=== PATIENT | male | born 1985 | race Caucasian/White ===

== ENCOUNTER 2022-05-05 00:40 | Emergency (ER) | payer MEDICAID ==
[~2022-05-05] VITALS: Ht 170.2 cm; Wt 93.9 kg
--- NOTE | 2022-05-05 00:40 | NUR ---
PT MANJEET ALS. TAKEN TO BED 12
[2022-05-05 00:43] VITALS: BP 113/78
--- NOTE | 2022-05-05 00:45 | NUR ---
Dr. Young examining patient.
[2022-05-05 01:29] LABS: BASOPHILS % (AUTO) 0.5 % (0.0-2.0); EOSINOPHILS % (AUTO) 0.4 % (0.0-4.0); HEMOGLOBIN 12.9 g/dL (12.0-18.0); LYMPHOCYTES # (AUTO) 1.1 K/uL (2.0-11.5); LYMPHOCYTES % (AUTO) 11.9 % (20.5-51.1); MEAN CORPUSCULAR HEMOGLOBIN 29 pg (27-31); MEAN CORPUSCULAR HGB CONC 33 g/dL (33-37); MEAN CORPUSCULAR VOLUME 87.8 fL (80-94); MONOCYTES # (AUTO) 1.2 K/uL (0.8-1.0); MONOCYTES % (AUTO) 13.7 % (1.7-9.3); NEUTROPHILS # (AUTO) 6.7 K/uL (1.8-7.7); NEUTROPHILS % (AUTO) 73.5 % (42.2-75.2); PLATELET COUNT (AUTO) 230 K/uL (140-450); RED BLOOD CELL COUNT(AUTO) 4.44 MIL/uL (4.20-6.10); RED CELL DISTRIBUTION WIDTH 14.4 % (11.6-13.7); WHITE BLOOD COUNT (AUTO) 9.1 K/uL (4.8-10.8)
--- NOTE | 2022-05-05 01:30 | NUR ---
ASSUME CARE OF PT AT THIS TIME, REPORT GIVEN BY GISELE RN, PT CAME FROM SNF FOR SEIZURE LIKE ACTIVTY, WHEN EMS ARRIVED NO SEIZURE OBSERVED, PTPLACED ON CARDIAC MOINTOR AND SEIZURE PADS PLACED.
--- NOTE | 2022-05-05 01:35 | NUR ---
PT HAS HX- CEREBRAL PALSY, HYDROCEPHALUS, PT HAS G-TUBE AND CONTRACTURES OF LEFT ARM AND BILATERAL LEGS.
[2022-05-05 02:01] LABS: ANION GAP 11.1 (8-16); CREATININE 0.9 mg/dL (0.6-1.3); POTASSIUM 4.1 mmol/L (3.5-5.1)
[2022-05-05] MEDS: NACL 0.9% 1,000 ML IV ONE (03:34)
--- NOTE | 2022-05-05 03:35 | NUR ---
NO SEIZURE ACTIVITY NOTED, WILL CONITNUE TO MONITOR, SEIZURE PADS IN PLACE.
--- NOTE | 2022-05-05 04:30 | NUR ---
PT REFUSED STRAIGHT CATH FOR U/A. DR MILIAN NOTIFIED AND AT BEDSIDE, OKAY NOT TO COLLECT UA, PT DIAPER SOILED AND LINEN CHANGED, APPLIED NEW DIAPER AND WIPED DRY. PT WAS ATTEMPTING TO GRABTECH AND RN WHEN BEING CHANGED. PT STATED HE WAS NOT WET AND DID NOT WANT TO BE CHANGED.
--- NOTE | 2022-05-05 05:00 | NUR ---
SPOKE TO MATTI CALDERON FROM [facility] REGARDING PT BEING DISCHARGED, MATTI ADVISED TRANSPORT IS NOT AVAILABLE UNTIL AFTER 6AM. [phone]
--- NOTE | 2022-05-05 06:30 | NUR ---
COVERED PT WITH WARM BLANKET, PT RESTING AND WAITING FOR TRANSPORT.
--- NOTE | 2022-05-05 07:45 | NUR ---
CAREGIVER AT BEDSIDE FOR DC HOME. PT ASSISTED INTO WC SAFELY. DC INSTRUCTIONS GIVEN TO CAREGIVER AT BEDSIDE VERBALIZES DC INSTRUCTIONS. NAD. STABLE ON DC
[2022-05-05 08:11] VITALS: BP 111/67
== END 2022-05-05 07:45 | disposition home or self-care (01) ==
LOC: MED 00:40
DX: G40.509 Epileptic seizures related to external causes, not intractable, without status epilepticus (principal); K21.9 Gastro-esophageal reflux disease without esophagitis; Z98.2 Presence of cerebrospinal fluid drainage device
CPT/HCPCS: 36415; 80048; 85025; 96360; 99285; J7030

== ENCOUNTER 2022-05-09 21:21 | Emergency (ER) | payer MEDICAID ==
[~2022-05-09] VITALS: Ht 172.7 cm; Wt 72.6 kg
[2022-05-09 21:22] VITALS: BP 120/77
--- NOTE | 2022-05-09 21:24 | NUR ---
PT MANJEET BLS. TAKEN TO BED 8
--- NOTE | 2022-05-09 22:00 | NUR ---
MATTI STERN DEICER FINISHER CONTACT [phone]
--- NOTE | 2022-05-09 22:30 | NUR ---
37 Y/O MALE BIBA FROM [facility] C/O CLOGGED G TUBE XTODAY. PT A/O X2- PERSON AND PLACE. BASELINE FOR PT. PATIENT PLACED ON MONITOR. BED LOW AND LOCKED. ALL NEEDS MET. PATIENT ON 2L/MIN NC- BASELINE SAT 97%. PMH:EPILEPSY, CP, OBSTRUCTIVE HYDROCEPHALUS, SPASTICITY, HEMIPLEGIA, INTRAVENTRICULAR HEMORRHAGE OF , GLAUCOMA, ENLARGED PROSTATE, OSTEOPOROSIS, GERD, G TUBE NKDA
--- NOTE | 2022-05-09 22:50 | NUR ---
RAD AT BEDSIDE
--- NOTE | 2022-05-10 00:05 | NUR ---
PT TAKEN TO CT
--- NOTE | 2022-05-10 00:15 | NUR ---
PT RETURN FROM CT
--- NOTE | 2022-05-10 01:25 | NUR ---
CHANGED AND REPOSITIONED PATIENT. TOLERATED WELL. GT PATENT AND INTACT. SIDE RAILS UP NEENA FOR SAFETY WITH SEIZURE PRECAUTIONS. ALL NEEDS MET.
[2022-05-10 01:29] LABS: BASOPHILS % (AUTO) 0.5 % (0.0-2.0); EOSINOPHILS % (AUTO) 0.8 % (0.0-4.0); HEMATOCRIT 38.6 % (36-52); HEMOGLOBIN 12.9 g/dL (12.0-18.0); LYMPHOCYTES % (AUTO) 32.5 % (20.5-51.1); MEAN CORPUSCULAR HEMOGLOBIN 29 pg (27-31); MEAN CORPUSCULAR HGB CONC 33 g/dL (33-37); MEAN CORPUSCULAR VOLUME 88.3 fL (80-94); MONOCYTES # (AUTO) 0.8 K/uL (0.8-1.0); MONOCYTES % (AUTO) 13.1 % (1.7-9.3); NEUTROPHILS # (AUTO) 3.3 K/uL (1.8-7.7); NEUTROPHILS % (AUTO) 53.1 % (42.2-75.2); PLATELET COUNT (AUTO) 202 K/uL (140-450); RED BLOOD CELL COUNT(AUTO) 4.37 MIL/uL (4.20-6.10); RED CELL DISTRIBUTION WIDTH 14.4 % (11.6-13.7); WHITE BLOOD COUNT (AUTO) 6.3 K/uL (4.8-10.8)
[2022-05-10 01:56] LABS: PROTHROMBIN TIME 9.9 secs (10.8-13.4)
[2022-05-10 02:02] LABS: ALBUMIN 2.6 g/dL (3.4-5.0); ANION GAP 10.1 (8-16); POTASSIUM 4.1 mmol/L (3.5-5.1); TOTAL BILIRUBIN 0.2 mg/dL (0.0-1.0)
--- NOTE | 2022-05-10 04:05 | NUR ---
Dr. Young examining patient.
--- NOTE | 2022-05-10 04:30 | NUR ---
ATTEMPTED TO CONTACT MATTI Belcher TO ARRANGE TRANSPORTATION WITH NO SUCCESS.
--- NOTE | 2022-05-10 06:00 | NUR ---
CHANGED AND REPOSITIONED PATIENT. TOLERATED WELL. GT PATENT AND INTACT. SIDE RAILS UP NEENA FOR SAFETY WITH SEIZURE PRECAUTIONS. ALL NEEDS MET.
--- NOTE | 2022-05-10 06:18 | NUR ---
SPOKE TO MATTI HERNANDEZ, TO UPDATE ON PATIENT STATUS AND THEY STATED THAT THEIR DRIVERS START AT 7A AND TRANSPORTATION WILL BE ARRANGED BY HER AT THAT TIME.
--- NOTE | 2022-05-10 07:15 | NUR ---
REPORT GIVEN TO KERRY FIGUEROA. TRANSFER OF CARE.
--- NOTE | 2022-05-10 07:17 | NUR ---
Report recieved from KERRY Roberto for transfer of care.
--- NOTE | 2022-05-10 07:49 | NUR ---
Spoke to Alessia Lyles atlassian administrator, she states drivers clocked in at 0730 and will be there shortly. Patient is the first to be picked up today.
[2022-05-10 07:51] VITALS: BP 95/54
--- NOTE | 2022-05-10 08:27 | NUR ---
Caregiver at bedside
--- NOTE | 2022-05-10 08:29 | NUR ---
Patient assisted from gurney onto patient wheelchair by 2-person lift assisted by caregiver. Caregiver secured pt onto wheelchair via seatbelts/straps.
--- NOTE | 2022-05-10 08:30 | NUR ---
Patient discharged with v/s stable. Written and verbal after care instructions given and explained. Patient verbalized understanding. Wheel Chair Assisted with by caregiver. All questions addressed prior to discharge. Advised to follow up with PMD.
== END 2022-05-10 08:30 | disposition home or self-care (01) ==
LOC: MED 21:21
DX: K94.23 Gastrostomy malfunction (principal)
CPT/HCPCS: 36415; 80053; 85025; 85610; 85730; 86886; 86900; 86901; 99285

== ENCOUNTER 2022-05-23 11:14 | Emergency (ER) | payer MEDICAID ==
[~2022-05-23] VITALS: Ht 170.2 cm; Wt 93.9 kg
[2022-05-23 11:24] VITALS: BP 120/70
--- NOTE | 2022-05-23 11:43 | NUR ---
Dr. Ortiz evaluating patient at bedside.
[2022-05-23] MEDS ORDERED: IBUPROFEN 600 MG TAB PO ONE (11:50)
--- NOTE | 2022-05-23 12:40 | NUR ---
[facility]
--- NOTE | 2022-05-23 12:52 | NUR ---
PATIENT RETURNED FROM CT
--- NOTE | 2022-05-23 13:20 | NUR ---
LAB AT BEDSIDE.
[2022-05-23 13:46] LABS: BASOPHILS # (AUTO) 0.2 K/uL (0.00-0.22); BASOPHILS % (AUTO) 1.2 % (0.0-2.0); EOSINOPHILS # (AUTO) 0.2 K/uL (0-0.4); EOSINOPHILS % (AUTO) 1.2 % (0.0-4.0); HEMATOCRIT 37.4 % (36-52); HEMOGLOBIN 12.2 g/dL (12.0-18.0); LYMPHOCYTES # (AUTO) 2.9 K/uL (2.0-11.5); LYMPHOCYTES % (AUTO) 22.2 % (20.5-51.1); MEAN CORPUSCULAR HEMOGLOBIN 29 pg (27-31); MEAN CORPUSCULAR HGB CONC 33 g/dL (33-37); MEAN CORPUSCULAR VOLUME 88.3 fL (80-94); MONOCYTES # (AUTO) 2.2 K/uL (0.8-1.0); MONOCYTES % (AUTO) 16.9 % (1.7-9.3); NEUTROPHILS # (AUTO) 7.7 K/uL (1.8-7.7); NEUTROPHILS % (AUTO) 58.5 % (42.2-75.2); PLATELET COUNT (AUTO) 135 K/uL (140-450); RED BLOOD CELL COUNT(AUTO) 4.24 MIL/uL (4.20-6.10); RED CELL DISTRIBUTION WIDTH 14.9 % (11.6-13.7); WHITE BLOOD COUNT (AUTO) 13.2 K/uL (4.8-10.8)
[2022-05-23] MEDS ORDERED: ACET-10509 PO (14:02)
[2022-05-23] MEDS ORDERED: ONDA-188 PO (14:02)
[2022-05-23 14:03] LABS: ALBUMIN 2.5 g/dL (3.4-5.0); ANION GAP 11.1 (8-16); CARBON DIOXIDE 30.7 mmol/L (21-32); CREATININE 0.7 mg/dL (0.6-1.3); POTASSIUM 3.8 mmol/L (3.5-5.1); TOTAL BILIRUBIN 0.4 mg/dL (0.0-1.0)
--- NOTE | 2022-05-23 14:42 | NUR ---
Patient is sitting up on bed, respirations even and unlabored. No signs of distress noted.
--- NOTE | 2022-05-23 16:56 | NUR ---
DRAGLINE OILER IS FROM 7:30PM -8:30 PM.
--- NOTE | 2022-05-23 19:18 | NUR ---
Report given to KERRY Roberto for transfer of care.
--- NOTE | 2022-05-23 19:24 | NUR ---
[facility] AT [facility]
[2022-05-23 19:31] VITALS: BP 103/61
--- NOTE | 2022-05-23 19:31 | NUR ---
Patient discharged with v/s stable. Written and verbal after care instructions given ABD PAIN and explained. Patient alert, oriented and verbalized understanding of instructions. Ambulance Transport with to half-way. All questions addressed prior to discharge. ID band removed. Patient advised to follow up with PMD. Rx of TYLENOL AND ZOFRAN given.
== END 2022-05-23 19:31 | disposition home or self-care (01) ==
LOC: MED 11:14
DX: R10.9 Unspecified abdominal pain (principal); G40.909 Epilepsy, unspecified, not intractable, without status epilepticus; H54.7 Unspecified visual loss; Z98.890 Other specified postprocedural states
CPT/HCPCS: 36415; 80053; 85025; 99284

== ENCOUNTER 2022-05-28 00:31 | Inpatient (IN) | payer MEDICAID ==
[~2022-05-28] VITALS: Ht 160 cm; Wt 65.4 kg
[~2022-05-28 00:31] MED LIST: ACET-10509 PO; ONDA-188 PO
--- NOTE | 2022-05-28 00:31 | NUR ---
PT BIBA ALS ER BED 9
[2022-05-28] MEDS ORDERED: LORazepam 2 MG/ML VIAL IVP ONE ×2 (00:35→01:00)
[2022-05-28] MEDS ORDERED: levETIRAcetam 1,000 MG in NACL 0.9% 100 ML IV ONE (00:35)
[2022-05-28] MEDS ORDERED: PHENYTOIN 1,000 MG in NACL 0.9% 100 ML IV ONE (00:35)
--- NOTE | 2022-05-28 00:35 | NUR ---
PT BIBA FOR WITNESSED SEIZURE AT [facility], STAFF STATED PT HAVING 7 SEIZURES THAT LASTED A TOTAL OF 20 MINS, EMS STATED PT WAS POSITICAL WHEN THEY ARRIVED AND GAVE 10 MG VERSED IM. PT PLACED ON 15L NON REBREATHER BY EMS FOR LOW O2 SAT. PT PLACED ON FAMILY LAW LEGAL ASSISTANT AND SEIZURE PADS PLACED. PT HX- SZ, CEREBRAL PALSY.
--- NOTE | 2022-05-28 00:40 | NUR ---
RT AT BEDSIDE EVALUATING PT.
[2022-05-28] MEDS ORDERED: PHENYTOIN 250 MG/5 ML VIAL IV ONE (00:48)
[2022-05-28] MEDS ORDERED: levETIRAcetam 100 MG/ML VIAL IV ONE (00:51)
[2022-05-28 00:59] LABS: BASOPHILS % (AUTO) 0.4 % (0.0-2.0); EOSINOPHILS # (AUTO) 0.1 K/uL (0-0.4); HEMOGLOBIN 12.3 g/dL (12.0-18.0); LYMPHOCYTES # (AUTO) 1.4 K/uL (2.0-11.5)
[2022-05-28 01:20] VITALS: BP 95/53
[2022-05-28 01:34] LABS: EOSINOPHILS % (AUTO) 0.5 % (0.0-4.0); HEMATOCRIT 38.2 % (36-52); LYMPHOCYTES % (AUTO) 12.3 % (20.5-51.1); MEAN CORPUSCULAR HEMOGLOBIN 29 pg (27-31); MEAN CORPUSCULAR HGB CONC 32 g/dL (33-37); MEAN CORPUSCULAR VOLUME 88.7 fL (80-94); MONOCYTES # (AUTO) 1.2 K/uL (0.8-1.0); MONOCYTES % (AUTO) 10.7 % (1.7-9.3); NEUTROPHILS # (AUTO) 8.6 K/uL (1.8-7.7); NEUTROPHILS % (AUTO) 76.1 % (42.2-75.2); PLATELET COUNT (AUTO) 201 K/uL (140-450); RED CELL DISTRIBUTION WIDTH 14.7 % (11.6-13.7); WHITE BLOOD COUNT (AUTO) 11.3 K/uL (4.8-10.8)
[2022-05-28 01:49] LABS: ALBUMIN 2.6 g/dL (3.4-5.0); ANION GAP 16.8 (8-16); ASPARTATE AMINOTRANSFERASE 17 U/L (15-37); CARBON DIOXIDE 25.1 mmol/L (21-32); CHLORIDE 104 mmol/L (98-107); GFR ARICAN-AMERICAN 107 mL/min (>90); GLUCOSE 123 mg/dL (74-106); POTASSIUM 3.9 mmol/L (3.5-5.1); SODIUM SERUM 142 mmol/L (136-145); TOTAL BILIRUBIN 0.2 mg/dL (0.0-1.0); UREA NITROGEN, BLOOD 24 mg/dL (7-18); VALPROIC ACID 95 ug/ml (50-100)
--- NOTE | 2022-05-28 01:59 | NUR ---
Dr. Harding examining patient.
[2022-05-28] MEDS ORDERED: cefTRIAXone 2,000 MG in DEXTROSE 5% 100 ML IV ONE (02:15)
[2022-05-28] MEDS ORDERED: AZITHROMYCIN 500 MG in DEXTROSE 5% 250 ML IV ONE (02:15)
--- NOTE | 2022-05-28 02:30 | NUR ---
PT DIAPER CHANGED, SLIGHT BM, CLEANED PT WITH WIPES AND APPLIED NEW DIAPER. LINEN CHANGED, SKIN INTACT.
[2022-05-28] MEDS ORDERED: TRAZ-343 PO (02:31)
[2022-05-28] MEDS ORDERED: BISA-218 RC (02:31)
[2022-05-28] MEDS ORDERED: OSC500 GT (02:31)
[2022-05-28] MEDS ORDERED: VALP-22 GT (02:31)
[2022-05-28] MEDS ORDERED: BACL10TA4 GT (02:31)
[2022-05-28] MEDS ORDERED: OMEG10005 GT (02:31)
[2022-05-28] MEDS ORDERED: LACO200T GT (02:45)
[2022-05-28] MEDS ORDERED: KEP500L PO (02:45)
[2022-05-28] MEDS ORDERED: FLEMIN RC (02:45)
[2022-05-28] MEDS ORDERED: ONDA-188 PO (02:45)
[2022-05-28] MEDS ORDERED: MENT1LOZ43 TP (02:45)
[2022-05-28] MEDS ORDERED: ROB GT (02:45)
[2022-05-28] MEDS ORDERED: [UNRECOGNIZED DRUG - CODE] GT (02:45)
[2022-05-28] MEDS ORDERED: Albuterol HFA IH (02:45)
[2022-05-28] MEDS ORDERED: cefTRIAXone 2,000 MG VIAL ONE (03:41)
[2022-05-28] MEDS ORDERED: AZITHROMYCIN 500 MG INJ VIAL IV ONE (03:52)
--- NOTE | 2022-05-28 04:00 | NUR ---
PLACED CONDOM CATH FOR URINE
--- NOTE | 2022-05-28 04:39 | NUR ---
NO SEIZURE ACTIVITY OBSERVED SINCE PT HAS BEEN HERE. PT CONTINUE ON CARDAIC MONITOR, PT WAITNG FOR ADMIT ORDERS.
--- NOTE | 2022-05-28 05:00 | NUR ---
NOTIFIED REGARDING LOW BP.
[2022-05-28] MEDS ORDERED: NACL 0.9% 1,000 ML IV ONE ×3 (05:20→06:35)
[2022-05-28] MEDS ORDERED: NACL 0.9% 500 ML IV ONE (06:45)
--- NOTE | 2022-05-28 07:11 | NUR ---
SPOKE TO MATTI JURADO FROM [facility], PT DOES NOT HAVE POA, SHE HAS BEEN TRYING TO REACH SISTER SINCE PT WAS ADMITTED TO HER FACILITY. DR ESPARZA AWARE.
--- NOTE | 2022-05-28 07:12 | NUR ---
REPORT GIVEN TO MIKE PAYNE.
--- NOTE | 2022-05-28 07:13 | NUR ---
REPORT RECEIVED FROM JAIRO ROSAS. ASSUMED CARE AT THIS TIME
[2022-05-28] MEDS ORDERED: NOREPINEPHRINE 4 MG in DEXTROSE 5% 250 ML IV ONE (07:20)
--- NOTE | 2022-05-28 07:39 | NUR ---
AT BEDSIDE FOR CENTRAL LINE PLACEMENT
--- NOTE | 2022-05-28 08:38 | NUR ---
CALL RECEIVED FROM DELIVERY TRUCK DRIVER AT [facility] - PATRICIA OLIVARES . PATRICIA UPDATED ON PT STATUS AND ICU ADMISSION
[2022-05-28] MEDS ORDERED: ONDANSETRON 4 MG/2 ML VIAL IM/IVP PRN (09:20)
[2022-05-28] MEDS ORDERED: ALBUTEROL SULFATE/IPRATROPIU 3 ML SOL IH PRN (09:20)
[2022-05-28] MEDS ORDERED: KETOROLAC 15 MG/ML VIAL IVP SCH (09:20)
[2022-05-28] MEDS ORDERED: ACETAMINOPHEN 325 MG TAB PO PRN (09:20)
[2022-05-28] MEDS ORDERED: DOCUSATE SODIUM 100 MG GELCAP PO PRN (09:20)
[2022-05-28] MEDS ORDERED: POTASSIUM CHLORIDE 10 MEQ TABER PO PRN (09:20)
[2022-05-28] MEDS ORDERED: ZOLPIDEM 5 MG TAB PO PRN (09:20)
[2022-05-28] MEDS ORDERED: guaiFENesin DM 200/20 MG-10 ML 10 ML UDC PO PRN (09:20)
[2022-05-28] MEDS ORDERED: HYDROcodone/APAP 7.5/325 MG 1 TAB PO PRN (09:20)
--- NOTE | 2022-05-28 09:48 | NUR ---
RT AT BEDSIDE
[2022-05-28] MEDS: DEXT 5% /NACL 0.9% 1,000 ML IV SCH ×2 (09:58→20:40)
--- NOTE | 2022-05-28 10:05 | NUR ---
LAB AT BEDSIDE
[2022-05-28 10:42] LABS: APPEARANCE,URINE CLEAR (CLEAR); BILIRUBIN,URINE NEGATIVE (NEGATIVE); BLOOD, URINE 3+ (NEGATIVE); COLOR,URINE YELLOW (YELLOW); LEUKOCYTE ESTERASE ,URINE 1+ (NEGATIVE); NITRITE, URINE NEGATIVE (NEGATIVE); UGLUCOSE NEGATIVE (NEGATIVE)
[2022-05-28 10:45] LABS: PROTHROMBIN TIME 10.4 secs (10.8-13.4)
[2022-05-28 10:59] LABS: OTHER CASTS, URINE None Seen /LPF (None Seen); RBC,URINE 11-20 (MOD) /HPF (0-5); WBC,URINE 0-5 /HPF (0-5)
[2022-05-28 11:02] LABS: AMYLASE 72 U/L (25-115); CHOL/HDL RATIO 3.8 (1-4.5); FREE T4 (FREE THYROXINE) 0.98 ng/dL (0.76-1.46); HDL CHOLESTEROL 33 mg/dL (40-60); LDL (CALC) 70 mg/dL (60-100); LIPASE 79 U/L (73-393); MAGNESIUM 1.9 mg/dL (1.8-2.4); THYROID STIMULATING HORMONE 1.45 uIU/mL (0.34-3.74); TRIGLYCERIDES 115 mg/dL (30-150)
[2022-05-28 11:07] LABS: BARBITURATE, URINE NEGATIVE ng/ml (NEG <=200); BENZODIAZEPINE, URINE NEGATIVE ng/mL (NEG <=200); CANNABINOID, URINE NEGATIVE ng/mL (NEG <=50); COCAINE, URINE NEGATIVE ng/mL (NEG <=300); OPIATE, URINE NEGATIVE ng/mL (NEG <=2000); PHENCYCLIDINE SCREEN,URINE NEGATIVE ng/mL (NEG <=25)
--- NOTE | 2022-05-28 11:38 | NUR ---
Julissa kumar in ED - 05/28/22 at 1440 by MEDPMR per md morley, discontinue levophed order and downgrade to levophed
--- NOTE | 2022-05-28 11:38 | NUR ---
per md morley, discontinue levophed order and downgrade to telemetry
[2022-05-28] MEDS: ALBUTEROL SULFATE/IPRATROPIU 3 ML SOL IH SCH ×2 (13:00→19:00)
[2022-05-28] MEDS ORDERED: VALPROATE SODIUM 500 MG/5 ML VIAL IV ONE (13:10)
[2022-05-28] MEDS ORDERED: DOCUSATE 100 MG/10 ML UDC GT PRN (13:20)
--- NOTE | 2022-05-28 13:25 | NUR ---
pharmacy called for pt med
[2022-05-28] MEDS: levETIRAcetam 100 MG/ML ORASYR GT SCH ×2 (13:46→23:45)
[2022-05-28] MEDS: VALPROIC ACID 250 MG/5 ML UDC GT SCH ×2 (13:47→17:49)
--- NOTE | 2022-05-28 14:41 | NUR ---
PATRICIA OLIVARES CALLED AND UPDATED ON PT STATUS/ DOWNGRADE
--- NOTE | 2022-05-28 17:20 | NUR ---
pt changed into clean gown and linens. repositioned and provided w/ warm blanket.
[2022-05-28] MEDS ORDERED: ACETAMINOPHEN 650 MG/20.3 ML UDC GT PRN (17:40)
[2022-05-28] MEDS ORDERED: ACETAMINOPHEN 650 MG/20.3 ML UDC ONE (17:43)
--- NOTE | 2022-05-28 18:20 | NUR ---
gtube placement confirmed and feeding started.
--- NOTE | 2022-05-28 19:12 | NUR ---
REPORT GIVEN TO JAIRO ROSAS. ALL QUESTIONS ANSWERED. TRANSFER OF CARE AT THIS TIME
--- NOTE | 2022-05-28 19:59 | NUR ---
Patient will be admitted to care of MARLEY YEBOAH. Admited to TELE. Will go to room 107A. Belongings list completed. Report to ROSALINDA ROSAS.
--- NOTE | 2022-05-28 20:40 | NUR ---
RECEIVED NEW ADMIT AND REPORT FROM INTELLIGENCE INTERN . PT ARRIVED ON MST UNIT VIA PADDED GURNEY. IV FLUIDS D5NS@100CC/HR. G TUBE FEEDING GLUCERNA1.2 @40CC/HR. VSS: BP-90/59, P-70, RR18, T-97.0, W9VGU=89% ON RM AIR. PT TRANSFERRED FROM [facility] TO BED WITH 4 ASSIST. PT A&OX1 TO NAME. PT HAS HX OF CEREBRAL PALSY. HE IS BED BOUND AND INCONTINENT OF BOWEL AND BLADDER. ALL SAFETY MEASURES IN PLACE. SIGNS POSTED. SIDE RAILS PADDED. BED IN LOW AND LOCKED POSITION CALL LIGHT WITHIN REACH. WILL CONTINUE WITH FREQ VISUAL CHECKS.
--- NOTE | 2022-05-28 22:00 | NUR ---
INCONTINENT OF URINE SOAKED DIAPER AND 2 CHUCKS. SKIN CARE PROVIDED. CONDOM CATHETER APPLIED FOR URINE SPECIMEN COLLECTION. R HAND IV 20 G GOT PULLED OUT WITH PT'S MOVEMENT. IVF D5NS@100CC/HR INFUSING INTO BLUE PORT OF R FEMORAL CENTRAL LINE TRIPLE LUMEN CATHETER. REPOSITIONED PT. ALL SAFETY MEASURES IN PLACE. CALL LIGHT WITHIN REACH. WILL CONTINUE WITH FREQ VISUAL CHECKS.
--- NOTE | 2022-05-28 23:30 | NUR ---
CONDOM CATHETER EFFECTIVE DRAINING 750CC CLEAR YELLOW URINE. URINE SPECIMEN OBTAINED CLEAN CATCH FROM CONDOM CATHETER. UNABLE TO COLLECT SPUTUM SPECIMEN. PT IS NOT COUGHING. WILL CONTINUE WITH FREQ ROUNDS DUE TO PT'S HISTORY OF SEIZURES. ALL PRECAUTIONS IN PLACE.
--- NOTE | 2022-05-28 23:30 | NUR ---
GI RESIDUAL ONLY 10CC. MEDS: TRAZADONE AND KEPPRA GIVEN THROUGH G-TUBE. ROCEPHIN IVPB INFUSED VIA BLUE PORT OF CENTRAL LINE. ;
[2022-05-28] MEDS ORDERED: cefTRIAXone 1,000 MG VIAL ONE (23:39)
[2022-05-28] MEDS: traZODone 50 MG TAB PO SCH (23:45)
[2022-05-29] MEDS: LORazepam 2 MG/ML VIAL IVP PRN ×2 (01:35→18:44)
--- NOTE | 2022-05-29 01:35 | NUR ---
PT HAD A SEIZURE LASTING 30 SECONDS EYES ROLLED BACK IN HEAD AND PT WAS SHAKING. ATIVAN 2MG IVP GIVEN. PT QUIETED DOWN RR EVEN AND UNLABORED WITH EQUAL CHEST RISE. SLEEPING AFTER 10 MINUTES. NAD. CONTINUE WITH FREQ VISUAL CHECKS.
[2022-05-29 02:44] LABS: APPEARANCE,URINE CLEAR (CLEAR); BILIRUBIN,URINE NEGATIVE (NEGATIVE); BLOOD, URINE NEGATIVE (NEGATIVE); COLOR,URINE YELLOW (YELLOW); LEUKOCYTE ESTERASE ,URINE NEGATIVE (NEGATIVE); NITRITE, URINE NEGATIVE (NEGATIVE); PH,URINE 7.5 (5.0-9.0); UGLUCOSE NEGATIVE (NEGATIVE)
--- NOTE | 2022-05-29 04:00 | NUR ---
BP LOW R ARM 86/54, L ARM 87/51., P-50, RR-16, T-97.5, E1XAM=31% ON 3L O2/NC. SENT DR. ROACH A TEXT EXPLAINING THE SITUATION. WHILE AWAITING HIS RESPONSE RETOOK VITAL SIGNS@ 0415: BP- 116/71, T-96.7, P-79,, RR-16,H5KNQ=03% ON O2 3L/NC. STILL NO RESPONSE AT 0500. RETOOK VITAL SIGNS AGAIN. BP-112/72,P-62, RR-18, T-96.7, W8HFR=00% ON O2 3L/NC..
[2022-05-29 04:15] VITALS: BP 116/71
[2022-05-29] MEDS: DEXT 5% /NACL 0.9% 1,000 ML IV SCH ×3 (05:20→19:34)
--- NOTE | 2022-05-29 05:55 | NUR ---
CHARGE NURSE DARWIN GUILLEN RN SENT DR. ROACH AN UPDATE. DR. ROACH RESPONDED BACK WITH ADDITIONAL ORDERS IF BP IS LOW AGAIN. SEE ADDITIONAL ORDERS.
[2022-05-29 06:54] LABS: ANION GAP 7.1 (8-16); CARBON DIOXIDE 30.7 mmol/L (21-32); CREATININE 0.7 mg/dL (0.6-1.3); POTASSIUM 3.8 mmol/L (3.5-5.1)
[2022-05-29 07:02] LABS: BASOPHILS % (AUTO) 0.3 % (0.0-2.0); EOSINOPHILS # (AUTO) 0.1 K/uL (0-0.4); EOSINOPHILS % (AUTO) 1.6 % (0.0-4.0); HEMATOCRIT 37.3 % (36-52); HEMOGLOBIN 12.2 g/dL (12.0-18.0); LYMPHOCYTES # (AUTO) 1.8 K/uL (2.0-11.5); LYMPHOCYTES % (AUTO) 36.7 % (20.5-51.1); MEAN CORPUSCULAR HEMOGLOBIN 29 pg (27-31); MEAN CORPUSCULAR HGB CONC 33 g/dL (33-37); MEAN CORPUSCULAR VOLUME 88.3 fL (80-94); MONOCYTES # (AUTO) 0.6 K/uL (0.8-1.0); NEUTROPHILS # (AUTO) 2.5 K/uL (1.8-7.7); NEUTROPHILS % (AUTO) 49.4 % (42.2-75.2); PLATELET COUNT (AUTO) 266 K/uL (140-450); RED BLOOD CELL COUNT(AUTO) 4.22 MIL/uL (4.20-6.10); RED CELL DISTRIBUTION WIDTH 15.1 % (11.6-13.7)
[2022-05-29] MEDS: ALBUTEROL SULFATE/IPRATROPIU 3 ML SOL IH SCH ×3 (07:36→19:00)
--- NOTE | 2022-05-29 07:50 | NUR ---
ENDORSED REPORT TO MYRIAM DELARSOA RN FOR CONTINUITY OF CARE. PT IS STABLE. ALL NEEDS MET THROUGHOUT THE SHIFT.
[2022-05-29 08:07] LABS: T4 (THYROXINE) 7.5 ug/dL (4.5-12.0)
[2022-05-29 08:58] VITALS: BP 107/74
--- NOTE | 2022-05-29 09:30 | NUR ---
PATIENT HAS BEEN SCREENED AND CATEGORIZED HIGH NUTRITION RISK. PATIENT WILL BE SEEN WITHIN 1-2 DAYS OF ADMISSION. 05/28/22-05/30/[address]
[2022-05-29] MEDS: VALPROIC ACID 250 MG/5 ML UDC GT SCH ×3 (10:00→17:16)
[2022-05-29] MEDS: PANTOPRAZOLE 40 MG TABEC PO SCH (10:00)
[2022-05-29] MEDS: levETIRAcetam 100 MG/ML ORASYR GT SCH ×2 (10:00→21:35)
[2022-05-29 12:00] VITALS: BP 109/70
--- NOTE | 2022-05-29 15:40 | NUR ---
05/29/2022 RD INITIAL ASSESSMENT COMPLETED. PLEASE REFER TO NUTRITION ASSESSMENT UNDER CARE ACTIVITY FOR ESTIMATED NUTRITIONAL NEEDS. 1.CONTINUE WITH REGULAR DIET AND GLUCERNA 1.2 @ 40ML/HR; FWF 40ML Q12H PT TOLERATES 2.MONITOR PO INTAKE AND FOR GASTRIC RESIDUAL 3.RD TO FOLLOW-UP IN 3-5 DAYS PATIENT IS MODERATE RISK. JOSH MARQUES RD
[2022-05-29 16:00] VITALS: BP 111/64
--- NOTE | 2022-05-29 18:49 | NUR ---
Patient had a 5 min seizure and witnessed bu this Nurse. Administered Ativan and patient's seizure started slowing down. Called and notified Dr Rivera who asked for Dr Hughes to be called. Patient currently resting and no more seizure activity. Dr Hughes notified and awaiting call back.
--- NOTE | 2022-05-29 19:30 | NUR ---
RECEIVED REPORT FROM AM NURSE MYRIAM RN FOR CONTINUITY OF CARE. REPORTED PT HAD A SEIZURE LASTING [address] ROACH INFORMED AND DR BIANCHI NEUROLOGY TEXTED FOR FURTHER ORDERS. SO FAR DR. BIANCHI HAS NOT RESPONDED. PT IS STABLE IN BED SLEEPING. RR EVEN AND UNLABORED WITH SYMMETRICAL CHEST RISE. ON O2 3L/NC WITH NO ACUTE DISTRESS. GI INTACT RECEIVING GLUCERNA 1.2@40CC/HR NO RESIDUAL. PT'S SKIN IS INTACT. R FEMORAL TRIPLE LUMEN CENTRAL LINE WITH BLUE PORT INFUSING D5NS@100CC/HR. PT IS BED BOUND AND INCONTINENT OF BOWEL AND BLADDER. ALL SAFETY MEASURES IN PLACE. BED IN LOW AND LOCKED POSITION. CALL LIGHT WITHIN REACH. WILL CONTINUE WITH FREQ VISUAL CHECKS.
[2022-05-29 20:00] VITALS: BP 91/52
--- NOTE | 2022-05-29 21:00 | NUR ---
DR. BIANCHI HAS NOT RESPONDED. PT IS STABLE NO SEIZURES. RESTING COMFORTABLY. HS MEDS GIVEN VIA IV AND G-TUBE. TURNED AND REPOSITIONED. VSS AFEBRILE. RR EVEN AND UNLABORED O2 ON @3L/NC. NAD. CONTINUE FREQ VISUAL CHECKS.
[2022-05-29] MEDS: traZODone 50 MG TAB PO SCH (21:36)
[2022-05-30] VITALS: BP 91/52
--- NOTE | 2022-05-30 01:00 | NUR ---
PT AWAKE C/O INSOMNIA. RECEIVED AMBIEN 5MG VIA GT. REPOSITIONED NO G-TUBE RESIDUAL.
[2022-05-30 04:00] VITALS: BP 113/64
[2022-05-30] MEDS: DEXT 5% /NACL 0.9% 1,000 ML IV SCH ×2 (06:17→20:39)
--- NOTE | 2022-05-30 07:30 | NUR ---
ENDORSED REPORT TO AM NURSE MYRIAM ROSAS FOR CONTINUITY OF CARE. PT IS STABLE. ALL NEEDS MET THROUGHOUT THE SHIFT.
[2022-05-30 08:00] VITALS: BP 119/62
[2022-05-30] MEDS: PANTOPRAZOLE 40 MG TABEC PO SCH (08:15)
[2022-05-30 08:16] LABS: ANION GAP 12.3 (8-16); CARBON DIOXIDE 28.7 mmol/L (21-32); CREATININE 0.8 mg/dL (0.6-1.3)
[2022-05-30] MEDS: levETIRAcetam 100 MG/ML ORASYR GT SCH ×2 (08:16→20:35)
[2022-05-30] MEDS: VALPROIC ACID 250 MG/5 ML UDC GT SCH ×3 (08:16→18:14)
[2022-05-30] MEDS: ALBUTEROL SULFATE/IPRATROPIU 3 ML SOL IH SCH ×3 (08:20→19:00)
[2022-05-30 08:28] LABS: BASOPHILS % (AUTO) 0.3 % (0.0-2.0); EOSINOPHILS # (AUTO) 0.1 K/uL (0-0.4); EOSINOPHILS % (AUTO) 1.1 % (0.0-4.0); HEMATOCRIT 37.7 % (36-52); HEMOGLOBIN 12.5 g/dL (12.0-18.0); LYMPHOCYTES # (AUTO) 1.6 K/uL (2.0-11.5); LYMPHOCYTES % (AUTO) 23.3 % (20.5-51.1); MEAN CORPUSCULAR HEMOGLOBIN 29 pg (27-31); MEAN CORPUSCULAR HGB CONC 33 g/dL (33-37); MEAN CORPUSCULAR VOLUME 87.4 fL (80-94); MONOCYTES # (AUTO) 0.7 K/uL (0.8-1.0); MONOCYTES % (AUTO) 10.4 % (1.7-9.3); NEUTROPHILS # (AUTO) 4.5 K/uL (1.8-7.7); NEUTROPHILS % (AUTO) 64.9 % (42.2-75.2); PLATELET COUNT (AUTO) 306 K/uL (140-450); RED BLOOD CELL COUNT(AUTO) 4.32 MIL/uL (4.20-6.10); WHITE BLOOD COUNT (AUTO) 6.9 K/uL (4.8-10.8)
[2022-05-30 12:00] VITALS: BP 111/73
--- NOTE | 2022-05-30 14:11 | NUR ---
LATE ENTRY- IV LEVETIRACETAM AND ROCEPHIN DISCONTINUED AT 1958.
[2022-05-30 16:00] VITALS: BP 121/67
--- NOTE | 2022-05-30 18:14 | NUR ---
Notified Dr Hughes on patient's seizure from previous day and verbalized to see patient on 05/31/22. No seizure activity noted during shift.
--- NOTE | 2022-05-30 19:25 | NUR ---
RECEIVED PT FROM AM NURSE FOR CONTINUITY OF CARE.PT IS STABLE
[2022-05-30 20:00] VITALS: BP 104/64
[2022-05-30] MEDS: traZODone 50 MG TAB PO SCH (20:37)
[2022-05-31] VITALS: BP 101/66
--- NOTE | 2022-05-31 | NUR ---
CLEANED AND REPOSITIONED THE PT,TOLERATED WELL ,NO SOB NOTED
[2022-05-31 04:00] VITALS: BP 105/62
[2022-05-31 06:41] LABS: ANION GAP 12.7 (8-16); CREATININE 0.7 mg/dL (0.6-1.3); POTASSIUM 3.7 mmol/L (3.5-5.1)
[2022-05-31 06:48] LABS: BASOPHILS % (AUTO) 0.2 % (0.0-2.0); EOSINOPHILS # (AUTO) 0.1 K/uL (0-0.4); EOSINOPHILS % (AUTO) 1.5 % (0.0-4.0); HEMOGLOBIN 12.4 g/dL (12.0-18.0); LYMPHOCYTES % (AUTO) 29.4 % (20.5-51.1); MEAN CORPUSCULAR HEMOGLOBIN 29 pg (27-31); MEAN CORPUSCULAR HGB CONC 34 g/dL (33-37); MEAN CORPUSCULAR VOLUME 87.1 fL (80-94); MONOCYTES # (AUTO) 0.8 K/uL (0.8-1.0); NEUTROPHILS % (AUTO) 56.9 % (42.2-75.2); PLATELET COUNT (AUTO) 278 K/uL (140-450); RED BLOOD CELL COUNT(AUTO) 4.24 MIL/uL (4.20-6.10); RED CELL DISTRIBUTION WIDTH 15.2 % (11.6-13.7); WHITE BLOOD COUNT (AUTO) 6.9 K/uL (4.8-10.8)
[2022-05-31] MEDS: ALBUTEROL SULFATE/IPRATROPIU 3 ML SOL IH SCH ×3 (07:00→20:53)
[2022-05-31] MEDS: DEXT 5% /NACL 0.9% 1,000 ML IV SCH ×2 (07:20→14:31)
--- NOTE | 2022-05-31 07:20 | NUR ---
ENDORSED PT TO AM NURSE FOR CONTINUITY OF CARE.PT IS STABLE
[2022-05-31 08:00] VITALS: BP 99/74
[2022-05-31] MEDS: VALPROIC ACID 250 MG/5 ML UDC GT SCH ×3 (08:21→17:17)
[2022-05-31] MEDS: levETIRAcetam 100 MG/ML ORASYR GT SCH ×2 (08:22→20:50)
[2022-05-31] MEDS: PANTOPRAZOLE 40 MG TABEC PO SCH (08:22)
[2022-05-31 12:00] VITALS: BP 94/57
--- NOTE | 2022-05-31 13:56 | NUR ---
PT. WITH LOW ROSEANNE SCALE AT MODERATE TO HIGH RISK, CONTINUE TO FOLLOW PRESSURE INJURY PREVENTION INTERVENTIONS. -POSITIONING: TURN AND REPOSITION PATIENT Q 2H OR SOONER USE PILLOWS TO KEEP BONY PROMINENCES FROM DIRECT CONTACT WITH SURFACES USE REPOSITIONING WEDGES TO PROVIDE 30-DEGREE ANGLE FOR SIDE LYING POSITIONS OFFLOADING OR FOAM DRESSING TO ALL TUBING TO PREVENT MEDICAL DEVICES RELATED PRESSURE INJURY -RE-EVALUATING AND MANAGING INCONTINENCE MONITOR SKIN CONDITION DURING POSITION CHANGE DO NOT MASSAGE REDNESS, BONY PROMINENCES FREQUENT ROSANNA-CARE AND PROVIDE BARRIER CREAMS PRN IF SOILING MOISTURE CONTROL BY OFFER BED DELCID/URINAL /ABSORBENT PAD TO WICK AND HOLD MOISTURE KEEP SKIN DRY AND PROTECT FROM FRICTION -MANAGE FRICTION/SHEAR/MOBILITY KEEP HOB AT THE LOWEST LEVEL OF ELEVATION NO MORE THAN 30 DEGREE UNLESS OTHERWISE CONTRAINDICATED USE LIFT SHEET OR TRANSFER DEVICE TO MOVE PATIENT AND PREVENT LATERAL SHEER. PROTECT HEELS, ELBOWS BONY PROMINENCES WITH SKIN BERRIES OR FOAM DRESSING IF EXPOSED TO FRICTION OFFLOAD BILATERAL HEELS BY PLACING PILLOWS UNDER CALVES AT ALL TIMES, UNLESS OTHERWISE CONTRAINDICATED -PRESSURE REDISTRIBUTION SURFACE THERAPY JASPER ISOFLEX MATTRESS -NUTRITION: PLEASE FOLLOW RD RECOMMENDATIONS AND OFFER NUTRITION SUPPLEMENTS IF ORDERED. PLEASE CONTACT WOUND CARE NURSE FOR ANY QUESTION AND CHANGE OF WOUND CONDITION.
--- NOTE | 2022-05-31 14:29 | NUR ---
DC PLANNING SW OUTREACHED TO FACILITY TO GATHER COLLATERAL INFORMATION. SPOKE WITH FRED,MOTOR AND CHASSIS INSPECTOR, WHO REPORTS PATIENT IS RECENT ADMISSION TO FACILITY OF 04/27/22. FRED REPORTS NO KNOWN FAMILY INVOLVEMENT HOWEVER, REPORTS PATIENT IS [facility] CONNECTED, [facility] ASHLY ROSALINDA RADHA [phone].FRED REPORTS THAT PATIENT IS TOTAL CARE/FULL ASSIST AND REQUIRES ASSISTANCE WITH ALL ADL'S. PATIENT UTILIZES WC AT FACILITY. PATIENT IS REPORTED TO BE MINIMALLY VERBAL AND HAS ABILITY TO MAKE NEEDS KNOWN. FRED REPORTS THAT PATIENT FREQUENTLY WILL ASK FOR FOOD HOWEVER, RECENTLY HAD A SWALLOW EVAL. THAT HE FAILED. FRED, REPORTS DC PLAN IS FOR PATIENT TO RETURN TO [facility], ONCE MEDICALLY STABLE.
[2022-05-31 16:00] VITALS: BP 107/60
--- NOTE | 2022-05-31 17:39 | NUR ---
PT NOTED TO HAVE SEIZURE AT 1718 THAT LASTED APPROXIMATELY 90 SECONDS. PT BREATHING INTACT POST SIEZURE, NO INJURY NOTED VITAL SIGNS 117/75 HR 91 O2 SAT 95% ON 3L NC TEMP 97.7, MD DAVID MADE AWARE AND NO NEW ORDERS AT THIS TIME PT RESTING WILL CONTINUE TO MONITOR AND ASSESS
--- NOTE | 2022-05-31 19:25 | NUR ---
RECEIVED PT FROM AM NURSE FOR CONTINUITY OF CARE.PT IS STABLE
[2022-05-31 20:00] VITALS: BP 107/60
[2022-05-31] MEDS: traZODone 50 MG TAB PO SCH (20:52)
[2022-06-01] VITALS: BP 101/62
--- NOTE | 2022-06-01 01:40 | NUR ---
PATIENT ASLEEP, NO DISTRESS NOTED
[2022-06-01] MEDS: DEXT 5% /NACL 0.9% 1,000 ML IV SCH ×3 (03:50→23:30)
[2022-06-01 04:00] VITALS: BP 115/71
--- NOTE | 2022-06-01 05:00 | NUR ---
REPLACED PICC LINE DRESSING, TOLERATED WELL.
[2022-06-01 06:43] LABS: ANION GAP 16.7 (8-16); CARBON DIOXIDE 25.9 mmol/L (21-32); CREATININE 0.8 mg/dL (0.6-1.3); POTASSIUM 3.6 mmol/L (3.5-5.1)
[2022-06-01 06:44] LABS: BASOPHILS % (AUTO) 0.3 % (0.0-2.0); EOSINOPHILS # (AUTO) 0.1 K/uL (0-0.4); EOSINOPHILS % (AUTO) 0.6 % (0.0-4.0); HEMATOCRIT 39.3 % (36-52); HEMOGLOBIN 13.1 g/dL (12.0-18.0); LYMPHOCYTES # (AUTO) 2.9 K/uL (2.0-11.5); LYMPHOCYTES % (AUTO) 31.9 % (20.5-51.1); MEAN CORPUSCULAR HEMOGLOBIN 29 pg (27-31); MEAN CORPUSCULAR HGB CONC 33 g/dL (33-37); MEAN CORPUSCULAR VOLUME 87.8 fL (80-94); MONOCYTES # (AUTO) 0.9 K/uL (0.8-1.0); MONOCYTES % (AUTO) 9.8 % (1.7-9.3); NEUTROPHILS # (AUTO) 5.3 K/uL (1.8-7.7); NEUTROPHILS % (AUTO) 57.4 % (42.2-75.2); PLATELET COUNT (AUTO) 304 K/uL (140-450); RED BLOOD CELL COUNT(AUTO) 4.48 MIL/uL (4.20-6.10); RED CELL DISTRIBUTION WIDTH 14.8 % (11.6-13.7); WHITE BLOOD COUNT (AUTO) 9.2 K/uL (4.8-10.8)
[2022-06-01] MEDS: ALBUTEROL SULFATE/IPRATROPIU 3 ML SOL IH SCH ×2 (07:00→19:43)
--- NOTE | 2022-06-01 07:15 | NUR ---
RECEIVED PT FROM NIGHT RN, PT IS ON O2 3L NC, ON SEIZURE PRECAUTION, BED ALARM ACTIVATED, PT HAS A RIGHT FEMORAL PICC LINE TRIPLE LUMEN, PT CAN RESPOND WHEN ASKED, , NO SIGN OF DISTRESS NOTED. WILL CONTINUE TO MONITOR PT.
--- NOTE | 2022-06-01 08:21 | NUR ---
DR. DAVID AND THE MEDICAL STUDENTS CAME TO THE PT'S ROOM M AND SPOKE TO PT AND PT REPLIED, TOLD PT THAT SHE PLANS OF SENDING THE PT BACK TO [facility].
[2022-06-01] MEDS: PANTOPRAZOLE 40 MG TABEC PO SCH (08:23)
[2022-06-01] MEDS: VALPROIC ACID 250 MG/5 ML UDC GT SCH ×3 (08:23→17:18)
[2022-06-01] MEDS: levETIRAcetam 100 MG/ML ORASYR GT SCH ×2 (08:23→21:40)
--- NOTE | 2022-06-01 08:23 | NUR ---
PT WAS GIVEN THE SCHEDULED AM MEDICATIONS VIA G-TUBE, G-TUBE WAS FLUSHED PRIOR AND IS PATENT,
--- NOTE | 2022-06-01 08:45 | NUR ---
PT HAD A TWO SECONDS SEIZURE OCCURRENCE NOW.
--- NOTE | 2022-06-01 10:06 | NUR ---
PT HAS ANOTHER 6 SECONDS SEIZURE EPISODE NOW.
[2022-06-01 10:07] VITALS: BP 120/69
[2022-06-01] MEDS: LORazepam 2 MG/ML VIAL IVP PRN ×2 (10:08→17:54)
--- NOTE | 2022-06-01 11:20 | NUR ---
DR. VILLEAD WAS INFORMED THAT PT'S BP IS 82/43 AND MADE A TELEPHONE ORDER TO GIVE PT A BOLUS OF 1000ML NS.
[2022-06-01] MEDS ORDERED: NACL 0.9% 1,000 ML IV SCH (11:30)
--- NOTE | 2022-06-01 11:30 | NUR ---
PT WAS GIVEN 1L NS BOLUS NOW, FOR BP OF 82/41.
[2022-06-01 12:00] VITALS: BP 109/55
--- NOTE | 2022-06-01 17:18 | NUR ---
PT WAS GIVEN THE SCHEDULED MEDCIATION VIA PEG TUBE, NO RESIDUAL NOTED, NO SEIZURE EPISODE AT THIS TIME, PT IS RESTING.
--- NOTE | 2022-06-01 17:52 | NUR ---
P;T HAD A 2 SECONDS EPISODE OF SEIZURE NOW.
[2022-06-01 17:54] VITALS: BP 125/73
--- NOTE | 2022-06-01 17:54 | NUR ---
PT WAS GIVEWN ATIVAN IVP FOR THE EPISODE OF SEIZURE.
--- NOTE | 2022-06-01 19:26 | NUR ---
ENDORSED PT TO NIGHT RN FOR CONTINUITY OF CARE, PT IS STABLE AT THIS TIME.
[2022-06-01] MEDS: diazePAM 5 MG TAB PO SCH (21:41)
[2022-06-01] MEDS: traZODone 50 MG TAB PO SCH (21:42)
[2022-06-01 23:23] VITALS: BP 129/79
[2022-06-02] MEDS: ALBUTEROL SULFATE/IPRATROPIU 3 ML SOL IH SCH ×3 (06:50→20:16)
[2022-06-02 07:04] VITALS: BP 129/78
[2022-06-02 07:08] LABS: BASOPHILS % (AUTO) 0.1 % (0.0-2.0); EOSINOPHILS % (AUTO) 0.5 % (0.0-4.0); HEMATOCRIT 36.9 % (36-52); HEMOGLOBIN 12.3 g/dL (12.0-18.0); LYMPHOCYTES # (AUTO) 1.9 K/uL (2.0-11.5); LYMPHOCYTES % (AUTO) 28.8 % (20.5-51.1); MEAN CORPUSCULAR HEMOGLOBIN 29 pg (27-31); MEAN CORPUSCULAR HGB CONC 33 g/dL (33-37); MEAN CORPUSCULAR VOLUME 86.8 fL (80-94); MONOCYTES # (AUTO) 0.7 K/uL (0.8-1.0); MONOCYTES % (AUTO) 10.1 % (1.7-9.3); NEUTROPHILS % (AUTO) 60.5 % (42.2-75.2); PLATELET COUNT (AUTO) 241 K/uL (140-450); RED BLOOD CELL COUNT(AUTO) 4.25 MIL/uL (4.20-6.10); RED CELL DISTRIBUTION WIDTH 14.7 % (11.6-13.7); WHITE BLOOD COUNT (AUTO) 6.5 K/uL (4.8-10.8)
[2022-06-02 07:41] LABS: ANION GAP 10.9 (8-16); CARBON DIOXIDE 29.4 mmol/L (21-32); CREATININE 0.6 mg/dL (0.6-1.3); POTASSIUM 3.3 mmol/L (3.5-5.1)
[2022-06-02] MEDS: diazePAM 5 MG TAB PO SCH ×2 (08:24→21:38)
[2022-06-02] MEDS: PANTOPRAZOLE 40 MG TABEC PO SCH (08:24)
[2022-06-02] MEDS: levETIRAcetam 100 MG/ML ORASYR GT SCH ×2 (08:25→21:37)
[2022-06-02] MEDS: VALPROIC ACID 250 MG/5 ML UDC GT SCH ×3 (08:25→18:25)
[2022-06-02] MEDS: DEXT 5% /NACL 0.9% 1,000 ML IV SCH ×2 (08:37→21:37)
[2022-06-02 12:00] VITALS: BP 105/63
[2022-06-02] MEDS ORDERED: POTASSIUM CHLORIDE 20% 40 MEQ/15 ML UDC GT PRN (12:05)
--- NOTE | 2022-06-02 15:08 | NUR ---
06/02/22 RD FOLLOW UP COMPLETED PLEASE REFER TO NUTRITION ASSESSMENT UNDER CARE ACTIVITY FOR ESTIMATED NUTRITIONAL NEEDS. 1. CONTINUE WITH PUREE DIET WITH HEALTHSHAKES TID TOLERATED -RECOMMEND SWALLOW EVAL BEFORE ADVANCING DIET 2. MONITOR PO INTAKE AND NUTRITION-RELATED LABS 3. RD TO FOLLOW-UP IN 3-5 DAYS PATIENT IS MODERATE RISK. RAULITO MARROQUIN RD
[2022-06-02 16:00] VITALS: BP 100/66
--- NOTE | 2022-06-02 19:51 | NUR ---
GET THE REPORT FROM MORNING NURSE, PATIENT IS LYING ON BED, PATIENT IS APHASIC, PATIENT IS RECEIVING OXYGEN 2 LITER VIA NASAL CANNULA, ALL FALL AND SEIZURE PRECAUTION ARE IN PLACE, CALL LIGHT IS WITHIN THE REACH, WILL CONTINUE TO MONITOR PATIENT.
[2022-06-02 20:00] VITALS: BP 123/72
[2022-06-02] MEDS: traZODone 50 MG TAB PO SCH (21:38)
--- NOTE | 2022-06-02 23:30 | NUR ---
FEMORAL CENTRAL CATHETER DRESSING ATTACHED IMPROPERLY WITH BIOPATCH UPSIDE DOWN. DRESSING CHANGED WITH PT NURSE, USING STERILE PROCEDURE. PT TOLERATED WELL. NO S/S OF DISTRESS.
[2022-06-03] VITALS: BP 105/66
--- NOTE | 2022-06-03 00:14 | NUR ---
PATIENT IS LYING ON BED, NO ANY COMPLAIN OF PAIN OR SHORTNESS OF BREATH AT THIS TIME, VITAL SIGN IS WITHIN THE NORMAL RANGE, CALL LIGHT IS WITHIN THE REACH, WILL CONTINUE TO MONITOR PATIENT.
--- NOTE | 2022-06-03 00:31 | NUR ---
CHANGED PATIENT OLD SOAKED FEMORAL PICC LINE DRESSING AND PUT NEW ONE, WILL CONTINUE TO MONITOR PATIENT.
[2022-06-03 04:00] VITALS: BP 120/74
[2022-06-03] MEDS: DEXT 5% /NACL 0.9% 1,000 ML IV SCH ×2 (04:54→15:48)
--- NOTE | 2022-06-03 06:17 | NUR ---
CHANGED AND REPOSITION PATIENT, WILL CONTINUE TO MONITOR PATIENT.
--- NOTE | 2022-06-03 07:12 | NUR ---
GAVE THE REPORT TO MORNING NURSE SHY FOR CONTINUOS OF CARE, PATIENT IS STABLE.
--- NOTE | 2022-06-03 07:13 | NUR ---
STABLE FOLLOWS COMMANDS GOOD CHEST RISE NO DISTRESS NOTED RECEIVED ON ROOM AIR SATURATION 97% SADIA/RN NOTIFIED
[2022-06-03 07:17] LABS: BASOPHILS % (AUTO) 0.4 % (0.0-2.0); EOSINOPHILS % (AUTO) 0.7 % (0.0-4.0); HEMATOCRIT 37.3 % (36-52); HEMOGLOBIN 12.5 g/dL (12.0-18.0); LYMPHOCYTES # (AUTO) 1.9 K/uL (2.0-11.5); LYMPHOCYTES % (AUTO) 31.6 % (20.5-51.1); MEAN CORPUSCULAR HEMOGLOBIN 29 pg (27-31); MEAN CORPUSCULAR HGB CONC 34 g/dL (33-37); MEAN CORPUSCULAR VOLUME 87.1 fL (80-94); MONOCYTES # (AUTO) 0.6 K/uL (0.8-1.0); MONOCYTES % (AUTO) 9.7 % (1.7-9.3); NEUTROPHILS # (AUTO) 3.5 K/uL (1.8-7.7); NEUTROPHILS % (AUTO) 57.6 % (42.2-75.2); PLATELET COUNT (AUTO) 248 K/uL (140-450); RED BLOOD CELL COUNT(AUTO) 4.28 MIL/uL (4.20-6.10); RED CELL DISTRIBUTION WIDTH 14.7 % (11.6-13.7)
[2022-06-03] MEDS: ALBUTEROL SULFATE/IPRATROPIU 3 ML SOL IH SCH ×3 (07:20→19:15)
[2022-06-03 08:00] VITALS: BP 137/90
[2022-06-03 08:05] LABS: ANION GAP 11.6 (8-16); CREATININE 0.7 mg/dL (0.6-1.3); POTASSIUM 3.6 mmol/L (3.5-5.1)
[2022-06-03] MEDS ORDERED: LORazepam 2 MG/ML VIAL IVP PRN (08:05)
[2022-06-03] MEDS: LORazepam 2 MG/ML VIAL IVP PRN (08:10)
[2022-06-03] MEDS: VALPROIC ACID 250 MG/5 ML UDC GT SCH ×3 (08:21→17:52)
[2022-06-03] MEDS: levETIRAcetam 100 MG/ML ORASYR GT SCH (08:21)
[2022-06-03] MEDS: PANTOPRAZOLE 40 MG TABEC PO SCH (08:22)
[2022-06-03] MEDS: diazePAM 5 MG TAB PO SCH (08:22)
--- NOTE | 2022-06-03 09:00 | NUR ---
Dr Arana informed this nurse that pt started having a seizure during morning rounds, this nurse did not observe, Dr oliver ordered 2mg Ativan IV. 2mg Ativan was administered at 0810. Pt scheduled medications, including Keppra, Valproic Acid, and Valium were given at 0821. This nurse witnessed pt having another seizure at 0842, informed Dr Arana who ordered another 1mg Ativan IV which was given at 0854. Pt postictal, lethargic and aphasic. Will continue to monitor for seizure activity.
--- NOTE | 2022-06-03 11:35 | NUR ---
Tele informed this nurse pt HR of 48, Dr Arana informed, no new orders at this time. Will continue to monitor
[2022-06-03 12:00] VITALS: BP 72/42
[2022-06-03] MEDS ORDERED: NACL 0.9% 1,000 ML IV SCH (12:35)
--- NOTE | 2022-06-03 12:40 | NUR ---
SERVER PROGRAMMER informed this nurse that 1200 VS, pt BP of 72/42 and HR 52. Informed Dr Arana. New order for 1L NS Bolus, wide open ordered. Will continue to monitor.
[2022-06-03 16:00] VITALS: BP 118/61
[2022-06-03 20:00] VITALS: BP 121/69
[2022-06-04] VITALS: BP 114/62
[2022-06-04] MEDS: ALBUTEROL SULFATE/IPRATROPIU 3 ML SOL IH SCH ×3 (07:00→20:40)
[2022-06-04 08:00] VITALS: BP 80/49
[2022-06-04 08:13] LABS: BASOPHILS % (AUTO) 0.4 % (0.0-2.0); EOSINOPHILS # (AUTO) 0.1 K/uL (0-0.4); EOSINOPHILS % (AUTO) 0.7 % (0.0-4.0); HEMATOCRIT 44.2 % (36-52); HEMOGLOBIN 14.6 g/dL (12.0-18.0); LYMPHOCYTES # (AUTO) 1.8 K/uL (2.0-11.5); LYMPHOCYTES % (AUTO) 24.2 % (20.5-51.1); MEAN CORPUSCULAR HEMOGLOBIN 29 pg (27-31); MEAN CORPUSCULAR HGB CONC 33 g/dL (33-37); MEAN CORPUSCULAR VOLUME 88.1 fL (80-94); MONOCYTES # (AUTO) 0.8 K/uL (0.8-1.0); MONOCYTES % (AUTO) 11.1 % (1.7-9.3); NEUTROPHILS # (AUTO) 4.6 K/uL (1.8-7.7); NEUTROPHILS % (AUTO) 63.6 % (42.2-75.2); PLATELET COUNT (AUTO) 258 K/uL (140-450); RED BLOOD CELL COUNT(AUTO) 5.01 MIL/uL (4.20-6.10); RED CELL DISTRIBUTION WIDTH 15.2 % (11.6-13.7); WHITE BLOOD COUNT (AUTO) 7.3 K/uL (4.8-10.8)
--- NOTE | 2022-06-04 08:35 | NUR ---
Patient awake, alert and has no seizure activity. Vital signs stable with exception of blood pressure. Notified Dr Arana and no new orders given.
[2022-06-04 09:09] LABS: ANION GAP 13.1 (8-16); CARBON DIOXIDE 24.8 mmol/L (21-32); CREATININE 0.6 mg/dL (0.6-1.3)
[2022-06-04] MEDS: VALPROIC ACID 250 MG/5 ML UDC GT SCH ×3 (09:14→17:19)
[2022-06-04] MEDS: levETIRAcetam 100 MG/ML ORASYR GT SCH ×2 (09:14→21:00)
[2022-06-04] MEDS: PANTOPRAZOLE 40 MG TABEC PO SCH (09:16)
[2022-06-04] MEDS: diazePAM 5 MG TAB PO SCH ×2 (09:16→21:00)
[2022-06-04 09:17] LABS: POTASSIUM 4.9 mmol/L (3.5-5.1)
[2022-06-04] MEDS: DEXT 5% /NACL 0.9% 1,000 ML IV SCH ×3 (09:17→13:05)
[2022-06-04 12:00] VITALS: BP 103/70
[2022-06-04 16:00] VITALS: BP 93/58
[2022-06-04 20:00] VITALS: BP_SYST 110; BP_SYST 80; BP_DIAS 49; BP_DIAS 51
[2022-06-04] MEDS: traZODone 50 MG TAB PO SCH (21:00)
[2022-06-05] VITALS: BP 102/68
[2022-06-05 04:00] VITALS: BP 110/65
[2022-06-05] MEDS: ALBUTEROL SULFATE/IPRATROPIU 3 ML SOL IH SCH (07:00)
--- NOTE | 2022-06-05 07:20 | NUR ---
PT IS ASLEEP NO TX GIVEN. NO DISTRESS NOTED.
[2022-06-05] MEDS ORDERED: DIAZ5TAB13 PO (07:44)
[2022-06-05] MEDS ORDERED: KEP500L GT (07:44)
[2022-06-05 08:00] VITALS: BP 98/61
[2022-06-05] MEDS: DEXT 5% /NACL 0.9% 1,000 ML IV SCH (08:57)
[2022-06-05] MEDS: diazePAM 5 MG TAB PO SCH (08:58)
[2022-06-05] MEDS: PANTOPRAZOLE 40 MG TABEC PO SCH (08:58)
[2022-06-05] MEDS: VALPROIC ACID 250 MG/5 ML UDC GT SCH ×2 (08:58→12:39)
[2022-06-05] MEDS: levETIRAcetam 100 MG/ML ORASYR GT SCH (08:58)
[2022-06-05 12:00] VITALS: BP 105/69
--- NOTE | 2022-06-05 13:26 | NUR ---
Patient discharged. Report given to Shubham Pozo and all questions regarding discharge answered. Taken off into private vehicle and had no further needs.
== END 2022-06-05 13:20 | DRG 53 ==
LOC: MED 00:31 → MMU 07:22 → MTU 20:08
PROVIDERS: ADMIT Family Medicine; ATTEND Family Medicine
PROC: 06HY33Z Insertion of Infusion Device into Lower Vein, Percutaneous Approach (ICD-10-PCS; principal; 2022-05-28)
PROC: B54BZZA Ultrasonography of Right Lower Extremity Veins, Guidance (ICD-10-PCS; 2022-05-28)
PROC: 4A00X4Z Measurement of Central Nervous Electrical Activity, External Approach (ICD-10-PCS; 2022-05-30)
PROC: 5A0935A Assistance with Respiratory Ventilation, Less than 24 Consecutive Hours, High Flow/Velocity Cannula (ICD-10-PCS; 2022-05-30)
DX: G40.909 Epilepsy, unspecified, not intractable, without status epilepticus (principal); J96.21 Acute and chronic respiratory failure with hypoxia; R57.9 Shock, unspecified; E43 Unspecified severe protein-calorie malnutrition; G80.9 Cerebral palsy, unspecified; J81.1 Chronic pulmonary edema; N39.0 Urinary tract infection, site not specified; Z20.822 Contact with and (suspected) exposure to COVID-19; R13.10 Dysphagia, unspecified; Z93.1 Gastrostomy status; Z79.899 Other long term (current) drug therapy; Z68.25 Body mass index [BMI] 25.0-25.9, adult
CPT/HCPCS: 36415; 36600; 71045; 80048; 80053; 80305; 81001; 81003; 82150; 82803; 83036; 83605; 83690; 83735; 83880; 84100; 84436; 84439; 84443; 84479; 84484; 85025; 85610; 85730; 87040; 87081; 87086; 93005; 94640; 95816; 96365; 96367; 96368; 99285; G0482; J0456; J0696; J1165; J1953; J2060; J3490; J7060; Q0092

== ENCOUNTER 2022-07-04 15:51 | Inpatient (IN) | payer MEDICAID ==
[~2022-07-04] VITALS: Ht 165.1 cm; Wt 67.6 kg
[~2022-07-04 15:51] MED LIST changes: -ACET-10509 PO; +Albuterol HFA IH; +BACL10TA4 GT; +BISA-218 RC; +CALC-1214 PO; +CARB15DR30 OT; +DIAZ10TA7 GT; +DORZ10SO11 RIGHT EYE; +FLEMIN RC; +KEP500L GT; +LACO200T GT; +LACT-103 GT; +MENT1LOZ43 TP; +MENT1OIN22 TP; +MULT-464 GT; +OMEG10005 GT; +ONDA-188 GT; -ONDA-188 PO; +ROB GT; +SENN-73 GT; +TAMS0.4C96 GT; +TRAV2.5D2 RIGHT EYE; +TRAZ-343 PO; +VALP-22 GT
--- NOTE | 2022-07-04 15:53 | NUR ---
[facility]JE[facility] TO ER BED 9
[2022-07-04 16:00] VITALS: BP 119/63
[2022-07-04] MEDS ORDERED: cefTRIAXone 1,000 MG in DEXT 5% MINI-BAG PLUS 50 ML IV ONE (16:05)
[2022-07-04] MEDS ORDERED: NACL 0.9% 1,000 ML IV SCH (16:05)
[2022-07-04] MEDS ORDERED: NACL 0.9% 1,000 ML IV ONE (16:10)
--- NOTE | 2022-07-04 16:12 | NUR ---
DR ALCANTARA AT BEDSIDE FOR EVAL
[2022-07-04] MEDS ORDERED: cefTRIAXone 1,000 MG VIAL ONE (16:34)
[2022-07-04 16:42] LABS: BASOPHILS % (AUTO) 0.2 % (0.0-2.0); EOSINOPHILS % (AUTO) 0.2 % (0.0-4.0); HEMOGLOBIN 12.9 g/dL (12.0-18.0); LYMPHOCYTES # (AUTO) 1.9 K/uL (2.0-11.5); LYMPHOCYTES % (AUTO) 22.7 % (20.5-51.1); MEAN CORPUSCULAR HEMOGLOBIN 29 pg (27-31); MEAN CORPUSCULAR HGB CONC 33 g/dL (33-37); MEAN CORPUSCULAR VOLUME 87.4 fL (80-94); MONOCYTES % (AUTO) 11.8 % (1.7-9.3); NEUTROPHILS # (AUTO) 5.5 K/uL (1.8-7.7); NEUTROPHILS % (AUTO) 65.1 % (42.2-75.2); PLATELET COUNT (AUTO) 177 K/uL (140-450); RED BLOOD CELL COUNT(AUTO) 4.46 MIL/uL (4.20-6.10); RED CELL DISTRIBUTION WIDTH 16.2 % (11.6-13.7); WHITE BLOOD COUNT (AUTO) 8.4 K/uL (4.8-10.8)
[2022-07-04 17:01] LABS: ALBUMIN 2.4 g/dL (3.4-5.0); ANION GAP 10.9 (8-16); CARBON DIOXIDE 31.9 mmol/L (21-32); CREATININE 0.6 mg/dL (0.6-1.3); POTASSIUM 3.8 mmol/L (3.5-5.1); TOTAL BILIRUBIN 0.5 mg/dL (0.0-1.0)
--- NOTE | 2022-07-04 17:37 | NUR ---
37M BIBA from [facility] with c/o ALOC x2days. Per EMS, boarding care staff reported he is normally more verbal, fevers, low blood pressure. BP on scene was 105/74. Upon arrival, pt's BP was 119/63, and afebrile with rectal temp of 98.3. Pt placed in gown, on bedside monitor worker, sz precautions in place, side rails x2.
[2022-07-04] MEDS ORDERED: ACET-2619 PO (17:58)
[2022-07-04] MEDS ORDERED: MULT-2416 PO (17:58)
--- NOTE | 2022-07-04 17:59 | NUR ---
PT TAKEN TO CT VIA ROLANDO
--- NOTE | 2022-07-04 19:00 | NUR ---
Pt report given to Naa Sweet RN. Transfer of care at this time.
--- NOTE | 2022-07-04 19:00 | NUR ---
REPORT RECEIVED FROM YANNI ROSAS
--- NOTE | 2022-07-04 20:09 | NUR ---
PER [facility] WE DO NOT HAVE [facility]OSOURCE [facility]. CAREY STATED TO USE WHAT WE HAVE.
--- NOTE | 2022-07-04 21:05 | NUR ---
RALPH GAY STATED SHE WILL BACK FOR REPORT.
[2022-07-04 21:41] LABS: APPEARANCE,URINE CLOUDY (CLEAR); BILIRUBIN,URINE NEGATIVE (NEGATIVE); BLOOD, URINE NEGATIVE (NEGATIVE); COLOR,URINE YELLOW (YELLOW); LEUKOCYTE ESTERASE ,URINE NEGATIVE (NEGATIVE); NITRITE, URINE NEGATIVE (NEGATIVE); UGLUCOSE NEGATIVE (NEGATIVE)
--- NOTE | 2022-07-04 22:05 | NUR ---
Patient will be admitted to care of DR PATINO. Admited to MED SURG. Will go to room 120B. Belongings list completed. Report to VICTOR HUGO ROSAS.
[2022-07-04 22:10] VITALS: BP 118/58
--- NOTE | 2022-07-04 22:30 | NUR ---
Received report from ER, PT BROUGHT IN WITH Leslie MARSHALLg IV access on L Thumb SL. Vitals wnl, pt changed, made comfortable. Glucerna 1.2cal G-tube connected. Pt stable and sleeping.
[2022-07-04] MEDS ORDERED: HYDROcodone/APAP 5/325 MG 1 TAB TAB PO PRN (22:55)
[2022-07-04] MEDS ORDERED: guaiFENesin 20 MG/ML UDC GT PRN (22:55)
[2022-07-04] MEDS ORDERED: ACETAMINOPHEN 325 MG TAB PO PRN ×2 (22:55)
[2022-07-04] MEDS ORDERED: LORazepam 2 MG/ML VIAL IVP PRN (22:55)
[2022-07-04] MEDS ORDERED: MENTHOL/ZINC OXIDE 113 GM TUBE TP PRN (22:55)
[2022-07-04] MEDS ORDERED: ONDANSETRON 4 MG/2 ML VIAL IVP PRN (22:55)
[2022-07-04] MEDS ORDERED: MINERAL OIL 135 ML ENEM RC PRN (22:55)
[2022-07-04] MEDS ORDERED: bisacodyL 10 MG SUPP RC PRN (22:55)
[2022-07-04] MEDS ORDERED: AZITHROMYCIN 500 MG INJ VIAL IV ONE (23:26)
[2022-07-05] MEDS: AZITHROMYCIN 500 MG in DEXTROSE 5% 250 ML IV SCH ×2 (00:01→23:31)
[2022-07-05 05:39] VITALS: BP 117/87
--- NOTE | 2022-07-05 07:30 | NUR ---
RECEIVED REPORT FROM NIGHTSHIFT NURSE AND STATES PT PULLED OUT IV LAST NIGHT AND STATES WILL INSERT IV. PT RESTING WITH EYES CLOSED. NO SOB NOTED. ON 4L NC. GTUBE FEEDING ONGOING. NEEDS ALL MET AT THIS TIME. ALL SAFETY MEASURES IN PLACE.
[2022-07-05 08:00] VITALS: BP 146/71
--- NOTE | 2022-07-05 08:45 | NUR ---
PT HAVING SEIZURE FOR 20 SECONDS. PT TURNED TO L SIDE. PT ON 4L NC. O2 SATURATION @ 95%. PT NOTED WITH NO IV SITE. CONTACTED CHARGE NURSE FOR IV INSERTION. L FA @22 IV INSERTED. PRN ATIVAN GIVEN. PT WITH NO MORE SEIZURE. INSERTING IV ON RAC #22 X1 ATTEMPT WITH POSITIVE BLOOD RETURN, FLUSH WITH NS, TEGADERM APPLIED.
--- NOTE | 2022-07-05 08:57 | NUR ---
PT WITH ANOTHER SEIZURE LASTING 15 SECONDS. NURSE JANNA AT BEDSIDE ASSISTING. PT'S O2 SATURATION @ 98%. CALLED DR. PATINO AND ORDERED KEPPRA IVPB 500 MG LOADING DOSE. ALSO ORDER FOR MIDLINE PLACEMENT. HOB ELEVATED. VSS. PT RESTING IN NO DISTRESS. NEEDS ALL MET. ALL SAFETY MEASURES IN PLACE.
[2022-07-05] MEDS ORDERED: CARBAMIDE PEROXIDE 6.5% OT 15 ML BTL OT SCH (09:00)
[2022-07-05] MEDS ORDERED: diazePAM 5 MG TAB GT SCH (09:00)
[2022-07-05] MEDS: BACLOFEN 10 MG TAB GT SCH ×3 (09:15→16:43)
[2022-07-05] MEDS: VALPROIC ACID 250 MG/5 ML UDC GT SCH ×4 (09:15→21:50)
[2022-07-05] MEDS: levETIRAcetam 100 MG/ML ORASYR GT SCH ×2 (09:15→21:50)
[2022-07-05] MEDS: CALCIUM CARB/VIT-D 500 MG/200 IU 1 TAB PO SCH ×3 (09:16→16:43)
[2022-07-05] MEDS ORDERED: levETIRAcetam 500 MG in NACL 0.9% 100 ML IV SCH (10:00)
--- NOTE | 2022-07-05 10:16 | NUR ---
PATIENT HAS BEEN SCREENED AND CATEGORIZED HIGH NUTRITION RISK. PATIENT WILL BE SEEN WITHIN 1-2 DAYS OF ADMISSION. 07/04/22-07/06/22 REVIEWED BY RAULITO MARROQUIN RD
--- NOTE | 2022-07-05 12:00 | NUR ---
PT WITH HOB ELEVATED. NO SEIZURE ACTIVITY SINCE AM. O2 SATURATION @ 98%. PT RESTING WITH EYES CLOSED. IN NO ACUTE DISTRESS. NO SOB NOTED. GT FEEDING INFUSING. O ML RESIDUAL. GT DRESSING C/D/I. NEEDS ALL MET AT THIS TIME. ALL SAFETY MEASURES IN PLACE.
--- NOTE | 2022-07-05 14:23 | NUR ---
DC PLANNIN YRS OLD MALE PATIENT WAS ADMITTED FROM [facility] ([facility]) WITH A DX OF ALOC AND PNEUMONIA. PATIENT HAS A HX OF SEIZURE DISORDER, MENTAL RETARDATION DYSPHAGIA BPH GLAUCOMA AND INSOMNIA. CXR SHOWED ATELECTASIS. 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 RAPID COVID TEST NEGATIVE. ADMINISTERED IVF, IV ABX ROCEPHIN AND AZITHROMYCIN AND CONTINUED HOME MEDS. CONSULTED WITH NEUROLOGIST, ID AND PULMO. DC PLAN TO RETURN TO [facility] WHEN STABLE. CM TO FOLLOW Addendum: 07/07/22 at 1445 by Radha Ceballos RN DC PLANNING: SEEN BY NEUROLOGIST ORDERED ONCE SZ FREE FOR 24 HRS OK TO DC PATIENT HAS APPOINTMENT ON 07/18 WITH [facility]. DC PLAN TO GO HOME. CM TO FOLLOW Addendum: 07/07/22 at 1653 by Radha Ceballos RN DC PLANNING: [facility] ARRANGED TRANSPORT WITH [facility] UPTIME BETWEEN 5-6PM NOTIFIED MARINA CHARGE NURSE.
[2022-07-05 16:00] VITALS: BP 91/47
[2022-07-05] MEDS ORDERED: ALBUTEROL 90 MCG IH SCH (18:10)
[2022-07-05] MEDS ORDERED: CAMPHOR TP SCH (18:10)
[2022-07-05] MEDS ORDERED: EUCALYPTUS OIL TP SCH (18:10)
[2022-07-05] MEDS ORDERED: MENTHOL TP SCH (18:10)
[2022-07-05] MEDS ORDERED: ALBUTEROL 0.083% 2.5 MG/3 ML NEBU INH PRN (18:25)
--- NOTE | 2022-07-05 19:29 | NUR ---
REPORT GIVEN TO NIGHTSMNFT NURSE LESLIE FOR CONTINUITY OF CARE.
--- NOTE | 2022-07-05 19:30 | NUR ---
RECEIVED REPORT FROM DAY SHIFT NURSE KISHA FOR CONTINUITY OF CARE. PATIENT IS A&O X0, ALOC. PATIENT IS ON ROOM AIR, BREATHING IS NORMAL WITH SYMMETRICAL RISE AND FALL OF CHEST. IV IS A 22G RAC, RUNNING NS 5ML TKO. PATIENT IS SLEEPING, LYING IN SEMI-FOWLERS POSITION. FEEDING TUBE IS RUNNING GLUCERNA 1.2 AT 70ML WITH WATER FLUSH SET TO 250ML Q6HR. BED IS IN LOWEST POSITION, WHEELS LOCKED, CALL LIGHT IN PLACE. WILL CONTINUE TO OBSERVE PATIENT. Addendum: 07/06/22 at 0322 by Nicolás Merida RN PATIENT IS ON NC 4L, WITH SYMMETRICAL RISE AND FALL OF CHEST.
[2022-07-05 20:00] VITALS: BP 114/70
[2022-07-05] MEDS ORDERED: NON-FORMULARY ITEM (Lacosamide (Vimpat) 200 MG) GT SCH (21:00)
[2022-07-05] MEDS ORDERED: NON-FORMULARY ITEM (Dorzolamide HCl/Timolol Maleat (Dorzolamide-Timolol Eye Drops) 1 DROP) RIGHT EYE SCH (21:00)
[2022-07-05] MEDS ORDERED: TRAVOPROST RIGHT EYE SCH (21:00)
[2022-07-05] MEDS: TAMSULOSIN 0.4 MG CAP GT SCH (21:50)
[2022-07-05] MEDS: LATANOPROST 0.005% OP 2.5 ML BTL OP SCH (21:50)
[2022-07-05] MEDS: LACTULOSE 20 GM/30 ML UDC GT SCH (21:50)
[2022-07-05] MEDS: SENNA 8.6 MG TAB GT SCH (21:50)
[2022-07-05] MEDS: diazePAM 5 MG TAB GT SCH (21:50)
[2022-07-05] MEDS: traZODone 50 MG TAB PO SCH (21:50)
[2022-07-05] MEDS: LACOSAMIDE 200 MG/20 ML GT SCH (21:50)
--- NOTE | 2022-07-05 22:03 | NUR ---
ADMINISTERED 2100 MEDICATIONS VIA G-TUBE AT 2150. PATIENT TOLERATED MEDICATION ADMINISTRATION WELL. ALSO ADMINISTERED XALATAN EYE DROPS, ONE DROP INTO RIGHT EYE. PATIENT TOLERATED WELL. PATIENT IS SLEEPING, LYING IN SEMI FOWLERS POSITION. BREATHING IS NORMAL WITH SYMMETRICAL RISE AND FALL OF CHEST. WILL CONTINUE TO OBSERVE PATIENT.
--- NOTE | 2022-07-05 23:40 | NUR ---
ENTERED ROOM TO ADMINISTER IVPB ZITHROMAX. PATIENT WAS SLEEPING, LYING SUPINE ON SIDE. IVPB WAS STARTED WITHOUT ANY ISSUES. PATIENT WAS CHECKED AND FOUND TO HAVE VOIDED. PATIENT WAS CLEANED AND CHANGED BY KERRY NICHOLE AND MYSELF. NEW LINENS WERE ALSO PLACED ON BED. PATIENT TOLERATED CHANGE WELL. PATIENT WAS REPOSITIONED. BREATHING WAS NORMAL WITH SYMMETRICAL RISE AND FALL OF CHEST. BED WAS RETURNED TO LOWEST POSITION AFTER CLEANING, WITH WHEELS LOCKED AND CALL LIGHT IN PLACE. WILL CONTINUE TO OBSERVE PATIENT.
--- NOTE | 2022-07-06 02:00 | NUR ---
LOOKED IN ON PATIENT. PATIENT WAS SLEEPING WITH SYMMETRICAL RISE AND FALL OF CHEST. PATIENT ON NC 4L. WILL CONTINUE TO OBSERVE PATIENT.
--- NOTE | 2022-07-06 03:20 | NUR ---
LOOKED IN ON PATIENT. PATIENT WAS SLEEPING, LYING SUPINE WITH COVERS PULLED UP TO SHOULDERS. ENTERAL FEEDING WAS RUNNING AT 70. BREATHING WAS NORMAL WITH SYMMETRICAL RISE AND FALL OF CHEST. WILL CONTINUE TO OBSERVE PATIENT.
[2022-07-06 04:00] VITALS: BP 140/87
[2022-07-06] MEDS: LACTULOSE 20 GM/30 ML UDC GT SCH ×3 (05:11→21:39)
[2022-07-06] MEDS: diazePAM 5 MG TAB GT SCH ×3 (05:11→21:07)
--- NOTE | 2022-07-06 05:20 | NUR ---
ENTERED ROOM TO ADMINISTER 0500 MEDICATIONS TO PATIENT. MEDICATIONS WERE ADMINISTERED SUCCESSFULLY WITHOUT DIFFICULTY VIA G-TUBE. PATIENT WAS SLEEPING, LYING SUPINE AND COVERS PULLED UP TO SHOULDERS. BREATHING WAS NORMAL WITH SYMMETRICAL RISE AND FALL OF CHEST. BED WAS IN LOWEST POSITION, WHEELS LOCKED, CALL LIGHT IN PLACE. WILL CONTINUE TO OBSERVE PATIENT.
[2022-07-06 06:53] LABS: BASOPHILS % (AUTO) 0.2 % (0.0-2.0); EOSINOPHILS # (AUTO) 0.1 K/uL (0-0.4); EOSINOPHILS % (AUTO) 1.4 % (0.0-4.0); HEMATOCRIT 35.3 % (36-52); HEMOGLOBIN 11.7 g/dL (12.0-18.0); LYMPHOCYTES # (AUTO) 1.7 K/uL (2.0-11.5); LYMPHOCYTES % (AUTO) 32.7 % (20.5-51.1); MEAN CORPUSCULAR HEMOGLOBIN 29 pg (27-31); MEAN CORPUSCULAR HGB CONC 33 g/dL (33-37); MEAN CORPUSCULAR VOLUME 87.4 fL (80-94); MONOCYTES # (AUTO) 0.7 K/uL (0.8-1.0); NEUTROPHILS # (AUTO) 2.8 K/uL (1.8-7.7); NEUTROPHILS % (AUTO) 52.7 % (42.2-75.2); PLATELET COUNT (AUTO) 147 K/uL (140-450); RED BLOOD CELL COUNT(AUTO) 4.05 MIL/uL (4.20-6.10); RED CELL DISTRIBUTION WIDTH 16.3 % (11.6-13.7); WHITE BLOOD COUNT (AUTO) 5.3 K/uL (4.8-10.8)
[2022-07-06 07:29] LABS: ANION GAP 6.4 (8-16); CARBON DIOXIDE 36.2 mmol/L (21-32); CREATININE 0.6 mg/dL (0.6-1.3); POTASSIUM 3.6 mmol/L (3.5-5.1)
--- NOTE | 2022-07-06 07:30 | NUR ---
ENDORSED TO DAY SHIFT NURSE KISHA FOR CONTINUITY OF CARE. PATIENT IS STABLE.
--- NOTE | 2022-07-06 07:30 | NUR ---
RECEIVED REPORT FROM NIGHTSHIFT NURSE LESLIE. PT ASLEEP. RR EVEN & UNLABORED. HOB ELEVATED. ON 4L NC. CONTINUOUS PULSE OX WITH O2 @ 96%. IN NO ACUTE DISTRESS. GTUBE FEEDING ONGOING. IV TO SL. NEEDS ALL MET AT THIS TIME. ALL SAFETY MEASURES IN PLACE.
[2022-07-06 08:00] VITALS: BP 116/79
[2022-07-06] MEDS ORDERED: NON-FORMULARY ITEM (Lactulose 30 ML) GT SCH (09:00)
[2022-07-06] MEDS ORDERED: IRON PO SCH (09:00)
[2022-07-06] MEDS ORDERED: OMEGA GT SCH (09:00)
[2022-07-06] MEDS ORDERED: MULTIVITS CA MINERALS PO SCH (09:00)
[2022-07-06] MEDS ORDERED: [UNRECOGNIZED DRUG - OTHER] GT SCH (09:00)
[2022-07-06] MEDS ORDERED: MULTIVITS CA MINERALS GT SCH (09:00)
[2022-07-06] MEDS ORDERED: [UNRECOGNIZED DRUG - OTHER] PO SCH (09:00)
[2022-07-06] MEDS ORDERED: FATTY ACIDS GT SCH (09:00)
[2022-07-06] MEDS ORDERED: IRON GT SCH (09:00)
[2022-07-06] MEDS: VALPROIC ACID 250 MG/5 ML UDC GT SCH ×4 (09:04→21:06)
[2022-07-06] MEDS: BACLOFEN 10 MG TAB GT SCH ×3 (09:04→16:55)
[2022-07-06] MEDS: MULTIVITAMIN/MINERALS 1 TAB GT SCH (09:04)
[2022-07-06] MEDS: levETIRAcetam 100 MG/ML ORASYR GT SCH ×2 (09:04→21:07)
[2022-07-06] MEDS: LACOSAMIDE 200 MG/20 ML GT SCH ×2 (09:05→21:05)
[2022-07-06] MEDS: TIMOLOL OP 0.5% 5 ML BTL RIGHT EYE SCH ×2 (09:06→21:10)
[2022-07-06] MEDS: CALCIUM CARB/VIT-D 500 MG/200 IU 1 TAB PO SCH ×3 (09:06→16:55)
[2022-07-06] MEDS: DORZOLAMIDE 2% OP 10 ML BTL RIGHT EYE SCH ×2 (09:07→21:12)
--- NOTE | 2022-07-06 09:10 | NUR ---
PT AWAKE, AND ALERT TO NAME. ALL DUE MEDS GIVEN, PT TOLERATED WELL. HOB ELEVATED. 4L NC WITH 02 SATURATION @ 98%. GT FEEDING RESTARTED. O ML RESIDUAL. ASKED PT IF HE WANTS TO WATCH TV AND PT STATES, "YEAH". PT DENIES PAIN WHEN ASKED. ALL NEEDS MET AT THIS TIME. ALL SAFETY MEASURES IN PLACE. SEIZURE PRECAUTION IN PLACE.
--- NOTE | 2022-07-06 13:59 | NUR ---
DC PLANNING ASHLY OUTREACHED TO FACILITY TO GATHER COLLATERAL INFORMATION. SPOKE WITH PATRICIA BOTTOM FINISHER, WHO REPORTS PATIENT IS RESIDENT OF [facility], ADMISSION DATE 04/27. PATRICIA REPORTS NO FAMILY INVOLVEMENT HOWEVER, REPORTS PATIENT IS REGIONAL CENTER CONNECTED, [facility] ASHLY HARDENROSALINDA RADHA [phone] .PATRICIA REPORTS THAT PATIENT IS TOTAL CARE/FULL ASSIST AND REQUIRES ASSISTANCE WITH ALL ADL'S. PATIENT UTILIZES WC AT FACILITY. PATIENT IS REPORTED TO BE MINIMALLY VERBAL AND HAS ABILITY TO MAKE NEEDS KNOWN. PATRICIA, REPORTS DC PLAN IS FOR PATIENT TO RETURN TO [facility], ONCE MEDICALLY STABLE. PATRICIA REPORTS A PHONE CALL TO [facility] WAS MADE REQUESTING CONSENT FOR PLACEMENT OF MIDLINE HOWEVER, [facility] ASHLY PROVIDES MEDICAL CONSENT. PATRICIA REPORTS ROSALINDA GARCIA CALLED AND LEFT MESSAGE, HOWEVER, PATRICIA UNAWARE WHO MESSAGE WAS LEFT WITH. ASHLY OUTREACHED TO ROSALINDA, HOWEVER, NO ANSWER. ASHLY ENDORSED TO BETY WALKER. BETY WALKER REPORTS THAT SHE SPOKE WITH PT NURSEKISHA WHO IS AWARE. Addendum: 07/06/22 at 1403 by Stephenie TORRES Amended: Links added. Addendum: 07/06/22 at 1542 by Stephenie TORRES FIELDED CALL FROM [facility] WORKER ROSALINDA GARCIA, . ROSALINDA REPORTS SHE IS AWARE THAT HOSPITAL IS ATTEMPTING TO GET MEDICAL CONSENT. SW FORWARDED CALL TO PT NURSE TO COMPLETE MEDICAL CONSENT QUESTIONNAIRE. ROSALINDA REPORTS SHE WILL FORWARD COMPLETED QUESTIONNAIRE TO [facility] NURSE WHO WILL REVIEW. NURSE TO FORWARD CONSENT ONCE REVIEWED AND COMPLETED.
--- NOTE | 2022-07-06 15:27 | NUR ---
07/06/22 RD INITIAL ASSESSMENT COMPLETED PLEASE REFER TO NUTRITION ASSESSMENT UNDER CARE ACTIVITY FOR ESTIMATED NUTRITIONAL NEEDS. 1. RECOMMEND VITAL AF 1.2 @ 65 ML/HR - FWF: 150 Q6H - START AT 20 ML/HR AND INCREASE BY 20 ML Q4H TOLERATED. - THIS PROVIDES 1872 KCAL, 117 GRAMS PROTEIN, AND 1560 ML VOLUME. THIS MEETS 100% OF ESTIMATED KCAL NEEDS AND 100% OF PROTEIN NEEDS. 2. MONITOR GI SYMPTOMS AND GASTRIC RESIDUALS. 3. RD TO FOLLOW-UP 3-5 DAYS, MODERATE RISK REVIEWED BY JOSH MARQUES RD
[2022-07-06 16:00] VITALS: BP 97/52
--- NOTE | 2022-07-06 18:41 | NUR ---
NO SEIZURE ACTIVITY THROUGHOUT THE DAY. HOURLY ROUNDS CONDUCTED. HOB ELEVATED. O2 SATURATION @ 98% ON 4L NC. IN NO ACUTE DISTRESS. SEIZURE PRECAUTION IN PLACE. ALL SAFETY MEASURES IN PLACE.
--- NOTE | 2022-07-06 19:17 | NUR ---
REPORT GIVEN TO NIGHTSNDFT NURSE GRISELDA FOR CONTINUITY OF CARE.
--- NOTE | 2022-07-06 19:18 | NUR ---
RECD. RESTING IN BED, AWAKE, SLEEPING BUT EASILY AROUSABLE WHEN TOUCHED. RESPIRATION EVEN AND UNLABORED. ON 02 AT 4 LITERS VIA N/C. IV OF NS AT TKO INFUSING AT 5 ML/HOUR, RIGHT AC G22. ON GT FEEDING OF GLUCERNA 1.2 AT 70 ML/HR, WAS JUST RESTARTED DUE TO HIGH RESIDUAL PER AM NURSE. SAFETY MEASURES ENFORCED. BED IN THE LOWEST POSITION, SIDE RAILS WITH PADS FOR SEIZURE PRECAUTION. NO APPEARANCE OF PAIN OR DISCOMFORT NOTED, FLACC - 0.
[2022-07-06 20:00] VITALS: BP 142/75
[2022-07-06] MEDS: traZODone 50 MG TAB PO SCH (21:08)
[2022-07-06] MEDS: SENNA 8.6 MG TAB GT SCH (21:08)
[2022-07-06] MEDS: TAMSULOSIN 0.4 MG CAP GT SCH (21:09)
[2022-07-06] MEDS: LATANOPROST 0.005% OP 2.5 ML BTL OP SCH (21:11)
--- NOTE | 2022-07-06 21:15 | NUR ---
RESIDUAL CHECKED 90 ML. HOLD FEEDING. SCHEDULED MEDICATIONS FOR THE NIGHT ADMINISTERED VIA G TUBE TOLERATED WELL.
--- NOTE | 2022-07-06 23:00 | NUR ---
RESIDUAL 60 ML. RESUMED GT FEEDING. PATIENT SLEEPING COMFORTABLY IN BED. RESPIRATION EVEN AND UNLABORED.
[2022-07-07] VITALS: BP 119/63
--- NOTE | 2022-07-07 01:00 | NUR ---
STILL SLEEPING IN BED, NO DISTRESS NOTED.
--- NOTE | 2022-07-07 03:00 | NUR ---
CLEANSED AND REPOSITIONED IN BED WITH PILLOWS.
[2022-07-07] MEDS: diazePAM 5 MG TAB GT SCH ×3 (05:51→14:55)
[2022-07-07] MEDS: LACTULOSE 20 GM/30 ML UDC GT SCH ×2 (05:51→14:55)
--- NOTE | 2022-07-07 05:51 | NUR ---
RESIDUAL CHECKED - 120 ML. DUE MEDICATIONS FOR THE MORNING ADMINISTERED. GT FEEDING STOPPED DUE TO HIGH RESIDUAL.
--- NOTE | 2022-07-07 06:30 | NUR ---
STILL SLEEPING COMFORTABLY IN BED, NO SEIZURES NOTED.
[2022-07-07 07:01] LABS: BASOPHILS % (AUTO) 0.4 % (0.0-2.0); EOSINOPHILS # (AUTO) 0.1 K/uL (0-0.4); EOSINOPHILS % (AUTO) 1.9 % (0.0-4.0); HEMATOCRIT 37.7 % (36-52); HEMOGLOBIN 12.3 g/dL (12.0-18.0); LYMPHOCYTES # (AUTO) 1.3 K/uL (2.0-11.5); LYMPHOCYTES % (AUTO) 29.5 % (20.5-51.1); MEAN CORPUSCULAR HEMOGLOBIN 29 pg (27-31); MEAN CORPUSCULAR HGB CONC 33 g/dL (33-37); MEAN CORPUSCULAR VOLUME 87.5 fL (80-94); MONOCYTES # (AUTO) 0.6 K/uL (0.8-1.0); MONOCYTES % (AUTO) 13.9 % (1.7-9.3); NEUTROPHILS # (AUTO) 2.4 K/uL (1.8-7.7); NEUTROPHILS % (AUTO) 54.3 % (42.2-75.2); PLATELET COUNT (AUTO) 144 K/uL (140-450); RED CELL DISTRIBUTION WIDTH 15.9 % (11.6-13.7); WHITE BLOOD COUNT (AUTO) 4.5 K/uL (4.8-10.8)
[2022-07-07 07:13] LABS: ANION GAP 6.1 (8-16); CARBON DIOXIDE 38.9 mmol/L (21-32); CREATININE 0.7 mg/dL (0.6-1.3)
[2022-07-07 08:00] VITALS: BP 123/69
[2022-07-07] MEDS: DORZOLAMIDE 2% OP 10 ML BTL RIGHT EYE SCH (09:00)
[2022-07-07] MEDS: TIMOLOL OP 0.5% 5 ML BTL RIGHT EYE SCH (09:00)
[2022-07-07] MEDS: LACOSAMIDE 200 MG/20 ML GT SCH (09:00)
[2022-07-07] MEDS: VALPROIC ACID 250 MG/5 ML UDC GT SCH ×3 (10:14→14:55)
[2022-07-07] MEDS: levETIRAcetam 100 MG/ML ORASYR GT SCH (10:15)
[2022-07-07] MEDS: MULTIVITAMIN/MINERALS 1 TAB GT SCH (10:15)
[2022-07-07] MEDS: CALCIUM CARB/VIT-D 500 MG/200 IU 1 TAB PO SCH ×2 (10:15→14:56)
[2022-07-07] MEDS: BACLOFEN 10 MG TAB GT SCH ×2 (10:16→14:55)
--- NOTE | 2022-07-07 15:27 | NUR ---
PT BP 87/54 VALIUM NOT GIVEN
== END 2022-07-07 17:45 | DRG 139 ==
LOC: MED 15:51 → MMU 20:04 → MTU 21:11
PROVIDERS: ADMIT Preventive Medicine Preventive Medicine/Occupational Environmental Medicine; ATTEND Preventive Medicine Preventive Medicine/Occupational Environmental Medicine
DX: J18.9 Pneumonia, unspecified organism (principal); J96.01 Acute respiratory failure with hypoxia; E43 Unspecified severe protein-calorie malnutrition; G91.9 Hydrocephalus, unspecified; E87.3 Alkalosis; G80.9 Cerebral palsy, unspecified; E88.09 Other disorders of plasma-protein metabolism, not elsewhere classified; G40.909 Epilepsy, unspecified, not intractable, without status epilepticus; F79 Unspecified intellectual disabilities; R13.10 Dysphagia, unspecified; N40.0 Benign prostatic hyperplasia without lower urinary tract symptoms; R73.9 Hyperglycemia, unspecified; K59.00 Constipation, unspecified; Z20.822 Contact with and (suspected) exposure to COVID-19; G47.00 Insomnia, unspecified; E78.5 Hyperlipidemia, unspecified; Z98.2 Presence of cerebrospinal fluid drainage device; Z93.1 Gastrostomy status
CPT/HCPCS: 36415; 36600; 70450; 71045; 80048; 80053; 81003; 83605; 83880; 84484; 85025; 85651; 86140; 87040; 87081; 87086; 93005; 96365; 99285; J0456; J0696; J1953; J2060; J7060

== ENCOUNTER 2022-07-11 23:46 | Emergency (ER) | payer MEDICAID ==
[~2022-07-11] VITALS: Ht 177.8 cm; Wt 81.6 kg
[~2022-07-11 23:46] MED LIST changes: +ACET-2619 PO; +MULT-2416 PO
[2022-07-11 23:52] VITALS: BP 138/92
--- NOTE | 2022-07-11 23:52 | NUR ---
PT OFFLOADED TO BED1
[2022-07-12 00:52] LABS: APPEARANCE,URINE SL CLOUDY (CLEAR); BILIRUBIN,URINE NEGATIVE (NEGATIVE); BLOOD, URINE NEGATIVE (NEGATIVE); COLOR,URINE YELLOW (YELLOW); LEUKOCYTE ESTERASE ,URINE NEGATIVE (NEGATIVE); NITRITE, URINE NEGATIVE (NEGATIVE); PH,URINE 8.5 (5.0-9.0); UGLUCOSE NEGATIVE (NEGATIVE)
--- NOTE | 2022-07-12 01:49 | NUR ---
CALLED NUMBER FOR FACILITY NO ANSWER. CALLED [facility] [phone], NO ANSWER. LEFT A PAGE TO [employer] ARTISAN PATRICIA [phone]. NO ANSWER
--- NOTE | 2022-07-12 07:32 | NUR ---
SPOKE TO PATRICIA FROM [facility] WHO STATES WILL CONTACT TRANSPORT AT 0800 WHEN THE COMPANY OPENS FOR DC
--- NOTE | 2022-07-12 07:40 | NUR ---
Pt report given to RALPH KOWALSKI. BY SIDE HEMMERRALPH MARTINEZ Transfer of care at this time.
--- NOTE | 2022-07-12 08:00 | NUR ---
Patient appears to be resting comfortably in bed. Vital Signs within normal limits. Respirations even and unlabored.
--- NOTE | 2022-07-12 10:00 | NUR ---
Patient appears to be resting comfortably in bed. Vital Signs within normal limits. Respirations even and unlabored. TURNED AND REPOSITIONED, ROSANNA CARE DONE
--- NOTE | 2022-07-12 12:00 | NUR ---
Patient appears to be resting comfortably in bed. Vital Signs within normal limits. Respirations even and unlabored. TURNE AND REPOSITIONED
[2022-07-12 13:00] VITALS: BP 112/60
--- NOTE | 2022-07-12 13:00 | NUR ---
Patient discharged with v/s stable. Written and verbal after care instructions given and explained. Patient alert, oriented and verbalized understanding of instructions. Ambulatory with to senior care. All questions addressed prior to discharge. ID band removed. Patient advised to follow up with PMD.NO Rx given. Patient educated on indication of medication including possible reaction and side effects. Opportunity to ask questions provided and answered.
== END 2022-07-12 13:00 ==
LOC: MED 23:46
DX: N39.0 Urinary tract infection, site not specified (principal); K21.9 Gastro-esophageal reflux disease without esophagitis
CPT/HCPCS: 81003; 99285

== ENCOUNTER 2022-10-04 16:54 | Emergency (ER) | payer MEDICAID ==
[~2022-10-04] VITALS: Ht 152.4 cm; Wt 68.0 kg
--- NOTE | 2022-10-04 16:57 | NUR ---
DR. ANTONIO EVALUATING PATIENT.
[2022-10-04 17:08] VITALS: BP 116/72
--- NOTE | 2022-10-04 17:30 | NUR ---
Lab at bedside to draw blood
[2022-10-04 17:34] LABS: APPEARANCE,URINE CLEAR (CLEAR); BILIRUBIN,URINE NEGATIVE (NEGATIVE); BLOOD, URINE NEGATIVE (NEGATIVE); COLOR,URINE YELLOW (YELLOW); LEUKOCYTE ESTERASE ,URINE NEGATIVE (NEGATIVE); NITRITE, URINE NEGATIVE (NEGATIVE); UGLUCOSE NEGATIVE (NEGATIVE)
--- NOTE | 2022-10-04 17:58 | NUR ---
Radiology at bedside to take XRAY
[2022-10-04 18:03] LABS: BASOPHILS # (AUTO) 0.1 K/uL (0.00-0.22); BASOPHILS % (AUTO) 1.1 % (0.0-2.0); EOSINOPHILS % (AUTO) 0.2 % (0.0-4.0); HEMATOCRIT 38.7 % (36-52); HEMOGLOBIN 12.8 g/dL (12.0-18.0); LYMPHOCYTES # (AUTO) 2.4 K/uL (2.0-11.5); MEAN CORPUSCULAR HEMOGLOBIN 29 pg (27-31); MEAN CORPUSCULAR HGB CONC 33 g/dL (33-37); MEAN CORPUSCULAR VOLUME 88.4 fL (80-94); MONOCYTES # (AUTO) 1.2 K/uL (0.8-1.0); MONOCYTES % (AUTO) 14.9 % (1.7-9.3); NEUTROPHILS # (AUTO) 4.6 K/uL (1.8-7.7); NEUTROPHILS % (AUTO) 54.8 % (42.2-75.2); PLATELET COUNT (AUTO) 74 K/uL (140-450); RED BLOOD CELL COUNT(AUTO) 4.38 MIL/uL (4.20-6.10); WHITE BLOOD COUNT (AUTO) 8.3 K/uL (4.8-10.8)
[2022-10-04 18:41] LABS: ALBUMIN 2.8 g/dL (3.4-5.0); ANION GAP 8.5 (8-16); ASPARTATE AMINOTRANSFERASE 29 U/L (15-37); CARBON DIOXIDE 35.3 mmol/L (21-32); CHLORIDE 100 mmol/L (98-107); CREATININE 0.7 mg/dL (0.6-1.3); GFR ARICAN-AMERICAN 161 mL/min (>90); GLUCOSE 97 mg/dL (74-106); POTASSIUM 3.8 mmol/L (3.5-5.1); SODIUM SERUM 140 mmol/L (136-145); TOTAL BILIRUBIN 0.4 mg/dL (0.0-1.0); UREA NITROGEN, BLOOD 11 mg/dL (7-18)
--- NOTE | 2022-10-04 19:14 | NUR ---
Pt report given to RALPH Ferrari. Transfer of care at this time.
--- NOTE | 2022-10-04 19:45 | NUR ---
UPDATING WITH THE FACILITY BOARD AND CARE, EVERYHTING IS NORMAL. I SPOKE TO ENDY PAYNE.
--- NOTE | 2022-10-04 20:36 | NUR ---
[facility] at bedside for transportation back to facility.
[2022-10-04 20:40] VITALS: BP 102/65
--- NOTE | 2022-10-04 20:40 | NUR ---
Patient D/C to facility ([facility]) via gurney ([facility]). Patient discharged with v/s stable. Written and verbal after care instructions given and explained. Ambulance ([facility]) Transport with to [facility]. Called facility and advised to follow up with PMD.
== END 2022-10-04 20:41 | disposition home or self-care (01) ==
LOC: MED 16:54
DX: R00.0 Tachycardia, unspecified (principal); Z20.822 Contact with and (suspected) exposure to COVID-19; K21.9 Gastro-esophageal reflux disease without esophagitis; Z98.890 Other specified postprocedural states
CPT/HCPCS: 36415; 71045; 80053; 81003; 83605; 84484; 85025; 87040; 87086; 87426; 93005; 99285; Q0092

== ENCOUNTER 2022-10-08 19:25 | Emergency (ER) | payer MEDICAID ==
[~2022-10-08] VITALS: Ht 175.3 cm; Wt 81.6 kg
[2022-10-08 19:25] VITALS: BP 126/82
--- NOTE | 2022-10-08 19:30 | NUR ---
BIBA TO BED #8
--- NOTE | 2022-10-08 20:15 | NUR ---
I called the facility to give the report and update the status of patient, spoke to Nohelia RN [phone]. Transportation is pending.
[2022-10-08 20:42] LABS: CARBON DIOXIDE 34.9 mmol/L (21-32); CREATININE 0.6 mg/dL (0.6-1.3); POTASSIUM 3.9 mmol/L (3.5-5.1)
[2022-10-08 21:02] LABS: BASOPHILS % (AUTO) 0.4 % (0.0-2.0); EOSINOPHILS % (AUTO) 0.2 % (0.0-4.0); HEMATOCRIT 37.3 % (36-52); HEMOGLOBIN 12.1 g/dL (12.0-18.0); LYMPHOCYTES # (AUTO) 1.7 K/uL (2.0-11.5); LYMPHOCYTES % (AUTO) 25.4 % (20.5-51.1); MEAN CORPUSCULAR HEMOGLOBIN 29 pg (27-31); MEAN CORPUSCULAR HGB CONC 33 g/dL (33-37); MEAN CORPUSCULAR VOLUME 89.4 fL (80-94); MONOCYTES # (AUTO) 1.2 K/uL (0.8-1.0); MONOCYTES % (AUTO) 18.6 % (1.7-9.3); NEUTROPHILS # (AUTO) 3.6 K/uL (1.8-7.7); NEUTROPHILS % (AUTO) 55.4 % (42.2-75.2); PLATELET COUNT (AUTO) 182 K/uL (140-450); RED BLOOD CELL COUNT(AUTO) 4.17 MIL/uL (4.20-6.10); RED CELL DISTRIBUTION WIDTH 18.2 % (11.6-13.7); WHITE BLOOD COUNT (AUTO) 6.6 K/uL (4.8-10.8)
--- NOTE | 2022-10-08 21:09 | NUR ---
pt is here to be evaluvated for positive blood culture. He is from [facility]. he look lethargic, alert time 1, using nasal canula 3 L .
--- NOTE | 2022-10-08 23:20 | NUR ---
[facility] AT BEDSIDE FOR TRANSPORT
[2022-10-08 23:28] VITALS: BP 126/82
--- NOTE | 2022-10-08 23:33 | NUR ---
Patient discharged with v/s stable. Written and verbal after care instructions given and explained. Patient verbalized understanding. Ambulance Transport with to shelter. All questions addressed prior to discharge. Advised to follow up with PMD. Pt left to [facility]-way [facility] with paramedics.
== END 2022-10-08 23:28 | disposition home or self-care (01) ==
LOC: MED 19:25
DX: R79.9 Abnormal finding of blood chemistry, unspecified (principal); K21.9 Gastro-esophageal reflux disease without esophagitis
CPT/HCPCS: 36415; 80048; 85025; 87040; 99283

== ENCOUNTER 2022-11-21 22:39 | Inpatient (IN) | payer MEDICAID ==
[~2022-11-21] VITALS: Ht 170.2 cm; Wt 85.7 kg
[2022-11-21 22:39] VITALS: BP 96/48
--- NOTE | 2022-11-21 22:58 | NUR ---
PT MANJEET ALS. TAKEN TO BED 8
[2022-11-21] MEDS ORDERED: NACL 0.9% 2,000 ML IV ONE (23:30)
[2022-11-21] MEDS ORDERED: VANCOMYCIN 1,000 MG in DEXTROSE 5% 250 ML IV ONE (23:30)
[2022-11-21] MEDS ORDERED: MEROPENEM 1,000 MG in NACL 0.9% 50 ML IV ONE (23:30)
[2022-11-22] VITALS: BP 121/82
--- NOTE | 2022-11-22 00:04 | NUR ---
X-Ray at bedside.
[2022-11-22 00:23] LABS: BASOPHILS % (AUTO) 0.4 % (0.0-2.0); EOSINOPHILS % (AUTO) 0.5 % (0.0-4.0); HEMOGLOBIN 11.5 g/dL (12.0-18.0); LYMPHOCYTES # (AUTO) 1.2 K/uL (2.0-11.5); LYMPHOCYTES % (AUTO) 18.5 % (20.5-51.1); MEAN CORPUSCULAR HEMOGLOBIN 30 pg (27-31); MEAN CORPUSCULAR HGB CONC 33 g/dL (33-37); MONOCYTES # (AUTO) 0.7 K/uL (0.8-1.0); MONOCYTES % (AUTO) 10.5 % (1.7-9.3); NEUTROPHILS # (AUTO) 4.4 K/uL (1.8-7.7); NEUTROPHILS % (AUTO) 70.1 % (42.2-75.2); PLATELET COUNT (AUTO) 194 K/uL (140-450); RED BLOOD CELL COUNT(AUTO) 3.84 MIL/uL (4.20-6.10); RED CELL DISTRIBUTION WIDTH 16.7 % (11.6-13.7); WHITE BLOOD COUNT (AUTO) 6.3 K/uL (4.8-10.8)
--- NOTE | 2022-11-22 00:27 | NUR ---
COVID SWAB SENT TO LAB
[2022-11-22] MEDS ORDERED: MEROPENEM 1,000 MG VIAL IV ONE (00:31)
[2022-11-22] MEDS ORDERED: VANCOMYCIN 1,000 MG VIAL ONE (00:44)
[2022-11-22 00:49] LABS: ALBUMIN 2.2 g/dL (3.4-5.0); ANION GAP 4.7 (8-16); CREATININE 0.7 mg/dL (0.6-1.3); POTASSIUM 4.2 mmol/L (3.5-5.1); TOTAL BILIRUBIN 0.4 mg/dL (0.0-1.0)
[2022-11-22 00:57] LABS: CARBON DIOXIDE 40.5 mmol/L (21-32)
--- NOTE | 2022-11-22 01:13 | NUR ---
0000 PLACED PT ON BIPAP IPAP 16 EPAP 6 RATE 14 FIO2 100%. PT HAD SHORTNESS OF BREATH
[2022-11-22 01:30] VITALS: BP 127/78
--- NOTE | 2022-11-22 01:37 | NUR ---
0130 PATIENT DISCONNECTED HIMSELF FROM BIPAP. PLACED PT ON WRIST RESTRAINTS
--- NOTE | 2022-11-22 02:49 | NUR ---
37YR OLD MALE BIB EMS C/O SOB/COUGH. PT IS FROM SNF [facility]. PT IS NON VERBAL HX OF CP. SP02 100% ON BI-PAP. HOB ELEVATED. SKIN FLUSED DRY. STAFF STATED PT WAS SOB WITH COUGH. PT TO PAINFUL STIMULTI ONLY. ON BEDSIDE CARIDAC MONITOR. BED AT LOWEST POSITION SIDE RAILS UP X2. NKDA CERERBAL PALSY
[2022-11-22 03:31] LABS: APPEARANCE,URINE CLEAR (CLEAR); BILIRUBIN,URINE NEGATIVE (NEGATIVE); BLOOD, URINE NEGATIVE (NEGATIVE); COLOR,URINE YELLOW (YELLOW); LEUKOCYTE ESTERASE ,URINE NEGATIVE (NEGATIVE); NITRITE, URINE NEGATIVE (NEGATIVE); UGLUCOSE 3+ (NEGATIVE)
--- NOTE | 2022-11-22 03:46 | NUR ---
STRAIGHT CATH OBTAINED URINE AND SENT TO LAB
[2022-11-22 04:35] VITALS: BP 117/70
[2022-11-22] MEDS ORDERED: PIPERACILLIN/TAZOBACTAM 3.375 GM VIAL IV ONE (05:05)
[2022-11-22] MEDS: PIPERACILLIN/TAZOBACTAM 3.375 GM in DEXTROSE 5% 50 ML IV SCH ×3 (05:14→22:40)
--- NOTE | 2022-11-22 06:35 | NUR ---
PT RESTING IN BED. IS ON BI-PAP SAT 100%. RESP EVEN AND UNLABORED. PT HOB ELEVATED. PT IS INCONT AND HAS BEEN CHANGED . INCONT OF URINE ONLY. RESPONDS TO VERBAL AND PAINFUL STIMULTI.
--- NOTE | 2022-11-22 06:48 | NUR ---
PERSONAL BELONGINGS AND MED RECONCILE COMPLETED
--- NOTE | 2022-11-22 07:25 | NUR ---
REPORT RECEIVED FROM LISA PAYNE. ASSUMED CARE AT THIS TIME.
--- NOTE | 2022-11-22 07:30 | NUR ---
pt at rest w/ eyes closed. received on bipap and soft restraints. restraints removed. seizure pads in place. on library monitor. bed at lowest position.
--- NOTE | 2022-11-22 07:49 | NUR ---
Patient will be admitted to care of MD VELASCO. Admited to TELE. Will go to room 108B. Belongings list completed. Report to JAMEEL ROSAS .
[2022-11-22] MEDS ORDERED: ALBUTEROL 90 MCG IH SCH (10:50)
[2022-11-22] MEDS ORDERED: MENTHOL/ZINC OXIDE 113 GM TUBE TP SCH (10:50)
[2022-11-22] MEDS ORDERED: NACL 0.9% 1,000 ML IV SCH (10:50)
[2022-11-22] MEDS ORDERED: ACETAMINOPHEN 325 MG TAB PO PRN ×2 (10:50)
[2022-11-22] MEDS ORDERED: MAG SULF 2000 MG/WATER PREMIX 50 ML IV PRN (10:50)
[2022-11-22] MEDS ORDERED: CAMPHOR TP SCH (10:50)
[2022-11-22] MEDS ORDERED: ONDANSETRON 4 MG/2 ML VIAL IVP PRN (10:50)
[2022-11-22] MEDS ORDERED: guaiFENesin 20 MG/ML UDC GT SCH (10:50)
[2022-11-22] MEDS ORDERED: HYDROcodone/APAP 7.5/325 MG 1 TAB PO PRN (10:50)
[2022-11-22] MEDS ORDERED: MINERAL OIL 135 ML ENEM RC PRN (10:50)
[2022-11-22] MEDS ORDERED: EUCALYPTUS OIL TP SCH (10:50)
[2022-11-22] MEDS ORDERED: MENTHOL TP SCH (10:50)
[2022-11-22] MEDS ORDERED: bisacodyL 10 MG SUPP RC SCH (10:50)
[2022-11-22] MEDS ORDERED: ONDANSETRON 4 MG ODT PO PRN (10:50)
[2022-11-22] MEDS ORDERED: FUROSEMIDE 20 MG/2 ML VIAL IVP SCH (11:30)
[2022-11-22] MEDS ORDERED: ALBUTEROL 0.083% 2.5 MG/3 ML NEBU INH PRN (11:30)
[2022-11-22 12:00] VITALS: BP 120/67
[2022-11-22] MEDS ORDERED: bisacodyL 10 MG SUPP RC PRN (12:03)
[2022-11-22] MEDS ORDERED: guaiFENesin 20 MG/ML UDC GT PRN (12:04)
[2022-11-22] MEDS ORDERED: NON-FORMULARY ITEM (Lactulose 30 ML) GT SCH (13:00)
[2022-11-22] MEDS: LACTULOSE 20 GM/30 ML UDC GT SCH ×2 (13:12→17:18)
[2022-11-22] MEDS: BACLOFEN 10 MG TAB GT SCH ×2 (13:14→17:18)
[2022-11-22] MEDS: VALPROIC ACID 250 MG/5 ML UDC GT SCH ×3 (13:14→22:37)
[2022-11-22] MEDS: CALCIUM CARB/VIT-D 500 MG/200 IU 1 TAB PO SCH ×2 (13:14→17:19)
[2022-11-22] MEDS ORDERED: CRUSHER, PILL MC ONE (13:16)
[2022-11-22 14:16] LABS: BASOPHILS % (AUTO) 0.3 % (0.0-2.0); HEMATOCRIT 35.4 % (36-52); HEMOGLOBIN 11.6 g/dL (12.0-18.0); LYMPHOCYTES # (AUTO) 0.7 K/uL (2.0-11.5); LYMPHOCYTES % (AUTO) 13.5 % (20.5-51.1); MEAN CORPUSCULAR HEMOGLOBIN 30 pg (27-31); MEAN CORPUSCULAR HGB CONC 33 g/dL (33-37); MONOCYTES # (AUTO) 0.6 K/uL (0.8-1.0); MONOCYTES % (AUTO) 12.5 % (1.7-9.3); NEUTROPHILS # (AUTO) 3.5 K/uL (1.8-7.7); NEUTROPHILS % (AUTO) 72.7 % (42.2-75.2); PLATELET COUNT (AUTO) 176 K/uL (140-450); RED BLOOD CELL COUNT(AUTO) 3.93 MIL/uL (4.20-6.10); RED CELL DISTRIBUTION WIDTH 16.3 % (11.6-13.7); WHITE BLOOD COUNT (AUTO) 4.8 K/uL (4.8-10.8)
--- NOTE | 2022-11-22 14:43 | NUR ---
PATIENT HAS BEEN SCREENED AND CATEGORIZED HIGH NUTRITION RISK. PATIENT WILL BE SEEN WITHIN 1-2 DAYS OF ADMISSION. REVIEWED BY RAULITO MARROQUIN RD
[2022-11-22 14:49] LABS: PROTHROMBIN TIME 10.1 secs (10.8-13.4)
[2022-11-22 14:56] LABS: ANION GAP 6.7 (8-16); CARBON DIOXIDE 40.7 mmol/L (21-32); CREATININE 0.6 mg/dL (0.6-1.3); POTASSIUM 3.4 mmol/L (3.5-5.1)
[2022-11-22 15:16] LABS: AMYLASE 67 U/L (25-115); CHOL/HDL RATIO 2.9 (1-4.5); FREE T4 (FREE THYROXINE) 1.31 ng/dL (0.76-1.46); HDL CHOLESTEROL 41 mg/dL (40-60); LDL (CALC) 57 mg/dL (60-100); LIPASE 179 U/L (73-393); MAGNESIUM 1.9 mg/dL (1.8-2.4); PHOSPHORUS 5.2 mg/dL (2.5-4.9); TRIGLYCERIDES 102 mg/dL (30-150)
--- NOTE | 2022-11-22 15:21 | NUR ---
0800: RECEIVED PT FROM MIKE ROSAS IN ED. PT ON BI-PAP. A&O X 2-3. MONITOR PLACED SR NOTED. RHONCHI NOTED. NO ACUTE DISTRESS AT THIS TIME. [id number].
--- NOTE | 2022-11-22 15:37 | NUR ---
11/22/22 RD INITIAL ASSESSMENT COMPLETED PLEASE REFER TO NUTRITION ASSESSMENT UNDER CARE ACTIVITY FOR ESTIMATED NUTRITIONAL NEEDS. 1. WHEN/IF MEDICALLY APPROPRIATE TO START TF, RECOMMEND JEVITY 1.2 AT GOAL RATE 65 ML/HR, FWF 150 ML Q4H TOLERATED - PROVIDES 1560 ML TOTAL VOLUME, 1872 KCAL, 85 GM PROTEIN AND 2158 ML FREE WATER DAILY MEETING 90% ESTIMATED KCAL NEEDS AND 100% ESTIMATED PROTEIN NEEDS; ADEQUATE - START TF AT 2O ML/HR INCREASE BY 2O ML Q4H UNTIL GOAL IS REACHED TOLERATED 2. MONITOR GI SYMPTOMS, GASTRIC RESIDUALS AND NUTRITION RELATED LAB VALUES 3. CONSULT RD PRN 4. RD TO FOLLOW-UP 2-3 DAYS, HIGH RISK REVIEWED BY RAULITO MARROQUIN RD
[2022-11-22 16:00] VITALS: BP 114/59
[2022-11-22] MEDS ORDERED: BACLOFEN 10 MG TAB ONE (17:08)
--- NOTE | 2022-11-22 19:40 | NUR ---
RECEIVED PT W/ ON GOING JEVITY FEEDING - TOLERATING W/ 20 CC RESIDUAL - WILL INFORM CHARGE CHARGE ABOUT THE FEEDING .
[2022-11-22 20:00] VITALS: BP 112/60
--- NOTE | 2022-11-22 20:30 | NUR ---
rt at bedside
--- NOTE | 2022-11-22 20:37 | NUR ---
lab staff said blood culture is done yesterday
[2022-11-22] MEDS ORDERED: NON-FORMULARY ITEM (Lacosamide (Vimpat) 200 MG) GT SCH (21:00)
[2022-11-22] MEDS ORDERED: TRAVOPROST RIGHT EYE SCH (21:00)
[2022-11-22] MEDS ORDERED: LACOSAMIDE 10 MG/ML GT/PO SCH (21:00)
[2022-11-22] MEDS ORDERED: NON-FORMULARY ITEM (Dorzolamide HCl/Timolol Maleat (Dorzolamide-Timolol Eye Drops) 1 DROP) RIGHT EYE SCH (21:00)
[2022-11-22] MEDS: DORZOLAMIDE 2% OP 10 ML BTL OP SCH (22:30)
[2022-11-22] MEDS: TIMOLOL OP 0.25% 5 ML BTL OP SCH (22:30)
[2022-11-22] MEDS: traZODone 50 MG TAB PO SCH (22:40)
[2022-11-22] MEDS: SENNA 8.6 MG TAB GT SCH (22:40)
[2022-11-22] MEDS: TAMSULOSIN 0.4 MG CAP GT SCH (22:40)
[2022-11-22] MEDS: levETIRAcetam 100 MG/ML ORASYR GT SCH (22:40)
[2022-11-22] MEDS: diazePAM 5 MG TAB GT SCH (22:40)
[2022-11-22] MEDS: LACOSAMIDE 10 MG/ML PO SCH (22:40)
[2022-11-22] MEDS: DOCUSATE 100 MG/10 ML UDC PO SCH (22:40)
[2022-11-23] VITALS: BP 100/58
--- NOTE | 2022-11-23 | NUR ---
ROUNDS , NO S/SX OF ACUTE DISTRESS NOTED . ,
[2022-11-23 04:00] VITALS: BP 102/61
--- NOTE | 2022-11-23 04:00 | NUR ---
ROUNDS , NO S/SX OF ACUTE DISTRESS NOTED , RT AT BEDSIDE .
--- NOTE | 2022-11-23 06:00 | NUR ---
O2 SAT WNL , NO S/SX OF ACUTE DISTRESS NOTED
[2022-11-23] MEDS: PIPERACILLIN/TAZOBACTAM 3.375 GM in DEXTROSE 5% 50 ML IV SCH ×3 (06:13→20:45)
--- NOTE | 2022-11-23 07:08 | NUR ---
receive the patient from the shift superintendent caustic cresylate rn in rm 108B aox0 admitting diagnosis of pneumonia . will continue to monitor
[2022-11-23 07:28] LABS: BASOPHILS % (AUTO) 0.3 % (0.0-2.0); EOSINOPHILS # (AUTO) 0.1 K/uL (0-0.4); EOSINOPHILS % (AUTO) 1.2 % (0.0-4.0); HEMATOCRIT 32.8 % (36-52); HEMOGLOBIN 10.8 g/dL (12.0-18.0); LYMPHOCYTES # (AUTO) 1.2 K/uL (2.0-11.5); LYMPHOCYTES % (AUTO) 24.7 % (20.5-51.1); MEAN CORPUSCULAR HEMOGLOBIN 30 pg (27-31); MEAN CORPUSCULAR HGB CONC 33 g/dL (33-37); MEAN CORPUSCULAR VOLUME 91.2 fL (80-94); MONOCYTES # (AUTO) 0.8 K/uL (0.8-1.0); MONOCYTES % (AUTO) 15.7 % (1.7-9.3); NEUTROPHILS # (AUTO) 2.9 K/uL (1.8-7.7); NEUTROPHILS % (AUTO) 58.1 % (42.2-75.2); PLATELET COUNT (AUTO) 176 K/uL (140-450); RED CELL DISTRIBUTION WIDTH 16.9 % (11.6-13.7); WHITE BLOOD COUNT (AUTO) 4.9 K/uL (4.8-10.8)
[2022-11-23 07:33] LABS: ANION GAP 5.5 (8-16); CARBON DIOXIDE 40.2 mmol/L (21-32); CREATININE 0.8 mg/dL (0.6-1.3); POTASSIUM 3.7 mmol/L (3.5-5.1)
--- NOTE | 2022-11-23 07:50 | NUR ---
ENDORSED PT FOR CONT. OF CARE , FEEDING TOLERATING .
[2022-11-23 07:56] LABS: MAGNESIUM 2.1 mg/dL (1.8-2.4); PHOSPHORUS 4.9 mg/dL (2.5-4.9)
[2022-11-23 08:00] VITALS: BP 96/63
[2022-11-23] MEDS ORDERED: [UNRECOGNIZED DRUG - OTHER] PO SCH (09:00)
[2022-11-23] MEDS ORDERED: [UNRECOGNIZED DRUG - OTHER] GT SCH (09:00)
[2022-11-23] MEDS ORDERED: MULTIVITS CA MINERALS GT SCH (09:00)
[2022-11-23] MEDS ORDERED: IRON GT SCH (09:00)
[2022-11-23] MEDS ORDERED: FATTY ACIDS GT SCH (09:00)
[2022-11-23] MEDS ORDERED: OMEGA GT SCH (09:00)
[2022-11-23] MEDS ORDERED: MULTIVITS CA MINERALS PO SCH (09:00)
[2022-11-23] MEDS ORDERED: IRON PO SCH (09:00)
[2022-11-23 09:22] LABS: BARBITURATE, URINE NEGATIVE ng/ml (NEG <=200); BENZODIAZEPINE, URINE POSITIVE ng/mL (NEG <=200); CANNABINOID, URINE NEGATIVE ng/mL (NEG <=50); COCAINE, URINE NEGATIVE ng/mL (NEG <=300); OPIATE, URINE NEGATIVE ng/mL (NEG <=2000); PHENCYCLIDINE SCREEN,URINE NEGATIVE ng/mL (NEG <=25)
[2022-11-23] MEDS: LACTULOSE 20 GM/30 ML UDC GT SCH ×3 (09:54→17:16)
[2022-11-23] MEDS: VALPROIC ACID 250 MG/5 ML UDC GT SCH ×4 (09:54→20:44)
[2022-11-23] MEDS: levETIRAcetam 100 MG/ML ORASYR GT SCH ×2 (09:55→20:13)
[2022-11-23] MEDS: MULTIVITAMIN/MINERALS 15 ML UDBTL GT SCH (09:56)
[2022-11-23] MEDS: BACLOFEN 10 MG TAB GT SCH ×3 (09:56→17:16)
[2022-11-23] MEDS: diazePAM 5 MG TAB GT SCH ×2 (09:57→20:15)
[2022-11-23] MEDS: FUROSEMIDE 40 MG/4 ML VIAL IVP SCH (10:01)
[2022-11-23] MEDS: DOCUSATE 100 MG/10 ML UDC PO SCH ×2 (10:02→20:15)
[2022-11-23] MEDS: PANTOPRAZOLE 40 MG INJ VIAL IVP SCH (10:02)
[2022-11-23] MEDS: CALCIUM CARB/VIT-D 500 MG/200 IU 1 TAB PO SCH ×3 (10:06→17:17)
[2022-11-23] MEDS: TIMOLOL OP 0.25% 5 ML BTL OP SCH ×2 (10:07→21:37)
[2022-11-23] MEDS: DORZOLAMIDE 2% OP 10 ML BTL OP SCH ×2 (10:08→21:38)
--- NOTE | 2022-11-23 11:14 | NUR ---
WOUND CARE EVALUATION NOTE: SKIN ASSESSMENT DONE WITH THIS 37 Y/O PT ADMITTED WITH INITIAL DX SHORTNESS OF BREATH, FEVER. PAST MEDICAL HX INCLUDES CEREBRAL PALSY. PT ADMITTED FROM SNF WITH PRESSURE INJURIES. ALL ABOVE INFORMATION OBTAINED FROM ADMISSION H&P AND CHART REVIEW. PT IS WITH BI-PAP, TF, SKIN IS WARM AND MOIST, BILATERAL LOWER EXTREMITY HAIRY, +1EDEMA. DORSAL PEDAL PULSES PRESENT AND NORMAL. LEONARDO CATH DISLODGED UPON ARRIVAL, LOW ROSEANNE SCALE AT RISK. PLAN OF CARE DISCUSSED WITH PRIMARY RN ANGUS AND INFORM HIM OF LEONARDO CATH DISLODGED. INTEGUMENTARY: -MASD TO SACRALCOCCYX, SKIN MOIST. OLD HEALED SCAR TISSUE OBSERVED -LEFT HEEL PRESSURE INJURY UN-STAGEABLE 1X2CM WITH SURROUNDING SKIN DTI, ENTIRE AREA 2.5X3.5CM MUSHY WITH FURTHER DAMAGE INDICATED -RIGHT LATERAL MALLEOLUS PRESSURE INJURY UN-STAGEABLE 1.5X0.8CM WITH 75% BLACK THIN ESCHAR TISSUE AND 25% SOFT YELLOW SLOUGH TISSUE, MOIST, NO ODOR, ROSANNA-WOUND SKIN INTACT. RECOMMENDATIONS: -FREQUENT ORAL CARE AND ROSANNA-CARE Q SHIFT -SACRALCOCCYX MOISTURE ASSOCIATED DERMATITIS: CLEANSE WITH NS, PAT DRY, APPLY Z GUARD BID AND PRN IF SOILED. -LEFT HEEL AND RIGHT LATERAL ANKLE CLEANSE WITH NS, PAT DRY, APPLY HYDROCOLLOID DRESSING CHANGE Q3 DAYS AND PRN IF SOILED. -PRESSURE REDISTRIBUTION SURFACE THERAPY JASPER ISOFLEX DANIEL MATTRESS -POSITIONING: TURN AND REPOSITION PATIENT Q 2H OR SOONER USE PILLOWS TO KEEP BONY PROMINENCES FROM DIRECT CONTACT WITH SURFACES USE REPOSITIONING WEDGES TO PROVIDE 30-DEGREE ANGLE FOR SIDE LYING POSITIONS OFFLOADING OR FOAM DRESSING TO ALL TUBING TO PREVENT MEDICAL DEVICES RELATED PRESSURE INJURY -RE-EVALUATING AND MANAGING INCONTINENCE MONITOR SKIN CONDITION DURING POSITION CHANGE DO NOT MASSAGE REDNESS, BONY PROMINENCES FREQUENT ROSANNA-CARE AND PROVIDE BARRIER CREAMS PRN IF SOILING MOISTURE CONTROL BY OFFER BED DELCID/URINAL /ABSORBENT PAD TO WICK AND HOLD MOISTURE KEEP SKIN DRY AND PROTECT FROM FRICTION -MANAGE FRICTION/SHEAR/MOBILITY KEEP HOB AT THE LOWEST LEVEL OF ELEVATION NO MORE THAN 30 DEGREE UNLESS OTHERWISE CONTRAINDICATED PROTECT HEELS, ELBOWS BONY PROMINENCES WITH SKIN BERRIES OR FOAM DRESSING IF EXPOSED TO FRICTION OFFLOAD BILATERAL HEELS BY PLACING PILLOWS UNDER CALVES AT ALL TIMES, UNLESS OTHERWISE CONTRAINDICATED -NUTRITION: PLEASE FOLLOW RD RECOMMENDATIONS AND OFFER NUTRITION SUPPLEMENTS IF ORDERED.
--- NOTE | 2022-11-23 11:17 | NUR ---
TOLERATING BIPAP TO MASK WELL WITHOUT ADVERSE REACTIONS NOTED SATURATION 97% ON FIO2 OF 50% POST HHN THERAPY TITRATED FIO2 TO 45% FRAMING MACHINE TENDER TO NOTIFY DAY/RN
--- NOTE | 2022-11-23 11:30 | NUR ---
patient was clean for patient care and comfort with the certified nurse education assistant .
--- NOTE | 2022-11-23 11:30 | NUR ---
order tomlinson catheter for the patient . noted and carried out
[2022-11-23 12:00] VITALS: BP 113/69
[2022-11-23] MEDS ORDERED: HYDROCOLLOID DRESSING TP PRN (13:25)
[2022-11-23] MEDS ORDERED: Z-GUARD PASTE TP PRN (13:25)
[2022-11-23 16:00] VITALS: BP 110/57
--- NOTE | 2022-11-23 16:05 | NUR ---
the respiratory therapist change the bipap settings on 50% . o2 saturating at 99% . will continue to monitor
[2022-11-23] MEDS: LACOSAMIDE 10 MG/ML PO SCH ×2 (16:17→21:00)
[2022-11-23] MEDS: HYDROCOLLOID DRESSING TP SCH (16:33)
[2022-11-23] MEDS: Z-GUARD PASTE TP SCH (16:34)
[2022-11-23] MEDS: ALBUTEROL SULFATE/IPRATROPIU 3 ML SOL IH SCH (19:11)
--- NOTE | 2022-11-23 19:25 | NUR ---
will endorse to [facility] attendant rn Sarah Beth for continuity of care
--- NOTE | 2022-11-23 19:28 | NUR ---
RECEIVED PATIENT FROM AM NURSE FOR CONTINUITY OF CARE. PT IS STABLE
[2022-11-23 20:00] VITALS: BP 104/57
[2022-11-23] MEDS: TAMSULOSIN 0.4 MG CAP GT SCH (20:13)
[2022-11-23] MEDS: SENNA 8.6 MG TAB GT SCH (20:14)
[2022-11-23] MEDS: traZODone 50 MG TAB PO SCH (20:46)
[2022-11-23] MEDS: ACETAZOLAMIDE SOD 250 MG TAB PO SCH (21:00)
[2022-11-24] VITALS: BP 108/55
[2022-11-24] MEDS: ALBUTEROL SULFATE/IPRATROPIU 3 ML SOL IH SCH ×4 (00:01→19:30)
[2022-11-24] MEDS: Z-GUARD PASTE TP SCH ×2 (01:34→13:13)
[2022-11-24 04:00] VITALS: BP 110/64
[2022-11-24] MEDS: PIPERACILLIN/TAZOBACTAM 3.375 GM in DEXTROSE 5% 50 ML IV SCH ×3 (04:44→20:20)
--- NOTE | 2022-11-24 07:24 | NUR ---
ENDORSED PATIENT TO AM NURSE FOR CONTINUITY OF CARE. PATIENT IS STABLE
--- NOTE | 2022-11-24 07:25 | NUR ---
RECEIVED REPORT FROM NIGHTSHIFT NURSE. PT IS ASLEEP IN BED, WOKE TO NAME AND TOUCH. NO SIGNS OF DISTRESS. PT ON BIPAP, O2 SAT AT 100%. PT ON TUBE FEED, 50CC/HR. IV TO LEFT HAND, 22G, CLEAN AND INTACT. BED IN LOWEST POSITION, SIDE RAILS UP, CALL LIGHT WITHIN REACH. NO FURTHER NEEDS ARE TO BE MET AT THIS TIME, WILL CONTINUE WITH PT CARE.
[2022-11-24 07:59] LABS: BASOPHILS % (AUTO) 0.5 % (0.0-2.0); EOSINOPHILS # (AUTO) 0.1 K/uL (0-0.4); EOSINOPHILS % (AUTO) 1.4 % (0.0-4.0); HEMATOCRIT 33.8 % (36-52); LYMPHOCYTES # (AUTO) 1.4 K/uL (2.0-11.5); MEAN CORPUSCULAR HEMOGLOBIN 30 pg (27-31); MEAN CORPUSCULAR HGB CONC 33 g/dL (33-37); MEAN CORPUSCULAR VOLUME 91.2 fL (80-94); MONOCYTES # (AUTO) 0.9 K/uL (0.8-1.0); MONOCYTES % (AUTO) 16.6 % (1.7-9.3); NEUTROPHILS # (AUTO) 3.1 K/uL (1.8-7.7); NEUTROPHILS % (AUTO) 56.5 % (42.2-75.2); PLATELET COUNT (AUTO) 208 K/uL (140-450); WHITE BLOOD COUNT (AUTO) 5.4 K/uL (4.8-10.8)
[2022-11-24 08:00] VITALS: BP 109/60
[2022-11-24 08:06] LABS: ANION GAP 6.1 (8-16); CARBON DIOXIDE 39.9 mmol/L (21-32); CREATININE 0.8 mg/dL (0.6-1.3)
[2022-11-24 08:08] LABS: MAGNESIUM 2.4 mg/dL (1.8-2.4); PHOSPHORUS 4.7 mg/dL (2.5-4.9)
[2022-11-24] MEDS: LACOSAMIDE 10 MG/ML PO SCH ×2 (09:00→21:55)
[2022-11-24] MEDS: DORZOLAMIDE 2% OP 10 ML BTL OP SCH ×2 (09:00→20:52)
[2022-11-24] MEDS: ACETAZOLAMIDE SOD 250 MG TAB PO SCH ×2 (09:00→20:53)
[2022-11-24] MEDS: TIMOLOL OP 0.25% 5 ML BTL OP SCH ×2 (09:00→20:51)
[2022-11-24] MEDS: LACTULOSE 20 GM/30 ML UDC GT SCH ×3 (09:35→17:59)
[2022-11-24] MEDS: levETIRAcetam 100 MG/ML ORASYR GT SCH ×2 (09:35→20:33)
[2022-11-24] MEDS: DOCUSATE 100 MG/10 ML UDC PO SCH ×2 (09:36→20:36)
[2022-11-24] MEDS: diazePAM 5 MG TAB GT SCH ×2 (09:36→20:35)
[2022-11-24] MEDS: BACLOFEN 10 MG TAB GT SCH ×3 (09:37→17:59)
[2022-11-24] MEDS: CALCIUM CARB/VIT-D 500 MG/200 IU 1 TAB PO SCH ×3 (09:37→17:59)
[2022-11-24] MEDS: FUROSEMIDE 40 MG/4 ML VIAL IVP SCH (09:38)
[2022-11-24] MEDS: PANTOPRAZOLE 40 MG INJ VIAL IVP SCH (09:38)
[2022-11-24] MEDS: VALPROIC ACID 250 MG/5 ML UDC GT SCH ×4 (09:45→20:32)
[2022-11-24] MEDS: MULTIVITAMIN/MINERALS 15 ML UDBTL GT SCH (10:30)
--- NOTE | 2022-11-24 11:08 | NUR ---
DC PLANNIN YRS OLD MALE PATIENT WAS ADMITTED FROM [facility] ([facility]) WITH A DX OF BILATERAL PNEUMONIA, HYPERCAPNIC RESP FAILURE,SEPSIS. PATIENT HAS A HX OF SEIZURE DISORDER, MENTAL RETARDATION DYSPHAGIA, BPH GLAUCOMA AND INSOMNIA. CXR SHOWED MULTIFOCAL PNEUMONIA /PULMONARY EDEMA. RAPID COVID TEST NEGATIVE. ON BIPAP FIO2 30% ADMINISTERED IVF, IV ABX ZOSYN AND CONTINUED HOME MEDS. CONSULTED WITH CARDIO, ID AND PULMO. DC PLAN TO RETURN TO [facility] WHEN STABLE. CM TO FOLLOW
[2022-11-24 12:00] VITALS: BP 109/60
--- NOTE | 2022-11-24 12:00 | NUR ---
RT WITH PT, SWITCHED PT FROM BI-PAP TO HIGH FLOW 40L AT 40%.
--- NOTE | 2022-11-24 14:56 | NUR ---
PT RESTING IN BED. PT AOX2. WAS ABLE TO RECALL NAME, BIRTHDAY AND LOCATION. PT STATES HAVING PAIN IN RIGHT ANKLE. ASSESSED ANKLE, PROVIDED NONPHARM INTERVENTIONS AND COMFORT MEASURES, PROPPED WITH PILLOW. BED IN LOWEST POSITION, LOWERED HEAD OF BED FOR COMFORT, SIDE RAILS UP, CALL LIGHT PLACED WITHIN REACH. NO OTHER NEEDS ARE TO BE MET AT THIS TIME, WILL CONTINUE WITH CARE.
--- NOTE | 2022-11-24 15:08 | NUR ---
11/24/22 RD FOLLOW UP COMPLETED PLEASE REFER TO NUTRITION ASSESSMENT UNDER CARE ACTIVITY FOR ESTIMATED NUTRITIONAL NEEDS. 1. RECOMMEND FERNANDA BID FOR WOUND SUPPORT - PROVIDES 160 KCAL AND 5 GM PROTEIN DAILY 2. CONTINUE JEVITY 1.2 AT GOAL RATE 65 ML/HR, FWF 150 ML Q4H TOLERATED - WITH FERNANDA BID, PROVIDES 1560 ML TOTAL VOLUME, 2032 KCAL, 90 GM PROTEIN AND 2158 ML FREE WATER DAILY MEETING 100% ESTIMATED KCAL AND PROTEIN NEEDS; ADEQUATE 3. MONITOR GI SYMPTOMS, GASTRIC RESIDUALS AND NUTRITION RELATED LAB VALUES 4. CONSULT RD PRN 5. RD TO FOLLOW-UP 3-5 DAYS, MODERATE RISK REVIEWED BY RAULITO MARROQUIN RD
[2022-11-24 16:00] VITALS: BP 113/60
--- NOTE | 2022-11-24 17:15 | NUR ---
PT SWITCHED BACK TO BiPAP BECAUSE SATURATION DECREASED TO 84%. ALSO BASED ON HIS LATEST X-RAY HE NEEDS THE THE ADDITIONAL SUPPORT . SETTINGS ARE 16/6, RATE 14, 30%. PATIENT SATURATION IS 95%, RESTING COMFORTABLY. PT IS USING TOTAL FACE MASK DUE SKIN BREAKDOWN ON NOSE. WILL CONTINUE TO MONITOR PT.
--- NOTE | 2022-11-24 19:15 | NUR ---
PT IS RESTING IN BED, NO SIGNS OF DISTRESS. NO FURTHER NEEDS ARE TO BE MET AT THIS TIME. BED IN LOWEST POSITION, SIDE RAILS UP, CALL LIGHT PLACED WITHIN REACH. ENDORSED PT TO NIGHTSHIFT NURSE FOR CONTINUITY OF CARE.
--- NOTE | 2022-11-24 19:30 | NUR ---
RECEIVED PATIENT FROM AM NURSE FOR CONTINUITY OF CARE. PT IS STABLE
[2022-11-24 20:00] VITALS: BP 120/70
[2022-11-24] MEDS: TAMSULOSIN 0.4 MG CAP GT SCH (20:33)
[2022-11-24] MEDS: SENNA 8.6 MG TAB GT SCH (20:34)
[2022-11-24] MEDS: traZODone 50 MG TAB PO SCH (20:40)
[2022-11-25] VITALS: BP 109/60
[2022-11-25] MEDS: ALBUTEROL SULFATE/IPRATROPIU 3 ML SOL IH SCH ×4 (00:19→19:12)
[2022-11-25] MEDS: Z-GUARD PASTE TP SCH ×2 (01:28→13:12)
[2022-11-25 04:00] VITALS: BP 115/68
[2022-11-25] MEDS: PIPERACILLIN/TAZOBACTAM 3.375 GM in DEXTROSE 5% 50 ML IV SCH ×3 (04:43→21:04)
[2022-11-25 06:59] LABS: BASOPHILS % (AUTO) 0.3 % (0.0-2.0); EOSINOPHILS # (AUTO) 0.1 K/uL (0-0.4); EOSINOPHILS % (AUTO) 1.6 % (0.0-4.0); HEMATOCRIT 38.1 % (36-52); HEMOGLOBIN 12.2 g/dL (12.0-18.0); LYMPHOCYTES # (AUTO) 1.3 K/uL (2.0-11.5); LYMPHOCYTES % (AUTO) 23.2 % (20.5-51.1); MEAN CORPUSCULAR HEMOGLOBIN 30 pg (27-31); MEAN CORPUSCULAR HGB CONC 32 g/dL (33-37); MEAN CORPUSCULAR VOLUME 92.2 fL (80-94); MONOCYTES # (AUTO) 0.9 K/uL (0.8-1.0); MONOCYTES % (AUTO) 16.1 % (1.7-9.3); NEUTROPHILS # (AUTO) 3.4 K/uL (1.8-7.7); NEUTROPHILS % (AUTO) 58.8 % (42.2-75.2); PLATELET COUNT (AUTO) 265 K/uL (140-450); RED BLOOD CELL COUNT(AUTO) 4.13 MIL/uL (4.20-6.10); WHITE BLOOD COUNT (AUTO) 5.7 K/uL (4.8-10.8)
--- NOTE | 2022-11-25 07:02 | NUR ---
receive the patinety from the shift supervisor rn rn in rm 108B . [id number] with admitting diagnosis of pneumonia . will continue to monitor
[2022-11-25 07:04] LABS: CARBON DIOXIDE 34.6 mmol/L (21-32); CREATININE 0.8 mg/dL (0.6-1.3); POTASSIUM 3.6 mmol/L (3.5-5.1)
[2022-11-25 07:13] LABS: MAGNESIUM 2.4 mg/dL (1.8-2.4); PHOSPHORUS 5.7 mg/dL (2.5-4.9)
[2022-11-25 08:00] VITALS: BP 112/62
[2022-11-25] MEDS: DOCUSATE 100 MG/10 ML UDC PO SCH ×2 (08:46→20:53)
[2022-11-25] MEDS: LACTULOSE 20 GM/30 ML UDC GT SCH ×3 (08:46→17:53)
[2022-11-25] MEDS: levETIRAcetam 100 MG/ML ORASYR GT SCH ×2 (08:46→20:51)
[2022-11-25] MEDS: VALPROIC ACID 250 MG/5 ML UDC GT SCH ×4 (08:47→20:54)
[2022-11-25] MEDS: BACLOFEN 10 MG TAB GT SCH ×3 (08:47→17:53)
[2022-11-25] MEDS: diazePAM 5 MG TAB GT SCH ×2 (08:48→20:53)
[2022-11-25] MEDS: FUROSEMIDE 40 MG/4 ML VIAL IVP SCH (08:48)
[2022-11-25] MEDS: MULTIVITAMIN/MINERALS 15 ML UDBTL GT SCH (08:50)
[2022-11-25] MEDS: ACETAZOLAMIDE SOD 250 MG TAB PO SCH ×2 (08:51→21:08)
[2022-11-25] MEDS: LACOSAMIDE 10 MG/ML PO SCH ×2 (08:51→21:03)
[2022-11-25] MEDS: CALCIUM CARB/VIT-D 500 MG/200 IU 1 TAB PO SCH ×3 (08:56→17:53)
[2022-11-25] MEDS: TIMOLOL OP 0.25% 5 ML BTL OP SCH ×2 (08:57→21:29)
[2022-11-25] MEDS: PANTOPRAZOLE 40 MG INJ VIAL IVP SCH (08:58)
[2022-11-25] MEDS: DORZOLAMIDE 2% OP 10 ML BTL OP SCH ×2 (08:58→21:28)
--- NOTE | 2022-11-25 11:20 | NUR ---
patient was transfer to wound care bed . will continue to monitor
[2022-11-25 12:00] VITALS: BP 99/60
[2022-11-25 16:00] VITALS: BP 115/69
--- NOTE | 2022-11-25 19:15 | NUR ---
will endorse to night cleaner rn for continuity of care . will discharge [facility] . still continue gastric tube feeding . the sean to wean the patient off the bibap
--- NOTE | 2022-11-25 19:20 | NUR ---
RECEIVED PATIENT ON THE BED, NO SIGNS OF DISTRESS NOTED, NO SIGNS OF PAIN NOTED, WITH BIPAP ON, SETTING RATE 14 AND O2 SAT 30%. PATIENT HAS GTUBE FEEDING OF JEVITY 1.2 VARUN RUNNING @65ML/HR WITH H2O FLUSHES ORDER OF 150ML EVERY 4HRA. IV SITE ON LEFT HAND G22, INTACT AND PATENT. PATIENT WITH HEEL PROTECTOR IN PLACE. ALL SAFETY MEASURES IN PLACE.
[2022-11-25 20:00] VITALS: BP 119/69
[2022-11-25] MEDS: TAMSULOSIN 0.4 MG CAP GT SCH (20:50)
[2022-11-25] MEDS: SENNA 8.6 MG TAB GT SCH (20:52)
[2022-11-25] MEDS: traZODone 50 MG TAB PO SCH (20:55)
--- NOTE | 2022-11-25 21:30 | NUR ---
ALL SCHEDULED MEDICATIONS GIVEN ORDERED. RESIDUAL CHECKED PRIOR TO MEDICATION ADMINISTRATION, 10ML RESIDUAL NOTED. EYES DROPS INSTILLED. WILL CONTINUE TO MONITOR THE PATIENT.
[2022-11-26] VITALS: BP 97/54
--- NOTE | 2022-11-26 00:15 | NUR ---
VITALS TAKEN T 97.0, P 69, BP 97/54, RESP 21 AND O2 SATS 97%. PATIENT'S HOB ELEVATED FOR ASPIRATION PRECAUTIONS, PATIENT ON BIPAP. NO SIGNS OF DISTRESS NOTED, NO SIGNS OF PAIN NOTED. WILL CONTINUE TO MONITOR THE PATIENT.
[2022-11-26] MEDS: ALBUTEROL SULFATE/IPRATROPIU 3 ML SOL IH SCH ×2 (01:00→08:03)
[2022-11-26] MEDS: Z-GUARD PASTE TP SCH ×2 (01:56→13:04)
--- NOTE | 2022-11-26 02:00 | NUR ---
BEDSIDE CARE DONE, PATIENT HAD LARGE BM, SOFT. PATIENT REPOSITIONED, ALL SAFETY MEASURES MAINTAINED.
[2022-11-26 04:00] VITALS: BP 101/62
[2022-11-26] MEDS: PIPERACILLIN/TAZOBACTAM 3.375 GM in DEXTROSE 5% 50 ML IV SCH ×3 (04:13→21:11)
--- NOTE | 2022-11-26 04:13 | NUR ---
SCHEDULED IV ANTIBIOTIC GIVEN ORDERED. NO SIGNS OF DISTRESS NOTED, NO SIGNS OF PAIN NOTED. HOB ELEVATED FOR ASPIRATION PRECAUTIONS. ALL SAFETY MEASURES MAINTAINED.
--- NOTE | 2022-11-26 04:40 | NUR ---
BEDSIDE CARE DONE. NO SIGNS OF ACUTE DISTRESS NOTED. HOB ELEVATED, ALL SAFETY MEASURES MAINTAINED.
[2022-11-26 06:24] LABS: BASOPHILS % (AUTO) 0.5 % (0.0-2.0); EOSINOPHILS # (AUTO) 0.2 K/uL (0-0.4); EOSINOPHILS % (AUTO) 2.4 % (0.0-4.0); HEMATOCRIT 39.6 % (36-52); HEMOGLOBIN 12.6 g/dL (12.0-18.0); LYMPHOCYTES # (AUTO) 2.1 K/uL (2.0-11.5); MEAN CORPUSCULAR HEMOGLOBIN 30 pg (27-31); MEAN CORPUSCULAR HGB CONC 32 g/dL (33-37); MEAN CORPUSCULAR VOLUME 92.6 fL (80-94); MONOCYTES # (AUTO) 0.8 K/uL (0.8-1.0); MONOCYTES % (AUTO) 11.8 % (1.7-9.3); NEUTROPHILS # (AUTO) 3.8 K/uL (1.8-7.7); NEUTROPHILS % (AUTO) 55.3 % (42.2-75.2); PLATELET COUNT (AUTO) 297 K/uL (140-450); RED BLOOD CELL COUNT(AUTO) 4.27 MIL/uL (4.20-6.10); RED CELL DISTRIBUTION WIDTH 16.5 % (11.6-13.7); WHITE BLOOD COUNT (AUTO) 6.9 K/uL (4.8-10.8)
[2022-11-26 06:32] LABS: ANION GAP 10.8 (8-16); CARBON DIOXIDE 31.6 mmol/L (21-32); CREATININE 0.8 mg/dL (0.6-1.3); POTASSIUM 3.4 mmol/L (3.5-5.1)
[2022-11-26 06:40] LABS: MAGNESIUM 2.2 mg/dL (1.8-2.4); PHOSPHORUS 4.9 mg/dL (2.5-4.9)
--- NOTE | 2022-11-26 07:19 | NUR ---
PATIENT IN STABLE CONDITION. ENDORSED TO DAY NURSE FOR CONTINUITY OF CARE.
--- NOTE | 2022-11-26 07:20 | NUR ---
RECEIVED REPORT FROM NIGHTSHIFT NURSE. PT ASLEEP IN BED, WOKE TO NAME AND TOUCH. NO SIGNS OF DISTRESS. NO FURTHER NEEDS ARE TO BE MET AT THIS TIME. BED IN LOWEST POSITION, SIDE RAILS UP, CALL LIGHT WITHIN REACH.
[2022-11-26 08:00] VITALS: BP 116/69
[2022-11-26] MEDS: VALPROIC ACID 250 MG/5 ML UDC GT SCH ×4 (08:35→21:16)
[2022-11-26] MEDS: DOCUSATE 100 MG/10 ML UDC PO SCH ×2 (08:35→21:16)
[2022-11-26] MEDS: levETIRAcetam 100 MG/ML ORASYR GT SCH ×2 (08:35→21:16)
[2022-11-26] MEDS: LACTULOSE 20 GM/30 ML UDC GT SCH ×3 (08:35→18:40)
[2022-11-26] MEDS: BACLOFEN 10 MG TAB GT SCH ×3 (08:36→18:40)
[2022-11-26] MEDS: POTASSIUM CHLORIDE 10 MEQ TABER PO PRN (08:36)
[2022-11-26] MEDS: diazePAM 5 MG TAB GT SCH ×2 (08:36→21:18)
[2022-11-26] MEDS: CALCIUM CARB/VIT-D 500 MG/200 IU 1 TAB PO SCH ×3 (08:36→18:39)
[2022-11-26] MEDS: FUROSEMIDE 40 MG/4 ML VIAL IVP SCH (08:37)
[2022-11-26] MEDS: PANTOPRAZOLE 40 MG INJ VIAL IVP SCH (08:37)
[2022-11-26] MEDS: ACETAZOLAMIDE SOD 250 MG TAB PO SCH ×2 (08:49→21:17)
[2022-11-26] MEDS: MULTIVITAMIN/MINERALS 15 ML UDBTL GT SCH (08:49)
[2022-11-26] MEDS: LACOSAMIDE 10 MG/ML PO SCH ×2 (08:50→21:32)
[2022-11-26] MEDS: DORZOLAMIDE 2% OP 10 ML BTL OP SCH ×2 (09:04→21:33)
[2022-11-26] MEDS: HYDROCOLLOID DRESSING TP SCH (09:04)
[2022-11-26] MEDS: TIMOLOL OP 0.25% 5 ML BTL OP SCH ×2 (09:04→21:33)
[2022-11-26 12:00] VITALS: BP 111/63
[2022-11-26 16:00] VITALS: BP 109/66
--- NOTE | 2022-11-26 19:30 | NUR ---
ENDORSED PT TO NIGHTSHIFT NURSE FOR CONTINUITY OF CARE. PT STABLE AND ASLEEP IN BED, WOKE TO NAME AND TOUCH. PROVIDED NEW FEEDING, JEVITY 1.2 RUNNING AT 65CC/HR, WATER FLUSH 150 Q4HRS. IV TO LEFT HAND, CLEAN AND INTACT. HIGH FLOW O2. BED IN LOWEST POSITION, SIDE RAILS UP, CALL LIGHT WITHIN REACH. NO FURTHER NEEDS ARE TO BE MET AT THIS TIME.
--- NOTE | 2022-11-26 19:31 | NUR ---
RECEIVED PT FROM MORNING SHIFT NURSE. PT IS AOX1 AND BEDBOUND. PT IS ON HI-FLOW 35L/MIN WITH 25% O2. PT IS ON G-TUBE RUNNING WITH JEVITY 1.2 AT 65ML/HR WITH WATER FLUSH OF 150 EVERY 4HRS. PT HAS TAVARES CATHETER AND HAS IV ON LEFT HAND GAUGE 22, SALINE LOCK. PT HAS SCAB ON LEFT HEEL AND RIGHT ANKLE, PRESSURE ULCER STAGE 1 ON COCCYX AND HAS ON WOUND ON THE NOSE DUE TO BIPAP. ALL SAFETY MEASURES IMPLEMENTED. BED IN LOW POSITION, BED WHEELS ON LOCK AND CALL LIGHT WITHIN REACH.
[2022-11-26 20:00] VITALS: BP 116/71
[2022-11-26] MEDS: traZODone 50 MG TAB PO SCH (21:17)
[2022-11-26] MEDS: SENNA 8.6 MG TAB GT SCH (21:17)
[2022-11-26] MEDS: TAMSULOSIN 0.4 MG CAP GT SCH (21:35)
--- NOTE | 2022-11-26 21:35 | NUR ---
ALL SCHEDULED AND PRESCRIBED MEDICATION WAS GIVEN TO PT PER MD ORDER. ALL SAFETY MEASURES IMPLEMENTED. BED IN LOW POSITION, BED WHEELS ON LOCK AND CALL LIGHT WITHIN REACH.
--- NOTE | 2022-11-26 22:00 | NUR ---
RT CHANGED THE HI-FLOW O2 LEVEL INTO 28% FROM 25%
[2022-11-27] VITALS: BP 103/69
--- NOTE | 2022-11-27 | NUR ---
PT IS ON SLEEP. CHEST RISE AND FALL SYMMETRICALLY NOTED. RESPIRATION IS EVEN AND UNLABORED. NO S/S OF RESPIRATORY DISTRESS NOTED. ALL SAFETY MEASURES IMPLEMENTED. BED IN LOW POSITION, BED WHEELS ON LOCK AND CALL LIGHT WITHIN REACH.
[2022-11-27] MEDS: Z-GUARD PASTE TP SCH ×2 (01:17→12:02)
--- NOTE | 2022-11-27 02:00 | NUR ---
CHECKED THE PT STILL ON SLEEP. CHEST RISE AND FALL SYMMETRICALLY NOTED. RESPIRATION IS EVEN AND UNLABORED. NO S/S OF RESPIRATORY DISTRESS NOTED. ALL SAFETY MEASURES IMPLEMENTED. BED IN LOW POSITION, BED WHEELS ON LOCK AND CALL LIGHT WITHIN REACH.
[2022-11-27 04:00] VITALS: BP 108/78
--- NOTE | 2022-11-27 04:00 | NUR ---
MORNING CARE WAS DONE TO PT. CHANGED CHUCKS, LINENS AND GOWN. PT DENIES PAIN. NO S/S OF RESPIRATORY DISTRESS NOTED. ALL SAFETY MEASURES IMPLEMENTED. BED IN LOW POSITION, BED WHEELS ON LOCK AND CALL LIGHT WITHIN REACH.
--- NOTE | 2022-11-27 04:30 | NUR ---
BRIDGE INSPECTOR TOLD ME THAT PT REFUSED. EDUCATED THE PT BUT PT STILL REFUSED.
[2022-11-27] MEDS: PIPERACILLIN/TAZOBACTAM 3.375 GM in DEXTROSE 5% 50 ML IV SCH ×3 (05:05→22:28)
--- NOTE | 2022-11-27 07:20 | NUR ---
PT IS STABLE. ENDORSED PT TO MORNING SHIFT NURSE FOR CONTINUITY OF CARE.
[2022-11-27 08:00] VITALS: BP 113/74
[2022-11-27] MEDS: VALPROIC ACID 250 MG/5 ML UDC GT SCH ×4 (08:12→21:00)
[2022-11-27] MEDS: levETIRAcetam 100 MG/ML ORASYR GT SCH ×2 (08:12→21:00)
[2022-11-27] MEDS: BACLOFEN 10 MG TAB GT SCH ×3 (08:12→16:09)
[2022-11-27] MEDS: LACTULOSE 20 GM/30 ML UDC GT SCH ×3 (08:12→16:09)
[2022-11-27] MEDS: PANTOPRAZOLE 40 MG INJ VIAL IVP SCH (08:13)
[2022-11-27] MEDS: FUROSEMIDE 40 MG/4 ML VIAL IVP SCH (08:13)
[2022-11-27] MEDS: diazePAM 5 MG TAB GT SCH ×2 (08:13→21:00)
[2022-11-27] MEDS: MULTIVITAMIN/MINERALS 15 ML UDBTL GT SCH (08:13)
[2022-11-27] MEDS: DORZOLAMIDE 2% OP 10 ML BTL OP SCH ×2 (08:14→21:00)
[2022-11-27] MEDS: TIMOLOL OP 0.25% 5 ML BTL OP SCH ×2 (08:14→21:00)
[2022-11-27] MEDS: CALCIUM CARB/VIT-D 500 MG/200 IU 1 TAB PO SCH ×3 (08:15→16:09)
[2022-11-27] MEDS: LACOSAMIDE 10 MG/ML PO SCH ×2 (08:15→21:00)
[2022-11-27] MEDS: DOCUSATE 100 MG/10 ML UDC PO SCH ×2 (08:15→21:00)
[2022-11-27] MEDS: ACETAZOLAMIDE SOD 250 MG TAB PO SCH ×2 (08:39→21:00)
--- NOTE | 2022-11-27 09:24 | NUR ---
NURSES NOTE PATIENT RECEIVED AT BED SIDE A/OX1 , VSS , SINUS RHYTHM ON MONITOR , ON FEEDING TUBE JEVITY 1.2 105ML/H SKIN NOT INTACT , HAS EDEMA , BED REST , ON HIGH FLOW O2 NASAL CANNULA 35LITER , SALINE LOCKED , SAFETY PROACTION IN PLACE , SIDE RAILS UP X3 , BED IN LOWER POSITION , CALL LIGHT WITHIN REACH , BED ALARM ON . EDUCATION ABOUT MEDS , SAFETY , CARE PLAN , PT STILL UNDER OBSERVE
[2022-11-27 10:06] LABS: BASOPHILS # (AUTO) 0.1 K/uL (0.00-0.22); BASOPHILS % (AUTO) 0.9 % (0.0-2.0); EOSINOPHILS # (AUTO) 0.3 K/uL (0-0.4); EOSINOPHILS % (AUTO) 2.7 % (0.0-4.0); HEMATOCRIT 44.4 % (36-52); HEMOGLOBIN 14.6 g/dL (12.0-18.0); LYMPHOCYTES # (AUTO) 2.2 K/uL (2.0-11.5); LYMPHOCYTES % (AUTO) 22.8 % (20.5-51.1); MEAN CORPUSCULAR HEMOGLOBIN 30 pg (27-31); MEAN CORPUSCULAR HGB CONC 33 g/dL (33-37); MEAN CORPUSCULAR VOLUME 91.8 fL (80-94); MONOCYTES # (AUTO) 1.4 K/uL (0.8-1.0); MONOCYTES % (AUTO) 13.8 % (1.7-9.3); NEUTROPHILS # (AUTO) 5.9 K/uL (1.8-7.7); NEUTROPHILS % (AUTO) 59.8 % (42.2-75.2); PLATELET COUNT (AUTO) 352 K/uL (140-450); RED BLOOD CELL COUNT(AUTO) 4.83 MIL/uL (4.20-6.10); RED CELL DISTRIBUTION WIDTH 16.8 % (11.6-13.7); WHITE BLOOD COUNT (AUTO) 9.8 K/uL (4.8-10.8)
[2022-11-27 10:14] LABS: ANION GAP 12.5 (8-16); CARBON DIOXIDE 31.8 mmol/L (21-32); CREATININE 0.9 mg/dL (0.6-1.3); MAGNESIUM 2.4 mg/dL (1.8-2.4); POTASSIUM 3.3 mmol/L (3.5-5.1)
[2022-11-27] MEDS: POTASSIUM CHLORIDE 10 MEQ TABER PO PRN (10:57)
[2022-11-27 12:10] VITALS: BP 118/76
--- NOTE | 2022-11-27 12:52 | NUR ---
NURSES NOTE PATIENT A/OX1 , VSS , SINUS RHYTHM ON MONITOR , BED BOUND , EDEMA +2 ON HIS EXTREMITY , ON FEEDING TUBE 65CC/H NO COMPLAIN , INCONTINENT BOTH GI AND WITH TAVARES CATHETER , DRESSING ON JIS WOUND DONE , PATIENT STILL ON HIGH FLOW O2 , STILL UNDER OBSERVE .
--- NOTE | 2022-11-27 15:39 | NUR ---
update on patient his potassium low replace it 40meg NURSES NOTE PATIENT RECEIVED AT BED SIDE A/OX1 , VSS , SINUS RHYTHM ON MONITOR , ON FEEDING TUBE JEVITY 1.2 65CCML/H , WITH WATER FLUSH 150 CC Q4 HOURS SKIN NOT INTACT , HAS EDEMA , BED REST , ON HIGH FLOW O2 NASAL CANNULA 35LITER , SALINE LOCKED , SAFETY PROACTION IN PLACE , SIDE RAILS UP X3 , BED IN LOWER POSITION , CALL LIGHT WITHIN REACH , BED ALARM ON .IN CONTINENT BOTH GI AND WITH TAVARES CATHETER EDUCATION ABOUT MEDS , SAFETY , CARE PLAN , PT STILL UNDER OBSERVE
[2022-11-27 16:23] VITALS: BP 106/66
--- NOTE | 2022-11-27 19:06 | NUR ---
REPORT GIVEN TO IAIN ROSAS ALL HER QUESTION ANSWER
--- NOTE | 2022-11-27 19:09 | NUR ---
PT IS WITH HIGH FLOW, 35L/MIN, 28% O2. PT IS USING GTUBE OF JEVITY 1.2 TUBE FEEDING, TOLERATES WELL.
--- NOTE | 2022-11-27 19:09 | NUR ---
RECEIVED ENDORSEMENT FROM DAY SHIFT NURSE FOR CONTINUITY OF CARE. PT IS ON BED, ABLE TO RESPONSE VERBALLY WITH SIMPLE AND LIMITED WORDS. IV SITE IS ON RIGHT FOREARM, INTACT AND PATENT.
[2022-11-27 20:00] VITALS: BP 114/66
[2022-11-27] MEDS: TAMSULOSIN 0.4 MG CAP GT SCH (21:00)
[2022-11-27] MEDS: traZODone 50 MG TAB PO SCH (21:00)
[2022-11-27] MEDS: SENNA 8.6 MG TAB GT SCH (21:00)
--- NOTE | 2022-11-27 22:30 | NUR ---
PT IS SLEEPING WELL, NO FACIAL GRIMACING.
[2022-11-28] VITALS: BP 110/70
--- NOTE | 2022-11-28 00:20 | NUR ---
PT IS ASLEEP, NO SOB OR DISTRESS.
[2022-11-28] MEDS: Z-GUARD PASTE TP SCH ×2 (01:00→13:38)
[2022-11-28 04:00] VITALS: BP 106/61
--- NOTE | 2022-11-28 04:30 | NUR ---
PERSONAL HYGIENE GIVEN, PT HAS EXTRA LARGE SOFT BM.
[2022-11-28] MEDS: PIPERACILLIN/TAZOBACTAM 3.375 GM in DEXTROSE 5% 50 ML IV SCH ×3 (05:33→21:00)
--- NOTE | 2022-11-28 07:10 | NUR ---
0 Addendum: 11/28/22 at 1937 by Harmony Tomlinson RN RECEIVED REPORT FROM SINK CUTTER NURSE FOR CONTINUITY OF CARE. PT STABLE AT THIS TIME.
[2022-11-28 07:49] LABS: BASOPHILS % (AUTO) 0.5 % (0.0-2.0); EOSINOPHILS # (AUTO) 0.3 K/uL (0-0.4); EOSINOPHILS % (AUTO) 2.9 % (0.0-4.0); HEMATOCRIT 42.1 % (36-52); HEMOGLOBIN 13.8 g/dL (12.0-18.0); LYMPHOCYTES # (AUTO) 2.4 K/uL (2.0-11.5); LYMPHOCYTES % (AUTO) 26.2 % (20.5-51.1); MEAN CORPUSCULAR HEMOGLOBIN 30 pg (27-31); MEAN CORPUSCULAR HGB CONC 33 g/dL (33-37); MEAN CORPUSCULAR VOLUME 91.2 fL (80-94); MONOCYTES # (AUTO) 1.4 K/uL (0.8-1.0); MONOCYTES % (AUTO) 14.7 % (1.7-9.3); NEUTROPHILS # (AUTO) 5.1 K/uL (1.8-7.7); NEUTROPHILS % (AUTO) 55.7 % (42.2-75.2); PLATELET COUNT (AUTO) 329 K/uL (140-450); RED BLOOD CELL COUNT(AUTO) 4.62 MIL/uL (4.20-6.10); RED CELL DISTRIBUTION WIDTH 16.9 % (11.6-13.7); WHITE BLOOD COUNT (AUTO) 9.2 K/uL (4.8-10.8)
[2022-11-28 08:00] VITALS: BP 109/67
[2022-11-28 08:12] LABS: ANION GAP 13.2 (8-16); CARBON DIOXIDE 30.1 mmol/L (21-32); CREATININE 0.8 mg/dL (0.6-1.3); POTASSIUM 3.3 mmol/L (3.5-5.1)
[2022-11-28 08:21] LABS: MAGNESIUM 2.4 mg/dL (1.8-2.4); PHOSPHORUS 5.2 mg/dL (2.5-4.9)
[2022-11-28] MEDS: TIMOLOL OP 0.25% 5 ML BTL OP SCH ×2 (09:00→21:00)
[2022-11-28] MEDS: LACOSAMIDE 10 MG/ML PO SCH ×2 (09:00→21:00)
[2022-11-28] MEDS: CALCIUM CARB/VIT-D 500 MG/200 IU 1 TAB PO SCH ×3 (09:00→17:18)
[2022-11-28] MEDS: DORZOLAMIDE 2% OP 10 ML BTL OP SCH ×2 (09:00→21:00)
[2022-11-28] MEDS: PANTOPRAZOLE 40 MG INJ VIAL IVP SCH (10:00)
[2022-11-28] MEDS: FUROSEMIDE 40 MG/4 ML VIAL IVP SCH (10:01)
[2022-11-28] MEDS: ACETAZOLAMIDE SOD 250 MG TAB PO SCH ×2 (10:01→21:00)
[2022-11-28] MEDS: diazePAM 5 MG TAB GT SCH ×2 (10:02→21:00)
[2022-11-28] MEDS: BACLOFEN 10 MG TAB GT SCH ×3 (10:03→17:17)
[2022-11-28] MEDS: LACTULOSE 20 GM/30 ML UDC GT SCH ×3 (10:05→17:00)
[2022-11-28] MEDS: levETIRAcetam 100 MG/ML ORASYR GT SCH ×2 (10:05→21:00)
[2022-11-28] MEDS: VALPROIC ACID 250 MG/5 ML UDC GT SCH ×4 (10:05→21:00)
[2022-11-28] MEDS: DOCUSATE 100 MG/10 ML UDC PO SCH ×2 (10:05→21:00)
[2022-11-28] MEDS: MULTIVITAMIN/MINERALS 15 ML UDBTL GT SCH (10:06)
[2022-11-28 12:00] VITALS: BP 120/77
--- NOTE | 2022-11-28 13:00 | NUR ---
DC PLANNING ASSESSMENT COMPLETE PLEASE REFER TO ASSESSMENT FOR ADDITIONAL DETAILS PT IS MINIMALLY VERBAL THEREFORE COLLAT INFO GATHERED FROM PTS [facility] ASHLY TELLEZ PT IS A 37 YR OLD MALE ADMITTED TO [facility] FROM HOME WITH DX OF BILATERAL PNA AND HYPER. PT HAS PAST MEDICAL HX OF CEREBRAL PALSY AN DEVELOPMENTALLY DELAYED. PT IS [facility] CONNECTED, ALL MEDICAL CONSENTS ARE PROVIDED BY [facility], ROSALINDA GARCIA [phone]. PT IS REPORTED TO HAVE LIMITED FAMILY INVOLVEMENT. PT HAS A SISTER THAT IS PROVIDED WITH UPDATES HOWEVER, DOES NOT HOLD [facility] FOR PT. SISTER IS REPORTED TO RESIDE IN [place]. PT IS REPORTED TO UTILIZE WC WHEN AT FACILITY AND IS TOTAL CARE AT FACILITY. PT IS RESIDENT OF [facility], ADMISSION DATE 04/27/22. PT IS [facility], [facility] ASHLY GARCIA [phone] ROSALINDA REPORTS TENTATIVE DC PLAN IS FOR PT TO RETURN TO [facility], ONCE MEDICALLY STABLE. ROSALINDA REQUESTING CLINICAL UPDATE AND WAS TRANSFERRED TO . Addendum: 11/29/22 at 1516 by Stephenie TORRES Amended: Links added.
--- NOTE | 2022-11-28 13:30 | NUR ---
PT WAS REPOSITIONED. NO SIGNS OF DISTRESS.
--- NOTE | 2022-11-28 15:41 | NUR ---
11/28/22 RD FOLLOW UP COMPLETED PLEASE REFER TO NUTRITION ASSESSMENT UNDER CARE ACTIVITY FOR ESTIMATED NUTRITIONAL NEEDS. 1. CONTINUE JEVITY 1.2 AT GOAL RATE 65 ML/HR, FWF 150 ML Q4H TOLERATED, WITH FERNANDA BID FOR WOUND SUPPORT (PROVIDES 160 KCAL AND 5 GM PROTEIN DAILY) - WITH FERNANDA BID, PROVIDES 1560 ML TOTAL VOLUME, 2032 KCAL, 90 GM PROTEIN AND 2158 ML FREE WATER DAILY MEETING 100% ESTIMATED KCAL AND PROTEIN NEEDS; ADEQUATE 2. MONITOR GI SYMPTOMS, GASTRIC RESIDUALS AND NUTRITION RELATED LAB VALUES 3. CONSULT RD PRN 4. RD TO FOLLOW-UP 3-5 DAYS, MODERATE RISK REVIEWED BY RAULITO MARROQUIN RD
[2022-11-28] MEDS: POTASSIUM CHLORIDE 10 MEQ TABER PO PRN (15:51)
[2022-11-28 16:00] VITALS: BP 112/67
--- NOTE | 2022-11-28 19:35 | NUR ---
ENDORSED PT TO CARPENTER ASSISTANT NURSE IAIN FOR CONTINUITY OF CARE. PT STABLE AT THIS TIME.
--- NOTE | 2022-11-28 19:36 | NUR ---
PT IS ON BED CLOSING HIS EYES BUT RESPONSIVE TO STIMULI.
[2022-11-28 20:00] VITALS: BP 122/72
--- NOTE | 2022-11-28 20:30 | NUR ---
PT IS ON STABLE CONDITION. NO RESIDUAL WHEN CHECK. GTUBE INTACT AND PATENT. IV SITE INTACT AND PATENT.
[2022-11-28] MEDS: traZODone 50 MG TAB PO SCH (21:00)
[2022-11-28] MEDS: TAMSULOSIN 0.4 MG CAP GT SCH (21:00)
[2022-11-28] MEDS: SENNA 8.6 MG TAB GT SCH (21:00)
--- NOTE | 2022-11-28 23:00 | NUR ---
PT IS STABLE. NO FACIAL GRIMACING.
[2022-11-29] VITALS: BP 112/69
[2022-11-29] MEDS: Z-GUARD PASTE TP SCH ×2 (01:00→13:06)
[2022-11-29 04:00] VITALS: BP 106/64
[2022-11-29] MEDS: PIPERACILLIN/TAZOBACTAM 3.375 GM in DEXTROSE 5% 50 ML IV SCH ×3 (04:26→20:18)
--- NOTE | 2022-11-29 04:30 | NUR ---
PERSONAL HYGIENE RENDERED, PT HAS EXTRA LARGE BM, SOFT.
--- NOTE | 2022-11-29 07:10 | NUR ---
RECEIVED REPORT FROM RIBBON TIER NURSE FOR CONTINUITY OF CARE. PT STABLE AT THIS TIME.
--- NOTE | 2022-11-29 07:12 | NUR ---
PT IS ON STABLE CONDITION, ENDORSE TO DAY SHIT NURSE. ALL SAFETY MEASURES ARE IN PLACE. NO SOB OR DISTRESS
[2022-11-29 08:00] VITALS: BP 98/59
[2022-11-29 08:44] LABS: ANION GAP 10.9 (8-16); CARBON DIOXIDE 32.7 mmol/L (21-32); CREATININE 0.8 mg/dL (0.6-1.3); POTASSIUM 3.6 mmol/L (3.5-5.1)
[2022-11-29 08:57] LABS: BASOPHILS % (AUTO) 0.2 % (0.0-2.0); EOSINOPHILS # (AUTO) 0.3 K/uL (0-0.4); HEMATOCRIT 41.8 % (36-52); HEMOGLOBIN 13.5 g/dL (12.0-18.0); LYMPHOCYTES # (AUTO) 2.4 K/uL (2.0-11.5); MEAN CORPUSCULAR HEMOGLOBIN 30 pg (27-31); MEAN CORPUSCULAR HGB CONC 32 g/dL (33-37); MONOCYTES # (AUTO) 1.3 K/uL (0.8-1.0); MONOCYTES % (AUTO) 15.8 % (1.7-9.3); NEUTROPHILS # (AUTO) 4.5 K/uL (1.8-7.7); PLATELET COUNT (AUTO) 329 K/uL (140-450); RED BLOOD CELL COUNT(AUTO) 4.59 MIL/uL (4.20-6.10); RED CELL DISTRIBUTION WIDTH 16.9 % (11.6-13.7); WHITE BLOOD COUNT (AUTO) 8.5 K/uL (4.8-10.8)
[2022-11-29] MEDS: DORZOLAMIDE 2% OP 10 ML BTL OP SCH ×2 (09:00→20:16)
[2022-11-29] MEDS: LACOSAMIDE 10 MG/ML PO SCH ×2 (09:00→20:22)
[2022-11-29] MEDS: TIMOLOL OP 0.25% 5 ML BTL OP SCH ×2 (09:00→20:16)
[2022-11-29] MEDS: HYDROCOLLOID DRESSING TP SCH (09:00)
[2022-11-29] MEDS: diazePAM 5 MG TAB GT SCH ×2 (10:48→20:15)
[2022-11-29] MEDS: CALCIUM CARB/VIT-D 500 MG/200 IU 1 TAB PO SCH ×3 (10:48→17:41)
[2022-11-29] MEDS: BACLOFEN 10 MG TAB GT SCH ×3 (10:48→17:41)
[2022-11-29] MEDS: ACETAZOLAMIDE SOD 250 MG TAB PO SCH ×2 (10:48→20:14)
[2022-11-29] MEDS: PANTOPRAZOLE 40 MG INJ VIAL IVP SCH (10:51)
[2022-11-29] MEDS: FUROSEMIDE 40 MG/4 ML VIAL IVP SCH (10:53)
[2022-11-29] MEDS: DOCUSATE 100 MG/10 ML UDC PO SCH ×2 (10:55→20:14)
[2022-11-29] MEDS: levETIRAcetam 100 MG/ML ORASYR GT SCH ×2 (10:55→20:14)
[2022-11-29] MEDS: VALPROIC ACID 250 MG/5 ML UDC GT SCH ×4 (10:56→20:14)
[2022-11-29] MEDS: LACTULOSE 20 GM/30 ML UDC GT SCH ×3 (10:56→17:41)
[2022-11-29] MEDS: MULTIVITAMIN/MINERALS 15 ML UDBTL GT SCH (10:56)
[2022-11-29 12:00] VITALS: BP 120/78
[2022-11-29 16:00] VITALS: BP 112/73
--- NOTE | 2022-11-29 19:44 | NUR ---
ENDORSED PT TO BRIQUETTE OPERATOR NURSE FOR CONTINUITY OF CARE. PT STABLE AT THIS TIME.
--- NOTE | 2022-11-29 19:45 | NUR ---
RECEIVED PT IN BED ASLEEP, NO S/SX OF PAIN NOR DISCOMFORT. ON HI FLOW WITH SETTING ORDERED, NO S/SX OF ACUTE RESPIRATORY DISTRESS NOTED. G-TUBE FEEDING TOLERATED WELL, NO RESIDUAL NOTED AT THIS TIME, PLACEMENT VERIFIED VIA AUSCULTATION, HEAD OF THE BED ELEVATED FOR ASPIRATION PRECAUTION. SAFETY PRECAUTION IN PLACE, CALL LIGHT IN REACH.
[2022-11-29 20:00] VITALS: BP 110/68
[2022-11-29] MEDS: SENNA 8.6 MG TAB GT SCH (20:15)
[2022-11-29] MEDS: traZODone 50 MG TAB PO SCH (20:15)
[2022-11-29] MEDS: TAMSULOSIN 0.4 MG CAP GT SCH (20:15)
--- NOTE | 2022-11-29 22:30 | NUR ---
INCONTINENT OF STOOL, CLEANED AND REPOSITIONED PT. G-TUBE SITE CLEANED AND CHANGED DRESSING. HEAD OF THE BED ELEVATED. CALL LIGHT PLACED WITHIN REACH.
[2022-11-30] VITALS: BP 124/74
--- NOTE | 2022-11-30 00:25 | NUR ---
PATIENT IS ASLEEP. NO S/SX OF PAIN NOR DISCOMFORT.NO RESIDUAL FROM G-TUBE, HEAD OF THE BED ELEVATED. CALL LIGHT IN REACH.
[2022-11-30] MEDS: Z-GUARD PASTE TP SCH ×2 (01:20→13:20)
[2022-11-30 04:00] VITALS: BP 109/74
[2022-11-30] MEDS: PIPERACILLIN/TAZOBACTAM 3.375 GM in DEXTROSE 5% 50 ML IV SCH ×2 (04:27→13:20)
--- NOTE | 2022-11-30 06:20 | NUR ---
PATIENT IS ASLEEP. NO DISTRESS NOTED. ALL NEEDS ATTENDED TO. SAFETY PRECAUTIONS MAINTAINED DURING THE SHIFT, CALL LIGHT REMAINS WITHIN REACH.
[2022-11-30 08:00] VITALS: BP 124/96
[2022-11-30] MEDS: LACOSAMIDE 10 MG/ML PO SCH (09:00)
[2022-11-30] MEDS: ACETAZOLAMIDE SOD 250 MG TAB PO SCH (09:00)
[2022-11-30] MEDS: DORZOLAMIDE 2% OP 10 ML BTL OP SCH (09:00)
[2022-11-30] MEDS: TIMOLOL OP 0.25% 5 ML BTL OP SCH (09:00)
--- NOTE | 2022-11-30 09:46 | NUR ---
WOUND CARE NOTE: SKIN ASSESSMENT DONE WITH A SITTER AT BEDSIDE. PT. FOLLOW DIRECTIONS AND COORPERATE WITH WOUND CARE NURSE. LLQ ABD COLOSTOMY ROSANNA-STOMA SKIN INTACT. PT. ADMITTED WITH SACRALCOCCYX PRESSURE INJURIY STAGE 3 WITH 5X6X0.3CM. 100%PINK TISSUE, MOIST NO ODOR, ROSANNA WOUND SKIN PALE IN COLOR, DRY AND INTACT. RLE MULTIPLE SKIN TEAR, LATERAL 4X3X0.2CM WOUND BED PINK, MOIST, NO ODOR, ROSANNA-WOUND SKIN SCAR TISSUE, INTACT. MEDIAL ASPECT 1X4CM 100% BROWN ESCHAR TISSUE NO ODOR, ROSANNA WOUND SKIN DRY AND CLEAN. LEFT FOOT BLACK ESCHAR TO LEFT HALLUX, 2ND, 3RD, AND 4TH DIGIT TOES WITH LARGEST TO 2ND DIGIT TOE 4X1CM STABLE BLACK ESCHAR TISSUE, ROSANNA-WOUNDS SKIN INTACT, INTERSPACES SKIN INTACT, PAIN 0/10. POC DISCUSSED WITH PRIMARY RN ROBSON. JASPER DANIEL MATTRESS IN PLACE, POSITION PT. TO LEFT SIDE LYING, SACRALCOCCYX AND HEELS OFFLOADING. RECOMMENDATIONS: -APPLY HYGRAGUARD TO TRUNK OF BODY,UPPER AND LOWER EXTREMITIES, BUTTOCKS AND SCROTUM BID AND COMMUNITY FACILITATOR -CLEANSE RIGHT LE WOUNDS AND SACRAL COCCYX WITH NS, PAT DRY, APPLY THERAHONEY GEL AND COVER WITH DRY DRESSING QD AND PRN IF SOILING -PAINT LEFT HALLUX, 2ND, 3RD, AND 4TH DIGIT TOES WITH BETADINE SWAP STICKS BID AND COMMUNITY FACILITATOR -POSITIONING: TURN AND REPOSITION PATIENT Q 2H OR SOONER USE PILLOWS TO KEEP BONY PROMINENCES FROM DIRECT CONTACT WITH SURFACES USE REPOSITIONING WEDGES TO PROVIDE 30-DEGREE ANGLE FOR SIDE LYING POSITIONS OFFLOADING OR FOAM DRESSING TO ALL TUBING TO PREVENT MEDICAL DEVICES RELATED PRESSURE INJURY MONITOR SKIN CONDITION DURING POSITION CHANGE DO NOT MASSAGE REDNESS, BONY PROMINENCES, DO NOT USE DONUT-TYPE DEVICES FREQUENT ROSANNA-CARE AND PROVIDE BARRIER CREAMS PRN IF SOILING KEEP SKIN DRY AND PROTECT FROM FRICTION -MANAGE FRICTION/SHEAR/MOBILITY KEEP HOB AT THE LOWEST LEVEL OF ELEVATION NO MORE THAN 30 DEGREE UNLESS OTHERWISE CONTRAINDICATED USE LIFT SHEET OR TRANSFER DEVICE TO MOVE PATIENT AND PREVENT LATERAL SHEER. PROTECT HEELS, ELBOWS BONY PROMINENCES WITH SKIN BERRIES OR FOAM DRESSING IF EXPOSED TO FRICTION OFFLOAD BILATERAL HEELS BY PLACING PILLOWS UNDER CALVES AT ALL TIMES, UNLESS OTHERWISE CONTRAINDICATED -PRESSURE REDISTRIBUTION SURFACE THERAPY JASPER ISOFLEX DANIEL MATTRESS -NUTRITION: PLEASE FOLLOW RD RECOMMENDATIONS AND OFFER NUTRITION SUPPLEMENTS IF ORDERED. PLEASE CONTACT WOUND CARE NURSE FOR ANY QUESTION AND CHANGE OF WOUND CONDITION
[2022-11-30] MEDS ORDERED: FURO-570 PO (10:45)
[2022-11-30] MEDS ORDERED: PIPE1SOL IV (10:45)
[2022-11-30] MEDS: LACTULOSE 20 GM/30 ML UDC GT SCH ×3 (11:13→17:15)
[2022-11-30] MEDS: levETIRAcetam 100 MG/ML ORASYR GT SCH (11:13)
[2022-11-30] MEDS: DOCUSATE 100 MG/10 ML UDC PO SCH (11:14)
[2022-11-30] MEDS: CALCIUM CARB/VIT-D 500 MG/200 IU 1 TAB PO SCH ×3 (11:14→17:15)
[2022-11-30] MEDS: BACLOFEN 10 MG TAB GT SCH ×3 (11:15→17:15)
[2022-11-30] MEDS: PANTOPRAZOLE 40 MG INJ VIAL IVP SCH (11:17)
[2022-11-30] MEDS: FUROSEMIDE 40 MG/4 ML VIAL IVP SCH (11:17)
[2022-11-30] MEDS: MULTIVITAMIN/MINERALS 15 ML UDBTL GT SCH (11:18)
--- NOTE | 2022-11-30 11:33 | NUR ---
DC PLANNING: A 37 YEAR OLD PATIENT [facility] ([facility]ADMITTED 11/22/22 FOR COMPLAINT OF SOB AND FEVER WITH COUGH AND CONGESTION.HX OF CEREBRAL PALSY,VERY DEVELOPMENTALLY DELAYED,SEIZURE DISORDER.PULMO,CARDIO AND I&D FOLLOWING.PATIENT HAS ABDOMINAL COLOSTOMY AND STAGE 3 SACRAL COCCYX PRESSURE.ON BIPAP FOR SEVERAL DAYS . PNEUMONIA IMPROVING.DC PLAN TO GO BACK TO [facility] WITH NC 2L. Addendum: 11/30/22 at 1548 by HANH SHEA CM DC PLANNING PATIENT WILL BE ON PO AUGMENTIN X5 DAYS.REPORT GIVEN TO MATTI BY ANGELINA BUSTAMANTE. NURSE GUERLINE AND CHARGE NURSE ELMO FAULKNER INFORMED OF PATIENT'S TRANSFER BACK TO [facility].TRANSPORTATION ARRANGEMENT DONE BY ANGELINA BUSTAMANTE. Addendum: 11/30/22 at 1639 by Radha Ceballos RN DC PLANING: PATRICIA FROM [facility] ARRANGED TRANSPORT WITH [facility] DEVELOP[facility] SPECIALIST TIME BETWEEN 5-6PM. NOTIFIED LINDSAY CURRY CM TO FOLLOW
[2022-11-30 12:00] VITALS: BP 117/53
[2022-11-30] MEDS: VALPROIC ACID 250 MG/5 ML UDC GT SCH ×3 (12:00→17:15)
--- NOTE | 2022-11-30 15:07 | NUR ---
RECEIVE DISCHARGE ORDER AND NURSE CALLED [facility] ([phone]) FOR TRANSPORTATION ARRANGEMENT. LEGAL ARCHIVIST/GROCERY MANAGER GIVE NURSE REECE ([phone])''S PHONE NUMBER BUT UNABLE TO GET HOLD OF NURSE. THEN NURSE CALL [facility] AGAIN AND RECEIVE NURSE ENDER ([phone]). AFTER COUPLE CALL, NURSE IS ABLE TO GET HOLD NURSE ENDER. DURING PROCESS OF REPORT ENDER STATE THAT [facility] UNABLE TO PROVIDE SERVICE FOR PATIENT ON IV AND REQUEST DISCHARGE DOCTOR CHANGE IV TO PO OR IM ANTIBIOTIC. DR. DAVID INFORMED REGARDING TO IV MED AND NEED ORDER FOR OXYGEN ORDER ISSUE. AT THIS TIME IV ANTIBIOTIC WILL CHANGE TO PO, AND OXYGEN ORDER REQUEST ADDRESS. QUINN WILL PICK PATIENT LATER TODAY. WILL CONTINUE TO MONITOR
[2022-11-30] MEDS ORDERED: AMOX-999 PO (15:53)
[2022-11-30 16:00] VITALS: BP 116/77
[2022-11-30 16:14] VITALS: BP 116/77
--- NOTE | 2022-11-30 17:38 | NUR ---
[facility] IS HERE AND TOE FORMER PATIENT IN STABLE CONDITION. TAVARES STILL IN PLACE, IV, TEL. MONITOR, & WRIST BAND REMOVED, PATIENT'S NEXT KIN CALLED PRIOR PATIENT BE TOE FORMER; REPORT/DISCHARGE INSTRUCTION GIVE TO NURSE HANDLEY.
== END 2022-11-30 18:20 | disposition home or self-care (01) | DRG 720 ==
LOC: MED 22:39 → MTU 11-22 01:49
PROC: 5A09457 Assistance with Respiratory Ventilation, 24-96 Consecutive Hours, Continuous Positive Airway Pressure (ICD-10-PCS; principal; 2022-11-22)
PROC: 5A09457 Assistance with Respiratory Ventilation, 24-96 Consecutive Hours, Continuous Positive Airway Pressure (ICD-10-PCS; 2022-11-24)
PROC: 5A0935A Assistance with Respiratory Ventilation, Less than 24 Consecutive Hours, High Flow/Velocity Cannula (ICD-10-PCS; 2022-11-28)
DX: A41.9 Sepsis, unspecified organism (principal); J69.0 Pneumonitis due to inhalation of food and vomit; I50.43 Acute on chronic combined systolic (congestive) and diastolic (congestive) heart failure; E43 Unspecified severe protein-calorie malnutrition; J96.01 Acute respiratory failure with hypoxia; J96.02 Acute respiratory failure with hypercapnia; G91.9 Hydrocephalus, unspecified; D63.8 Anemia in other chronic diseases classified elsewhere; E86.0 Dehydration; J44.0 Chronic obstructive pulmonary disease with (acute) lower respiratory infection; G80.9 Cerebral palsy, unspecified; G40.909 Epilepsy, unspecified, not intractable, without status epilepticus; K21.9 Gastro-esophageal reflux disease without esophagitis; I34.0 Nonrheumatic mitral (valve) insufficiency; G47.00 Insomnia, unspecified; N40.0 Benign prostatic hyperplasia without lower urinary tract symptoms; F79 Unspecified intellectual disabilities; K59.00 Constipation, unspecified; I11.0 Hypertensive heart disease with heart failure; Z98.2 Presence of cerebrospinal fluid drainage device; Z93.1 Gastrostomy status; Z68.29 Body mass index [BMI] 29.0-29.9, adult
CPT/HCPCS: 36415; 36600; 71045; 80048; 80053; 80305; 81003; 82140; 82150; 82803; 83036; 83605; 83690; 83735; 83880; 84100; 84439; 84443; 84484; 85025; 85610; 85730; 87040; 87081; 87086; 93005; 94640; 94660; 96365; 96367; 99291; C9113; J1644; J1940; J2185; J2543; J3370; J7060; J7613; Q0092

== ENCOUNTER 2023-01-22 17:24 | Inpatient (IN) | payer MEDICAID ==
[~2023-01-22] VITALS: Ht 152.4 cm; Wt 81.6 kg
[~2023-01-22 17:24] MED LIST changes: +AMOX-999 PO; +DORZ10DR11 RIGHT EYE; -DORZ10SO11 RIGHT EYE; +FURO-570 PO; -MULT-464 GT
[2023-01-22 17:27] VITALS: BP 125/75
--- NOTE | 2023-01-22 17:31 | NUR ---
PATIENT BIBA TO BED 5.
[2023-01-22] MEDS ORDERED: ALBUTEROL SULFATE/IPRATROPIU 3 ML SOL IH ONE (17:45)
--- NOTE | 2023-01-22 18:01 | NUR ---
SPOKE TO ZANE AT [facility] TO REQUEST POLST, GAVE ER FAX NUMBER. AWAITING POLST.
--- NOTE | 2023-01-22 18:10 | NUR ---
SPOKE TO RALPH NEWELL OF FACILITY, STATES THEY DON'T HAVE POLST IN FACILITY BUT PATIENT IS A FULL CODE.
[2023-01-22 18:34] LABS: BASOPHILS % (AUTO) 0.2 % (0.0-2.0); EOSINOPHILS % (AUTO) 0.2 % (0.0-4.0); HEMATOCRIT 41.7 % (36-52); HEMOGLOBIN 13.2 g/dL (12.0-18.0); LYMPHOCYTES % (AUTO) 24.7 % (20.5-51.1); MEAN CORPUSCULAR HEMOGLOBIN 29 pg (27-31); MEAN CORPUSCULAR HGB CONC 32 g/dL (33-37); MEAN CORPUSCULAR VOLUME 91.7 fL (80-94); MONOCYTES # (AUTO) 1.4 K/uL (0.8-1.0); MONOCYTES % (AUTO) 17.7 % (1.7-9.3); NEUTROPHILS # (AUTO) 4.7 K/uL (1.8-7.7); NEUTROPHILS % (AUTO) 57.2 % (42.2-75.2); PLATELET COUNT (AUTO) 214 K/uL (140-450); RED BLOOD CELL COUNT(AUTO) 4.55 MIL/uL (4.20-6.10); RED CELL DISTRIBUTION WIDTH 17.2 % (11.6-13.7); WHITE BLOOD COUNT (AUTO) 8.2 K/uL (4.8-10.8)
[2023-01-22] MEDS ORDERED: INTUBATION KIT MC ONE (18:40)
--- NOTE | 2023-01-22 18:43 | NUR ---
PT MOVED TO BED 10
[2023-01-22 18:50] LABS: ALBUMIN 2.6 g/dL (3.4-5.0); ANION GAP 11.4 (8-16); CARBON DIOXIDE 33.1 mmol/L (21-32); CREATININE 0.7 mg/dL (0.6-1.3); POTASSIUM 3.5 mmol/L (3.5-5.1); TOTAL BILIRUBIN 0.3 mg/dL (0.0-1.0)
[2023-01-22] MEDS ORDERED: VANCOMYCIN 1,000 MG in DEXTROSE 5% 250 ML IV ONE (18:55)
[2023-01-22] MEDS ORDERED: PIPERACILLIN/TAZOBACTAM 3.375 GM in DEXTROSE 5% 50 ML IV ONE (18:55)
[2023-01-22 19:00] VITALS: BP 125/85
[2023-01-22] MEDS ORDERED: PROPOFOL 1000 MG/100 ML PREMIX 100 ML IV ONE ×2 (19:00→19:05)
[2023-01-22] MEDS ORDERED: SUCCINYLCHOLINE CHLORIDE 200 MG/10 ML VIAL IVP ONE (19:00)
[2023-01-22] MEDS ORDERED: ETOMIDATE 20 MG/10 ML VIAL IVP ONE (19:00)
--- NOTE | 2023-01-22 19:12 | NUR ---
PT INTUBATED W/ 8 ETT SECURED @ 24CM CONDESATION, COLOR CHANGE (EZ CAP), AND Cx RISE WAS PRESENT PT PLACED ON AC/VC 500 +5 f20 100% W/ ALARMS ON AND AUDIBLE VENT PLUGGED INTO RED OUTLET TUBE PLACEMENT CXR TAKEN PENDING RESULTS WILL OBTAIN POST INTUBATION ABG IN APPROX 1H
[2023-01-22] MEDS ORDERED: DEXT 5% / NACL 0.9% 500 ML IV ONE (19:15)
--- NOTE | 2023-01-22 20:57 | NUR ---
Patient will be admitted to care of DR PATINO . Admited to ICU. Will go to room ICU 2. Belongings list completed. Report to NANCY ROSAS.
[2023-01-23] VITALS (21 sets, daily range): BP systolic 94–139; BP diastolic 57–90
[2023-01-23] MEDS ORDERED: PIPERACILLIN/TAZOBACTAM 3.375 GM VIAL IV ONE (00:53)
[2023-01-23] MEDS ORDERED: VANCOMYCIN 1,000 MG VIAL ONE ×2 (00:56→20:21)
--- NOTE | 2023-01-23 07:20 | NUR ---
RECEIVED REPORT FROM SCHOOL BUS OPERATOR BOAT ASSEMBLERNANCY, FOR CONTINUITY OF CARE. LEFT EYE CATARACT, RIGHT EYE PUPIL ROUND REACTIVE TO LIGHT. ETT TO VENT, ACVC FIO2 45%, VT 500, RR 20, PEEP 5. SINUS RHYTHM ON MONITOR. KRISHNA PICC LINE INFUSING D5NS AT 100 ML/HR AND NS TKO. 20G IV TO L FA INFUSING PROPOFOL AT 30 MCG/KG/MIN. 20G IV TO L HAND SALINE LOCK. G-TUBE IN PLACE CLAMPED. CONDOM CATHETER IN PLACE. HOB 30 DEGREES FOR ASPIRATION PRECAUTION, BED WHEELS LOCKED AND IN LOWEST POSITION.
--- NOTE | 2023-01-23 07:30 | NUR ---
DC D5NS IVF, NO ACTIVE ORDER.
[2023-01-23] MEDS ORDERED: ONDANSETRON 4 MG/2 ML VIAL IVP PRN (07:55)
[2023-01-23] MEDS ORDERED: MINERAL OIL 135 ML ENEM RC PRN (07:55)
[2023-01-23] MEDS ORDERED: bisacodyL 10 MG SUPP RC PRN (07:55)
[2023-01-23] MEDS ORDERED: EUCALYPTUS OIL TP SCH (07:55)
[2023-01-23] MEDS ORDERED: HYDROcodone/APAP 5/325 MG 1 TAB TAB GT PRN (07:55)
[2023-01-23] MEDS ORDERED: CAMPHOR TP SCH (07:55)
[2023-01-23] MEDS ORDERED: ALBUTEROL 0.083% 2.5 MG/3 ML NEBU INH PRN (07:55)
[2023-01-23] MEDS ORDERED: MENTHOL/ZINC OXIDE 113 GM TUBE TP SCH (07:55)
[2023-01-23] MEDS ORDERED: MENTHOL TP SCH (07:55)
--- NOTE | 2023-01-23 08:10 | NUR ---
SEEN AND EXAMINED BY LUZ JAIN. ORDERS RECEIVED.
--- NOTE | 2023-01-23 08:30 | NUR ---
PLACED BILATERAL SCD'S PER MD ORDER.
[2023-01-23 08:43] LABS: BASOPHILS # (AUTO) 0.1 K/uL (0.00-0.22); BASOPHILS % (AUTO) 0.5 % (0.0-2.0); EOSINOPHILS # (AUTO) 0.1 K/uL (0-0.4); EOSINOPHILS % (AUTO) 0.5 % (0.0-4.0); HEMATOCRIT 37.3 % (36-52); HEMOGLOBIN 12.2 g/dL (12.0-18.0); LYMPHOCYTES # (AUTO) 1.7 K/uL (2.0-11.5); LYMPHOCYTES % (AUTO) 15.4 % (20.5-51.1); MEAN CORPUSCULAR HEMOGLOBIN 29 pg (27-31); MEAN CORPUSCULAR HGB CONC 33 g/dL (33-37); MONOCYTES % (AUTO) 18.6 % (1.7-9.3); PLATELET COUNT (AUTO) 183 K/uL (140-450); RED BLOOD CELL COUNT(AUTO) 4.19 MIL/uL (4.20-6.10); RED CELL DISTRIBUTION WIDTH 16.6 % (11.6-13.7); WHITE BLOOD COUNT (AUTO) 10.8 K/uL (4.8-10.8)
[2023-01-23] MEDS ORDERED: MULTIVITS CA MINERALS PO SCH (09:00)
[2023-01-23] MEDS ORDERED: NON-FORMULARY ITEM (Dorzolamide HCl/Timolol Maleat (Dorzolamide-Timolol Eye Drops) 1 DROP) RIGHT EYE SCH (09:00)
[2023-01-23] MEDS ORDERED: OMEGA GT SCH (09:00)
[2023-01-23] MEDS ORDERED: NON-FORMULARY ITEM (Lacosamide (Vimpat) 200 MG) GT SCH (09:00)
[2023-01-23] MEDS ORDERED: CARBAMIDE PEROXIDE 6.5% OT 15 ML BTL OT SCH (09:00)
[2023-01-23] MEDS ORDERED: NON-FORMULARY ITEM (Lactulose 30 ML) GT SCH (09:00)
[2023-01-23] MEDS ORDERED: FATTY ACIDS GT SCH (09:00)
[2023-01-23] MEDS ORDERED: [UNRECOGNIZED DRUG - OTHER] PO SCH (09:00)
[2023-01-23] MEDS ORDERED: IRON PO SCH (09:00)
[2023-01-23 09:01] LABS: ALBUMIN 2.3 g/dL (3.4-5.0); ANION GAP 10.5 (8-16); CARBON DIOXIDE 27.8 mmol/L (21-32); CREATININE 0.5 mg/dL (0.6-1.3); TOTAL BILIRUBIN 0.5 mg/dL (0.0-1.0)
[2023-01-23] MEDS: FUROSEMIDE 40 MG/5 ML ORAL SOL UDC GT SCH (09:01)
[2023-01-23] MEDS: LACTULOSE 20 GM/30 ML UDC GT SCH ×3 (09:01→17:11)
[2023-01-23] MEDS: diazePAM 5 MG TAB GT SCH ×2 (09:01→20:37)
[2023-01-23] MEDS: levETIRAcetam 100 MG/ML ORASYR GT SCH ×2 (09:01→20:35)
[2023-01-23] MEDS: MULTIVITAMIN/MINERALS 1 TAB GT SCH (09:01)
[2023-01-23] MEDS: BACLOFEN 10 MG TAB GT SCH ×3 (09:02→17:11)
[2023-01-23] MEDS: CALCIUM CARB/VIT-D 500 MG/200 IU 1 TAB PO SCH ×3 (09:02→17:11)
[2023-01-23 09:04] LABS: POTASSIUM 2.3 mmol/L (3.5-5.1)
[2023-01-23] MEDS ORDERED: KCL 20 MEQ IN 100 mL PREMIX 200 ML IV SCH (10:00)
--- NOTE | 2023-01-23 12:30 | NUR ---
SPOKE WITH ABOUT PTS ABG STATED TO CHANGE PTS VENT SETTINGS TO VT400,RR16,FIO2 35% ALSO ORDERED TO START CPAP ON PATIENT TOMORROW 01/24. NO ABG WAS ORDERED @ THIS TIME. NO RESP DISTRESS NOTED, WILL CONT TO MONITOR.
[2023-01-23] MEDS: PANTOPRAZOLE 40 MG INJ VIAL IVP SCH (12:58)
[2023-01-23] MEDS: VALPROIC ACID 250 MG/5 ML UDC GT SCH ×3 (12:59→20:31)
[2023-01-23 13:00] LABS: APPEARANCE,URINE CLEAR (CLEAR); BILIRUBIN,URINE NEGATIVE (NEGATIVE); BLOOD, URINE NEGATIVE (NEGATIVE); COLOR,URINE YELLOW (YELLOW); LEUKOCYTE ESTERASE ,URINE NEGATIVE (NEGATIVE); NITRITE, URINE NEGATIVE (NEGATIVE); PH,URINE 7.5 (5.0-9.0); UGLUCOSE NEGATIVE (NEGATIVE)
[2023-01-23] MEDS: PIPERACILLIN/TAZOBACTAM 3.375 GM in DEXTROSE 5% 50 ML IV SCH ×2 (13:56→20:31)
[2023-01-23] MEDS: DEXMEDETOMIDINE HCL 400 MCG in NACL 0.9% 96 ML IV PRN ×2 (13:57→22:30)
[2023-01-23] MEDS: LORazepam 2 MG/ML VIAL IVP PRN (17:14)
[2023-01-23] MEDS ORDERED: VANCOMYCIN PER PHARMACY MC PRN (17:45)
--- NOTE | 2023-01-23 18:40 | NUR ---
PAGED DR. CUNNINGHAM OFFICE TO NOTIFY OF BLOOD CULTURE RESULT, GRAM POSITIVE COCCI IN BLOOD. NO NEW ORDERS.
--- NOTE | 2023-01-23 19:22 | NUR ---
RECEIVED FROM DAYSIAFT NURSETHIAGO RN. ALL CARES ASSUMED. RECEIVED PT ON BED, ON SEMI-GORDON'S POSITION, SEDATED, NO SPONTANEOUS EYE OPENING OBSERVED. WITH ETT TO VENT AT ACVC SETTING, SPO2 AT 94%, NOT IN DISTRESS. RIGHT UPPER ARM PICC LINE WITH RUNNING PRECEDEX AT 0.6 MCG/KG/HR AND NS AT TKO - FLOWING WELL WITH INTACT DRESSING. WITH PERIPHERAL IV ACCESS OVER LEFT ARM G20 TO SALINE LOCK. WITH G-TUBE WITH JEVITA FEEDING AT 10 ML/HR RATE WITH 100 ML FWF Q8H- TOLERATED. WITH RIGHT UPPER ARM PICC LINE WITH CONDOM CATHETER DRAINING BY GRAVITY. SAFETY PRECAUTIONS OBSERVED.
--- NOTE | 2023-01-23 19:22 | NUR ---
ENDORSED BEDSIDE REPORT TO SALVADOR, CONTACT CENTER AGENT BEADING SAWYER, FOR CONTINUITY OF CARE.
[2023-01-23] MEDS ORDERED: VANCOMYCIN 1GM/DEXT 5% PREMIX 200 ML IV SCH (20:00)
--- NOTE | 2023-01-23 20:00 | NUR ---
G-TUBE RESIDUAL CHECKED- <30 ML OBTAINED. FEEDING INCREASED TO 20 ML/HR. MONITORED CLOSELY.
[2023-01-23] MEDS: TIMOLOL OP 0.25% 5 ML BTL OP SCH (20:33)
[2023-01-23] MEDS: DORZOLAMIDE 2% OP 10 ML BTL OP SCH (20:33)
[2023-01-23] MEDS: LATANOPROST 0.005% OP 2.5 ML BTL OP SCH (20:35)
[2023-01-23] MEDS: TAMSULOSIN 0.4 MG CAP GT SCH (20:36)
[2023-01-23] MEDS: traZODone 50 MG TAB PO SCH (20:37)
[2023-01-23] MEDS: SENNA 8.6 MG TAB GT SCH (20:38)
[2023-01-23] MEDS: VIMPAT 10MG/ML ORAL SOLUTION GT SCH (20:50)
[2023-01-23] MEDS ORDERED: TRAVOPROST RIGHT EYE SCH (21:00)
[2023-01-24] VITALS (26 sets, daily range): BP systolic 75–108; BP diastolic 48–66
[2023-01-24] MEDS ORDERED: Z-GUARD PASTE TP PRN (02:35)
[2023-01-24 05:13] LABS: HEMATOCRIT 36.1 % (36-52); HEMOGLOBIN 11.9 g/dL (12.0-18.0); MEAN CORPUSCULAR HEMOGLOBIN 30 pg (27-31); MEAN CORPUSCULAR HGB CONC 33 g/dL (33-37); MEAN CORPUSCULAR VOLUME 89.5 fL (80-94); PLATELET COUNT (AUTO) 207 K/uL (140-450); RED BLOOD CELL COUNT(AUTO) 4.04 MIL/uL (4.20-6.10); RED CELL DISTRIBUTION WIDTH 16.8 % (11.6-13.7); WHITE BLOOD COUNT (AUTO) 10.4 K/uL (4.8-10.8)
[2023-01-24] MEDS: PIPERACILLIN/TAZOBACTAM 3.375 GM in DEXTROSE 5% 50 ML IV SCH ×3 (05:19→21:14)
--- NOTE | 2023-01-24 05:25 | NUR ---
NO URINE OUTPUT. BLADDER DISTENDED. INFORMED WITH ORDER TO INSERT TAVARES CATHETER.
--- NOTE | 2023-01-24 05:30 | NUR ---
TAVARES CATHETER FR 16 INSERTED. URINE OUTFLOW NOTED ON BAG. RECORDED.KEPT INTACT.
[2023-01-24 05:37] LABS: ANION GAP 9.4 (8-16); CREATININE 0.6 mg/dL (0.6-1.3); POTASSIUM 3.4 mmol/L (3.5-5.1)
[2023-01-24 06:08] LABS: EOSINOPHILS % (MANUAL) 3 % (0-4); LYMPHOCYTES % (MANUAL) 18 % (20-46); MONOCYTES % (MANUAL) 20 % (5-12)
[2023-01-24 06:09] LABS: BASOPHILS % (MANUAL) 1 % (0-2)
[2023-01-24] MEDS ORDERED: DEXMEDETOMIDINE HCL 100 MCG/ML 2 ML VIAL IV ONE (07:06)
[2023-01-24] MEDS: NACL 0.9% 1,000 ML IV SCH ×2 (07:20→21:00)
[2023-01-24] MEDS ORDERED: NACL 0.9% 1,000 ML IV ONE (07:20)
--- NOTE | 2023-01-24 07:30 | NUR ---
REPORT GIVEN TO [facility] NURSE, RALPH ARTEAGA. ALL QUESTIONS ANSWERED.
[2023-01-24] MEDS: PANTOPRAZOLE 40 MG INJ VIAL IVP SCH (08:25)
[2023-01-24] MEDS: VALPROIC ACID 250 MG/5 ML UDC GT SCH ×4 (08:27→21:17)
[2023-01-24] MEDS: BACLOFEN 10 MG TAB GT SCH ×3 (08:27→18:39)
[2023-01-24] MEDS: LACTULOSE 20 GM/30 ML UDC GT SCH ×3 (08:27→18:38)
[2023-01-24] MEDS: MULTIVITAMIN/MINERALS 1 TAB GT SCH (08:27)
[2023-01-24] MEDS: levETIRAcetam 100 MG/ML ORASYR GT SCH ×2 (08:27→21:18)
[2023-01-24] MEDS: VIMPAT 10MG/ML ORAL SOLUTION GT SCH ×2 (08:27→21:18)
[2023-01-24] MEDS: FUROSEMIDE 40 MG/5 ML ORAL SOL UDC GT SCH (08:27)
[2023-01-24] MEDS: DORZOLAMIDE 2% OP 10 ML BTL OP SCH ×2 (08:28→21:20)
[2023-01-24] MEDS: CALCIUM CARB/VIT-D 500 MG/200 IU 1 TAB PO SCH ×3 (08:28→18:40)
[2023-01-24] MEDS: TIMOLOL OP 0.25% 5 ML BTL OP SCH ×2 (08:28→21:20)
[2023-01-24] MEDS: diazePAM 5 MG TAB GT SCH (08:29)
--- NOTE | 2023-01-24 08:47 | NUR ---
PATIENT HAS BEEN SCREENED AND CATEGORIZED HIGH NUTRITION RISK. PATIENT WILL BE SEEN WITHIN 1-2 DAYS OF ADMISSION. FNS CONSULT/REFERRAL FOR TUBE FEEDING RECOMMENDATION/WEIGHT LOSS RECEIVED ON 01/24/23. 01/23/23-01/24/[address]
[2023-01-24] MEDS: VANCOMYCIN 1.25GM PREMIX 250 ML IV SCH ×2 (09:00→21:17)
--- NOTE | 2023-01-24 09:12 | NUR ---
DR GOMEZ STATED TO TURN OFF PRECEDEX SO THE PT CAN START CPAP TRIALS
--- NOTE | 2023-01-24 09:15 | NUR ---
DR GOMEZ STATES TO PLACE PT ON SEDATION VACATION FOR 24HR SO WE CAN START CPAP TRIALS ON 01/25. PT TOO SEDATED THIS MORNING TO START CPAP TRIAL. RN AWARE OF PLAN WILL CONTINUE TO MONITOR.
[2023-01-24] MEDS ORDERED: POTASSIUM CHLORIDE 20% 40 MEQ/15 ML UDC GT SCH ×2 (09:30→14:30)
--- NOTE | 2023-01-24 10:10 | NUR ---
NOTIFIED DR GOMEZ OF LOW B/P 75/48 STARTED BLOUS NS
--- NOTE | 2023-01-24 13:48 | NUR ---
DC PLANNING A 38 Y.O. MALE ADMITTED TO ICU 01/22 FOR HYPOXIA WITH COMPLAINTS OF COUGH,SOB AND DESATURATION .PATIENT HAS SEVERE INTELLECTUAL DISABILITY WITH MULTIPLE MEDICAL PROBLEMS INCLUDING CEREBRAL PALSY,SEIZURE DISORDER,HYDROCEPHALUS,GERD ,GLAUCOMA ,CHOLECYSTECTOMY, GASTROSTOMY TUBE PLACEMENT.PATIENT IS A RESIDENT OF [facility]. INTUBATED AND ON PRECEDEX DRIP.01/23 CXR -PULMONARY VASCULAR CONGESTION.ON ZOSYN.ID,CARDIO,PULMO ON BOARD.DC PLAN- BACK TO [facility] WHEN PATIENT CONDITION IMPROVES AND WHEN PATIENT RESPONDS TO TX.CM TO FOLLOW. Addendum: 01/26/23 at 0907 by HANH SHEA CM DC PLANNING PATIENT REMAINS INTUBATED.ON LEVO DRIP .ON ZOSYN.ID,CARDIO AND PULMO FOLLOWING.CM TO FOLLOW. Addendum: 01/30/23 at 1301 by HANH SHEA CM DC PLANNING PATIENT IS STILL INTUBATED BUT TOLERATING CPAP TRIALS SO FAR.BLOOD CULTURE (+)STAPH H.ON ZOSYN.BAYLEE MOYA ON BOARD.CM TO FOLLOW. Addendum: 01/31/23 at 1609 by HANH SHEA CM DC PLANNING PATIENT IS STILL VENTED, ON LEVOPHED AND PRECEDEX DRIPS.GM STAIN SPUTUM AND URINE CULTURE (-). 01/22 BLOOD CULTURE (+)FOR STAPH AUREUS.ON ZOSYN.TUBE FEEDS WITH JEVITY ON GOING. LEFT A MESSAGE TO [facility] [employer] FLAKE MILLER,ROSALINDA NUNO AT AND UPDATED OF PATIENT'S ADMISSION AND STATUS HERE AT [facility]. Addendum: 02/01/23 at 1239 by Radha Ceballos RN DC PLANNING: ANGELINA SPOKE WITH BAYLEE MARROQUIN DISCUSSED THE PLAN, PER DR MARROQUIN PATIENT IS STILL ON LEVOPHED DRIP AND UNABLE TO TRACH HIM, HOWEVER WILL CONSULT THE SURGEON FOR POSSIBLE TRACH. CM CALLED ROSALINDA [facility] [employer] M[employer]ER LEFT A MESSAGE. CM TO FOLLOW Addendum: 02/02/23 at 1424 by HANH SHEA CM DC PLANNING PATIENT WAS OFF LEVOPHED AND PRECEDEX DRIPS SINCE LAST NIGHT AND PATIENT TOLERATED CPAP TRIALS FOR 6 HOURS YESTERDAY PER RT.EXTUBATION PER PULMO OR TRACH PER SURGERY.CM TO FOLLOW. Addendum: 02/02/23 at 1644 by HANH SHEA CM DC PLANNING-LATE ENTRY INSPECTOR QUALITY ASSURANCE FOR TRACH CONSENT 1.KARLEY UMANA)- 2.OLIVA- ABOVE INFO FROM ROSALINDA NUNO -[facility] [employer] Addendum: 02/02/23 at 1647 by HANH SHEA CM DC PLANNING-ADDENDUM PATIENT GOT EXTUBATED AND ON BIPAP 28%.NO NEED FOR TRACH FOR NOW.CM TO FOLLOW. Addendum: 02/03/23 at 0908 by Radha Ceballos RN DC PLANNING: ON BIPAP FIO2 40%, TOLERATED WELL, OFF DRIPS,VITALS STABLE ID AND PULMO FOLLOWING, MODERATE MDRO OF SPUTUM CONTINUE IV ABX MEROPENEM. PULMO AND ID FOLLOWING. PER DR GOETZ REPEAT URINE CULTURE. DC PLAN DOWN GRADE TO TELE AND AWAITING FOR UC . CM TO FOLLOW Addendum: 02/06/23 at 1123 by HANH SHEA CM DC PLANNING PATIENT IS IS IN TELEMETRY NOW SINE 02/02 FROM ICU.S/P TX OF PNEUMONIA AND SEPSIS.OFF IV ABX.ON 2 LITERS NC.VITAL SIGNS STABLE.URINE NO GROWTH.MOTHER CALLED AND REFUSED THE PATIENT TO BE TRANSFERRED BACK TO [facility].LEFT A MESSAGE TO JAZMINE PALMER OF [facility] TO TALK TO MOTHER ,VIPIN ALONSO AND IRON OUT ISSUES REGARDING CARE OF THE PATIENT.CM TO FOLLOW. Addendum: 02/06/23 at 1230 by HANH SHEA CM DC PLANNING PATIENT WILL GO BACK TO [facility].JAZMINE PALMER TO ARRANGE FOR TRANSPORT.PLEASE IGNORE THE CONVERSATION WITH VIPIN ALONSO.SHE IS NOT THE MOTHER. Addendum: 02/06/23 at 1248 by HANH SHEA CM LATE ENTRY ACCESS REPRESENTATIVE BY [employer] BETWEEN 1-1:30 PM.REPORT TO BE GIVEN TO REECE .[facility] [employer] M[employer]ER TO BE NOTIFIED OF PATIENT'S TRANSFER BACK TO [facility].
[2023-01-24] MEDS: ENOXAPARIN 40 MG/0.4 ML SYR SUBQ SCH (14:05)
--- NOTE | 2023-01-24 14:27 | NUR ---
01/24/23 RD INITIAL ASSESSMENT COMPLETED PLEASE REFER TO NUTRITION ASSESSMENT UNDER CARE ACTIVITY FOR ESTIMATED NUTRITIONAL NEEDS. 1. RD RECOMMENDS TO CONTINUE ON JEVITY 1.2 @50ML/HR WITH FWF OF 100 Q8H TOLERATED. THIS WILL PROVIDE 1440KCALS AND 67 GRAMS OF PROTEIN MEETING AT LEAST 75% OF ESTIMATED NUTRITIONAL NEEDS. 2. RD RECOMMENDS FERNANDA BID FOR WOUNDS WHICH WILL PROVIDE 160 KCALS AND 5 GRAMS OF PROTEIN. 3. RD TO FOLLOW-UP 2-3 DAYS, HIGH RISK AVELINO DOSS RD
--- NOTE | 2023-01-24 15:02 | NUR ---
PATRICIA OLIVARES POWDER WORKER FROM [facility] CALLED FOR AN UPDATE
--- NOTE | 2023-01-24 19:30 | NUR ---
RECEIVED REPORT FROM DAY SHIFT NURSEJENNI RN. ALL CARES ASSUMED. RECEIVED PT ON BED ON LOW SEMI-GORDON'S POSITION WITH SIDE RAILS RAISED. PT IS SEDATED AND RESPONSIVE TO EXTERNAL DEEP STIMULI. ETT TO VENT SPO2 AT 95%, NOT IN DISTRESS. WITH HYDROCEPHALUS AND RIGHT EYE CATARACT AND CONTRACTED LEFT ARM. WITH RIGHT UPPER PICC LINE - DRESSING INTACT- WITH NS AT 125 ML/HR AND PRECEDEX AT 0.6 MCG/KG/HR. WITH LEFT PERIPHERAL IV ACCESS G20 TO SALINE LOCK - PATENT AND INTACT. SINUS BRADYCARDIA ON BEDSIDE MONITOR. WITH G-TUBE ATTACHED TO JEVITY FEEDING AT 20 ML/HR RATE - TOLERATED. WITH TAVARES CATHETER DRAINING TO GRAVITY. SAFETY AND SEIZURE PRECAUTIONS OBSERVED AND MAINTAINED. WITH RIGHT LATERAL MALLEOLUS WOUND - EQUIPMENT MAINT TECH.
--- NOTE | 2023-01-24 20:00 | NUR ---
HYPOTHERMIA NOTED. SOCKS AND LAYERED BLANKETS APPLIED. KEPT WARM AND MONITORED.
[2023-01-24] MEDS: SENNA 8.6 MG TAB GT SCH (21:19)
[2023-01-24] MEDS: traZODone 50 MG TAB PO SCH (21:19)
[2023-01-24] MEDS: TAMSULOSIN 0.4 MG CAP GT SCH (21:19)
[2023-01-24] MEDS: LATANOPROST 0.005% OP 2.5 ML BTL OP SCH (21:20)
--- NOTE | 2023-01-24 21:45 | NUR ---
150 REDISUAL OBTAINED FROM G-TUBE. FEEDING STOPPED TEMPORARILY.
--- NOTE | 2023-01-24 23:00 | NUR ---
G-TUBE RESIDUAL RECHECKED. 40 ML OBTAINED. FEEDING RESUMED.
[2023-01-25] VITALS (32 sets, daily range): BP systolic 81–134; BP diastolic 47–107
[2023-01-25] MEDS: DEXMEDETOMIDINE HCL 400 MCG in NACL 0.9% 96 ML IV PRN ×2 (00:56→17:51)
[2023-01-25] MEDS ORDERED: DEXMEDETOMIDINE HCL 100 MCG/ML 2 ML VIAL IV ONE (00:56)
[2023-01-25] MEDS: NOREPINEPHRINE 4 MG in DEXTROSE 5% 250 ML IV PRN (03:10)
--- NOTE | 2023-01-25 03:10 | NUR ---
PERSISTENT SBP OF BELOW 90s OBSERVED. LEVOPHED DRIP 4MG IN 250ML STARTED STANDING ORDER. STRATED AT 5 MCG/MIN. KEPT MONITORED AND TITRATED ACCORDINGLY.
[2023-01-25] MEDS: PIPERACILLIN/TAZOBACTAM 3.375 GM in DEXTROSE 5% 50 ML IV SCH ×3 (05:20→20:33)
[2023-01-25 05:26] LABS: BASOPHILS % (AUTO) 0.3 % (0.0-2.0); EOSINOPHILS # (AUTO) 0.3 K/uL (0-0.4); EOSINOPHILS % (AUTO) 3.5 % (0.0-4.0); HEMATOCRIT 36.5 % (36-52); HEMOGLOBIN 11.8 g/dL (12.0-18.0); LYMPHOCYTES # (AUTO) 2.1 K/uL (2.0-11.5); LYMPHOCYTES % (AUTO) 22.8 % (20.5-51.1); MEAN CORPUSCULAR HEMOGLOBIN 29 pg (27-31); MEAN CORPUSCULAR HGB CONC 32 g/dL (33-37); MEAN CORPUSCULAR VOLUME 89.5 fL (80-94); MONOCYTES # (AUTO) 1.1 K/uL (0.8-1.0); MONOCYTES % (AUTO) 11.9 % (1.7-9.3); NEUTROPHILS # (AUTO) 5.7 K/uL (1.8-7.7); NEUTROPHILS % (AUTO) 61.5 % (42.2-75.2); PLATELET COUNT (AUTO) 175 K/uL (140-450); RED BLOOD CELL COUNT(AUTO) 4.08 MIL/uL (4.20-6.10); RED CELL DISTRIBUTION WIDTH 16.9 % (11.6-13.7); WHITE BLOOD COUNT (AUTO) 9.2 K/uL (4.8-10.8)
[2023-01-25 05:51] LABS: ALBUMIN 1.9 g/dL (3.4-5.0); ANION GAP 11.5 (8-16); CARBON DIOXIDE 28.5 mmol/L (21-32); CREATININE 0.6 mg/dL (0.6-1.3); PHOSPHORUS 4.5 mg/dL (2.5-4.9); TOTAL BILIRUBIN 0.4 mg/dL (0.0-1.0)
--- NOTE | 2023-01-25 07:05 | NUR ---
RECEIVED ON A [employer] R860 VENTILATOR PLUGGED INTO RED OUTLET TOLERATING WELL WITHOUT ADVERSE REACTIONS NOTED TO AN ENDOTRACHEAL TUBE #8.0 SECURED AT 24cm TEETH/GUM LINE WITH AN ANCHOR FAST CUFF PRESSURE CHECKED NOTED AMBU BAG AT BEDSIDE LOC AWAKE SEDATED PRECEDEX 100 AT 0.2mcg RESTING COMFORTABLY GOOD CHEST RISE ENDOTRACHEAL SUCTION FORLARGE SEMI THICK YELLOW SECRETIONS OROPHARYNGEAL SUCTION FOR COPIOUS THICK YELLOW SECRETIONS AIRWAY PATENT
--- NOTE | 2023-01-25 07:20 | NUR ---
Opening Received report on pt. Pt intubated and sedated with precedex drip, no signs of pain or distress noted. On levophed drip and IVF. Soft wrist restraint in place for safety. Hernández in place draining urine to gravity.
--- NOTE | 2023-01-25 07:20 | NUR ---
REPORT GIVEN TO DAY SHIFT NURSEPRTETY RN FOR CONTINUITY OF CARE.. ALL QUESTIONS ANSWERED.
[2023-01-25] MEDS: CALCIUM CARB/VIT-D 500 MG/200 IU 1 TAB PO SCH ×3 (09:09→16:17)
[2023-01-25] MEDS: VALPROIC ACID 250 MG/5 ML UDC GT SCH ×4 (09:09→20:32)
[2023-01-25] MEDS: levETIRAcetam 100 MG/ML ORASYR GT SCH ×2 (09:09→20:33)
[2023-01-25] MEDS: LACTULOSE 20 GM/30 ML UDC GT SCH ×3 (09:10→16:16)
[2023-01-25] MEDS: FUROSEMIDE 40 MG/5 ML ORAL SOL UDC GT SCH (09:10)
[2023-01-25] MEDS: PANTOPRAZOLE 40 MG INJ VIAL IVP SCH (09:10)
[2023-01-25] MEDS: MULTIVITAMIN/MINERALS 1 TAB GT SCH (09:11)
[2023-01-25] MEDS: ENOXAPARIN 40 MG/0.4 ML SYR SUBQ SCH (09:12)
[2023-01-25] MEDS: BACLOFEN 10 MG TAB GT SCH ×3 (09:13→16:17)
[2023-01-25] MEDS: DORZOLAMIDE 2% OP 10 ML BTL OP SCH ×2 (09:15→20:34)
[2023-01-25] MEDS: TIMOLOL OP 0.25% 5 ML BTL OP SCH ×2 (09:16→20:33)
[2023-01-25] MEDS: VIMPAT 10MG/ML ORAL SOLUTION GT SCH ×2 (09:17→20:33)
[2023-01-25] MEDS: VANCOMYCIN 1.25GM PREMIX 250 ML IV SCH ×2 (09:19→20:33)
[2023-01-25] MEDS: NACL 0.9% 1,000 ML IV SCH ×2 (09:23→21:18)
--- NOTE | 2023-01-25 10:02 | NUR ---
DR. MAE GOMEZ AT BEDSIDE; PLACED ON CPAP BY FOREMENTIONED MD; NOW ON SIMV RATE 10 VT 400 PEEP 5 PS 10 30%GOOD CHEST RISE; PRETTY/CHEESE WRAPPER FOR ORAL CARE HANDLING TECH TO ATTEMPT VENTILATOR ASSESSMENT AT A LATER TIME
--- NOTE | 2023-01-25 10:05 | NUR ---
Dr. Romero rounding on pt and attempted CPAP trial for a few minutes, pt unable to tolerate. Dr. Romero placed pt on SIMV mode. RT aware and present at bedside.
--- NOTE | 2023-01-25 10:15 | NUR ---
STABLE TOLERATING VENTILATOR SUPPORT NOTED EQUAL CHEST RISE ENDOTRACHEAL SUCTION FOR SMALL THIN YELLOW SECRETIONS AIRWAY PATENT
--- NOTE | 2023-01-25 13:52 | NUR ---
STABLE TOLERATING WEANING NOTED GOOD CHEST RISE AND AERATION THROUGHOUT BILATERAL LUNG [place] AIRWAY PATENT
--- NOTE | 2023-01-25 14:00 | NUR ---
WOUND CARE EVALUATION NOTE: SKIN ASSESSMENT DONE WITH CHARGE NURSE DEX ON THIS 38 Y/O PT.PT IS INTUBATED, TF, SKIN IS WARM AND MOIST, BILATERAL LOWER EXTREMITY HAIRY, NO 1EDEMA. DORSAL PEDAL PULSES PRESENT AND NORMAL. PT. ADMITTED WITH RIGHT LATERAL MALLEOLUS HX OF PRESSURE INJURY. SACRALCOCCYX DRY CLEAN WITH FOAM DRESSING IN PLACE. PT. WITH LOW ROSEANNE SCALE AT RISK. PLAN OF CARE DISCUSSED WITH DEX. POSITION PT. TO SIDE LYING WITH OFFLOADING. INTEGUMENTARY: -RIGHT LATERAL MALLEOLUS PREVIOUSLY PRESSURE INJURY UN-STAGEABLE TODAY'S ASSESSMENT FULL THICKNESS SKIN LOSS 1X1X0.3CM WOUND BED 100% MOIST RED GRANULATION TISSUE, NO ODOR, WOUND EDGE ATTACHED, ROSANNA-WOUND SKIN HEALED SCAR TISSUE. RECOMMENDATIONS: -FREQUENT ORAL CARE AND ROSANNA-CARE Q SHIFT -SACRALCOCCYX CLEANSE WITH NS, PAT DRY, APPLY Z GUARD BID AND PRN IF SOILED. -RIGHT LATERAL ANKLE CLEANSE WITH NS, PAT DRY, APPLY HYDROCOLLOID DRESSING CHANGE TODAY AND Q3 DAYS AND PRN IF SOILED. -PRESSURE REDISTRIBUTION SURFACE THERAPY JASPER ISOFLEX DANIEL MATTRESS -POSITIONING: TURN AND REPOSITION PATIENT Q 2H OR SOONER USE PILLOWS TO KEEP BONY PROMINENCES FROM DIRECT CONTACT WITH SURFACES USE REPOSITIONING WEDGES TO PROVIDE 30-DEGREE ANGLE FOR SIDE LYING POSITIONS OFFLOADING OR FOAM DRESSING TO ALL TUBING TO PREVENT MEDICAL DEVICES RELATED PRESSURE INJURY -RE-EVALUATING AND MANAGING INCONTINENCE MONITOR SKIN CONDITION DURING POSITION CHANGE DO NOT MASSAGE REDNESS, BONY PROMINENCES FREQUENT ROSANNA-CARE AND PROVIDE BARRIER CREAMS PRN IF SOILING MOISTURE CONTROL BY OFFER BED DELCID/URINAL /ABSORBENT PAD TO WICK AND HOLD MOISTURE KEEP SKIN DRY AND PROTECT FROM FRICTION -MANAGE FRICTION/SHEAR/MOBILITY KEEP HOB AT THE LOWEST LEVEL OF ELEVATION NO MORE THAN 30 DEGREE UNLESS OTHERWISE CONTRAINDICATED PROTECT HEELS, ELBOWS BONY PROMINENCES WITH SKIN BERRIES OR FOAM DRESSING IF EXPOSED TO FRICTION OFFLOAD BILATERAL HEELS BY PLACING PILLOWS UNDER CALVES AT ALL TIMES, UNLESS OTHERWISE CONTRAINDICATED -NUTRITION: PLEASE FOLLOW RD RECOMMENDATIONS AND OFFER NUTRITION SUPPLEMENTS IF ORDERED.
--- NOTE | 2023-01-25 14:01 | NUR ---
EDIT: RIGHT LATERAL PRESSURE INJURY STAGE 3 FULL THICKNESS SKIN LOSS 1X1X0.3CM WOUND BED 100% MOIST RED GRANULATION TISSUE, NO ODOR, WOUND EDGE ATTACHED, ROSANNA-WOUND SKIN HEALED SCAR TISSUE.
[2023-01-25] MEDS ORDERED: HYDROCOLLOID DRESSING TP PRN (15:10)
[2023-01-25] MEDS: HYDROCOLLOID DRESSING TP SCH (16:06)
--- NOTE | 2023-01-25 16:32 | NUR ---
RN'S AT BEDSIDE FOR PATIENT PHYSICAL HYGIENE AND REPOSITION NO DISTRESS NOTED RESEARCH WORKER KITCHEN TO ATTEMPT PATIENT AND VENTILATOR ASSESSMENT AT A LATER TIME
[2023-01-25] MEDS ORDERED: POTASSIUM CHLORIDE 20% 40 MEQ/15 ML UDC GT SCH (17:00)
--- NOTE | 2023-01-25 17:32 | NUR ---
PATIENT WITH INCREASED RESPIRATORY RATE DUE TO COUGHING; ENDOTRACHEAL SUCTION FOR LARGE THIN YELLOW SECRETIONS AIRWAY PATENT
[2023-01-25] MEDS ORDERED: CALCIUM GLUC 1 GM/50 mL NS BAG 50 ML IV SCH (18:15)
--- NOTE | 2023-01-25 18:41 | NUR ---
Closing Pt in no signs of acute distress, remains intubated, on precedex drip. On levophed drip and IVF. Massive BM noted earlier, tommie care and linen change done, inserted flexiseal per MD order. Will endorse plan of care to RN.
[2023-01-25] MEDS: TAMSULOSIN 0.4 MG CAP GT SCH (20:33)
[2023-01-25] MEDS: SENNA 8.6 MG TAB GT SCH (20:33)
[2023-01-25] MEDS: LATANOPROST 0.005% OP 2.5 ML BTL OP SCH (20:34)
[2023-01-25] MEDS: traZODone 50 MG TAB PO SCH (20:34)
--- NOTE | 2023-01-25 22:43 | NUR ---
PT WAS NO LONGER TOLERATING SIMV MODE. PT RR INCREASED INTO THE 30'S, PEAK PRESSURES WERE ELEVATED AND PT BEGAN TO DESATURATE. RT PLACED PT ON PRVC F14 VT 400 PEEP 5 FIO2 35%. PT RR, PEAK PRESSURES AND SPO2 IMPROVED IMMEDIATELY. RN MADE AWARE, WILL CONT TO MONITOR.
[2023-01-26] VITALS (30 sets, daily range): BP systolic 85–140; BP diastolic 31–85
[2023-01-26] MEDS ORDERED: DEXMEDETOMIDINE HCL 100 MCG/ML 2 ML VIAL IV ONE (00:29)
[2023-01-26] MEDS: DEXMEDETOMIDINE HCL 400 MCG in NACL 0.9% 96 ML IV PRN ×3 (00:38→15:15)
[2023-01-26] MEDS: NOREPINEPHRINE 4 MG in DEXTROSE 5% 250 ML IV PRN (00:40)
[2023-01-26] MEDS: Z-GUARD PASTE TP SCH ×3 (00:40→23:49)
[2023-01-26] MEDS: PIPERACILLIN/TAZOBACTAM 3.375 GM in DEXTROSE 5% 50 ML IV SCH ×3 (04:15→21:59)
[2023-01-26 05:16] LABS: BASOPHILS % (AUTO) 0.4 % (0.0-2.0); EOSINOPHILS # (AUTO) 0.2 K/uL (0-0.4); EOSINOPHILS % (AUTO) 2.7 % (0.0-4.0); HEMOGLOBIN 11.5 g/dL (12.0-18.0); LYMPHOCYTES # (AUTO) 1.8 K/uL (2.0-11.5); LYMPHOCYTES % (AUTO) 21.7 % (20.5-51.1); MEAN CORPUSCULAR HEMOGLOBIN 29 pg (27-31); MEAN CORPUSCULAR HGB CONC 33 g/dL (33-37); MEAN CORPUSCULAR VOLUME 89.5 fL (80-94); MONOCYTES # (AUTO) 0.9 K/uL (0.8-1.0); MONOCYTES % (AUTO) 11.4 % (1.7-9.3); NEUTROPHILS # (AUTO) 5.3 K/uL (1.8-7.7); NEUTROPHILS % (AUTO) 63.8 % (42.2-75.2); PLATELET COUNT (AUTO) 210 K/uL (140-450); RED BLOOD CELL COUNT(AUTO) 3.91 MIL/uL (4.20-6.10); RED CELL DISTRIBUTION WIDTH 16.8 % (11.6-13.7); WHITE BLOOD COUNT (AUTO) 8.3 K/uL (4.8-10.8)
[2023-01-26 05:27] LABS: ANION GAP 9.8 (8-16); CREATININE 0.5 mg/dL (0.6-1.3)
[2023-01-26 06:02] LABS: POTASSIUM 2.8 mmol/L (3.5-5.1)
--- NOTE | 2023-01-26 07:30 | NUR ---
Received report from shift nurse manager RN. Pt orally intubated PRVC, FI 35 %, tolerating with no dif. Pt is sedated on Precedex drip, no signs of pain or distress. Levophed drip and IVF. Soft wrist restraint in place for safety. Hernández in place draining urine to gravity. G-tube in place with Jevety infusing at 30 ml/hr with no diff. Rectal tube in place with +stool in collection bag. PICC line to right upper arm intact with dressing in place. Will cont. to monitor.
[2023-01-26] MEDS: KCL 20 MEQ IN 100 mL PREMIX 200 ML IV SCH ×2 (08:14→09:25)
[2023-01-26] MEDS ORDERED: POTASSIUM CHLORIDE 20% 40 MEQ/15 ML UDC GT SCH (08:25)
[2023-01-26] MEDS: levETIRAcetam 100 MG/ML ORASYR GT SCH ×2 (09:00→21:54)
[2023-01-26] MEDS: MULTIVITAMIN/MINERALS 1 TAB GT SCH (09:00)
[2023-01-26] MEDS: PANTOPRAZOLE 40 MG INJ VIAL IVP SCH (09:00)
[2023-01-26] MEDS: VIMPAT 10MG/ML ORAL SOLUTION GT SCH ×2 (09:00→22:02)
[2023-01-26] MEDS: LACTULOSE 20 GM/30 ML UDC GT SCH ×2 (09:00→17:12)
[2023-01-26] MEDS: BACLOFEN 10 MG TAB GT SCH ×2 (09:00→17:11)
[2023-01-26] MEDS: FUROSEMIDE 40 MG/5 ML ORAL SOL UDC GT SCH (09:00)
[2023-01-26] MEDS: VALPROIC ACID 250 MG/5 ML UDC GT SCH ×3 (09:00→21:54)
[2023-01-26] MEDS: ENOXAPARIN 40 MG/0.4 ML SYR SUBQ SCH (09:00)
[2023-01-26] MEDS: CALCIUM CARB/VIT-D 500 MG/200 IU 1 TAB PO SCH ×3 (09:00→17:12)
[2023-01-26] MEDS: DORZOLAMIDE 2% OP 10 ML BTL OP SCH ×2 (09:00→21:59)
[2023-01-26] MEDS: TIMOLOL OP 0.25% 5 ML BTL OP SCH ×2 (09:00→21:59)
[2023-01-26] MEDS: VANCOMYCIN 1.25GM PREMIX 250 ML IV SCH ×2 (09:45→21:58)
--- NOTE | 2023-01-26 10:31 | NUR ---
PT WAS PLACED ON CPAP. PATIENT IMMEDIATELY WENT TACHYPNEIC BREATHING 24-28 BPM, AND VOLUMES OF LESS THAN 250. PATIENT WAS NOT ABLE TO TOLERATE THE CPAP TRIAL AND WAS PLACED BACK ON ORIGINAL SETTINGS OF PRVC, F14, VT 400, 5+, FIO2 35%. WILL CONTINUE TO MONITOR PATIENT AND IF PATIENT IS MORE AWAKE WILL CONSIDER TRIALING THEM AGAIN LATER TODAY.
--- NOTE | 2023-01-26 13:30 | NUR ---
RN'S PROVIDED 100% PHYSICAL HYGIENE, ALL LINEN CHANGED, TOTAL BODY BED BATH PROVIDED AND WHOLE BODY ASSESSMENT PROVIDED. PT. REPOSITION, NO DISTRESS. PT. TOLERATED WITH NO DIFF. WILL CONT TO MONITOR
--- NOTE | 2023-01-26 13:30 | NUR ---
WOUND CARE: SKIN IS WARM AND MOIST, NO EDEMA. RIGHT LATERAL MALLEOLUS HX OF PRESSURE INJURY. SACRALCOCCYX DRY CLEAN WITH FOAM DRESSING IN PLACE. PT. WITH LOW ROSEANNE SCALE AT RISK. PLAN OF CARE REVIEWED. REPOSITION PT. WITH OFFLOADING OF WOUND WITH PILLOW TO ALLOW FOR PRESSURE RELIEF. Will cont to monitor.
--- NOTE | 2023-01-26 14:31 | NUR ---
01/26/23 RD FOLLOW UP COMPLETED PLEASE REFER TO NUTRITION ASSESSMENT UNDER CARE ACTIVITY FOR ESTIMATED NUTRITIONAL NEEDS. 1. RD RECOMMENDS TO CONTINUE ON JEVITY 1.2 @50ML/HR WITH FWF OF 100 Q8H TOLERATED. THIS WILL PROVIDE 1440KCALS AND 67 GRAMS OF PROTEIN MEETING AT LEAST 75% OF ESTIMATED NUTRITIONAL NEEDS. 2. RD RECOMMENDS TO CONTINUE FERNANDA BID FOR WOUNDS WHICH WILL PROVIDE 160 KCALS AND 5 GRAMS OF PROTEIN. 3. RD TO FOLLOW-UP 2-3 DAYS, HIGH RISK AVELINO DOSS RD
--- NOTE | 2023-01-26 15:41 | NUR ---
Status update, still orally intubated PRVC, FI 35 %, tolerating with no difficulty. Pt is sedated on Precedex drip, no signs of pain or distress. Levophed drip and IVF. Soft wrist restraint in place for safety. Hernández in place draining urine to gravity. G-tube in place with Jevety infusing at 30 ml/hr with no diff. Rectal tube in place with +stool in collection bag. PICC line to right upper arm intact with dressing in place. Will cont. to monitor.
--- NOTE | 2023-01-26 17:35 | NUR ---
Status update, still orally intubated PRVC, FIO2 35 %, tolerating with no difficulty. Pt is sedated on Precedex, no signs of pain or distress. Levophed drip and IVF TKO. Soft wrist restraint in place to right wrist for safety, prevent pt. pulling ET out. Hernández in place draining urine to gravity. G-tube in place with Jevety infusing at 30 ml/hr with no diff. Rectal tube in place with +stool in collection bag. PICC line to right upper arm intact with dressing in place. Will cont. to monitor.
--- NOTE | 2023-01-26 19:07 | NUR ---
Report given to Lelo kendrick RN. still orally intubated PRVC, FIO2 35 %, tolerating with no difficulty. Pt is sedated on Precedex, no signs of pain or distress. Levophed drip and IVF TKO. Soft wrist restraint in place to right wrist for safety, prevent pt. pulling ET out. Hernández in place draining urine to gravity. G-tube in place with Jevety infusing at 30 ml/hr with no diff. Rectal tube in place with +stool in collection bag. PICC line to right upper arm intact with dressing in place. NO acute distress.
--- NOTE | 2023-01-26 20:00 | NUR ---
Pt. is orally intubated PRVC, FIO2 35 %, tolerating with no difficulty. Pt is sedated on Precedex, no signs of pain or distress. Levophed drip and IVF TKO. Soft wrist restraint in place to right wrist for safety, prevent pt. pulling ET out. Hernández in place draining urine to gravity. G-tube in place with Jevety infusing at 30 ml/hr with no diff. Rectal tube in place with +stool in collection bag. PICC line to right upper arm intact with dressing in place. NO acute distress.
[2023-01-26] MEDS: traZODone 50 MG TAB PO SCH (21:55)
[2023-01-26] MEDS: TAMSULOSIN 0.4 MG CAP GT SCH (21:55)
[2023-01-26] MEDS: SENNA 8.6 MG TAB GT SCH (21:58)
[2023-01-26] MEDS: LATANOPROST 0.005% OP 2.5 ML BTL OP SCH (21:59)
[2023-01-26] MEDS: NACL 0.9% 1,000 ML IV SCH (22:21)
[2023-01-27] VITALS (28 sets, daily range): BP systolic 85–114; BP diastolic 62–78
[2023-01-27] MEDS: DEXMEDETOMIDINE HCL 400 MCG in NACL 0.9% 96 ML IV PRN ×2 (00:09→15:49)
[2023-01-27] MEDS: NOREPINEPHRINE 4 MG in DEXTROSE 5% 250 ML IV PRN (00:11)
[2023-01-27] MEDS: PIPERACILLIN/TAZOBACTAM 3.375 GM in DEXTROSE 5% 50 ML IV SCH ×3 (04:42→20:33)
[2023-01-27 05:30] LABS: BASOPHILS % (AUTO) 0.3 % (0.0-2.0); EOSINOPHILS # (AUTO) 0.3 K/uL (0-0.4); EOSINOPHILS % (AUTO) 3.8 % (0.0-4.0); HEMATOCRIT 33.7 % (36-52); HEMOGLOBIN 11.1 g/dL (12.0-18.0); LYMPHOCYTES # (AUTO) 2.1 K/uL (2.0-11.5); LYMPHOCYTES % (AUTO) 29.3 % (20.5-51.1); MEAN CORPUSCULAR HEMOGLOBIN 29 pg (27-31); MEAN CORPUSCULAR HGB CONC 33 g/dL (33-37); MEAN CORPUSCULAR VOLUME 88.6 fL (80-94); MONOCYTES # (AUTO) 0.9 K/uL (0.8-1.0); MONOCYTES % (AUTO) 13.3 % (1.7-9.3); NEUTROPHILS # (AUTO) 3.8 K/uL (1.8-7.7); NEUTROPHILS % (AUTO) 53.3 % (42.2-75.2); PLATELET COUNT (AUTO) 231 K/uL (140-450); RED CELL DISTRIBUTION WIDTH 17.1 % (11.6-13.7); WHITE BLOOD COUNT (AUTO) 7.1 K/uL (4.8-10.8)
[2023-01-27 05:44] LABS: ALBUMIN 1.9 g/dL (3.4-5.0); ANION GAP 8.6 (8-16); CARBON DIOXIDE 33.2 mmol/L (21-32); CREATININE 0.5 mg/dL (0.6-1.3); MAGNESIUM 1.8 mg/dL (1.8-2.4); PHOSPHORUS 3.9 mg/dL (2.5-4.9); TOTAL BILIRUBIN 0.3 mg/dL (0.0-1.0)
[2023-01-27 05:50] LABS: POTASSIUM 2.8 mmol/L (3.5-5.1)
[2023-01-27] MEDS ORDERED: KCL 20 MEQ IN 100 mL PREMIX 200 ML IV ONE (08:50)
[2023-01-27] MEDS ORDERED: POTASSIUM CHLORIDE 20% 40 MEQ/15 ML UDC GT SCH (08:50)
[2023-01-27] MEDS: LACTULOSE 20 GM/30 ML UDC GT SCH ×3 (08:51→17:40)
[2023-01-27] MEDS: levETIRAcetam 100 MG/ML ORASYR GT SCH ×2 (08:59→20:36)
[2023-01-27] MEDS: VIMPAT 10MG/ML ORAL SOLUTION GT SCH ×2 (09:00→20:41)
[2023-01-27] MEDS: BACLOFEN 10 MG TAB GT SCH ×3 (09:04→17:40)
[2023-01-27] MEDS: VALPROIC ACID 250 MG/5 ML UDC GT SCH ×4 (09:05→20:37)
[2023-01-27] MEDS: MULTIVITAMIN/MINERALS 1 TAB GT SCH (09:05)
[2023-01-27] MEDS: PANTOPRAZOLE 40 MG INJ VIAL IVP SCH (09:06)
[2023-01-27] MEDS: TIMOLOL OP 0.25% 5 ML BTL OP SCH ×2 (09:07→20:34)
[2023-01-27] MEDS: VANCOMYCIN 1.25GM PREMIX 250 ML IV SCH (09:07)
[2023-01-27] MEDS: DORZOLAMIDE 2% OP 10 ML BTL OP SCH ×2 (09:08→20:35)
[2023-01-27] MEDS: CALCIUM CARB/VIT-D 500 MG/200 IU 1 TAB PO SCH ×3 (09:10→17:40)
[2023-01-27] MEDS: FUROSEMIDE 40 MG/5 ML ORAL SOL UDC GT SCH (10:18)
[2023-01-27] MEDS: ENOXAPARIN 40 MG/0.4 ML SYR SUBQ SCH (11:23)
[2023-01-27] MEDS: Z-GUARD PASTE TP SCH (13:02)
--- NOTE | 2023-01-27 19:02 | NUR ---
Update on vent FIO2 is 28% on 93-94% O2 sat,
--- NOTE | 2023-01-27 19:25 | NUR ---
Report given to Marion SHERIFF'S SERGEANT.
[2023-01-27] MEDS: SENNA 8.6 MG TAB GT SCH (20:42)
[2023-01-27] MEDS: traZODone 50 MG TAB PO SCH (20:42)
[2023-01-27] MEDS: TAMSULOSIN 0.4 MG CAP GT SCH (20:45)
[2023-01-27] MEDS: NACL 0.9% 1,000 ML IV SCH (20:56)
[2023-01-27] MEDS: LATANOPROST 0.005% OP 2.5 ML BTL OP SCH (20:57)
[2023-01-28] VITALS (28 sets, daily range): BP systolic 82–128; BP diastolic 46–77
--- NOTE | 2023-01-28 | NUR ---
CONT WITH LEVOPHED 2MCG MIN .BP-101/74. PRECEDEX 0.4 CONT. SEDATED BUT AROUSABLE. VENTED WITH SAME SETTING. VIA ORAL ETT.SUCTIONED. REPOSITIONED. PEG FEEDING CONT. JEVITY 20ML/HR.NO DISTRESS NOTED CONT.TO MONITOR PT.
[2023-01-28] MEDS: Z-GUARD PASTE TP SCH ×2 (00:02→13:17)
[2023-01-28] MEDS: DEXMEDETOMIDINE HCL 400 MCG in NACL 0.9% 96 ML IV PRN ×2 (00:07→12:00)
[2023-01-28] MEDS: PIPERACILLIN/TAZOBACTAM 3.375 GM in DEXTROSE 5% 50 ML IV SCH ×3 (04:03→20:17)
[2023-01-28 05:17] LABS: BASOPHILS # (AUTO) 0.1 K/uL (0.00-0.22); BASOPHILS % (AUTO) 0.7 % (0.0-2.0); EOSINOPHILS # (AUTO) 0.2 K/uL (0-0.4); EOSINOPHILS % (AUTO) 2.2 % (0.0-4.0); HEMATOCRIT 35.7 % (36-52); HEMOGLOBIN 11.7 g/dL (12.0-18.0); LYMPHOCYTES # (AUTO) 1.7 K/uL (2.0-11.5); LYMPHOCYTES % (AUTO) 22.6 % (20.5-51.1); MEAN CORPUSCULAR HEMOGLOBIN 29 pg (27-31); MEAN CORPUSCULAR HGB CONC 33 g/dL (33-37); MEAN CORPUSCULAR VOLUME 88.9 fL (80-94); MONOCYTES # (AUTO) 0.8 K/uL (0.8-1.0); MONOCYTES % (AUTO) 10.9 % (1.7-9.3); NEUTROPHILS # (AUTO) 4.7 K/uL (1.8-7.7); NEUTROPHILS % (AUTO) 63.6 % (42.2-75.2); PLATELET COUNT (AUTO) 246 K/uL (140-450); RED BLOOD CELL COUNT(AUTO) 4.02 MIL/uL (4.20-6.10); RED CELL DISTRIBUTION WIDTH 16.7 % (11.6-13.7); WHITE BLOOD COUNT (AUTO) 7.4 K/uL (4.8-10.8)
[2023-01-28 06:02] LABS: ANION GAP 11.6 (8-16); CARBON DIOXIDE 30.6 mmol/L (21-32); CREATININE 0.5 mg/dL (0.6-1.3); POTASSIUM 3.2 mmol/L (3.5-5.1)
--- NOTE | 2023-01-28 07:22 | NUR ---
Received report from fast food shift supervisor RN. Pt orally intubated PRVC, FI 30 % A/C PRVC, RATE 16, PEEP 5, tolerating with no difficulty. Pt is sedated on Precedex drip, no signs of pain or distress. Levophed drip and IVF TKO. Soft wrist restraint in place for safety to R wrist only, left arm contracted. Hernández in place draining urine to gravity. G-tube in place with Jevety infusing at 50 ml/hr with no diff. residual to be checked. Rectal tube in place with +stool in collection bag. PICC line to right upper arm intact with dressing in place. Will cont. to monitor.
[2023-01-28] MEDS: CALCIUM CARB/VIT-D 500 MG/200 IU 1 TAB PO SCH ×3 (08:34→16:31)
[2023-01-28] MEDS: MULTIVITAMIN/MINERALS 1 TAB GT SCH (08:34)
[2023-01-28] MEDS: BACLOFEN 10 MG TAB GT SCH ×3 (08:36→16:31)
[2023-01-28] MEDS: levETIRAcetam 100 MG/ML ORASYR GT SCH ×2 (08:36→20:15)
[2023-01-28] MEDS: FUROSEMIDE 40 MG/5 ML ORAL SOL UDC GT SCH (08:37)
[2023-01-28] MEDS: LACTULOSE 20 GM/30 ML UDC GT SCH ×3 (08:37→16:30)
[2023-01-28] MEDS: PANTOPRAZOLE 40 MG INJ VIAL IVP SCH (08:37)
[2023-01-28] MEDS: VALPROIC ACID 250 MG/5 ML UDC GT SCH ×4 (08:37→20:18)
[2023-01-28] MEDS: TIMOLOL OP 0.25% 5 ML BTL OP SCH ×2 (08:38→20:20)
[2023-01-28] MEDS: DORZOLAMIDE 2% OP 10 ML BTL OP SCH ×2 (08:38→20:20)
[2023-01-28] MEDS: VIMPAT 10MG/ML ORAL SOLUTION GT SCH ×2 (08:40→20:22)
--- NOTE | 2023-01-28 08:45 | NUR ---
BP 112/70, Hr. 50. Levophed drip decreased to 1.5 mcg/min. to possibly wean off drip. Pt. with no change in status, no acute distress. Will cont. to monitor.
[2023-01-28] MEDS: ENOXAPARIN 40 MG/0.4 ML SYR SUBQ SCH (08:47)
[2023-01-28] MEDS: HYDROCOLLOID DRESSING TP SCH (08:48)
[2023-01-28] MEDS: NOREPINEPHRINE 4 MG in DEXTROSE 5% 250 ML IV PRN (10:29)
--- NOTE | 2023-01-28 13:45 | NUR ---
PT WAS PLACED ON CPAP 10/5 30% FIO2. PT IS TOLERATING CPAP WELL NO DISTRESS NOTED. HR 60 SPO2 95%. WILL CONTINUE TO MONITOR. RN AWARE PT IS ON CPAP
--- NOTE | 2023-01-28 13:50 | NUR ---
Pt. placed in C-PAP by RT. Pt. tolerating wit no difficulty. No acute distress. Pt will be left on C-PAP for now and will continue to monitor.
[2023-01-28] MEDS ORDERED: POTASSIUM CHLORIDE 20% 40 MEQ/15 ML UDC GT SCH (14:28)
--- NOTE | 2023-01-28 16:10 | NUR ---
Pt. still on C-PAP by RT. Pt. tolerating wit no difficulty. No acute distress. Pt will be left on C-PAP for now and will continue to monitor.
--- NOTE | 2023-01-28 16:10 | NUR ---
Status update, still orally intubated on C-PAP FI 30 %, tolerating with no difficulty. Pt is sedated on Precedex drip, no signs of pain or distress. Levophed drip and IVF. Soft wrist restraint in place for safety. Hernández in place draining urine to gravity. G-tube in place with Jevety infusing at 50 ml/hr with no diff. Rectal tube in place with +stool in collection bag. PICC line to right upper arm intact with dressing in place. Will cont. to monitor.
[2023-01-28] MEDS ORDERED: CRUSHER, PILL MC ONE (16:34)
--- NOTE | 2023-01-28 17:18 | NUR ---
PT TAKEN OFF CPAP TO REST. TOLERATED CPAP 8/5 FOR TWO HOURS. NO DISTRESS NOTED. WILL CONTINUE TO MONITOR. PT IS BACK ON PREVIOUS SETTINGS TOLERATING WELL.
--- NOTE | 2023-01-28 17:20 | NUR ---
DR HERNANDEZ ROUNDED ON PT WANTS PT TO DO MORNING CPAP 01/29/23 AND GET AN ABG WHILE ON CPAP. CALLED DR HERNANDEZ WITH RESULTS FOR FURTHER ORDERS.
--- NOTE | 2023-01-28 19:30 | NUR ---
RECEIVED REPORT FROM [facility] NURSE, [place]. ALL CARES ASSUMED. PT RECEIVED ON BED ON SEMI-GORDON'S POSITION, A&O X 4. WITH SIDE-RAILS RAISED 2X FOR SAFETY. ON ROOM AIR WITH SPO2 OF 96%. CLEAR LUNG SOUNDS. ON SINUS RHYTHM ON BEDSIDE MONITOR. WITH RIGHT SUBCLAVIAN ALFONSO CATHETER- DRESSING DRY AND INTACT. WITH IV ACCESS OVER RIGHT ANTECUBITAL VEIN G20 KATHIE WITH NS AT 10 ML/HR. WITH ANOTHER RIGHT PERIPHERAL IV ACCESS TO SALINE LOCK - FLUSHED AND KEPT INTACT. ON NPO TEMPORARILY - FOR BEDSIDE SWALLOW EVAL. WITH WITH PATCHES OF SKIN IRRITATIONS ON BOTH LOWER EXTREMITIES. WITH WOUND OVER LEFT FOREARM - CRUSTED WITH MILD SWELLING AND REDNESS. PT NOT IN DISTRESS. WILL MONITOR PT CLOSELY. Addendum: 01/28/23 at 2035 by TIESHA MACK RN WRONG PATIENT
--- NOTE | 2023-01-28 19:32 | NUR ---
Report given to Nelsy kendrick RN. Still orally intubated PRVC, FIO2 30 %, tolerating with no difficulty. Pt is sedated on Precedex, no signs of pain or distress. Levophed drip and IVF TKO. Soft wrist restraint in place to right wrist for safety, prevent pt. pulling ET out. Hernández in place draining urine to gravity. G-tube in place with Jevety infusing at 30 ml/hr with no diff. Rectal tube in place with +stool in collection bag. PICC line to right upper arm intact with dressing in place. NO acute distress. Total pt. care done. All linen changed and pt. left clean.
--- NOTE | 2023-01-28 19:40 | NUR ---
RECEIVED REPORT FROM DAYSHIFT NURSE SHANIQUE RN, PT IS ASLEEP ON BED WITH SIDE-RAILS RAISED 2X AND SOFT WRIST RESTRAINT (RIGHT) IN PLACE FOR SAFETY. ON ETT TO VENT AC/PRVC RATE 16, TV 400, FIO2 30%, PEEP 5 AND O2 SAT OF 96%. ON SINUS RHYTHM ON BEDSIDE MONITOR. G-TUBE IN PLACE WITH JEVETY INFUSING AT 50ML/HR ABDOMINAL SOUND NORMOACTIVE. PT HAS A FLEXISEAL IN PLACE. TAVARES CATHETER IN PLACE DRAINING URINE TO GRAVITY. PICC LINE TO KRISHNA INTACT WITH DRESSING IN PLACE RUNNING THE FOLLOWING MEDICATIONS: PRECEDEX 400MCG (0.3 MCG/KG/HR), LEVOPHED 4MG (2MCG/MIN), NORMAL SALINE 10ML/HR. VITAL SIGNS ARE FOLLOWS T- 96.2, HR 55, BP 117/75, RR 17.
[2023-01-28] MEDS: TAMSULOSIN 0.4 MG CAP GT SCH (20:15)
[2023-01-28] MEDS: SENNA 8.6 MG TAB GT SCH (20:18)
[2023-01-28] MEDS: traZODone 50 MG TAB PO SCH (20:19)
[2023-01-28] MEDS: NACL 0.9% 1,000 ML IV SCH (22:06)
[2023-01-29] VITALS (34 sets, daily range): BP systolic 88–145; BP diastolic 39–106
[2023-01-29] MEDS: DEXMEDETOMIDINE HCL 400 MCG in NACL 0.9% 96 ML IV PRN ×2 (03:34→17:21)
--- NOTE | 2023-01-29 04:30 | NUR ---
FLEXISEAL REMOVED NOT COLLECTING STOOL. PT STOOL IS FORMED.
[2023-01-29] MEDS: PIPERACILLIN/TAZOBACTAM 3.375 GM in DEXTROSE 5% 50 ML IV SCH ×3 (05:34→20:19)
[2023-01-29] MEDS: Z-GUARD PASTE TP SCH ×2 (05:34→12:22)
[2023-01-29] MEDS: LATANOPROST 0.005% OP 2.5 ML BTL OP SCH ×2 (05:35→20:21)
[2023-01-29] MEDS: LORazepam 2 MG/ML VIAL IVP PRN ×2 (07:08→07:23)
--- NOTE | 2023-01-29 07:08 | NUR ---
DURING ENDORSEMENT TO DAYSHIFT NURSE SAMANTHA ROSAS PT HAD 2 EPISODES OF GENERALIZED SEIZURE LASTING AROUND 15 TO 20 SECONDS. ATIVAN 2MG WAS GIVEN.
--- NOTE | 2023-01-29 07:23 | NUR ---
TRANSFER OF CARE FROM [facility], REPORT ENDORSED TO RALPH SINGH
--- NOTE | 2023-01-29 07:25 | NUR ---
Received report from mine shifter RN. Pt orally intubated PRVC, FI 50 % A/C VC, RATE 16, PEEP 6, tolerating with no difficulty. Pt is sedated on Precedex drip, no signs of pain or distress. Levophed drip and IVF TKO. Soft wrist restraint in place for safety to R wrist only, left arm contracted. Hernández in place draining urine to gravity. G-tube in place with Jevety infusing at 50 ml/hr with no diff. residual to be checked. PICC line to right upper arm intact with dressing in place. Will cont. to monitor. No seizure activity noted noted. Pt.'s BP is labile now. Will closely monitor.
[2023-01-29] MEDS: ALBUTEROL SULFATE/IPRATROPIU 3 ML SOL IH PRN ×3 (07:29→16:04)
--- NOTE | 2023-01-29 07:29 | NUR ---
RECEIVED ON A [employer] R860 VENTILATOR PLUGGED INTO RED OUTLET TOLERATING WELL WITHOUT ADVERSE REACTIONS NOTED TO AN ENDOTRACHEAL TUBE #8.0 SECURED AT 25cm TEETH/GUM LINE WITH AN ANCHOR FAST CUFF PRESSURE CHECKED NOTED AMBU BAG AT BEDSIDE DEEP CHEST RISE INCREASED WOB AT 24 BPM ENDOTRACHEAL SUCTION FOR SMALL THIN PALE WHITE SECRETIONS AIRWAY PATENT HHN PRN THERAPY GIVEN REVIEWED CXR 01/27/23 Addendum: 01/29/23 at 1027 by Da Hartmann RT SATURATION 95%-96% ON FIO2 OF 60% PEEP 5 cmH2O POST HHN THERAPY TITRATED FIO2 TO 50% RCIS TO MONITOR YANLI/POLE SANDER OPERATOR NOTIFIED
[2023-01-29] MEDS: NOREPINEPHRINE 4 MG in DEXTROSE 5% 250 ML IV PRN ×2 (08:50→17:42)
[2023-01-29] MEDS: MULTIVITAMIN/MINERALS 1 TAB GT SCH (09:05)
[2023-01-29] MEDS: BACLOFEN 10 MG TAB GT SCH ×3 (09:05→17:14)
[2023-01-29] MEDS: FUROSEMIDE 40 MG/5 ML ORAL SOL UDC GT SCH (09:06)
[2023-01-29] MEDS: VALPROIC ACID 250 MG/5 ML UDC GT SCH ×4 (09:06→20:11)
[2023-01-29] MEDS: levETIRAcetam 100 MG/ML ORASYR GT SCH ×2 (09:07→20:11)
[2023-01-29] MEDS: LACTULOSE 20 GM/30 ML UDC GT SCH ×3 (09:08→17:13)
[2023-01-29] MEDS: PANTOPRAZOLE 40 MG INJ VIAL IVP SCH (09:08)
[2023-01-29] MEDS: DORZOLAMIDE 2% OP 10 ML BTL OP SCH ×2 (09:09→20:14)
[2023-01-29] MEDS: TIMOLOL OP 0.25% 5 ML BTL OP SCH ×2 (09:09→20:14)
[2023-01-29] MEDS: CALCIUM CARB/VIT-D 500 MG/200 IU 1 TAB PO SCH ×3 (09:10→17:13)
[2023-01-29] MEDS: VIMPAT 10MG/ML ORAL SOLUTION GT SCH ×2 (09:11→20:21)
[2023-01-29] MEDS: ENOXAPARIN 40 MG/0.4 ML SYR SUBQ SCH (09:13)
--- NOTE | 2023-01-29 09:32 | NUR ---
STABLE GOOD CHEST RISE ENDOTRACHEAL SUCTION FOR SMALL THIN YELLOW/HAZY SECRETIONS AIRWAY PATENT
--- NOTE | 2023-01-29 09:35 | NUR ---
REVIEWED CXR IMPRESSION 01/29/23 AT 0901; PLACED ON CPAP TRIAL NOTED GOOD CHEST RISE AIRWAY PATENT SAMANTHA AND SHANIQUE/TOY MAKER NOTIFIED
--- NOTE | 2023-01-29 09:45 | NUR ---
RT at bedside. Pt. changed to CPAP now. Pt. will be closely watched. NO acute distress. Tolerating with no diff.
--- NOTE | 2023-01-29 10:52 | NUR ---
STABLE GOOD CHEST RISE NO ENDOTRACHEAL SUCTION AT THIS TIME TOLERATING CPAP TRIAL HOWEVER TOTAL RESPIRATORY RATE AND RSBI ELEVATED NOTED NATIONAL DEDICATED TRUCK DRIVER TO MONITOR FOR CONTINUANCE OF TRIAL
--- NOTE | 2023-01-29 10:57 | NUR ---
OBTAINED ABG TO VALIDATE CPAP TRIAL; NO ADVERSE REACTIONS AT RIGHT RADIAL PUNCTURE SITE
--- NOTE | 2023-01-29 11:11 | NUR ---
Status update, still orally intubated on C-PAP FI 30 %, tolerating with no difficulty. Pt is sedated on Precedex drip, no signs of pain or distress. Levophed drip and IVF. Soft wrist restraint in place for safety. Hernández in place draining urine to gravity. G-tube in place with Jevety infusing at 50 ml/hr with no diff. PICC line to right upper arm intact with dressing in place. Will cont. to monitor. Pt. tolerating CPAP with no difficulty.
--- NOTE | 2023-01-29 11:33 | NUR ---
01/29/23 RD FOLLOW UP COMPLETED. PLEASE REFER TO NUTRITION ASSESSMENT UNDER CARE ACTIVITY FOR ESTIMATED NUTRITIONAL NEEDS. 1. CONTINUE WITH JEVITY 1.2 @50ML/HR WITH FWF OF 100 Q8H TOLERATED. THIS WILL PROVIDE 1440KCALS AND 67 GRAMS OF PROTEIN MEETING ~ 85% OF ESTIMATED KCAL AND 94% OF PROTEIN NEEDS; ADEQUATE. 2. MONITOR WEIGHT,LABS, AND GRV. 3. RD TO FOLLOW-UP 2-3 DAYS, HIGH RISK JOSH MARQUES RD
[2023-01-29 12:00] LABS: BASOPHILS % (AUTO) 0.2 % (0.0-2.0); EOSINOPHILS # (AUTO) 0.1 K/uL (0-0.4); EOSINOPHILS % (AUTO) 1.6 % (0.0-4.0); HEMATOCRIT 37.6 % (36-52); HEMOGLOBIN 12.1 g/dL (12.0-18.0); LYMPHOCYTES # (AUTO) 1.5 K/uL (2.0-11.5); LYMPHOCYTES % (AUTO) 16.6 % (20.5-51.1); MEAN CORPUSCULAR HEMOGLOBIN 29 pg (27-31); MEAN CORPUSCULAR HGB CONC 32 g/dL (33-37); MEAN CORPUSCULAR VOLUME 89.2 fL (80-94); MONOCYTES # (AUTO) 0.8 K/uL (0.8-1.0); MONOCYTES % (AUTO) 8.9 % (1.7-9.3); NEUTROPHILS # (AUTO) 6.5 K/uL (1.8-7.7); NEUTROPHILS % (AUTO) 72.7 % (42.2-75.2); PLATELET COUNT (AUTO) 346 K/uL (140-450); RED BLOOD CELL COUNT(AUTO) 4.22 MIL/uL (4.20-6.10); RED CELL DISTRIBUTION WIDTH 16.8 % (11.6-13.7); WHITE BLOOD COUNT (AUTO) 8.9 K/uL (4.8-10.8)
[2023-01-29 12:14] LABS: ANION GAP 8.1 (8-16); CARBON DIOXIDE 34.5 mmol/L (21-32); CREATININE 0.6 mg/dL (0.6-1.3); POTASSIUM 3.6 mmol/L (3.5-5.1)
--- NOTE | 2023-01-29 12:18 | NUR ---
TOLERATING CPAP TRIAL NOTED GOOD CHEST RISE ENDOTRACHEAL SUCTION WITH NO RETURN AIRWAY PATENT; SATURATION 97% ON FIO2 OF 50% PEEP 5 cmH2O POST HHN PRN THERAPY TITRATED FIO2 TO 40% YANLI/TELEVISION INSTALLER HELPER NOTIFIED
--- NOTE | 2023-01-29 12:32 | NUR ---
CALLED DR. IRINA HERNANDEZ AT [facility] [phone] TO REVIEW CPAP TRIAL; ABG RESULTS 1 HR 20 MINS; CXR 01/29; DARWIN/EXCHANGE TO MICHAEL MENDEZ MD; REQUIRED PATIENT INFORMATION AND CALL BACK NUMBER ([phone]) GIVEN
--- NOTE | 2023-01-29 12:58 | NUR ---
DR PATINO ROUNDING AT BEDSIDE. UPDATED PT INFORMATION.
--- NOTE | 2023-01-29 13:20 | NUR ---
DR CUNNINGHAM ROUNDING AT BEDSIDE. UPDATED PT INFORMATION.
--- NOTE | 2023-01-29 13:37 | NUR ---
CALL BACK FROM DR. IRINA HERNANDEZ; REVIEWED CPAP TRIAL; ABG RESULTS AND CXR FOR AM; HHN THERAPY FREQUENCY; TORBO DR. HERNANDEZ: ADD HHN FREQUENCY TO Q6; CONTINUE WITH CPAP TRIAL; ABG AFTER 1 HOUR
--- NOTE | 2023-01-29 13:40 | NUR ---
Status update, still orally intubated on C-PAP FI 40 %, tolerating with no difficulty. Pt is sedated on Precedex drip, no signs of pain or distress. Levophed drip and IVF. Soft wrist restraint in place for safety. Hernández in place draining urine to gravity. G-tube in place with Jevety infusing at 50 ml/hr with no diff. PICC line to right upper arm intact with dressing in place. Will cont. to monitor. Pt. tolerating CPAP with no difficulty. Pt. cleaned and no BM this day yet. No new skin breakdown noted on assessment. Pt. is tolerating C-PAP trail without diff.
--- NOTE | 2023-01-29 14:59 | NUR ---
CALLED DR. IRINA HERNANDEZ AT [facility] [phone] TO REVIEW CPAP TRIAL AND ABG RESULTS; NOVEMBER/ TO PAGE ANDREA YEBOAH; REQUIRED PATIENT INFORMATION AND CALL BACK NUMBER ([phone]) GIVEN
--- NOTE | 2023-01-29 15:02 | NUR ---
CALL BACK FROM DR. IRINA HERNANDEZ REVIEWED CPAP TRIAL AND ABG RESULTS; PER FOREMENTIONED MD PATIENT CANDIDATE FOR EXTUBATION; MD STATED TO HOLD OFF ON EXTUBATION WILL IN ICU APPROXIMATELY 20 MINS
--- NOTE | 2023-01-29 15:28 | NUR ---
STEPHIE HERNANDEZ: CPAP TRIAL DURING DAY TOLERATED; PLACE BACK ON AC/PRVC NOCS
--- NOTE | 2023-01-29 15:33 | NUR ---
CHANGE ROUNDING AT BEDSIDE. UPDATED PT INFORMATION.
--- NOTE | 2023-01-29 15:55 | NUR ---
REMAINS SEDATED; GOOD CHEST RISE; SPUTUM 01/22 POOR QUALITY - RECOLLECTED FORWARDED TO LAB; ENDOTRACHEAL SUCTION FOR LARGE THIN YELLOW/HAZY SECRETIONS; HHN THERAPY GIVEN TO DECREASE WOB AT 30 BPM
--- NOTE | 2023-01-29 17:45 | NUR ---
SEDATED GOOD CHEST RISE PATIENT PRESENTING WITH INCREASED WOB AT 35 BPM; CHANGED MODE TO AC TO REST PATIENT AT THIS TIME YANLI/INFANT CAREGIVER NOTIFIED
[2023-01-29] MEDS: MIDODRINE 5 MG TAB PO SCH (19:00)
--- NOTE | 2023-01-29 19:29 | NUR ---
ENDORSED TO GRINDER LAP KE ROSAS FOR CONTINUITY OF CARE. ALL QUESTION ANSWERED.
[2023-01-29] MEDS: ALBUTEROL SULFATE/IPRATROPIU 3 ML SOL IH SCH (19:35)
--- NOTE | 2023-01-29 19:40 | NUR ---
RECEIVED REPORT FROM [facility] NURSE. PT IS ON ETT TO VENT AC/PRVC RATE 16, TV 400, FIO2 35%, PEEP 5 AND O2 SAT OF 95%. ON SINUS RHYTHM WITH BEDSIDE MONITOR. G-TUBE IN PLACE WITH JEVETY INFUSING AT 50ML/HR. TAVARES CATHETER IN PLACE DRAINING URINE TO GRAVITY. PICC LINE TO KRISHNA INTACT WITH DRESSING IN PLACE RUNNING AND THE FOLLOWING MEDICATIONS: PRECEDEX 400MCG (0.3 MCG/KG/HR), LEVOPHED 6 MCG (2MCG/MIN), NORMAL SALINE 10ML/HR. VITAL SIGNS ARE FOLLOWS T- 97.6, HR 61, BP 108/64, RR 16.
[2023-01-29] MEDS: SENNA 8.6 MG TAB GT SCH (20:12)
[2023-01-29] MEDS: TAMSULOSIN 0.4 MG CAP GT SCH (20:12)
[2023-01-29] MEDS: traZODone 50 MG TAB PO SCH (20:16)
--- NOTE | 2023-01-29 20:40 | NUR ---
PATIENT WITH 150ML RESIDUAL; WILL HOLD TUBE PER ORDERS. WILL RECHECK IN HOUR.
--- NOTE | 2023-01-29 22:00 | NUR ---
RECHECKED G-TUBE (RESIDUAL = 70 ML). RESUMED G-TUBE FEEDING.
[2023-01-29] MEDS: NACL 0.9% 1,000 ML IV SCH (22:06)
[2023-01-30] VITALS (29 sets, daily range): BP systolic 90–128; BP diastolic 40–93
[2023-01-30] MEDS: Z-GUARD PASTE TP SCH ×2 (01:00→13:54)
[2023-01-30] MEDS: guaiFENesin 20 MG/ML UDC GT PRN (01:03)
--- NOTE | 2023-01-30 01:15 | NUR ---
WITH BOUTS OF NON-PRODUCTIVE COUGH. PRN MEDICATION ROBITUSSIN THRU NGT.
[2023-01-30] MEDS: ALBUTEROL SULFATE/IPRATROPIU 3 ML SOL IH SCH ×4 (01:42→18:52)
[2023-01-30] MEDS: PIPERACILLIN/TAZOBACTAM 3.375 GM in DEXTROSE 5% 50 ML IV SCH ×3 (05:00→20:56)
[2023-01-30 05:38] LABS: ALBUMIN 2.2 g/dL (3.4-5.0); CARBON DIOXIDE 36.2 mmol/L (21-32); CREATININE 0.6 mg/dL (0.6-1.3); POTASSIUM 4.2 mmol/L (3.5-5.1); TOTAL BILIRUBIN 0.3 mg/dL (0.0-1.0)
--- NOTE | 2023-01-30 07:01 | NUR ---
RECEIVED ON A [employer] R860 VENTILATOR PLUGGED INTO RED OUTLET TOLERATING WELL WITHOUT ADVERSE REACTIONS NOTED TO AN ENDOTRACHEAL TUBE #8.0 SECURED AT 25cm TEETH/GUM LINE WITH AN ANCHOR FAST CUFF PRESSURE CHECKED NOTED AMBU BAG AT BEDSIDE SEDATED RESTING COMFORTABLY GOOD CHEST RISE ENDOTRACHEAL SUCTION FOR MODERATE THIN YELLOW/HAZY SECRETIONS AIRWAY PATENT
--- NOTE | 2023-01-30 07:15 | NUR ---
RECEIVED PATIENT FROM [facility] SALESP[facility] NURSES RALPH HAYS AND KE ROSAS. PATIENT IS SEDATED AND UNABLE TO FOLLOW SIMPLE COMMANDS. PERRL NOTED. ETT TO VENT AC/PRVC FIO2 35%, VT 400, RR 16, PEEP 5. SPO2 SATURATION AT 96%. SINUS RHYTHM ON MONITOR. ABDOMEN IS SOFT WITH ALL ABDOMINAL QUADRANTS ACTIVE. PATIENT HAS G-TUBE WITH JEVITY INFUSING AT 50CC FWF 100CC Q8H. PATIENT HAS RIGHT UPPER ARM PICC LINE INFUSING LEVOPHED 6 MCG/MIN, PRECEDEX 0.6 MCG/KG/HR, NORMAL SALINE TKO 5ML SKIN BREAKDOWN NOTED ON RIGHT LATERAL ANKLE. STANDARD PRECAUTION WITH HOB 30 DEGREE FOR ASPIRATION PRECAUTION, BD WHEELS LOCKED AND IN LOWEST POSITION. TAVARES CATHETER TO GRAVITY WITH CLEAR YELLOW URINE. RIGHT SOFT WRIST RESTRAINT IN PLACE FOR SAFETY.
--- NOTE | 2023-01-30 07:21 | NUR ---
TRANSFER OF CARE TO DAY SHIFT, REPORT ENDORSED TO FABIOLA. ROSAS.
[2023-01-30] MEDS: MIDODRINE 5 MG TAB PO SCH ×3 (07:49→18:27)
[2023-01-30 08:48] LABS: HEMATOCRIT 37.1 % (36-52); HEMOGLOBIN 12.1 g/dL (12.0-18.0); MEAN CORPUSCULAR HEMOGLOBIN 29 pg (27-31); MEAN CORPUSCULAR HGB CONC 33 g/dL (33-37); MEAN CORPUSCULAR VOLUME 89.2 fL (80-94); PLATELET COUNT (AUTO) 445 K/uL (140-450); RED BLOOD CELL COUNT(AUTO) 4.16 MIL/uL (4.20-6.10); RED CELL DISTRIBUTION WIDTH 17.6 % (11.6-13.7); WHITE BLOOD COUNT (AUTO) 11.4 K/uL (4.8-10.8)
[2023-01-30] MEDS: VALPROIC ACID 250 MG/5 ML UDC GT SCH ×4 (08:52→20:55)
[2023-01-30] MEDS: LACTULOSE 20 GM/30 ML UDC GT SCH ×3 (08:52→17:35)
[2023-01-30] MEDS: FUROSEMIDE 40 MG/5 ML ORAL SOL UDC GT SCH (08:53)
[2023-01-30] MEDS: levETIRAcetam 100 MG/ML ORASYR GT SCH ×2 (08:53→20:56)
--- NOTE | 2023-01-30 08:53 | NUR ---
REVIEWED PREVIOUS VENTILATOR ASSESSMENTS; MECHANICAL RATE OF 16 EQUATING TO TOTAL RESPIRATORY RATE OF 16; ROUTINE ABG PREFORMED TO VALIDATE MECHANICAL RATE; NO ADVERSE REACTIONS NOTED AT PUNCTURE SITE
[2023-01-30] MEDS: BACLOFEN 10 MG TAB GT SCH ×3 (08:54→17:35)
[2023-01-30] MEDS: PANTOPRAZOLE 40 MG INJ VIAL IVP SCH (08:55)
[2023-01-30] MEDS: MULTIVITAMIN/MINERALS 1 TAB GT SCH (08:55)
[2023-01-30] MEDS: VIMPAT 10MG/ML ORAL SOLUTION GT SCH ×2 (08:57→20:56)
[2023-01-30] MEDS: TIMOLOL OP 0.25% 5 ML BTL OP SCH ×2 (08:58→20:56)
[2023-01-30] MEDS: CALCIUM CARB/VIT-D 500 MG/200 IU 1 TAB PO SCH ×3 (08:59→17:35)
[2023-01-30] MEDS: DORZOLAMIDE 2% OP 10 ML BTL OP SCH ×2 (08:59→20:56)
[2023-01-30] MEDS: ENOXAPARIN 40 MG/0.4 ML SYR SUBQ SCH (09:00)
[2023-01-30 09:11] LABS: LYMPHOCYTES % (MANUAL) 29 % (20-46)
[2023-01-30 09:12] LABS: MONOCYTES % (MANUAL) 12 % (5-12)
--- NOTE | 2023-01-30 09:36 | NUR ---
SEDATED RESTING COMFORTABLY; EQUAL CHEST RISE; REVIEWED ABG RESULTS pO2 69.5 mmHg; INCREASED FIO2 TO 40%; INITIATED CPAP TRIAL NOTED; TOLERATING WELL WITHOUT RESPIRATORY DISTRESS NOTED; JR/CUE WORKER NOTIFIED FOR CPAP TRIAL AND INCREASE IN FIO2
--- NOTE | 2023-01-30 11:00 | NUR ---
SEDATED STABLE TOLERATING CPAP TRIAL WITHOUT INCIDENT GOOD CHEST RISE AIRWAY PATENT
[2023-01-30] MEDS: DEXMEDETOMIDINE HCL 400 MCG in NACL 0.9% 96 ML IV PRN (12:00)
--- NOTE | 2023-01-30 12:07 | NUR ---
DR. VÁSQUEZ ROUNDED AT PATIENT BEDSIDE NO NEW ORDERS GIVEN.
--- NOTE | 2023-01-30 12:45 | NUR ---
DR MARROQUIN ROUNDED AT PATIENT BEDSIDE NO NEW ORDERS GIVEN.
--- NOTE | 2023-01-30 13:40 | NUR ---
STABLE RESTING WELL WITHOUT DISTRESS NOTED GOOD CHEST RISE ENDOTRACHEAL SUCTION FOR MODERATE THI YELLOW SECRETIONS AIRWAY PATENT; MAINTAINING SpVt GREATER THAN 7ml/kg (NIH PBW = 350ml) POST HHN THERAPY DECREASED PRESSURE SUPPORT TO 8 cmH2O; THIAGO/ASSOCIATE DIRECTOR QA NOTIFIED
--- NOTE | 2023-01-30 14:00 | NUR ---
TOLERATING CPAP TRIAL WITH PRESSURE SUPPORT AT 8 cmH2O SpVt GREATER THAN 330 ml
--- NOTE | 2023-01-30 15:25 | NUR ---
SEDATED STABLE NO EVIDENCE OF PULMONARY DISTRESS NOTED GOOD CHEST RISE AIRWAY PATENT
[2023-01-30] MEDS: NOREPINEPHRINE 4 MG in DEXTROSE 5% 250 ML IV PRN (17:42)
--- NOTE | 2023-01-30 17:48 | NUR ---
SEDATED STABLE GOOD CHEST RISE TOLERATING CPAP TRIAL WITHOUT RESPIRATORY DISTRESS NOTED
--- NOTE | 2023-01-30 18:54 | NUR ---
RECEIVED PT ON CPAP. PT SATURATION 98%. SWITCHED PT BACK TO AC/PRVC 400 16 +5 40% . PER DOC ORDER . PT IS INTUBATED WITH A 8.0 25@TEETH. SUCTIONED PT MOD AMOUNT OF THIN WHITE SECRETIONS. BREATH SOUNDS ARE CLEAR AT [employer] WITH RHONCHI @ BASES. VENTILATORS ALARMS ARE ON AND AUDIBLE TO ENVIRONMENT, VENT IS PLUGGED INTO RED OUTLET AND BRAKE IS ON. NO DISTRESS NOTED, WILL CONTINUE TO MONITOR
--- NOTE | 2023-01-30 19:15 | NUR ---
ENDORSED REPORT TO [employer] RALPH ODOM. FOR CONTINUITY OF CARE.
[2023-01-30] MEDS: TAMSULOSIN 0.4 MG CAP GT SCH (20:55)
[2023-01-30] MEDS: SENNA 8.6 MG TAB GT SCH (20:56)
[2023-01-30] MEDS: traZODone 50 MG TAB PO SCH (20:57)
[2023-01-30] MEDS: LATANOPROST 0.005% OP 2.5 ML BTL OP SCH (20:57)
[2023-01-30] MEDS: NACL 0.9% 1,000 ML IV SCH (22:06)
[2023-01-31] VITALS (28 sets, daily range): BP systolic 78–120; BP diastolic 38–86
[2023-01-31] MEDS: Z-GUARD PASTE TP SCH ×2 (01:02→13:36)
[2023-01-31] MEDS: ALBUTEROL SULFATE/IPRATROPIU 3 ML SOL IH SCH ×4 (02:04→19:00)
[2023-01-31] MEDS ORDERED: NOREPINEPHRINE 4 MG/4 ML VIAL IV ONE ×3 (03:46→15:24)
[2023-01-31 05:04] LABS: BASOPHILS % (AUTO) 0.5 % (0.0-2.0); EOSINOPHILS # (AUTO) 0.2 K/uL (0-0.4); EOSINOPHILS % (AUTO) 1.8 % (0.0-4.0); HEMATOCRIT 37.9 % (36-52); HEMOGLOBIN 12.5 g/dL (12.0-18.0); LYMPHOCYTES # (AUTO) 2.3 K/uL (2.0-11.5); LYMPHOCYTES % (AUTO) 25.4 % (20.5-51.1); MEAN CORPUSCULAR HEMOGLOBIN 29 pg (27-31); MEAN CORPUSCULAR HGB CONC 33 g/dL (33-37); MEAN CORPUSCULAR VOLUME 88.3 fL (80-94); MONOCYTES # (AUTO) 1.4 K/uL (0.8-1.0); MONOCYTES % (AUTO) 15.7 % (1.7-9.3); NEUTROPHILS # (AUTO) 5.1 K/uL (1.8-7.7); NEUTROPHILS % (AUTO) 56.6 % (42.2-75.2); PLATELET COUNT (AUTO) 416 K/uL (140-450); RED BLOOD CELL COUNT(AUTO) 4.29 MIL/uL (4.20-6.10); RED CELL DISTRIBUTION WIDTH 16.8 % (11.6-13.7)
[2023-01-31] MEDS: PIPERACILLIN/TAZOBACTAM 3.375 GM in DEXTROSE 5% 50 ML IV SCH ×3 (05:09→20:07)
[2023-01-31 05:21] LABS: ALBUMIN 2.2 g/dL (3.4-5.0); ANION GAP 7.5 (8-16); CARBON DIOXIDE 34.4 mmol/L (21-32); CREATININE 0.6 mg/dL (0.6-1.3); POTASSIUM 3.9 mmol/L (3.5-5.1); TOTAL BILIRUBIN 0.2 mg/dL (0.0-1.0)
[2023-01-31] MEDS: MIDODRINE 5 MG TAB PO SCH ×3 (06:46→18:10)
--- NOTE | 2023-01-31 06:59 | NUR ---
REPORT GIVEN TO HARPER ROSAS. PT IS STILL ON 8MCG OF LEVO. VENT SETTINGS REMAINED THE SAME WITH MODERATE SECRETIONS THROUGHOUT THE NIGHT. HAD 1 LARGE BM. NO SKIN BREAKDOWN NOTED. AFEBRILE
--- NOTE | 2023-01-31 07:15 | NUR ---
RECEIVED PATIENT FROM PREDATOR CONTROL TRAPPER REGISTRY NURSE RALPH ODOM. PATIENT IS SEDATED AND UNABLE TO FOLLOW SIMPLE COMMANDS. PERRL NOTED. ETT TO VENT AC/PRVC FIO2 40%, VT 400, RR 16, PEEP 5. SPO2 SATURATION AT 95%. SINUS RHYTHM ON MONITOR. ABDOMEN IS SOFT WITH ALL ABDOMINAL QUADRANTS ACTIVE. PATIENT HAS G-TUBE WITH JEVITY INFUSING AT 50CC FWF 100CC Q8H. PATIENT HAS RIGHT UPPER ARM PICC LINE INFUSING LEVOPHED 6 MCG/MIN, PRECEDEX 0.1 MCG/KG/HR, NORMAL SALINE TKO 5 ML SKIN BREAKDOWN NOTED ON RIGHT LATERAL ANKLE. STANDARD PRECAUTION WITH HOB 30 DEGREE FOR ASPIRATION PRECAUTION, BD WHEELS LOCKED AND IN LOWEST POSITION. TAVARES CATHETER TO GRAVITY WITH CLEAR YELLOW URINE. RIGHT SOFT WRIST RESTRAINT IN PLACE FOR SAFETY.
[2023-01-31] MEDS: VALPROIC ACID 250 MG/5 ML UDC GT SCH ×4 (08:56→20:12)
[2023-01-31] MEDS: FUROSEMIDE 40 MG/5 ML ORAL SOL UDC GT SCH (08:57)
[2023-01-31] MEDS: BACLOFEN 10 MG TAB GT SCH ×3 (08:57→17:22)
[2023-01-31] MEDS: CALCIUM CARB/VIT-D 500 MG/200 IU 1 TAB PO SCH ×3 (08:57→17:22)
[2023-01-31] MEDS: levETIRAcetam 100 MG/ML ORASYR GT SCH ×2 (08:58→20:12)
[2023-01-31] MEDS: MULTIVITAMIN/MINERALS 1 TAB GT SCH (09:00)
[2023-01-31] MEDS: PANTOPRAZOLE 40 MG INJ VIAL IVP SCH (09:00)
[2023-01-31] MEDS: LACTULOSE 20 GM/30 ML UDC GT SCH (09:00)
[2023-01-31] MEDS: VIMPAT 10MG/ML ORAL SOLUTION GT SCH ×2 (09:01→20:13)
[2023-01-31] MEDS: TIMOLOL OP 0.25% 5 ML BTL OP SCH ×2 (09:02→20:16)
[2023-01-31] MEDS: DORZOLAMIDE 2% OP 10 ML BTL OP SCH ×2 (09:02→20:17)
[2023-01-31] MEDS: ENOXAPARIN 40 MG/0.4 ML SYR SUBQ SCH (09:03)
[2023-01-31] MEDS: HYDROCOLLOID DRESSING TP SCH (09:03)
--- NOTE | 2023-01-31 11:17 | NUR ---
01/31/23 RD FOLLOW UP COMPLETED PLEASE REFER TO NUTRITION ASSESSMENT UNDER CARE ACTIVITY FOR ESTIMATED NUTRITIONAL NEEDS. 1. CONTINUE WITH JEVITY 1.2 @50ML/HR WITH FWF OF 100 Q8H TOLERATED. THIS WILL PROVIDE 1440KCALS AND 67 GRAMS OF PROTEIN MEETING AT LEAST 85% OF ESTIMATED KCAL AND 94% OF PROTEIN NEEDS; ADEQUATE. 2. CONTINUE FERNANDA BID FOR WOUNDS, THIS WILL PROVIDE 160 CALORIES AND 5 GRAMS OF PROTEIN. 3. MONITOR WEIGHT, LABS, AND GRV. 4. RD TO FOLLOW-UP 2-3 DAYS, HIGH RISK AVELINO DOSS RD
[2023-01-31] MEDS: FLUDROCORTISONE 0.1 MG TAB GT SCH (12:53)
[2023-01-31] MEDS: ALBUMIN HUMAN 25% 100 ML IV SCH ×2 (13:36→20:15)
[2023-01-31] MEDS: NOREPINEPHRINE 4 MG in DEXTROSE 5% 250 ML IV PRN (15:38)
--- NOTE | 2023-01-31 17:05 | NUR ---
PT COMPLETED SHORTLY UNDER 4 HOURS OF SBT CPAP 5 PS 10 AND FIO2 30%. NURSE AWARE. RR RANGING FROM 18-27, VT 330-360ml, RSBI IN 50-60 RANGE, UNABLE TO OBTAIN NIF . PT AWAKE UNABLE TO FOLLOW COMMANDS.
--- NOTE | 2023-01-31 19:00 | NUR ---
RECEIVED PT ON AC PRVC 400 R16 +5 35% 25@TEETH. GOOD CHEST RISE NOTED BREATH SOUNDS AT TIME ARE CLEAR. PATIENTS SATURATION IS @ 95%. VENT ALARMS ARE ON AND AUDIBLE TO ENVIRONMENT, BREAK IS ON AND VENTILATOR IS PLUGGED INTO RED OUTLET. AMBU BAG AT PTS BEDSIDE . WILL CONTINUE TO MONITOR
--- NOTE | 2023-01-31 19:09 | NUR ---
ENDORSED REPORT TO MANAGER COMPETITIVE INTELLIGENCE NURSE RALPH SAM. FOR CONTINUITY OF CARE.
--- NOTE | 2023-01-31 19:09 | NUR ---
RECEIVED REPORT FROM [facility] NURSESIDRA. ALL CARES ASSUMED. RECEIVED PT ON SEMI-GORDON'S POSITION WITH SIDE RAILS RAISED UP. PT IS AROUSABLE AND ABLE TO RESPOND. WITH LEFT EYE BLINDNESS. SINUS BRADYCARDIA ON BEDSIDE MONITOR. WITH ETT ATTACHED TO VENT, SPO2 OF 95%, NOT IN DISTRESS. WITH RIGHT UPPER ARM PICC LINE, PATENT AND DRESSING INTACT WITH FLOWING LEVOPHED AT 4 MCG/MIN, PRECEDEX AT 0.1 MCG/KG/HR AND NS AT TKO - FLOWING WELL. ON RIGHT SOFT WRIST RESTRAINTS. WITH GT TUBE ATTACHED TO FEEDING AT 50 ML/HR RATE - TOLERATED. WITH TAVARES CATHETER DRAINING TO BAG BY GRAVITY. WITH WOUND OVER RIGHT LATERAL MALLEOLUS WITH DRESSING INTACT. SAFETY PRECAUTIONS IN PLACE AND MAINTAINED. WILL MONITOR PT CLOSELY.
[2023-01-31] MEDS: SENNA 8.6 MG TAB GT SCH (20:14)
[2023-01-31] MEDS: traZODone 50 MG TAB PO SCH (20:14)
[2023-01-31] MEDS: LATANOPROST 0.005% OP 2.5 ML BTL OP SCH (20:17)
[2023-01-31] MEDS: NACL 0.9% 1,000 ML IV SCH (22:29)
[2023-02-01] VITALS (31 sets, daily range): BP systolic 83–164; BP diastolic 33–82
[2023-02-01] MEDS: ALBUTEROL SULFATE/IPRATROPIU 3 ML SOL IH SCH ×4 (01:17→18:57)
[2023-02-01] MEDS: Z-GUARD PASTE TP SCH ×2 (01:26→13:13)
[2023-02-01] MEDS: DEXMEDETOMIDINE HCL 400 MCG in NACL 0.9% 96 ML IV PRN (02:20)
[2023-02-01] MEDS: NOREPINEPHRINE 4 MG in DEXTROSE 5% 250 ML IV PRN (03:43)
[2023-02-01] MEDS: ALBUMIN HUMAN 25% 100 ML IV SCH (05:00)
[2023-02-01 05:04] LABS: BASOPHILS % (AUTO) 0.4 % (0.0-2.0); EOSINOPHILS # (AUTO) 0.2 K/uL (0-0.4); EOSINOPHILS % (AUTO) 1.8 % (0.0-4.0); HEMATOCRIT 40.5 % (36-52); HEMOGLOBIN 13.3 g/dL (12.0-18.0); LYMPHOCYTES # (AUTO) 2.1 K/uL (2.0-11.5); MEAN CORPUSCULAR HEMOGLOBIN 29 pg (27-31); MEAN CORPUSCULAR HGB CONC 33 g/dL (33-37); MEAN CORPUSCULAR VOLUME 89.3 fL (80-94); MONOCYTES # (AUTO) 1.6 K/uL (0.8-1.0); MONOCYTES % (AUTO) 16.2 % (1.7-9.3); NEUTROPHILS # (AUTO) 5.8 K/uL (1.8-7.7); NEUTROPHILS % (AUTO) 59.6 % (42.2-75.2); PLATELET COUNT (AUTO) 413 K/uL (140-450); RED BLOOD CELL COUNT(AUTO) 4.54 MIL/uL (4.20-6.10); RED CELL DISTRIBUTION WIDTH 17.2 % (11.6-13.7); WHITE BLOOD COUNT (AUTO) 9.8 K/uL (4.8-10.8)
[2023-02-01 05:16] LABS: ANION GAP 9.1 (8-16); CARBON DIOXIDE 36.8 mmol/L (21-32); CREATININE 0.6 mg/dL (0.6-1.3); POTASSIUM 3.9 mmol/L (3.5-5.1); TOTAL BILIRUBIN 0.2 mg/dL (0.0-1.0)
[2023-02-01] MEDS: MIDODRINE 5 MG TAB PO SCH ×3 (06:32→18:24)
--- NOTE | 2023-02-01 07:13 | NUR ---
RECEIVED ON A [employer] R860 VENTILATOR PLUGGED INTO RED OUTLET TOLERATING WELL WITHOUT COMPLICATIONS NOTED TO AN ENDOTRACHEAL TUBE #8.0 SECURED AT 25cm TEETH/GUM LINE WITH AN ANCHOR FAST CUFF PRESSURE CHECKED NOTED AMBU BAG AT BEDSIDE SEDATED PRECEDEX 0.1 mcg EASILY AWAKENS WITH PHYSICAL STIMULATION/MOVEMENT STABLE EQUAL CHEST RISE ENDOTRACHEAL SUCTION FOR MODERATE THIN YELLOW/HAZY SECRETIONS AIRWAY PATENT
--- NOTE | 2023-02-01 07:20 | NUR ---
REPORT GIVEN TO DAY SHIFT NURSE, RALPH CASPER. ALL QUESTIONS ASKED. PT STILL ON PRECEDEX AND LEVOPHED DRIP. NO DISTRESS NOTED THE WHOLE SHIFT.
--- NOTE | 2023-02-01 08:00 | NUR ---
Received report from Girish ROSAS no new change of pt condition.
--- NOTE | 2023-02-01 08:00 | NUR ---
PLACED ON CPAP TRIAL NOTED; STARTED PRESSURE SUPPORT (PS) AT 10 cmH2O TO MAINTAIN SpVt GREATER THAN 6 ml/kg = 300 ml (NIH PBW); EQUIPMENT MANAGER TO TITRATE PS TOLERATED; JR/MALE IMPERSONATOR NOTIFIED OF CPAP TRIAL AND VENTILATOR SETTINGS
[2023-02-01] MEDS: VALPROIC ACID 250 MG/5 ML UDC GT SCH ×4 (08:25→21:05)
[2023-02-01] MEDS: LACTULOSE 20 GM/30 ML UDC GT SCH (08:25)
[2023-02-01] MEDS: MULTIVITAMIN/MINERALS 1 TAB GT SCH (08:26)
[2023-02-01] MEDS: levETIRAcetam 100 MG/ML ORASYR GT SCH ×2 (08:26→21:05)
[2023-02-01] MEDS: DORZOLAMIDE 2% OP 10 ML BTL OP SCH ×2 (09:00→21:06)
[2023-02-01] MEDS: VIMPAT 10MG/ML ORAL SOLUTION GT SCH ×2 (09:00→21:05)
[2023-02-01] MEDS: FLUDROCORTISONE 0.1 MG TAB GT SCH (09:00)
[2023-02-01] MEDS: ENOXAPARIN 40 MG/0.4 ML SYR SUBQ SCH (09:00)
[2023-02-01] MEDS: TIMOLOL OP 0.25% 5 ML BTL OP SCH ×2 (09:00→21:06)
[2023-02-01] MEDS: FUROSEMIDE 40 MG/5 ML ORAL SOL UDC GT SCH (09:00)
[2023-02-01] MEDS: CALCIUM CARB/VIT-D 500 MG/200 IU 1 TAB PO SCH ×3 (09:00→17:02)
[2023-02-01] MEDS: BACLOFEN 10 MG TAB GT SCH ×3 (09:00→17:02)
[2023-02-01] MEDS: PANTOPRAZOLE 40 MG INJ VIAL IVP SCH (09:00)
--- NOTE | 2023-02-01 09:14 | NUR ---
WOUND CARE RE-EVALUATION NOTE: WOUND ASSESSMENT DONE WITH PRIMARY RN ZEYNEP, RIGHT LATERAL PRESSURE INJURY STAGE 3 FULL THICKNESS SKIN LOSS 1X1X0.3CM WOUND BED 100% MOIST RED GRANULATION TISSUE, NO ODOR, WOUND EDGE ATTACHED, ROSANNA-WOUND SKIN HEALED SCAR TISSUE.
--- NOTE | 2023-02-01 10:01 | NUR ---
SEDATED TOLERATING CPAP TRIAL WITHOUT DISTRESS NOTED GOOD CHEST RISE; NO SUCTIONING AT THIS TIME; ORNAMENTAL PLASTER STICKER TO MONITOR
--- NOTE | 2023-02-01 11:46 | NUR ---
STABLE NO DISTRESS NOTED GOOD CHEST RISE ENDOTRACHEAL SUCTION FOR SMALL THIN PALE YELLOW SECRETIONS AIRWAY PATENT
--- NOTE | 2023-02-01 12:19 | NUR ---
RECEIVED PATIENT FROM RALPH Stout. PATIENT IS SEDATED AND UNABLE TO FOLLOW COMMAND OPEN EYES ONLY. PERRL NOTED. ETT TO VENT AC/PRVC FIO2 35%, VT 400, RR 16, PEEP 5. SPO2 SATURATION AT 95%. SINUS RHYTHM ON MONITOR. ABDOMEN IS SOFT WITH ALL ABDOMINAL QUADRANTS ACTIVE. PATIENT HAS G-TUBE WITH JEVITY INFUSING AT 50CC FWF 100CC Q8H. PATIENT HAS RIGHT UPPER ARM PICC LINE INFUSING LEVOPHED 5 MCG/MIN, PRECEDEX 0.1 MCG/KG/HR, NORMAL SALINE TKO 5 ML, aLBUMIN INFUSING @ 50ML/HR SKIN BREAKDOWN NOTED ON RIGHT LATERAL ANKLE. STANDARD PRECAUTION WITH HOB 30 DEGREE FOR ASPIRATION PRECAUTION, BD WHEELS LOCKED AND IN LOWEST POSITION. TAVARES CATHETER TO GRAVITY WITH CLEAR YELLOW URINE. RIGHT SOFT WRIST RESTRAINT IN PLACE FOR SAFETY.
[2023-02-01] MEDS: MEROPENEM 1,000 MG in NACL 0.9% 50 ML IV SCH ×2 (13:39→21:07)
--- NOTE | 2023-02-01 13:48 | NUR ---
SEDATED REMAINS ON CPAP TRIAL SINCE 0800; PATIENT PRESENTING WITH ASCENDING TOTAL RESPIRATORY RATE AT 29 BPM AND ASCENDING RSBI (RAPID SHALLOW BREATHING INDEX) AT 89 l/min; GOOD CHEST RISE ENDOTRACHEAL SUCTION FOR SMALL THIN PALE YELLOW SECRETIONS AIRWAY PATENT; BUTCHERETTE TO INITIATE SIMV MODE (WEANING) FOR INTERMITTENT MECHANICAL RATE SUPPORT WITH PRESSURE SUPPORT ALLOWING FOR SpVt (SPONTANEOUS TIDAL VOLUME) AND SpRR (SPONTANEOUS RESPIRATORY RATE); BUTCHERETTE TO MONITOR; DEX/SEO EXECUTIVE NOTIFIED OF CHANGE IN VENTILATOR SETTINGS
[2023-02-01] MEDS: ACETAMINOPHEN 650 MG/20.3 ML UDC GT PRN (14:21)
--- NOTE | 2023-02-01 16:52 | NUR ---
SEDATED STABLE RESTING COMFORTABLE GOOD CHEST RISE ENDOTRACHEAL SUCTION FOR SMALL THIN PALE YELLOW SECRETIONS AIRWAY PATENT
--- NOTE | 2023-02-01 18:16 | NUR ---
Pt has Hernández catheter output for 12 hrs shift 7a-7p total for 1800 is 1400mL. NO BM noted for today.
--- NOTE | 2023-02-01 18:59 | NUR ---
Dr. Miranda came in and see pt and aware of Mere IV atb.
--- NOTE | 2023-02-01 19:21 | NUR ---
Endorsed pt to Girish ROSAS and Otoniel ROSAS for continuity of care.
--- NOTE | 2023-02-01 20:00 | NUR ---
RECEIVED PATIENT FROM [facility] NURSE ZEYNEP RN. PATIENT IS SEDATED AND UNABLE TO FOLLOW SIMPLE COMMANDS. ETT TO VENT SIMV/VC: FIO2 35%, VT 400, RR 16, PEEP 5. SPO2 SATURATION AT 98%. SINUS RHYTHM ON MONITOR. ABDOMEN IS SOFT WITH ALL ABDOMINAL QUADRANTS ACTIVE. PATIENT HAS G-TUBE WITH JEVITY INFUSING AT 50CC FWF 100CC Q8H. PATIENT HAS KRISHNA PICC LINE INFUSING LEVOPHED 2 MCG/MIN, PRECEDEX 0.1 MCG/KG/HR, NORMAL SALINE TKO 5 ML. SKIN BREAKDOWN NOTED ON RIGHT LATERAL ANKLE. STANDARD PRECAUTION WITH HOB 30 DEGREE FOR ASPIRATION PRECAUTION, BD WHEELS LOCKED AND IN LOWEST POSITION. TAVARES CATHETER TO GRAVITY WITH CLEAR YELLOW URINE. RIGHT SOFT WRIST RESTRAINT IN PLACE FOR SAFETY.
[2023-02-01] MEDS: SENNA 8.6 MG TAB GT SCH (21:05)
[2023-02-01] MEDS: LATANOPROST 0.005% OP 2.5 ML BTL OP SCH (21:06)
[2023-02-01] MEDS: traZODone 50 MG TAB PO SCH (21:07)
[2023-02-01] MEDS: NACL 0.9% 1,000 ML IV SCH (22:06)
[2023-02-02] VITALS (27 sets, daily range): BP systolic 95–157; BP diastolic 49–113
[2023-02-02] MEDS: guaiFENesin 20 MG/ML UDC GT PRN ×3 (00:58→11:02)
[2023-02-02] MEDS: Z-GUARD PASTE TP SCH ×2 (01:00→12:12)
[2023-02-02] MEDS: ALBUTEROL SULFATE/IPRATROPIU 3 ML SOL IH SCH ×4 (01:03→19:11)
[2023-02-02] MEDS: ACETAMINOPHEN 650 MG/20.3 ML UDC GT PRN (03:58)
[2023-02-02 04:51] LABS: BASOPHILS # (AUTO) 0.1 K/uL (0.00-0.22); BASOPHILS % (AUTO) 0.4 % (0.0-2.0); EOSINOPHILS # (AUTO) 0.2 K/uL (0-0.4); EOSINOPHILS % (AUTO) 1.7 % (0.0-4.0); HEMATOCRIT 39.1 % (36-52); HEMOGLOBIN 12.6 g/dL (12.0-18.0); LYMPHOCYTES # (AUTO) 3.2 K/uL (2.0-11.5); LYMPHOCYTES % (AUTO) 23.2 % (20.5-51.1); MEAN CORPUSCULAR HEMOGLOBIN 29 pg (27-31); MEAN CORPUSCULAR HGB CONC 32 g/dL (33-37); MEAN CORPUSCULAR VOLUME 89.4 fL (80-94); MONOCYTES # (AUTO) 2.6 K/uL (0.8-1.0); MONOCYTES % (AUTO) 18.7 % (1.7-9.3); NEUTROPHILS # (AUTO) 7.7 K/uL (1.8-7.7); PLATELET COUNT (AUTO) 439 K/uL (140-450); RED BLOOD CELL COUNT(AUTO) 4.38 MIL/uL (4.20-6.10); RED CELL DISTRIBUTION WIDTH 17.4 % (11.6-13.7); WHITE BLOOD COUNT (AUTO) 13.8 K/uL (4.8-10.8)
[2023-02-02] MEDS: MEROPENEM 1,000 MG in NACL 0.9% 50 ML IV SCH ×3 (05:30→21:19)
[2023-02-02 06:03] LABS: ALBUMIN 3.6 g/dL (3.4-5.0); ANION GAP 9.7 (8-16); CARBON DIOXIDE 38.4 mmol/L (21-32); CREATININE 0.7 mg/dL (0.6-1.3); POTASSIUM 4.1 mmol/L (3.5-5.1); TOTAL BILIRUBIN 0.4 mg/dL (0.0-1.0)
[2023-02-02] MEDS: MIDODRINE 5 MG TAB PO SCH ×3 (06:15→18:33)
--- NOTE | 2023-02-02 07:08 | NUR ---
ENDORSED PT TO NURSE ROYCE ROSAS AND NURSE ZEYNEP RN FOR CONTINUITY OF CARE.
--- NOTE | 2023-02-02 07:29 | NUR ---
RECEIVED PATIENT FROM RALPH Stout. Otoniel ROSAS day shift PATIENT IS SEDATED AND UNABLE TO FOLLOW COMMAND OPEN EYES ONLY. PERRL NOTED. ETT TO VENT SIMV FIO2 35%, VT 400, RR 16, PEEP 5. SPO2 SATURATION AT 93%. SINUS RHYTHM ON MONITOR. ABDOMEN IS SOFT WITH ALL ABDOMINAL QUADRANTS ACTIVE. PATIENT HAS G-TUBE WITH JEVITY INFUSING AT 50CC FWF 100CC Q8H. PATIENT HAS RIGHT UPPER ARM PICC LINE PRECEDEX 0.2 MCG/KG/HR, NORMAL SALINE TKO 5 ML, aLBUMIN INFUSING @ 50ML/HR SKIN BREAKDOWN NOTED ON RIGHT LATERAL ANKLE. STANDARD PRECAUTION WITH HOB 30 DEGREE FOR ASPIRATION PRECAUTION, BD WHEELS LOCKED AND IN LOWEST POSITION. TAVARES CATHETER TO GRAVITY WITH CLEAR YELLOW URINE. RIGHT SOFT WRIST RESTRAINT IN PLACE FOR SAFETY. Addendum: 02/02/23 at 1530 by ZEYNEP WOLFF RN [id number] PT GT FEEDING OFF FOR PLANNED EXTUBATION
[2023-02-02] MEDS: NACL 0.9% 250 ML IV SCH (08:00)
[2023-02-02] MEDS: VALPROIC ACID 250 MG/5 ML UDC GT SCH ×4 (08:08→21:20)
[2023-02-02] MEDS: levETIRAcetam 100 MG/ML ORASYR GT SCH ×2 (08:08→21:20)
[2023-02-02] MEDS: BACLOFEN 10 MG TAB GT SCH ×3 (08:11→16:33)
[2023-02-02] MEDS: PANTOPRAZOLE 40 MG INJ VIAL IVP SCH (08:11)
[2023-02-02] MEDS: LACTULOSE 20 GM/30 ML UDC GT SCH (08:22)
[2023-02-02] MEDS: DORZOLAMIDE 2% OP 10 ML BTL OP SCH ×2 (08:23→21:28)
[2023-02-02] MEDS: TIMOLOL OP 0.25% 5 ML BTL OP SCH ×2 (08:23→21:27)
[2023-02-02] MEDS: FUROSEMIDE 40 MG/5 ML ORAL SOL UDC GT SCH (08:24)
[2023-02-02] MEDS: CALCIUM CARB/VIT-D 500 MG/200 IU 1 TAB PO SCH ×3 (08:26→16:33)
[2023-02-02] MEDS: MULTIVITAMIN/MINERALS 1 TAB GT SCH (08:26)
[2023-02-02] MEDS: ENOXAPARIN 40 MG/0.4 ML SYR SUBQ SCH (08:26)
[2023-02-02] MEDS: VIMPAT 10MG/ML ORAL SOLUTION GT SCH ×2 (08:28→21:22)
[2023-02-02] MEDS: FLUDROCORTISONE 0.1 MG TAB GT SCH (08:30)
--- NOTE | 2023-02-02 09:30 | NUR ---
Dr Mckeon came in and see pt, get update on pt condition.
--- NOTE | 2023-02-02 10:55 | NUR ---
RN CALLED DUE TO PATIENT DESATURATION. INCREASED OXYGEN TO 40% AND PLACED NEW PULSE OX PROBE ON PATIENT. PATIENT SATURATION INCREASED TO 97%. PATIENT TUBE FOUND AT 23cm @TEETH. REPOSITIONED TUBE TO 25cm, NO COMPLICATIONS AT THIS TIME. NO DISTRESS NOTED AT THIS TIME. PLACED PATIENT ON CPAP OF 10. PLACED PATIENT ON PREVIOUS OXYGEN SETTING. PATIENT SATURATION STILL AT 97%. PATIENT AIRWAY IS PATENT AND SECURED WITH TUBE RICE AND BITE BLOCK. AMBU BAG IS AT BEDSIDE. ALARMS ARE SET AND AUDIBLE TO ENVIRONMENT. VENTILATOR IS PLUGGED INTO RED OUTLET AND WHEELS ARE LOCKED. RN NOTIFIED THAT PATIENT IS ON CPAP. ADEQUATE CHEST RISE AND FALL NOTED AT THIS TIME. BILATERAL BREATH SOUNDS ARE HEARD ON AUSCULTATION. PATIENT VITALS ARE WITHIN NORMAL RANGE. WILL CONTINUE TO MONITOR.
--- NOTE | 2023-02-02 13:10 | NUR ---
DR. MARROQUIN CAME IN AND SEE PT ABLE TO TOLERATE OFF LEVOPHED AND PRECEDEX ON ETT TO CPAP AT Addendum: 02/02/23 at 1314 by ZEYNEP WOLFF RN ETT TO CPAP O2 SAT AT 94%
--- NOTE | 2023-02-02 13:25 | NUR ---
PATIENT EXTUBATED AFTER TOLERATING PRESSURE SUPPORT OF 10 AND ABG RESULTS REVIEWED PER MD MARROQUIN. POSITIVE AIR LEAK HEARD AFTER DEFLATING CUFF. PARAMETERS RECORDED IN INTERVENTION. PATIENT IS NOW ON BIPAP PER MD REQUEST. PATIENT IS TOLERATING IPAP 12, EPAP 5, FIO2 30%. PATIENT IS ABLE TO COMMUNICATE THAT HE IS COMFORTABLE. NO DISTRESS NOTED AT THIS TIME. BIPAP ALARMS ARE SET AND AUDIBLE TO ENVIRONMENT. BIPAP IS PLUGGED INTO RED OUTLET AND WHEELS ARE LOCKED. RN NOTIFIED. WILL CONTINUE TO MONITOR.
--- NOTE | 2023-02-02 13:25 | NUR ---
PT WAS EXTUBATED WITH ORDER FROM DR. CARA ARMENDARIZ AT BEDSIDE PT TOLERATED WELL V/S 82 HR 113/70 BP 31 RR O2 SAT 99% ON CPAP SETTING IPAP 12 EPAP5. CLOSELY MONITORING PT AT THIS TIME. Addendum: 02/02/23 at 1448 by ZEYNEP WOLFF RN MADE CORRECTION INPUT ERROR ON AIRWAY MANAGEMENT BY RT PT IS CONNECTED TO BIPAP SETTING IS IPAP 12 EPAP 5. Addendum: 02/02/23 at 1532 by ZEYNEP WOLFF RN AT THIS TIME POST EXTUBATION PT HAS NO EPISODE OF ASPIRATUION OR VOMITING STARTED THE GT FEEDING AT 50ML/HR
--- NOTE | 2023-02-02 13:29 | NUR ---
02/02/23 RD FOLLOW UP COMPLETED PLEASE REFER TO NUTRITION ASSESSMENT UNDER CARE ACTIVITY FOR ESTIMATED NUTRITIONAL NEEDS. 1. CONTINUE WITH JEVITY 1.2 @50ML/HR WITH FWF OF 100 Q8H TOLERATED. THIS WILL PROVIDE 1440KCALS AND 67 GRAMS OF PROTEIN MEETING AT LEAST 85% OF ESTIMATED KCAL AND 94% OF PROTEIN NEEDS; ADEQUATE. 2. CONTINUE FERNANDA BID FOR WOUNDS, THIS WILL PROVIDE 160 CALORIES AND 5 GRAMS OF PROTEIN. 3. RD WILL MONITOR WEIGHT, LABS, AND GRV. 4. RD TO FOLLOW-UP 2-3 DAYS, HIGH RISK AVELINO DOSS RD
--- NOTE | 2023-02-02 19:06 | NUR ---
ENDORSED PT TO RHONDA RN FOR CONTINUITY OF CARE. PT STABLE ALL QUESTIONS ANSWERED.
[2023-02-02] MEDS: traZODone 50 MG TAB PO SCH ×2 (21:00→21:54)
[2023-02-02] MEDS: SENNA 8.6 MG TAB GT SCH (21:21)
[2023-02-02] MEDS: LATANOPROST 0.005% OP 2.5 ML BTL OP SCH (21:29)
[2023-02-03] VITALS (18 sets, daily range): BP systolic 95–123; BP diastolic 50–78
[2023-02-03] MEDS: Z-GUARD PASTE TP SCH ×2 (00:20→12:45)
[2023-02-03] MEDS: ALBUTEROL SULFATE/IPRATROPIU 3 ML SOL IH SCH ×4 (00:33→19:08)
[2023-02-03] MEDS: MEROPENEM 1,000 MG in NACL 0.9% 50 ML IV SCH ×3 (04:01→20:04)
--- NOTE | 2023-02-03 05:16 | NUR ---
1930- BEDSIDE ICU ENDORSEMENT FROM [facility] DAY SHIFT RN WAS RECEIVED . PT. IS IN NOR RESP DISTRESS WITH BIPAP TOLERATING WELL. SOMEWHAT LETHARGIC BUT EASY TO AROUSE, SIDERAILS UP TIMES 3 AND HOB UP . 45 % AND BED IN LOW POSITION
--- NOTE | 2023-02-03 05:21 | NUR ---
2130- ON SR, SOMEWHAT TACHYPNEIC UP TO 29/MIN
[2023-02-03 05:22] LABS: BASOPHILS % (AUTO) 0.2 % (0.0-2.0); EOSINOPHILS # (AUTO) 0.1 K/uL (0-0.4); EOSINOPHILS % (AUTO) 1.2 % (0.0-4.0); HEMOGLOBIN 11.9 g/dL (12.0-18.0); LYMPHOCYTES # (AUTO) 1.7 K/uL (2.0-11.5); LYMPHOCYTES % (AUTO) 20.4 % (20.5-51.1); MEAN CORPUSCULAR HEMOGLOBIN 29 pg (27-31); MEAN CORPUSCULAR HGB CONC 32 g/dL (33-37); MONOCYTES % (AUTO) 23.4 % (1.7-9.3); NEUTROPHILS # (AUTO) 4.6 K/uL (1.8-7.7); NEUTROPHILS % (AUTO) 54.8 % (42.2-75.2); PLATELET COUNT (AUTO) 317 K/uL (140-450); RED BLOOD CELL COUNT(AUTO) 4.16 MIL/uL (4.20-6.10); RED CELL DISTRIBUTION WIDTH 17.2 % (11.6-13.7); WHITE BLOOD COUNT (AUTO) 8.4 K/uL (4.8-10.8)
--- NOTE | 2023-02-03 05:22 | NUR ---
2200- REPOSITIONED SIDES TO SIDES EVERY 2 HOURS
--- NOTE | 2023-02-03 05:23 | NUR ---
0200-AFEBRILE. NO C/O PAIN
--- NOTE | 2023-02-03 05:23 | NUR ---
0000- ASLEEP AND NO RESP. DISTRESS
--- NOTE | 2023-02-03 05:24 | NUR ---
0400- HAD A BM HUGE SOFT AND PERINIAL CARE DONE. COMPLETE BED BATH DONE AND TOTAL LINEN CHANGED DONE
--- NOTE | 2023-02-03 05:26 | NUR ---
0530- ORAL CARE DONE
[2023-02-03 05:30] LABS: ALBUMIN 3.1 g/dL (3.4-5.0); ANION GAP 6.7 (8-16); CARBON DIOXIDE 39.1 mmol/L (21-32); CREATININE 0.7 mg/dL (0.6-1.3); POTASSIUM 3.8 mmol/L (3.5-5.1); TOTAL BILIRUBIN 0.3 mg/dL (0.0-1.0)
[2023-02-03] MEDS: MIDODRINE 5 MG TAB PO SCH ×3 (06:16→17:36)
--- NOTE | 2023-02-03 07:34 | NUR ---
RECEIVED PATIENT FROM OMAHA RN day shift PATIENT IS ALERT AWAKE VERBALLY RESPONSIVE MENTALLY DELAYED RESPONSE. PERRL NOTED. BIPAP ON FACEMASK SETTING IPAP 12 EPAP 5 FIO2 40% RATE OF 14. SINUS RHYTHM ON MONITOR. ABDOMEN IS SOFT WITH ALL ABDOMINAL QUADRANTS ACTIVE. PATIENT HAS G-TUBE WITH JEVITY INFUSING AT 50CC FWF 100CC Q8H. PATIENT HAS RIGHT UPPER ARM PICC LINE. SKIN BREAKDOWN NOTED ON RIGHT LATERAL ANKLE. STANDARD PRECAUTION WITH HOB 30 DEGREE FOR ASPIRATION PRECAUTION, BD WHEELS LOCKED AND IN LOWEST POSITION. TAVARES CATHETER TO GRAVITY WITH CLEAR YELLOW URINE. SAFETY MEASURES AND MONITORING PLACED
[2023-02-03] MEDS: BACLOFEN 10 MG TAB GT SCH ×3 (08:06→17:07)
[2023-02-03] MEDS: VALPROIC ACID 250 MG/5 ML UDC GT SCH ×4 (08:07→20:05)
[2023-02-03] MEDS: levETIRAcetam 100 MG/ML ORASYR GT SCH ×2 (08:07→20:05)
[2023-02-03] MEDS: ENOXAPARIN 40 MG/0.4 ML SYR SUBQ SCH (08:09)
[2023-02-03] MEDS: FLUDROCORTISONE 0.1 MG TAB GT SCH (08:10)
[2023-02-03] MEDS: PANTOPRAZOLE 40 MG INJ VIAL IVP SCH (08:10)
[2023-02-03] MEDS: MULTIVITAMIN/MINERALS 1 TAB GT SCH (08:11)
[2023-02-03] MEDS: CALCIUM CARB/VIT-D 500 MG/200 IU 1 TAB PO SCH ×3 (08:11→17:07)
[2023-02-03] MEDS: LACTULOSE 20 GM/30 ML UDC GT SCH (08:13)
[2023-02-03] MEDS: VIMPAT 10MG/ML ORAL SOLUTION GT SCH ×2 (08:16→20:11)
[2023-02-03] MEDS: FUROSEMIDE 40 MG/5 ML ORAL SOL UDC GT SCH (08:17)
[2023-02-03] MEDS: DORZOLAMIDE 2% OP 10 ML BTL OP SCH ×2 (09:21→20:08)
[2023-02-03] MEDS: TIMOLOL OP 0.25% 5 ML BTL OP SCH ×2 (09:22→20:07)
[2023-02-03] MEDS: NACL 0.9% 250 ML IV SCH (09:23)
[2023-02-03] MEDS: HYDROCOLLOID DRESSING TP SCH (09:24)
--- NOTE | 2023-02-03 09:30 | NUR ---
DR. PATINO CAME IN AND SEE PT UPDATE PT CONDITION AND LAB BUN TREND UP TODAY IS 30 CREA IS 0.7 PT HAS 400ML OUTPUT URINE IN THE TAVARES CATHHER CLEAR YELLOW. NEW ORDER GIVEN CHANGE OF H2O FLUSH TO Q6 150ML.
--- NOTE | 2023-02-03 11:15 | NUR ---
PLACED PATIENT ON VENTURI MASK 40%FIO2 AFTER ABG. BIPAP LEFT AT BEDSIDE PER MD MARROQUIN.
--- NOTE | 2023-02-03 12:04 | NUR ---
PT WAS PLACE ON VENTURI MASK O2 SAT ON 98% DR. MARROQUIN MADE ROUND AWARE OF LATEST ABG RESULT TODAY NEW ORDER GIVEN TO TRANSFER TO TELEMETRY. DR. PATINO ALSO MADE AWARE AND OKAY WITH THE TRANSFER ORDER.
--- NOTE | 2023-02-03 16:37 | NUR ---
CALLED DR. MARROQUIN REGARDING PT RESPIRATION RATE IS IN 30S Addendum: 02/03/23 at 1646 by ZEYNEP WOLFF RN CALLED DR MARROQUIN REGARDING RESPIRATION RATE OF 30s AND SHALLOW BREATHING PT ON FIO2 OF 40% ON VENTURI MASK O2 SAT IS 93% V/S HR 87 BP MADE HIM AWARE WITH NEW ORDER TO CANCEL TRANSFER.
--- NOTE | 2023-02-03 17:30 | NUR ---
DR MARROQUIN WAS MADE AWARE OF LATEST CXR RESULT
--- NOTE | 2023-02-03 19:18 | NUR ---
[facility] Z[facility] WOLFF RN.
--- NOTE | 2023-02-03 19:19 | NUR ---
RECEIVED PT WITHOUT RESPIRATORY DISTRESS, RESTING ON BED WITH HOB UP MORE THAN 30 DEGREES. SIDE RAILS ARE UP X3. BED IS IN LOW POSITION. ON SINUS RHYTHM WITHOUT ECTOPY. ON 40% VENTURI MASK SATURATING 100%.
--- NOTE | 2023-02-03 19:20 | NUR ---
ENDORSED PT TO RHONDA RN FOR CONTINUITY OF CARE. PT STABLE ALL QUESTIONS ANSWERED.
[2023-02-03] MEDS: SENNA 8.6 MG TAB GT SCH (20:06)
[2023-02-03] MEDS: traZODone 50 MG TAB PO SCH (20:06)
[2023-02-03] MEDS: LATANOPROST 0.005% OP 2.5 ML BTL OP SCH (20:11)
--- NOTE | 2023-02-03 20:34 | NUR ---
2030 - GT RESIDUAL CHECKED 30ML.
--- NOTE | 2023-02-03 21:33 | NUR ---
PT IS ASLEEP QUIETLY.
[2023-02-03] MEDS ORDERED: FUROSEMIDE 40 MG/4 ML VIAL IVP SCH (21:35)
--- NOTE | 2023-02-03 22:10 | NUR ---
LASIX 40 MG IVP WAS GIVEN VERIFIED BY DR. BURGOS.
--- NOTE | 2023-02-03 22:38 | NUR ---
PT DIURESING WELL FROM [facility]EE[facility]
[2023-02-04] VITALS (15 sets, daily range): BP systolic 96–138; BP diastolic 55–99
--- NOTE | 2023-02-04 00:22 | NUR ---
GASTRIC RESIDUAL CHECKED 150 ML HOLD FEEDING FOR NOW.
[2023-02-04] MEDS: Z-GUARD PASTE TP SCH ×2 (00:34→13:31)
[2023-02-04] MEDS: ALBUTEROL SULFATE/IPRATROPIU 3 ML SOL IH SCH ×4 (00:46→18:31)
--- NOTE | 2023-02-04 01:03 | NUR ---
0100- PT. WAS PLACED ON 3LITERS/NC AND SATURATION WAS 100
--- NOTE | 2023-02-04 01:07 | NUR ---
0100 PLACED PT ON 3LNC SATS 100%
--- NOTE | 2023-02-04 03:09 | NUR ---
BED BATH WAS PROVIDED TO PT. 1 BM WAS NOTED
--- NOTE | 2023-02-04 03:14 | NUR ---
0300- THE GASTRIC RESIDUAL REMAINS HIGH.>125 MLSO FEEDING HELD AGAIN
[2023-02-04] MEDS: MEROPENEM 1,000 MG in NACL 0.9% 50 ML IV SCH ×2 (04:45→13:33)
[2023-02-04] MEDS: MIDODRINE 5 MG TAB PO SCH ×3 (06:11→18:00)
--- NOTE | 2023-02-04 07:12 | NUR ---
ENDORSED PT TO NURSE ANTOINETTE RN FOR CONTINUITY OF CARE.
--- NOTE | 2023-02-04 07:15 | NUR ---
RECEIVED PATIENT FROM FILLING AND STAPLING MACHINE OPERATOR NURSES RALPH HAYS. PATIENT IS SEDATED AND UNABLE TO FOLLOW SIMPLE COMMANDS. PERRL NOTED. PT ON 3L NASAL CANNULA. SPO2 SATURATION AT 99%. SINUS RHYTHM ON MONITOR. ABDOMEN IS SOFT WITH ALL ABDOMINAL QUADRANTS ACTIVE. PATIENT HAS G-TUBE WITH JEVITY INFUSING AT 50CC FWF 100CC Q8H. PATIENT HAS RIGHT UPPER ARM PICC LINE INFUSING NORMAL SALINE 10 ML. SKIN BREAKDOWN NOTED ON RIGHT LATERAL ANKLE. STANDARD PRECAUTION WITH HOB 30 DEGREE FOR ASPIRATION PRECAUTION, BD WHEELS LOCKED AND IN LOWEST POSITION. TAVARES CATHETER TO GRAVITY WITH CLEAR YELLOW URINE. Addendum: 02/05/23 at 0801 by JR ANDERSON RN PATIENT IS ABLE TO FOLLOW SIMPLE COMMANDS.
[2023-02-04 07:29] LABS: HEMATOCRIT 37.9 % (36-52); HEMOGLOBIN 12.4 g/dL (12.0-18.0); MEAN CORPUSCULAR HEMOGLOBIN 29 pg (27-31); MEAN CORPUSCULAR HGB CONC 33 g/dL (33-37); MEAN CORPUSCULAR VOLUME 88.8 fL (80-94); PLATELET COUNT (AUTO) 295 K/uL (140-450); RED BLOOD CELL COUNT(AUTO) 4.26 MIL/uL (4.20-6.10); RED CELL DISTRIBUTION WIDTH 17.1 % (11.6-13.7)
[2023-02-04 07:47] LABS: ALBUMIN 3.3 g/dL (3.4-5.0); ANION GAP 7.1 (8-16); CARBON DIOXIDE 40.3 mmol/L (21-32); CREATININE 0.7 mg/dL (0.6-1.3); POTASSIUM 3.4 mmol/L (3.5-5.1); TOTAL BILIRUBIN 0.4 mg/dL (0.0-1.0)
[2023-02-04 08:02] LABS: BASOPHILS % (MANUAL) 0 % (0-2); EOSINOPHILS % (MANUAL) 0 % (0-4); LYMPHOCYTES % (MANUAL) 22 % (20-46); MONOCYTES % (MANUAL) 21 % (5-12)
[2023-02-04] MEDS: ENOXAPARIN 40 MG/0.4 ML SYR SUBQ SCH ×2 (09:00→09:55)
[2023-02-04] MEDS: VALPROIC ACID 250 MG/5 ML UDC GT SCH ×4 (09:46→20:58)
[2023-02-04] MEDS: FUROSEMIDE 40 MG/5 ML ORAL SOL UDC GT SCH (09:49)
[2023-02-04] MEDS: DORZOLAMIDE 2% OP 10 ML BTL OP SCH ×2 (09:50→20:53)
[2023-02-04] MEDS: TIMOLOL OP 0.25% 5 ML BTL OP SCH ×2 (09:50→20:53)
[2023-02-04] MEDS: CALCIUM CARB/VIT-D 500 MG/200 IU 1 TAB PO SCH ×3 (09:50→17:57)
[2023-02-04] MEDS: MULTIVITAMIN/MINERALS 1 TAB GT SCH (09:53)
[2023-02-04] MEDS: levETIRAcetam 100 MG/ML ORASYR GT SCH ×2 (09:53→20:56)
[2023-02-04] MEDS: LACTULOSE 20 GM/30 ML UDC GT SCH (09:53)
[2023-02-04] MEDS: VIMPAT 10MG/ML ORAL SOLUTION GT SCH ×2 (09:54→20:59)
[2023-02-04] MEDS: PANTOPRAZOLE 40 MG INJ VIAL IVP SCH (09:56)
[2023-02-04] MEDS: BACLOFEN 10 MG TAB GT SCH ×3 (09:57→17:57)
[2023-02-04] MEDS: FLUDROCORTISONE 0.1 MG TAB GT SCH (10:26)
--- NOTE | 2023-02-04 10:26 | NUR ---
DR HERNANDEZ ROUNDED AT PATIENT BEDSIDE, NEW ORDERS RECEIVED.
[2023-02-04] MEDS: NACL 0.9% 250 ML IV SCH (10:29)
--- NOTE | 2023-02-04 13:17 | NUR ---
DR PATINO ROUNDED AT PATIENT BEDSIDE, NEW ORDERS RECEIVED.
[2023-02-04] MEDS ORDERED: POTASSIUM CHLORIDE 20% 40 MEQ/15 ML UDC GT SCH (13:22)
--- NOTE | 2023-02-04 14:50 | NUR ---
P.T. NOTES P.T. EVAL COMPLETED; REFER TO EVAL FOR DETAILS.
--- NOTE | 2023-02-04 19:26 | NUR ---
ENDORSED REPORT TO GPS FIELD DATA COLLECTOR REGISTRY NURSE RALPH ELLIS. FOR CONTINUITY OF CARE.
[2023-02-04] MEDS: LATANOPROST 0.005% OP 2.5 ML BTL OP SCH (20:52)
[2023-02-04] MEDS: SENNA 8.6 MG TAB GT SCH (20:54)
[2023-02-04] MEDS: traZODone 50 MG TAB PO SCH (20:54)
--- NOTE | 2023-02-04 21:56 | NUR ---
1929-BEDSIDE ENDORSEMENT RECEIVED FROM THE DAY SHIFT POST DOC FELLOWSHIPRALPH DAS Addendum: 02/04/23 at 2217 by Agency Jagdish ROSAS RN 1929-BEDSIDE ENDORSEMENT RECEIVED FROM KT ROSAS
--- NOTE | 2023-02-04 21:58 | NUR ---
2000- NO RESP. DISTRESS.ON SR.ON AND OFF TACHPNEIC BET 26-30. O2 AT 2 LITERS SATURATING 96%.SIDERAILS UP TIMES 3 AND HOB UP TO 60 DEGREE . NO C/O PAIN
--- NOTE | 2023-02-04 22:02 | NUR ---
2129- HAD A HUGE SOFT TO LIQUIDY STOOL AND COMPLETE BED BATH GIVEN,TOTAL LINEN CHANGED
[2023-02-05 00:04] VITALS: BP 114/77
[2023-02-05] MEDS: ALBUTEROL SULFATE/IPRATROPIU 3 ML SOL IH SCH ×5 (00:10→19:00)
[2023-02-05] MEDS: Z-GUARD PASTE TP SCH ×3 (01:30→13:02)
[2023-02-05 04:56] VITALS: BP 91/64
[2023-02-05 04:56] LABS: BASOPHILS % (AUTO) 0.4 % (0.0-2.0); EOSINOPHILS # (AUTO) 0.1 K/uL (0-0.4); EOSINOPHILS % (AUTO) 0.9 % (0.0-4.0); HEMATOCRIT 37.9 % (36-52); HEMOGLOBIN 12.4 g/dL (12.0-18.0); LYMPHOCYTES # (AUTO) 2.3 K/uL (2.0-11.5); LYMPHOCYTES % (AUTO) 32.9 % (20.5-51.1); MEAN CORPUSCULAR HEMOGLOBIN 29 pg (27-31); MEAN CORPUSCULAR HGB CONC 33 g/dL (33-37); MEAN CORPUSCULAR VOLUME 89.4 fL (80-94); MONOCYTES # (AUTO) 1.6 K/uL (0.8-1.0); MONOCYTES % (AUTO) 22.6 % (1.7-9.3); NEUTROPHILS # (AUTO) 3.1 K/uL (1.8-7.7); NEUTROPHILS % (AUTO) 43.2 % (42.2-75.2); PLATELET COUNT (AUTO) 280 K/uL (140-450); RED BLOOD CELL COUNT(AUTO) 4.23 MIL/uL (4.20-6.10); RED CELL DISTRIBUTION WIDTH 16.8 % (11.6-13.7); WHITE BLOOD COUNT (AUTO) 7.1 K/uL (4.8-10.8)
[2023-02-05 05:10] LABS: ANION GAP 10.2 (8-16); CARBON DIOXIDE 37.4 mmol/L (21-32); CREATININE 0.6 mg/dL (0.6-1.3); POTASSIUM 3.6 mmol/L (3.5-5.1)
--- NOTE | 2023-02-05 06:20 | NUR ---
0000- NO RESP DISTRESS
--- NOTE | 2023-02-05 06:22 | NUR ---
0200- REPOSITIONED , REFUSED ORAL CARE
--- NOTE | 2023-02-05 06:23 | NUR ---
0400-BED BATH GIVEN
[2023-02-05] MEDS: MIDODRINE 5 MG TAB PO SCH ×3 (06:25→23:20)
--- NOTE | 2023-02-05 07:15 | NUR ---
RECEIVED PATIENT FROM [employer]INE[employer] NURSES RALPH SAM. PATIENT IS ABLE TO FOLLOW SIMPLE COMMANDS. PERRL NOTED. PT ON 2L NASAL CANNULA. SPO2 SATURATION AT 99%. SINUS RHYTHM ON MONITOR. ABDOMEN IS SOFT WITH ALL ABDOMINAL QUADRANTS ACTIVE. PATIENT HAS G-TUBE WITH JEVITY INFUSING AT 50CC FWF 100CC Q8H. PATIENT HAS RIGHT UPPER ARM PICC LINE INFUSING NORMAL SALINE 10 ML. SKIN BREAKDOWN NOTED ON RIGHT LATERAL ANKLE. STANDARD PRECAUTION WITH HOB 30 DEGREE FOR ASPIRATION PRECAUTION, BD WHEELS LOCKED AND IN LOWEST POSITION. TAVARES CATHETER TO GRAVITY WITH DARK YELLOW URINE.
[2023-02-05] MEDS: NACL 0.9% 250 ML IV SCH (07:20)
[2023-02-05 08:00] VITALS: BP 96/65
[2023-02-05] MEDS: TIMOLOL OP 0.25% 5 ML BTL OP SCH ×2 (09:00→21:00)
[2023-02-05] MEDS: LACTULOSE 20 GM/30 ML UDC GT SCH (09:00)
[2023-02-05] MEDS: DORZOLAMIDE 2% OP 10 ML BTL OP SCH ×2 (09:00→21:00)
[2023-02-05] MEDS: FUROSEMIDE 40 MG/5 ML ORAL SOL UDC GT SCH (09:48)
[2023-02-05] MEDS: VALPROIC ACID 250 MG/5 ML UDC GT SCH ×4 (09:48→23:19)
[2023-02-05] MEDS: CALCIUM CARB/VIT-D 500 MG/200 IU 1 TAB PO SCH ×3 (09:49→17:19)
[2023-02-05] MEDS: BACLOFEN 10 MG TAB GT SCH ×3 (09:49→17:22)
[2023-02-05] MEDS: FLUDROCORTISONE 0.1 MG TAB GT SCH (09:49)
[2023-02-05] MEDS: MULTIVITAMIN/MINERALS 1 TAB GT SCH (09:52)
[2023-02-05] MEDS: VIMPAT 10MG/ML ORAL SOLUTION GT SCH ×2 (09:52→21:00)
[2023-02-05] MEDS: PANTOPRAZOLE 40 MG INJ VIAL IVP SCH (09:53)
[2023-02-05] MEDS: ENOXAPARIN 40 MG/0.4 ML SYR SUBQ SCH (09:56)
[2023-02-05] MEDS: levETIRAcetam 100 MG/ML ORASYR GT SCH ×2 (10:00→23:19)
--- NOTE | 2023-02-05 10:30 | NUR ---
02/05/23 RD FOLLOW UP COMPLETED PLEASE REFER TO NUTRITION ASSESSMENT UNDER CARE ACTIVITY FOR ESTIMATED NUTRITIONAL NEEDS. 1. CONTINUE WITH JEVITY 1.2 @50ML/HR WITH FWF OF 150ML Q6H TOLERATED. THIS WILL PROVIDE 1440KCALS AND 67 GRAMS OF PROTEIN MEETING AT LEAST 85% OF ESTIMATED KCAL AND 94% OF PROTEIN NEEDS; ADEQUATE. 2. CONTINUE FERNANDA BID FOR WOUNDS, THIS WILL PROVIDE 160 CALORIES AND 5 GRAMS OF PROTEIN. 3. RD WILL MONITOR WEIGHT, LABS, AND GRV. 4. RD TO FOLLOW-UP 2-3 DAYS, HIGH RISK RAULITO MARROQUIN RD
--- NOTE | 2023-02-05 11:15 | NUR ---
PT ARRIVED IN THE UNIT.[id number]
--- NOTE | 2023-02-05 11:15 | NUR ---
PT TRANSFERRED TO TELEMETRY UNIT TO ROOM 123A BY SENIOR AGRICULTURAL ASSISTANT CARMELO, PATIENT VITAL SIGNS STABLE WITH NO CURRENT DISTRESS. Addendum: 02/05/23 at 1315 by JR ANDERSON RN ALL BELONGINGS SENT TO THE FLOOR WITH PATIENT. NO BELONGINGS LEFT IN ICU.
[2023-02-05 12:00] VITALS: BP 88/43
--- NOTE | 2023-02-05 12:17 | NUR ---
GOT REPORT FROM ICU NURSE. PT STABLE ASSESSMENT AND V.S IS DONE.[id number]
--- NOTE | 2023-02-05 12:17 | NUR ---
GAVE REPORT TO TELEMETRY DAY SHIFT NURSE RALPH PASCUAL. FOR CONTINUITY OF PATIENT CARE.
[2023-02-05 16:00] VITALS: BP 109/61
--- NOTE | 2023-02-05 19:22 | NUR ---
GAVE REPORT TO THE NIGHT NURSE PT RESTING COMFORTABLY, NO SOB.[id number]
[2023-02-05 20:00] VITALS: BP 112/70
--- NOTE | 2023-02-05 20:00 | NUR ---
TELEMETRY NOTE CORRECTION: SINUS RHYTHM 92 INSTEAD/NOT 77 Addendum: 02/06/23 at 0042 by Agency Philippe ROSAS RN TELEMETRY NOTE FINAL CORRECTION FOR 1999: SINUS RHYTHM WAS ORIGINALLY CORRECT AT 77 FOR THIS TIME
--- NOTE | 2023-02-05 20:05 | NUR ---
HAND-OFF REPORT RECEIVED AT 1915 FROM HECTOR ROSAS FOLLOWING BEDSIDE ROUND FOR CONTINUITY OF CARE. PT RECEIVED RESTING IN BED EYES CLOSED CHEST RISE AND LOWERS SPONTANEOUSLY ENDORSED B/P 88/43 AND 109/61. MIDODRINE FOR 1900 DUE; HELD LACTULOSEFOR POOPING BUT NO STOOL ON SHIFT' DRESSING CHANGED TO RIGHT ANKLE WITH TEGADERM, SCD TO LLE ONLY,PT REFUSED ORAL CARE AND FOOT ARE AT VARIOUS TIMES BUT EVENTUALLY ACCEPTING OF CARE. JEVITY CONTINUES AT 50ML/H WITH H20 FLUSH 100 ML/Q6
[2023-02-05] MEDS: traZODone 50 MG TAB PO SCH (21:00)
[2023-02-05] MEDS: LATANOPROST 0.005% OP 2.5 ML BTL OP SCH (21:00)
[2023-02-05] MEDS: SENNA 8.6 MG TAB GT SCH (23:23)
[2023-02-06] VITALS: BP 118/68
--- NOTE | 2023-02-06 | NUR ---
VERY LARGE AMT THICK UNFORMED YELLOWISH STOOL WITH A METALLIC-LIKE SMELL. BATHED WITH BED CHANGE. RIGHT ANKLE DRESSING CHANGED AT THIS TIME WITH HYDROCOLLOIDAL DRESSING ORDERED. NO DRAINAGE OR SMELL NOTED. DRESSING CHANGE TO G TUBE SITE. RESIDUAL LESS THAN 5 MLS. PT TOLERATING FEEDING WELL. PT TURNED WITH MODERATE ASSIST AND PT HELPS TO TURN.. REFUSED EYE DROPS AND XALATAN DROPS UNAVAILABLE. NO SEIZURE ACTIVITY NOTED. PT HAS SENSE OF HUMOR. MAKE AWARE OF MOVEMENTS AND SPEAK SLOWLY AND DIRECTLY OTHERWISE PT STATES "YOU SCARE ME" BECAUSE OF BLINDNESS IN 1 EYE AND POOR VISIBILITY IN THE OTHER. JEVITY CONTINUES UNCHANGED 50 ML/H WITH H20 FLUSH 100 Q 6. CONT TO MONITOR AND ASSIST NEEDED.
[2023-02-06] MEDS: Z-GUARD PASTE TP SCH (01:00)
[2023-02-06 04:00] VITALS: BP 106/72
[2023-02-06 05:07] LABS: BASOPHILS % (AUTO) 0.3 % (0.0-2.0); EOSINOPHILS # (AUTO) 0.1 K/uL (0-0.4); EOSINOPHILS % (AUTO) 1.3 % (0.0-4.0); HEMATOCRIT 37.2 % (36-52); HEMOGLOBIN 12.2 g/dL (12.0-18.0); LYMPHOCYTES # (AUTO) 2.7 K/uL (2.0-11.5); MEAN CORPUSCULAR HEMOGLOBIN 29 pg (27-31); MEAN CORPUSCULAR HGB CONC 33 g/dL (33-37); MEAN CORPUSCULAR VOLUME 89.2 fL (80-94); MONOCYTES # (AUTO) 1.3 K/uL (0.8-1.0); MONOCYTES % (AUTO) 17.9 % (1.7-9.3); NEUTROPHILS # (AUTO) 2.9 K/uL (1.8-7.7); NEUTROPHILS % (AUTO) 41.5 % (42.2-75.2); PLATELET COUNT (AUTO) 257 K/uL (140-450); RED BLOOD CELL COUNT(AUTO) 4.18 MIL/uL (4.20-6.10); RED CELL DISTRIBUTION WIDTH 16.8 % (11.6-13.7)
[2023-02-06 06:19] LABS: ALBUMIN 3.1 g/dL (3.4-5.0); ANION GAP 10.1 (8-16); CARBON DIOXIDE 37.5 mmol/L (21-32); CREATININE 0.6 mg/dL (0.6-1.3); POTASSIUM 3.6 mmol/L (3.5-5.1); TOTAL BILIRUBIN 0.3 mg/dL (0.0-1.0)
[2023-02-06] MEDS: MIDODRINE 5 MG TAB PO SCH (07:00)
--- NOTE | 2023-02-06 07:30 | NUR ---
HAND-OFF REPORT TO RETURNING RN HECTOR WITH UPDATED ENDORSEMENT OF: LARGE STOOLX1, DENIES PAIN EXCEPT DURING REPOSITIONING; LACTULOSE CONTINUE TO HOLD FOR EXCESS POOPING; UNABLE TO GIVE MIDODRINE AT 1900 THE APPROPRIATE DOSE WAS NOT AVAILABLE IN THE PYXIS. B/P THIS AM 108/74 HR 87. RELINQUISHED CARE OF PT AT THIS TIME.
--- NOTE | 2023-02-06 07:40 | NUR ---
GOT REPORT FROM THE NIGHT NURSE, PT IS SLEEPING.[id number]
[2023-02-06] MEDS: ALBUTEROL SULFATE/IPRATROPIU 3 ML SOL IH PRN (07:53)
[2023-02-06 08:00] VITALS: BP 100/66
[2023-02-06] MEDS: NACL 0.9% 250 ML IV SCH (08:17)
[2023-02-06] MEDS: VALPROIC ACID 250 MG/5 ML UDC GT SCH (08:23)
[2023-02-06] MEDS: LACTULOSE 20 GM/30 ML UDC GT SCH (08:24)
[2023-02-06] MEDS: levETIRAcetam 100 MG/ML ORASYR GT SCH (08:24)
[2023-02-06] MEDS: BACLOFEN 10 MG TAB GT SCH (08:25)
[2023-02-06] MEDS: FLUDROCORTISONE 0.1 MG TAB GT SCH (08:25)
[2023-02-06] MEDS: PANTOPRAZOLE 40 MG INJ VIAL IVP SCH (08:26)
[2023-02-06] MEDS: MULTIVITAMIN/MINERALS 1 TAB GT SCH (08:26)
[2023-02-06] MEDS: CALCIUM CARB/VIT-D 500 MG/200 IU 1 TAB PO SCH (08:27)
[2023-02-06] MEDS: HYDROCOLLOID DRESSING TP SCH (08:44)
[2023-02-06] MEDS ORDERED: FUROSEMIDE 40 MG TAB ONE (08:52)
[2023-02-06] MEDS: FUROSEMIDE 40 MG/5 ML ORAL SOL UDC GT SCH (08:58)
[2023-02-06] MEDS: DORZOLAMIDE 2% OP 10 ML BTL OP SCH (08:59)
[2023-02-06] MEDS: TIMOLOL OP 0.25% 5 ML BTL OP SCH (09:00)
[2023-02-06] MEDS: VIMPAT 10MG/ML ORAL SOLUTION GT SCH (09:00)
[2023-02-06] MEDS: ENOXAPARIN 40 MG/0.4 ML SYR SUBQ SCH (09:01)
--- NOTE | 2023-02-06 09:03 | NUR ---
PT REFUSED THE ENOXAPARIN ORDERED.[id number]
--- NOTE | 2023-02-06 13:28 | NUR ---
PATIENT DISCHARGED FROM FACILITY
--- NOTE | 2023-02-06 13:28 | NUR ---
PT DISCHARGED , DISCHARGE INSTRUCTION GIVEN, REPORT TO THE NURSE IN HOME CARE NURSE WHERE HE WAS GOING, IV AND ID REMOVED, THE PICC LINE AND TAVARES REMOVED, PT LEFT WITH TRANSPORTER WITH O2 2L NC.[id number]
[2023-02-06] MEDS ORDERED: LACOSAMIDE 10 MG/ML GT SCH (21:00)
== END 2023-02-06 13:35 | DRG 720 ==
LOC: MED 17:24 → MIC 19:17 → MTU 02-05 11:15
PROVIDERS: ADMIT Preventive Medicine Preventive Medicine/Occupational Environmental Medicine; ATTEND Preventive Medicine Preventive Medicine/Occupational Environmental Medicine
PROC: 5A1955Z Respiratory Ventilation, Greater than 96 Consecutive Hours (ICD-10-PCS; principal; 2023-01-22)
PROC: 0BH17EZ Insertion of Endotracheal Airway into Trachea, Via Natural or Artificial Opening (ICD-10-PCS; 2023-01-22)
PROC: 02HV33Z Insertion of Infusion Device into Superior Vena Cava, Percutaneous Approach (ICD-10-PCS; 2023-01-22)
PROC: B548ZZA Ultrasonography of Superior Vena Cava, Guidance (ICD-10-PCS; 2023-01-22)
PROC: 5A09357 Assistance with Respiratory Ventilation, Less than 24 Consecutive Hours, Continuous Positive Airway Pressure (ICD-10-PCS; 2023-02-02)
PROC: 5A09357 Assistance with Respiratory Ventilation, Less than 24 Consecutive Hours, Continuous Positive Airway Pressure (ICD-10-PCS; 2023-02-03)
DX: A41.9 Sepsis, unspecified organism (principal); J96.21 Acute and chronic respiratory failure with hypoxia; R65.21 Severe sepsis with septic shock; J44.0 Chronic obstructive pulmonary disease with (acute) lower respiratory infection; E43 Unspecified severe protein-calorie malnutrition; J15.1 Pneumonia due to Pseudomonas; E87.0 Hyperosmolality and hypernatremia; F72 Severe intellectual disabilities; G91.9 Hydrocephalus, unspecified; E88.09 Other disorders of plasma-protein metabolism, not elsewhere classified; I50.9 Heart failure, unspecified; G40.909 Epilepsy, unspecified, not intractable, without status epilepticus; G80.9 Cerebral palsy, unspecified; K21.9 Gastro-esophageal reflux disease without esophagitis; R13.10 Dysphagia, unspecified; J96.22 Acute and chronic respiratory failure with hypercapnia; R33.9 Retention of urine, unspecified; G93.1 Anoxic brain damage, not elsewhere classified; E87.6 Hypokalemia; E83.51 Hypocalcemia; D64.9 Anemia, unspecified; Z20.822 Contact with and (suspected) exposure to COVID-19; Z79.899 Other long term (current) drug therapy; Z86.73 Personal history of transient ischemic attack (TIA), and cerebral infarction without residual deficits; Z99.11 Dependence on respirator [ventilator] status; Z68.35 Body mass index [BMI] 35.0-35.9, adult; Z93.1 Gastrostomy status; Z90.49 Acquired absence of other specified parts of digestive tract; Z98.2 Presence of cerebrospinal fluid drainage device; Z99.81 Dependence on supplemental oxygen
CPT/HCPCS: 31500; 36415; 36600; 71045; 74018; 80048; 80053; 80173; 80202; 81003; 82553; 82803; 83605; 83735; 83880; 84100; 84484; 85025; 85651; 86140; 87040; 87070; 87081; 87086; 87186; 87205; 89220; 93005; 94002; 94003; 94640; 94660; 99291; C9113; J0610; J1650; J1940; J2060; J2185; J2543; J2704; J3370; J3372; J3480; J3490; J7060; P9046; Q0092

== ENCOUNTER 2023-02-23 23:10 | Emergency (ER) | payer MEDICAID ==
[~2023-02-23] VITALS: Ht 167.6 cm; Wt 83.9 kg
--- NOTE | 2023-02-23 23:15 | NUR ---
PT [facility] BLS. TAKEN TO BED 3
[2023-02-23 23:19] VITALS: BP 115/68; PULSE 93; RESP 23; TEMP 98.3; O2SAT 93
[2023-02-23] MEDS ORDERED: NACL 0.9% 1,000 ML IV ONE (23:50)
--- NOTE | 2023-02-24 00:04 | NUR ---
PT TAKEN OFF UNIT TO RADIOLOGY.
[2023-02-24 00:47] LABS: BASOPHILS % (AUTO) 0.3 % (0.0-2.0); EOSINOPHILS # (AUTO) 0.1 K/uL (0-0.4); EOSINOPHILS % (AUTO) 1.6 % (0.0-4.0); HEMATOCRIT 37.2 % (36-52); LYMPHOCYTES # (AUTO) 2.3 K/uL (2.0-11.5); LYMPHOCYTES % (AUTO) 39.4 % (20.5-51.1); MEAN CORPUSCULAR HEMOGLOBIN 28 pg (27-31); MEAN CORPUSCULAR HGB CONC 32 g/dL (33-37); MEAN CORPUSCULAR VOLUME 88.1 fL (80-94); MONOCYTES # (AUTO) 0.9 K/uL (0.8-1.0); NEUTROPHILS # (AUTO) 2.5 K/uL (1.8-7.7); NEUTROPHILS % (AUTO) 42.7 % (42.2-75.2); PLATELET COUNT (AUTO) 221 K/uL (140-450); RED BLOOD CELL COUNT(AUTO) 4.23 MIL/uL (4.20-6.10); RED CELL DISTRIBUTION WIDTH 16.5 % (11.6-13.7); WHITE BLOOD COUNT (AUTO) 5.8 K/uL (4.8-10.8)
[2023-02-24 01:01] LABS: ANION GAP 7.5 (8-16); CARBON DIOXIDE 38.3 mmol/L (21-32); CREATININE 0.6 mg/dL (0.6-1.3); POTASSIUM 3.8 mmol/L (3.5-5.1); TOTAL BILIRUBIN 0.3 mg/dL (0.0-1.0)
[2023-02-24 01:23] LABS: APPEARANCE,URINE CLEAR (CLEAR); BILIRUBIN,URINE NEGATIVE (NEGATIVE); BLOOD, URINE TRACE-I (NEGATIVE); COLOR,URINE YELLOW (YELLOW); LEUKOCYTE ESTERASE ,URINE TRACE (NEGATIVE); NITRITE, URINE NEGATIVE (NEGATIVE); UGLUCOSE NEGATIVE (NEGATIVE)
[2023-02-24] MEDS ORDERED: cefTRIAXone 1,000 MG VIAL ONE (03:06)
--- NOTE | 2023-02-24 03:13 | NUR ---
PT SLEEPING. NO DISTRESS NOTED. RESPIRATIONS EVEN AND UNLABORED. IVPB INFUSING. F/C DRAINING WELL. VS STABLE.
--- NOTE | 2023-02-24 03:44 | NUR ---
Radiology called to request a follow-up with STAT Rad for CT-results on pt's CT-Scan. Pt continues to sleep without distress. F/C draining well.
[2023-02-24] MEDS ORDERED: CIPR500T4 GT/PO (04:45)
--- NOTE | 2023-02-24 05:40 | NUR ---
[facility] called to arrange transport back to board and care. Spoke to Alessia Eduardo who stated that the transport team would be at the hospital at 0730 to transport the pt back to his home. Pt sleeping without distress. F/C draining well.
[2023-02-24 05:51] VITALS: BP 97/55; TEMP 97.9
[2023-02-24 07:30] VITALS: PULSE 82; RESP 20; O2SAT 96
--- NOTE | 2023-02-24 07:44 | NUR ---
Patient discharged with v/s stable. Written and verbal after care instructions given and explained. Patient alert, oriented and verbalized understanding of instructions. Ambulance Transport with to senior living. All questions addressed prior to discharge. ID band removed. Patient advised to follow up with PMD. Rx of given. Patient educated on indication of medication including possible reaction and side effects. Opportunity to ask questions provided and answered.
[2023-03-03] MEDS ORDERED: AZIT250T11 PO (11:35)
[2023-03-03] MEDS ORDERED: XALOS OP (11:35)
[2023-03-03] MEDS ORDERED: DORZ10SO22 OP (11:35)
[2023-03-03] MEDS ORDERED: LACT10SO11 GT (11:35)
[2023-03-03] MEDS ORDERED: LACO10SO12 GT (11:35)
[2023-03-03] MEDS ORDERED: LACO200T GT (11:37)
== END 2023-02-24 07:44 | disposition home or self-care (01) ==
LOC: MED 23:10
DX: R33.9 Retention of urine, unspecified (principal); N39.0 Urinary tract infection, site not specified; K21.9 Gastro-esophageal reflux disease without esophagitis; Z86.69 Personal history of other diseases of the nervous system and sense organs; Z98.890 Other specified postprocedural states; Z79.899 Other long term (current) drug therapy; Z79.2 Long term (current) use of antibiotics
CPT/HCPCS: 36415; 51702; 74176; 80053; 81001; 83690; 85025; 87040; 87086; 96361; 96365; 99285; J0696; J7030

== ENCOUNTER 2023-03-25 23:42 | Inpatient (IN) | payer MEDICAID ==
[~2023-03-25] VITALS: Ht 162.6 cm; Wt 86.2 kg
[2023-03-25 23:42] VITALS: BP 104/69; PULSE 102; RESP 20; TEMP 97.7; O2SAT 98
[~2023-03-25 23:42] MED LIST changes: -AMOX-999 PO; +AZIT250T11 PO; +DORZ10SO22 OP; +LACT10SO11 GT; +XALOS OP
--- NOTE | 2023-03-25 23:45 | NUR ---
Pt MANJEET from [facility] with active seizure 5 x since they called ambulance
[2023-03-25 23:55] VITALS: PULSE 101; RESP 24; O2SAT 94
--- NOTE | 2023-03-25 23:58 | NUR ---
X-Ray at the bedside
[2023-03-26] VITALS (11 sets, daily range): BP systolic 105–128; BP diastolic 59–77; PULSE 69–95; RESP 16–24; TEMP 96.9–98.6; O2SAT 96–99
[2023-03-26] MEDS ORDERED: levETIRAcetam 1,000 MG in NACL 0.9% 100 ML IV ONE ×2
--- NOTE | 2023-03-26 | NUR ---
SL ESTABLISHED LEFT FOOT, LABS DRAWN
--- NOTE | 2023-03-26 | NUR ---
Rt at the bedside, pt is on simple mask 10 L
[2023-03-26] MEDS ORDERED: levETIRAcetam 100 MG/ML VIAL IV ONE (00:17)
--- NOTE | 2023-03-26 00:23 | NUR ---
ABG was completed and critical values were reported to Dr. Reyes. Placed pt on 15lpm NRB per Dr. Reyes. Current SPO2 @95% and rising. Will continue to monitor.
--- NOTE | 2023-03-26 00:23 | NUR ---
OBTAINED BLOOD GAS FROM PT PER MD ORDER. RESULTS DIPLAYED A CRITIAL VALUE, CO2 WAS 75.2. VERBALLY INFORMED DR IVAN, TO WHICH HE ORDERED THE PT BE PLACED ON A NRB 100% FIO2, NO OTHER ORDERS MADE.
--- NOTE | 2023-03-26 00:25 | NUR ---
RT changed the simple mask to non rebreather 15 L
[2023-03-26 00:26] LABS: BASOPHILS % (AUTO) 0.8 % (0.0-2.0); EOSINOPHILS % (AUTO) 0.9 % (0.0-4.0); HEMOGLOBIN 11.6 g/dL (12.0-18.0); LYMPHOCYTES # (AUTO) 1.3 K/uL (2.0-11.5); LYMPHOCYTES % (AUTO) 24.7 % (20.5-51.1); MEAN CORPUSCULAR HEMOGLOBIN 28 pg (27-31); MEAN CORPUSCULAR HGB CONC 32 g/dL (33-37); MEAN CORPUSCULAR VOLUME 86.9 fL (80-94); MONOCYTES # (AUTO) 0.5 K/uL (0.8-1.0); MONOCYTES % (AUTO) 9.7 % (1.7-9.3); NEUTROPHILS # (AUTO) 3.4 K/uL (1.8-7.7); NEUTROPHILS % (AUTO) 63.9 % (42.2-75.2); PLATELET COUNT (AUTO) 171 K/uL (140-450); RED BLOOD CELL COUNT(AUTO) 4.14 MIL/uL (4.20-6.10); RED CELL DISTRIBUTION WIDTH 16.8 % (11.6-13.7); WHITE BLOOD COUNT (AUTO) 5.3 K/uL (4.8-10.8)
[2023-03-26 00:40] LABS: ANION GAP 9.3 (8-16); CARBON DIOXIDE 39.5 mmol/L (21-32); CREATININE 0.6 mg/dL (0.6-1.3); POTASSIUM 3.8 mmol/L (3.5-5.1); TOTAL BILIRUBIN 0.4 mg/dL (0.0-1.0)
[2023-03-26 00:42] LABS: PROTHROMBIN TIME 10.2 secs (10.8-13.4)
--- NOTE | 2023-03-26 00:49 | NUR ---
urine to lab
[2023-03-26] MEDS ORDERED: VANCOMYCIN 1,000 MG in DEXTROSE 5% 250 ML IV ONE (00:55)
[2023-03-26] MEDS ORDERED: MEROPENEM 1,000 MG in NACL 0.9% 50 ML IV ONE (00:55)
[2023-03-26 01:12] LABS: APPEARANCE,URINE HAZY (CLEAR); BILIRUBIN,URINE NEGATIVE (NEGATIVE); BLOOD, URINE NEGATIVE (NEGATIVE); COLOR,URINE YELLOW (YELLOW); LEUKOCYTE ESTERASE ,URINE NEGATIVE (NEGATIVE); NITRITE, URINE NEGATIVE (NEGATIVE); PH,URINE 8.5 (5.0-9.0); UGLUCOSE NEGATIVE (NEGATIVE)
[2023-03-26] MEDS ORDERED: MEROPENEM 1,000 MG VIAL IV ONE (01:14)
[2023-03-26] MEDS ORDERED: VANCOMYCIN 1,000 MG VIAL ONE (01:14)
[2023-03-26 01:21] LABS: RBC,URINE NONE SEEN /HPF (0-5)
[2023-03-26 01:22] LABS: TRIPLE PHOSPHATE CRYSTAL,UR 0-3 /HPF (None Seen)
[2023-03-26] MEDS ORDERED: LORazepam 2 MG/ML VIAL IVP PRN ×2 (03:15→07:50)
--- NOTE | 2023-03-26 04:36 | NUR ---
Julissa kumar in [facility] - 03/26/23 at 0437 by [email or web address] bedside care done. kacy cuba diaper
--- NOTE | 2023-03-26 07:31 | NUR ---
RECEIVED REPORT FROM RALPH NERI. PT IS A 38 Y/0 MAN PT WHO WAS BIBA FROM [facility] NAMED [facility]. PTS CHIEF COMPLAINT IS HAVING A SEIZURE. PT HAS HAD 3 SEIZURES PRIOR TO COMING TO THE ER PT HAS HX OF UTI, CATARACT, BPH, MENTAL DISORDER, PARAPLEGIC, MULTIPLE SCLEROSIS, AND PT WAS POSTICAL WHEN HE ARRIVED SO HE COULD NOT PROVIDE FAMILY HISTORY. SKIN IS PINK/WARM/DRY; AAOX4 WITH EVEN AND STEADY GAIT; LUNGS CLEAR BL; HR EVEN AND REGULAR; PT DENIES ANY FEVER, CP, SOB, OR COUGH AT THIS TIME; PATIENT STATES PAIN OF 0/10 AT THIS TIME; VSS; PATIENT POSITIONED FOR COMFORT; HOB ELEVATED; BEDRAILS UP X2; BED DOWN. ER MD MADE AWARE OF PT STATUS. PBMX UTI, CATARACT, BPH, MENTAL DISORDER, PARAPLEGIC, MULTIPLE SCLEROSIS ALLERGIES NKA
[2023-03-26] MEDS ORDERED: MORPHINE SULFATE 2 MG/ML SYR IVP PRN (07:50)
[2023-03-26] MEDS ORDERED: POTASSIUM CHLORIDE 10 MEQ TABER PO PRN (07:50)
[2023-03-26] MEDS ORDERED: ONDANSETRON 4 MG/2 ML VIAL IVP PRN (07:50)
[2023-03-26] MEDS ORDERED: ACETAMINOPHEN 325 MG TAB PO PRN (07:50)
[2023-03-26] MEDS ORDERED: ZOLPIDEM 10 MG TAB PO PRN (07:50)
[2023-03-26] MEDS ORDERED: MAG SULF 2000 MG/WATER PREMIX 50 ML IV PRN (07:50)
[2023-03-26] MEDS ORDERED: DOCUSATE SODIUM 100 MG GELCAP PO PRN (07:50)
--- NOTE | 2023-03-26 08:30 | NUR ---
RECEIVE ER NURSE REPORT THAT 38 YR MALE PATIENT COME FROM [facility] D/T MULTIPLE SEIZURE EPISODE IN [facility], DIAGNOSIS SEIZURE, MAYBE POSSIBLE PNA (LACTIC ACID= 30) WITH HX OF SEIZURE, MULTIPLE SCLEROSIS, MENTAL RETARDATION. PATIENT IS DEPEND ON G-TUB FEED, TAVARES [address], ON 4 LITER VIA NC, TEL.MONITOR SHOW SR, NOTED PACEMAKER(?)/AICD(?) AT L. CHEST. PIV AT L.FOOT 22G & Riley 22G SALINE LOCK. THEODORE IS FUL CODE, NKA. VITAL WITHIN PATIENT'S BASELINE(T-P-R: 97.8-84-20, BP; , O2 SAT: 96% ON 4 LITER VIA NC). WILL CONTINUE TO MONITOR Addendum: 03/26/23 at 1155 by Marietta Reed RN ATTEMPTING CALL [facility] ([phone]) ([phone]) FOR CLARIFY XALATAN EYE DROP HS DOSE AND USING FOR WHICH EYE(S), AND UNABLE TO GET HOLD ANYONE. WILL CONTINUE TO MONITOR Addendum: 03/26/23 at 1300 by Marietta Reed RN RECEIVE CALL FORM [facility] FOLLOW UP OF PATIENT'S ADMIT STATUS, DIAGNOSIS. NURSE ABLE TO CLARIFY XALATAN EYE DRIP DOSE ONE DROP FOR EACH EYE. PHARMACY AWARE. PATRICIA NEWELL ([phone] EX ASSISTANT/PROGRAM DIRECTOR INFORMATION. WILL CONTINUE TO MONITOR Addendum: 03/26/23 at 1933 by Marietta Reed RN ENDORSE PATIENT TO PM SHIFT NURSE IN STABLE CONDITION, TUBE FEEDING ORDER (JEVITY 1.2 GOAL 55ML/HR, W/ START 20ML/HR INCREASE 20ML Q4HR TOLERATE, FRESH WATER FLUSHING 150ML Q8H) PER STATEMENT PROCESSOR RECOMMENDATION.
[2023-03-26] MEDS: VALPROIC ACID 250 MG/5 ML UDC GT SCH ×4 (09:22→21:21)
[2023-03-26] MEDS: FUROSEMIDE 40 MG TAB PO SCH (09:23)
[2023-03-26] MEDS: levETIRAcetam 100 MG/ML ORASYR GT SCH ×2 (09:23→21:21)
[2023-03-26] MEDS: LACTULOSE 20 GM/30 ML UDC GT SCH ×3 (09:23→17:07)
[2023-03-26] MEDS: BACLOFEN 10 MG TAB GT SCH ×3 (09:24→17:07)
[2023-03-26] MEDS: diazePAM 5 MG TAB GT SCH ×2 (09:24→21:22)
--- NOTE | 2023-03-26 09:41 | NUR ---
PATIENT HAS BEEN SCREENED AND CATEGORIZED HIGH NUTRITION RISK. PATIENT WILL BE SEEN WITHIN 1-2 DAYS OF ADMISSION. 03/26/23-03/28/[address]
[2023-03-26] MEDS: PIPERACILLIN/TAZOBACTAM 3.375 GM in DEXTROSE 5% 50 ML IV SCH ×2 (12:12→17:19)
--- NOTE | 2023-03-26 14:05 | NUR ---
RECEIVED ON SUPPLEMENTAL OXYGEN AT 4 LPM VIA NASAL CANNULA SATURATION 99%; TITRATED FIO2 TO 2 LPM VP DESIGN TO MONITOR
--- NOTE | 2023-03-26 14:13 | NUR ---
REVIEWED CXR 03/25/23 3953; REACTOR OPERATOR TO REFER TO PCP FOR RESPIRATORY ORDERS
--- NOTE | 2023-03-26 14:17 | NUR ---
SATURATION 97% ON SUPPLEMENTAL OXYGEN AT 2 LPM VIA NASAL CANNULA; GUERLINE/RN NOTIFIED; CALL LIGHT CONTROL WITHIN REACH
--- NOTE | 2023-03-26 16:54 | NUR ---
TEXTED DR. JACK DAVID VIA ICU PHONE; PER MD RESPONSE OKAY TO ORDER HHN THERAPY
--- NOTE | 2023-03-26 17:05 | NUR ---
03/26/23 RD INITIAL ASSESSMENT COMPLETED. PLEASE REFER TO NUTRITION ASSESSMENT UNDER CARE ACTIVITY FOR ESTIMATED NUTRITIONAL NEEDS. 1. RECOMMEND JEVITY 1.2 VARUN WITH A GOAL RATE OF 55 ML/HR. -START AT 20 ML/HR AND INCREASE BY 20 ML Q4H UNTIL GOAL RATE IS REACHED PT TOLERATES -FWF 150 ML Q8H THIS WILL PROVIDE 1320 ML VOLUME, 1584 KCAL, AND 73 GRAMS OF PROTEIN, MEETING 100% OF ESTIMATED ENERGY NEEDS; ADEQUATE. 2. MONITOR NPO STATUS 3. RD TO FOLLOW-UP 2-3 DAYS, HIGH RISK JOSH MARQUES RD
[2023-03-26] MEDS ORDERED: ALBUTEROL SULFATE/IPRATROPIU 3 ML SOL IH PRN (17:35)
[2023-03-26] MEDS: ALBUTEROL SULFATE/IPRATROPIU 3 ML SOL IH SCH (19:00)
--- NOTE | 2023-03-26 19:15 | NUR ---
PATIENT IN BED WITH EYES CLOSED. NO S/S OF RESPIRATORY DISTRESS. BREATHING REGULAR NON LABORED. IV ACCESS TO LEFT UPPER ARM SALINE LOCK. G-TUBE IN PLACE TO LEFT ABDOMEN INTACT AND PATENT. TAVARES CATHETER DRAINING TO GRAVITY TO A CLEAR YELLOW URINE. SAFETY PRECAUTIONS ARE IN PLACE. CALL LIGHT WITHIN REACH. WILL CONTINUE TO MONITOR.
[2023-03-26] MEDS: LATANOPROST 0.005% OP 2.5 ML BTL BOTH EYES SCH (21:20)
--- NOTE | 2023-03-26 21:20 | NUR ---
ALL 2100 SCHEDULED MEDICATIONS ADMINISTERED ORDERED.
[2023-03-26] MEDS: TAMSULOSIN 0.4 MG CAP GT SCH (21:21)
[2023-03-26] MEDS: traZODone 50 MG TAB PO SCH (21:25)
[2023-03-26] MEDS: SENNA 8.6 MG TAB GT SCH (21:25)
[2023-03-27] VITALS (12 sets, daily range): BP systolic 105–119; BP diastolic 60–73; PULSE 67–95; RESP 16–19; TEMP 96.9–98.2; O2SAT 90–98
[2023-03-27] MEDS: PIPERACILLIN/TAZOBACTAM 3.375 GM in DEXTROSE 5% 50 ML IV SCH ×5 (00:29→23:58)
[2023-03-27] MEDS: ALBUTEROL SULFATE/IPRATROPIU 3 ML SOL IH SCH ×4 (01:10→19:43)
--- NOTE | 2023-03-27 04:15 | NUR ---
STARTED TUBE FEEDING OF JEVITY 1.2 AT 20 ML/HR STARTING RATE TO BE INCREASED 20 ML EVERY 4 HR WITH A GOAL OF 55 ML/HR
[2023-03-27 05:31] LABS: BASOPHILS # (AUTO) 0.1 K/uL (0.00-0.22); HEMOGLOBIN 11.7 g/dL (12.0-18.0); MONOCYTES # (AUTO) 0.8 K/uL (0.8-1.0); PLATELET COUNT (AUTO) 153 K/uL (140-450)
[2023-03-27 05:32] LABS: BASOPHILS % (AUTO) 0.8 % (0.0-2.0); EOSINOPHILS # (AUTO) 0.3 K/uL (0-0.4); HEMATOCRIT 35.6 % (36-52); LYMPHOCYTES # (AUTO) 1.8 K/uL (2.0-11.5); LYMPHOCYTES % (AUTO) 20.9 % (20.5-51.1); MEAN CORPUSCULAR HEMOGLOBIN 28 pg (27-31); MEAN CORPUSCULAR HGB CONC 33 g/dL (33-37); MEAN CORPUSCULAR VOLUME 86.3 fL (80-94); MONOCYTES % (AUTO) 9.9 % (1.7-9.3); NEUTROPHILS # (AUTO) 5.5 K/uL (1.8-7.7); NEUTROPHILS % (AUTO) 65.4 % (42.2-75.2); RED BLOOD CELL COUNT(AUTO) 4.12 MIL/uL (4.20-6.10); RED CELL DISTRIBUTION WIDTH 16.7 % (11.6-13.7); WHITE BLOOD COUNT (AUTO) 8.4 K/uL (4.8-10.8)
[2023-03-27 05:51] LABS: ANION GAP 5.4 (8-16); CREATININE 0.7 mg/dL (0.6-1.3); POTASSIUM 3.6 mmol/L (3.5-5.1)
--- NOTE | 2023-03-27 06:15 | NUR ---
RECEIVED A CALL FROM [facility] REPORTING CRITICAL LAB VALUE CARBON DIOXIDE 41.2. NOTIFIED DR. VELASCO AT 0621, WAITING FOR RESPONSE.
[2023-03-27 06:16] LABS: CARBON DIOXIDE 41.2 mmol/L (21-32)
--- NOTE | 2023-03-27 07:09 | NUR ---
RECEIVED PATIENT ON 2L NASAL CANNULA. SATURATION 95%. CLEAR/ DIMINISHED BREATH SOUNDS HEARD ON AUSCULTATION. NO SOB OR DISTRESS NOTED. CALL LIGHT WITHIN REACH OF PATIENT. WILL CONTINUE TO MONITOR.
--- NOTE | 2023-03-27 07:26 | NUR ---
BEDSIDE REPORT GIVEN TO AM NURSE FOR CONTINUITY OF CARE. NO SEIZURES NOTED THROUGHOUT THE SHIFT. NEEDS ATTENDED TO.
--- NOTE | 2023-03-27 07:29 | NUR ---
RECEIVED PT FROM DIETARY AIDE COOK NURSE FOR CONTINUITY OF CARE. PT IS SLEEPING, AROUSABLE TO SOUND. VISIBLE CHEST RISE/FALL. RESPIRATIONS EVEN AND UNLABORED ON 4L NC. SKIN WARM AND DRY IV ON WILLIE 22G. TUBE FEEDING INFUSING AT 20ML/HR. NO DISTRESS NOTED. CALL LIGHT WITHIN REACH. ALL SAFETY PRECAUTIONS IN PLACE.
[2023-03-27] MEDS: diazePAM 5 MG TAB GT SCH ×2 (08:37→21:43)
[2023-03-27] MEDS: FUROSEMIDE 40 MG TAB PO SCH (08:38)
[2023-03-27] MEDS: BACLOFEN 10 MG TAB GT SCH ×3 (08:39→17:58)
[2023-03-27] MEDS: levETIRAcetam 100 MG/ML ORASYR GT SCH ×2 (08:45→21:43)
[2023-03-27] MEDS: VALPROIC ACID 250 MG/5 ML UDC GT SCH ×4 (08:46→21:43)
[2023-03-27] MEDS: LACTULOSE 20 GM/30 ML UDC GT SCH ×3 (08:46→17:58)
--- NOTE | 2023-03-27 10:00 | NUR ---
TUBE FEEDING JEVITY 1.2 INCREASED TO 40 ML/HR. G TUBE RESIDUAL 10ML. PT TOLERATING WELL.
--- NOTE | 2023-03-27 10:39 | NUR ---
PT. WITH LOW ROSEANNE SCALE AT MODERATE TO HIGH RISK, CONTINUE TO FOLLOW PRESSURE INJURY PREVENTION INTERVENTIONS. PT. WITH HX OF SACRALCOCCYX WOUND, AREA WITH HEALED SCAR TISSUE. F/C PATENT MODERATE AMOUNT BARON COLOR URINE OUTPUT OBSERVED. -POSITIONING: TURN AND REPOSITION PATIENT Q 2H OR SOONER USE PILLOWS TO KEEP BONY PROMINENCES FROM DIRECT CONTACT WITH SURFACES USE REPOSITIONING WEDGES TO PROVIDE 30-DEGREE ANGLE FOR SIDE LYING POSITIONS OFFLOADING OR FOAM DRESSING TO ALL TUBING TO PREVENT MEDICAL DEVICES RELATED PRESSURE INJURY -RE-EVALUATING AND MANAGING INCONTINENCE MONITOR SKIN CONDITION DURING POSITION CHANGE DO NOT MASSAGE REDNESS, BONY PROMINENCES FREQUENT ROSANNA-CARE AND PROVIDE BARRIER CREAMS PRN IF SOILING MOISTURE CONTROL BY OFFER BED DELCID/URINAL /ABSORBENT PAD TO WICK AND HOLD MOISTURE KEEP SKIN DRY AND PROTECT FROM FRICTION -MANAGE FRICTION/SHEAR/MOBILITY KEEP HOB AT THE LOWEST LEVEL OF ELEVATION NO MORE THAN 30 DEGREE UNLESS OTHERWISE CONTRAINDICATED USE LIFT SHEET OR TRANSFER DEVICE TO MOVE PATIENT AND PREVENT LATERAL SHEER. PROTECT HEELS, ELBOWS BONY PROMINENCES WITH SKIN BERRIES OR FOAM DRESSING IF EXPOSED TO FRICTION OFFLOAD BILATERAL HEELS BY PLACING PILLOWS UNDER CALVES AT ALL TIMES, UNLESS OTHERWISE CONTRAINDICATED -PRESSURE REDISTRIBUTION SURFACE THERAPY JASPER ISOFLEX MATTRESS -NUTRITION: PLEASE FOLLOW RD RECOMMENDATIONS AND OFFER NUTRITION SUPPLEMENTS IF ORDERED. PLEASE CONTACT WOUND CARE NURSE FOR ANY QUESTION AND CHANGE OF WOUND CONDITION.
--- NOTE | 2023-03-27 15:00 | NUR ---
EEG UNABLE TO BE COMPLETED. PT NOT COOPERATIVE, WIPING SENSORS OFF WITH HAND. NETWORK SECURITY OFFICER SPOKE TO TECH, TECH STATED THAT IT IS POLICY ONCE SENSORS ARE OFF TEST IS CANCELLED.
--- NOTE | 2023-03-27 19:15 | NUR ---
ENDORSED PT TO SEAT COVERS TRIMMER NURSE FOR CONTINUITY OF CARE. PT IS STABLE.
--- NOTE | 2023-03-27 19:25 | NUR ---
PATIENT IN BED SLEEPING WITH O2 AT 2L NC SATING AT 92%. NO S/S OF RESPIRATORY DISTRESS. BREATHING REGULAR NON LABORED. IV ACCESS TO LEFT UPPER ARM SALINE LOCK. TUBE FEEDING RUNNING AT 55 ML/HR TOLERATING WELL. NO RESIDUAL NOTED. TAVARES CATHETER DRAINING TO GRAVITY TO A CLEAR YELLOW URINE. CALL LIGHT ON EASY REACH. ALL SAFETY PRECAUTIONS ARE IN PLACE.
--- NOTE | 2023-03-27 19:46 | NUR ---
FOUND PT WITH NASAL CANULA OUT OF NOSE PT SATURATION WAS 91. NO RESP DISTRESS NO SOB NOTED. ADMINISTERED SCHEDULED TX TREATMENT VIA BLOW BY PT STATED HE DID NOT WANT THE MASK PLACED OVER HIS FACE. POST TREATMENT SATURATION IS 93% AND RISING . CALL LIGHT WITHIN REACH PT & IS RESTING COMFORTABLY.GOOD CHEST RISE & FALL NOTED , WILL CONT TO MONITOR PT THROUGHOUT SHIFT.
[2023-03-27] MEDS: LATANOPROST 0.005% OP 2.5 ML BTL BOTH EYES SCH (21:41)
[2023-03-27] MEDS: traZODone 50 MG TAB PO SCH (21:42)
[2023-03-27] MEDS: TAMSULOSIN 0.4 MG CAP GT SCH (21:42)
[2023-03-27] MEDS: SENNA 8.6 MG TAB GT SCH (21:43)
--- NOTE | 2023-03-27 23:35 | NUR ---
PATIENT CT HEAD DONE.
[2023-03-28] VITALS (12 sets, daily range): BP systolic 113–126; BP diastolic 56–75; PULSE 76–101; RESP 16–22; TEMP 97.3–98.8; O2SAT 87–98
[2023-03-28] MEDS: ALBUTEROL SULFATE/IPRATROPIU 3 ML SOL IH SCH ×4 (01:17→20:34)
--- NOTE | 2023-03-28 04:30 | NUR ---
PATIENT HAD LARGE BM. CLEANED, CHANGED AND REPOSITION.
[2023-03-28] MEDS: PIPERACILLIN/TAZOBACTAM 3.375 GM in DEXTROSE 5% 50 ML IV SCH ×3 (05:25→18:41)
[2023-03-28 05:28] LABS: BASOPHILS % (AUTO) 0.4 % (0.0-2.0); EOSINOPHILS # (AUTO) 0.1 K/uL (0-0.4); EOSINOPHILS % (AUTO) 1.9 % (0.0-4.0); HEMATOCRIT 35.5 % (36-52); HEMOGLOBIN 11.6 g/dL (12.0-18.0); LYMPHOCYTES # (AUTO) 1.8 K/uL (2.0-11.5); LYMPHOCYTES % (AUTO) 31.4 % (20.5-51.1); MEAN CORPUSCULAR HEMOGLOBIN 28 pg (27-31); MEAN CORPUSCULAR HGB CONC 33 g/dL (33-37); MEAN CORPUSCULAR VOLUME 85.7 fL (80-94); MONOCYTES # (AUTO) 0.9 K/uL (0.8-1.0); MONOCYTES % (AUTO) 15.5 % (1.7-9.3); NEUTROPHILS # (AUTO) 2.8 K/uL (1.8-7.7); NEUTROPHILS % (AUTO) 50.8 % (42.2-75.2); PLATELET COUNT (AUTO) 182 K/uL (140-450); RED BLOOD CELL COUNT(AUTO) 4.14 MIL/uL (4.20-6.10); RED CELL DISTRIBUTION WIDTH 16.7 % (11.6-13.7); WHITE BLOOD COUNT (AUTO) 5.6 K/uL (4.8-10.8)
[2023-03-28 05:44] LABS: ANION GAP 9.6 (8-16); CARBON DIOXIDE 37.9 mmol/L (21-32); CREATININE 0.7 mg/dL (0.6-1.3); POTASSIUM 3.5 mmol/L (3.5-5.1)
--- NOTE | 2023-03-28 07:30 | NUR ---
GAVE BEDSIDE REPORT TO AM NURSE FOR CONTINUITY OF CARE.
[2023-03-28] MEDS: diazePAM 5 MG TAB GT SCH ×2 (11:14→21:46)
[2023-03-28] MEDS: FUROSEMIDE 40 MG TAB PO SCH (11:17)
[2023-03-28] MEDS: BACLOFEN 10 MG TAB GT SCH ×3 (11:20→16:29)
[2023-03-28] MEDS: levETIRAcetam 100 MG/ML ORASYR GT SCH ×2 (11:21→21:45)
[2023-03-28] MEDS: VALPROIC ACID 250 MG/5 ML UDC GT SCH ×4 (11:24→21:45)
[2023-03-28] MEDS: LACTULOSE 20 GM/30 ML UDC GT SCH ×3 (11:24→16:29)
--- NOTE | 2023-03-28 13:34 | NUR ---
03/28/23 RD FOLLOW UP COMPLETED PLEASE REFER TO NUTRITION ASSESSMENT UNDER CARE ACTIVITY FOR ESTIMATED NUTRITIONAL NEEDS. 1. RECOMMEND CONTINUING JEVITY 1.2 VARUN WITH A GOAL RATE OF 55 ML/HR. START AT 20 ML/HR AND INCREASE BY 20 ML Q4H UNTIL GOAL RATE IS REACHED PT TOLERATES FWF 150 ML Q8H. THIS WILL PROVIDE 1320 ML VOLUME, 1584 KCAL, AND 73 GRAMS OF PROTEIN, MEETING 100% OF ESTIMATED ENERGY NEEDS; ADEQUATE. 2. RD WILL CONTINUE TO MONITOR TUBE FEEDING TOLERANCE, GI ISSUES, WEIGHT, AND NUTRITION RELATED LAB VALUES. 3. RD TO FOLLOW-UP 2-3 DAYS, HIGH RISK AVELINO DOSS RD
--- NOTE | 2023-03-28 19:40 | NUR ---
RECEIVED PATIENT SLEEPING ON 2L NC SATING 94%. RESPIRATION EVEN UNLABORED. G-TUBE FEEDING OF JEVITY 1.2 RUNNING AT 55 MLS, TOLERATING WELL NO RESIDUAL NOTED. TAVARES CATHETER DRAINING TO GRAVITY. CALL LIGHT WITHIN REACH. SAFETY MEASURES IN PLACE.
--- NOTE | 2023-03-28 20:15 | NUR ---
PATIENT WAS CLEANED, CHANGED AND REPOSITIONED.
[2023-03-28] MEDS: SENNA 8.6 MG TAB GT SCH (21:00)
[2023-03-28] MEDS: LATANOPROST 0.005% OP 2.5 ML BTL BOTH EYES SCH (21:45)
--- NOTE | 2023-03-28 21:45 | NUR ---
ALL 2100 SCHEDULED MEDICATIONS ADMINISTERED.
[2023-03-28] MEDS: TAMSULOSIN 0.4 MG CAP GT SCH (21:46)
[2023-03-28] MEDS: traZODone 50 MG TAB PO SCH (21:47)
[2023-03-29] VITALS (8 sets, daily range): BP systolic 92–127; BP diastolic 52–69; PULSE 78–98; RESP 16–20; TEMP 97.5–98.5; O2SAT 87–98
[2023-03-29] MEDS: PIPERACILLIN/TAZOBACTAM 3.375 GM in DEXTROSE 5% 50 ML IV SCH ×4 (00:40→18:00)
[2023-03-29] MEDS: ALBUTEROL SULFATE/IPRATROPIU 3 ML SOL IH SCH ×3 (05:00→12:54)
[2023-03-29 05:57] LABS: BASOPHILS % (AUTO) 0.4 % (0.0-2.0); EOSINOPHILS # (AUTO) 0.3 K/uL (0-0.4); EOSINOPHILS % (AUTO) 4.6 % (0.0-4.0); HEMATOCRIT 36.6 % (36-52); HEMOGLOBIN 11.8 g/dL (12.0-18.0); LYMPHOCYTES # (AUTO) 2.3 K/uL (2.0-11.5); LYMPHOCYTES % (AUTO) 32.2 % (20.5-51.1); MEAN CORPUSCULAR HEMOGLOBIN 28 pg (27-31); MEAN CORPUSCULAR HGB CONC 32 g/dL (33-37); MEAN CORPUSCULAR VOLUME 86.2 fL (80-94); MONOCYTES % (AUTO) 14.4 % (1.7-9.3); NEUTROPHILS # (AUTO) 3.4 K/uL (1.8-7.7); NEUTROPHILS % (AUTO) 48.4 % (42.2-75.2); PLATELET COUNT (AUTO) 214 K/uL (140-450); RED BLOOD CELL COUNT(AUTO) 4.25 MIL/uL (4.20-6.10); RED CELL DISTRIBUTION WIDTH 17.2 % (11.6-13.7)
[2023-03-29 06:04] LABS: ANION GAP 9.4 (8-16); CARBON DIOXIDE 38.4 mmol/L (21-32); CREATININE 0.6 mg/dL (0.6-1.3); POTASSIUM 3.8 mmol/L (3.5-5.1)
--- NOTE | 2023-03-29 07:12 | NUR ---
RECEIVED PT ON 2L NASAL CANNULA. SATURATION 97%. NO SOB. CLEAR/DIM BREATH SOUNDS WITH A SLIGHT EX WHEEZE. TREATMENT GIVEN. IMPROVED BREATH SOUNDS. CALL LIGHT WITHIN REACH OF PATIENT. WILL CONTINUE TO MONITOR.
--- NOTE | 2023-03-29 07:21 | NUR ---
PATIENT STABLE. ENDORSED TO AM NURSE FOR CONTINUITY OF CARE.
--- NOTE | 2023-03-29 07:22 | NUR ---
RECEIVED REPORT FROM JEWEL BEARING POLISHER NURSE FOR CONTINUITY OF CARE. PT IS AWAKE, RECEIVING BREATHING TREATMENT FROM RT. NO SIGN OF DISTRESS, CALL LIGHT WITHIN REACH.
[2023-03-29] MEDS: levETIRAcetam 100 MG/ML ORASYR GT SCH ×2 (08:50→14:20)
[2023-03-29] MEDS: VALPROIC ACID 250 MG/5 ML UDC GT SCH ×3 (08:50→18:22)
[2023-03-29] MEDS: LACTULOSE 20 GM/30 ML UDC GT SCH ×3 (08:50→18:22)
[2023-03-29] MEDS: FUROSEMIDE 40 MG TAB PO SCH (08:51)
[2023-03-29] MEDS: BACLOFEN 10 MG TAB GT SCH ×3 (08:52→18:23)
[2023-03-29] MEDS: diazePAM 5 MG TAB GT SCH (08:53)
--- NOTE | 2023-03-29 08:53 | NUR ---
GAVE DIAZEPAM 1 TAB.
[2023-03-29] MEDS ORDERED: AMOX1TAB8 PO (09:17)
--- NOTE | 2023-03-29 09:25 | NUR ---
AT 0905 PT HAD A SEIZURE FOR 30 SECS. PROVIDED SAFETY AND KEPT AIRWAY CLEAR. PRN ATIVAN GIVEN. INFORMED.CALL LIGHT WITHIN REACH.
--- NOTE | 2023-03-29 13:00 | NUR ---
PT IS ASLEEP, NO EPISODE OF SEIZURE. NO SIGN OF DISTRESS. CALL LIGHT WITHIN REACH.
--- NOTE | 2023-03-29 16:23 | NUR ---
TRIED CALLING [facility] FOR TRANSFER OF CARE BUT HAVE NOT PICKED UP MY CALL.
--- NOTE | 2023-03-29 18:40 | NUR ---
PT'S NON EMERGENT TRANSPORT ARRIVED. PT IS STABLE, REMOVED IV AND ID BAND. DISCONTINUED FEEDING FOR TRANSPORT. KEPT FC I WAS NOT ABLE TO TALK TO THE RN IN [facility].
--- NOTE | 2023-03-29 18:45 | NUR ---
[facility] CALLED AND I WAS ABLE TO GIVE REPORT, INFORMED HER OF THE FC AND SHE STATED THAT SHE WILL DC IT. INFORMED HER THAT PT LEFT 5 MINS AGO.
== END 2023-03-29 18:40 | DRG 53 ==
LOC: MED 23:42 → MTU 03-26 03:15
PROVIDERS: ADMIT Family Medicine; ATTEND Family Medicine
DX: G40.802 Other epilepsy, not intractable, without status epilepticus (principal); J96.02 Acute respiratory failure with hypercapnia; N17.0 Acute kidney failure with tubular necrosis; G91.1 Obstructive hydrocephalus; E44.1 Mild protein-calorie malnutrition; J18.9 Pneumonia, unspecified organism; E87.20 Acidosis, unspecified; M41.84 Other forms of scoliosis, thoracic region; G80.9 Cerebral palsy, unspecified; I51.7 Cardiomegaly; K21.9 Gastro-esophageal reflux disease without esophagitis; N40.0 Benign prostatic hyperplasia without lower urinary tract symptoms; F79 Unspecified intellectual disabilities; R13.10 Dysphagia, unspecified; D64.9 Anemia, unspecified; Z99.81 Dependence on supplemental oxygen; Z93.1 Gastrostomy status; Z68.32 Body mass index [BMI] 32.0-32.9, adult
CPT/HCPCS: 36415; 36600; 70450; 71045; 80048; 80053; 80173; 81001; 82803; 83605; 83735; 85025; 85610; 85730; 87040; 87081; 87086; 94640; 95816; 96365; 96372; 96375; 99291; J1953; J2060; J2185; J2543; J3370; J7060; Q0092

== ENCOUNTER 2023-04-03 20:33 | Emergency (ER) | payer MEDICAID ==
[~2023-04-03] VITALS: Ht 182.9 cm; Wt 81.6 kg
[~2023-04-03 20:33] MED LIST changes: +AMOX1TAB8 PO; -AZIT250T11 PO; -BACL10TA4 GT
--- NOTE | 2023-04-03 21:23 | NUR ---
Patient being evaluated by physician at bedside.
[2023-04-03 21:33] VITALS: BP 130/70; PULSE 91; RESP 14; TEMP 97.3; O2SAT 99
[2023-04-03 21:42] VITALS: O2SAT 99
--- NOTE | 2023-04-04 00:14 | NUR ---
Patient discharged with v/s stable. Written and verbal after care instructions given and explained. Patient verbalized understanding. Ambulance Transport with to retirement. All questions addressed prior to discharge. Advised to follow up with PMD.
== END 2023-04-04 00:14 | disposition home or self-care (01) ==
LOC: MED 20:33
DX: K94.23 Gastrostomy malfunction (principal); K21.9 Gastro-esophageal reflux disease without esophagitis; Z86.69 Personal history of other diseases of the nervous system and sense organs; Z79.899 Other long term (current) drug therapy; Z79.2 Long term (current) use of antibiotics
CPT/HCPCS: 43762; 74018; 99283; 99284

== ENCOUNTER 2023-04-04 10:15 | Inpatient (IN) | payer MEDICAID ==
[~2023-04-04] VITALS: Ht 175.3 cm; Wt 84.4 kg
--- NOTE | 2023-04-04 10:18 | NUR ---
Patient BIBA to bed 4.
[2023-04-04 10:19] VITALS: BP 106/63; PULSE 70; RESP 17; TEMP 97; O2SAT 96
[2023-04-04] MEDS ORDERED: NACL 0.9% 500 ML IV SCH (11:00)
[2023-04-04 11:32] LABS: BASOPHILS # (AUTO) 0.1 K/uL (0.00-0.22); BASOPHILS % (AUTO) 0.9 % (0.0-2.0); EOSINOPHILS % (AUTO) 0.5 % (0.0-4.0); HEMATOCRIT 37.4 % (36-52); LYMPHOCYTES # (AUTO) 2.3 K/uL (2.0-11.5); LYMPHOCYTES % (AUTO) 32.7 % (20.5-51.1); MEAN CORPUSCULAR HEMOGLOBIN 28 pg (27-31); MEAN CORPUSCULAR HGB CONC 32 g/dL (33-37); MEAN CORPUSCULAR VOLUME 86.6 fL (80-94); MONOCYTES # (AUTO) 1.3 K/uL (0.8-1.0); MONOCYTES % (AUTO) 17.8 % (1.7-9.3); NEUTROPHILS # (AUTO) 3.4 K/uL (1.8-7.7); NEUTROPHILS % (AUTO) 48.1 % (42.2-75.2); PLATELET COUNT (AUTO) 238 K/uL (140-450); RED BLOOD CELL COUNT(AUTO) 4.32 MIL/uL (4.20-6.10); RED CELL DISTRIBUTION WIDTH 17.1 % (11.6-13.7); WHITE BLOOD COUNT (AUTO) 7.1 K/uL (4.8-10.8)
[2023-04-04 11:46] LABS: ANION GAP 5.6 (8-16); CREATININE 0.6 mg/dL (0.6-1.3); POTASSIUM 3.5 mmol/L (3.5-5.1); TOTAL BILIRUBIN 0.4 mg/dL (0.0-1.0)
[2023-04-04 11:47] LABS: CARBON DIOXIDE 41.9 mmol/L (21-32)
--- NOTE | 2023-04-04 11:47 | NUR ---
LAB REPORT CRITICAL VALUE FOR PT , CARBON DIOXIDE 41.9 . MD VU AWARE.
[2023-04-04 11:54] LABS: PROTHROMBIN TIME 10.1 secs (10.8-13.4)
[2023-04-04 15:37] LABS: APPEARANCE,URINE SL CLOUDY (CLEAR); BILIRUBIN,URINE NEGATIVE (NEGATIVE); BLOOD, URINE 2+ (NEGATIVE); COLOR,URINE YELLOW (YELLOW); LEUKOCYTE ESTERASE ,URINE NEGATIVE (NEGATIVE); NITRITE, URINE NEGATIVE (NEGATIVE); UGLUCOSE NEGATIVE (NEGATIVE)
[2023-04-04 15:39] LABS: TRICHOMONAS,URINE None Seen /HPF (None Seen); YEAST,URINE None Seen /HPF (None Seen)
[2023-04-04] MEDS ORDERED: DEXT 5% / NACL 0.45% 1,000 ML IV SCH (15:50)
[2023-04-04 17:00] VITALS: BP 112/67; PULSE 96; RESP 16; RESP 18; TEMP 97.6; O2SAT 97
--- NOTE | 2023-04-04 17:00 | NUR ---
RECEIVED PT FROM ER TRANSPORTED VIA GURNEY. REPORT GIVEN BY REMI PAYNE. ALERT AND ORIENTED X 1. RESP. EVEN AND UNLABORED. ON CONTINUOUS O2 @ 4L/NC. SKIN NON INTACT, G-TUBE STOMA LT SIDE OF ABDOMEN. NO OPEN WOUNDS. INCONTINENT TO BOWEL AND BLADDER. NON AMBULATORY. CALL LIGHT KEPT WITHIN REACH. WILL CONTINUE TO MONITOR.
--- NOTE | 2023-04-04 17:04 | NUR ---
Patient will be admitted to care of DR ANN. Admited to TELEMETRY. Will go to room 123B. Belongings list completed. Report to MATTI ROSAS.
--- NOTE | 2023-04-04 17:30 | NUR ---
Patient's Plan of Care was discussed and reviewed with INTERMEDIATE TEACHER: MATTI
[2023-04-04] MEDS ORDERED: LORazepam 2 MG/ML VIAL IVP PRN (17:45)
--- NOTE | 2023-04-04 18:00 | NUR ---
MRSA SWAB COLLECTED. SEND TO LAB.
[2023-04-04] MEDS ORDERED: VALPROATE SODIUM 500 MG in NACL 0.9% 100 ML IV SCH (18:15)
--- NOTE | 2023-04-04 19:07 | NUR ---
DR. HUERTA REINSERTED G-TUBE 20 F TO LT UPPER QUADRANT. ABLE TO ASPIRATE. PLACEMENT CHECKED. TOLERATED WELL. NO C/O PAIN OR DISCOMFORT. PER DR. HUERTA G-TUBE READY TO USE, MAY GO BACK TO BOARD AND CARE.
--- NOTE | 2023-04-04 19:15 | NUR ---
DR. ANN NOTIFIED, PT CLEARED FOR DISCHARGED PER DR. HUERTA.
--- NOTE | 2023-04-04 19:20 | NUR ---
BEDSIDE REPORT GIVEN TO PIE CRUST MIXER FOR CONTINUITY OF CARE. REMAINS STABLE.
--- NOTE | 2023-04-04 19:25 | NUR ---
RECD REPORT FROM KERRY CHINO. PATIENT RESTING IN BED, SLEEPING BUT EASILY AROUSABLE. A/OX1. RESPIRATION EVEN AND UNLABORED. ON 02 At 4 LITERS VIA N/C, 02 SAT - 100%. NEWLY PLACED G TUBE BY DR. OLIVER INTACT WITH GAUZE DRESSING. APPLIED ABDOMINAL BINDER TO PROTECT GT FROM BEING PULLED OUT BY THE PATIENT. IVP DEPAKOTE INFUSING T 105 ML/HR LEFT FOREARM G20. PATIENT IS FOR TRANSFER BACK TO [facility]. NO APPEARANCE OF PAIN OR DISCOMFORT NOTED 0/10.
--- NOTE | 2023-04-04 19:26 | NUR ---
SPOKE WITH DHIRAJ WITH [facility] TO ARRANGE FOR TRANSPORTATION. STATED SHE WILL CALL BACK TO SEE HOW TO ARRANGE FOR TRANSPORT FOR PT.
[2023-04-04 19:53] VITALS: BP 117/66; PULSE 85; RESP 18; TEMP 97.9; O2SAT 100
[2023-04-04 20:00] VITALS: PULSE 87
[2023-04-04] MEDS ORDERED: AZITHROMYCIN 500 MG in DEXTROSE 5% 250 ML IV SCH (20:00)
--- NOTE | 2023-04-04 20:20 | NUR ---
REPORT GIVEN TO KIMBERLY LA. FAMILY ALREADY CONTACTED BY NURSE AGUILAR.
--- NOTE | 2023-04-04 20:30 | NUR ---
NOT ADMINISTER ANY IV MEDICATION DUE TO PT IS GOING HOME.
--- NOTE | 2023-04-04 20:50 | NUR ---
REPORT GIVEN TO AMBULANCE PERSONNEL. IV DISCONTINUED.
[2023-04-04] MEDS ORDERED: levETIRAcetam 500 MG in NACL 0.9% 100 ML IV SCH (21:00)
--- NOTE | 2023-04-04 21:07 | NUR ---
TAKEN TO HOSPITAL LOBBY PARKING VIA GURNEY IN STABLE CONDITION ACCOMPANIED BY AMBULANCE PERSONNEL FOR TRANSFER BACK TO [facility].
== END 2023-04-04 21:07 | DRG 252 ==
LOC: MED 10:15 → MTU 15:51
PROVIDERS: ADMIT Student in an Organized Health Care Education/Training Program; ATTEND Student in an Organized Health Care Education/Training Program
PROC: 0D20XUZ Change Feeding Device in Upper Intestinal Tract, External Approach (ICD-10-PCS; principal; 2023-04-04)
DX: K94.23 Gastrostomy malfunction (principal); N17.0 Acute kidney failure with tubular necrosis; E87.20 Acidosis, unspecified; J18.9 Pneumonia, unspecified organism; E44.1 Mild protein-calorie malnutrition; I50.9 Heart failure, unspecified; M41.84 Other forms of scoliosis, thoracic region; Z99.81 Dependence on supplemental oxygen; K21.9 Gastro-esophageal reflux disease without esophagitis; Z20.822 Contact with and (suspected) exposure to COVID-19; E86.0 Dehydration; I51.7 Cardiomegaly; D64.9 Anemia, unspecified; Y83.3 Surgical operation with formation of external stoma as the cause of abnormal reaction of the patient, or of later complication, without mention of misadventure at the time of the procedure; R13.10 Dysphagia, unspecified; G80.9 Cerebral palsy, unspecified; G40.909 Epilepsy, unspecified, not intractable, without status epilepticus; Y92.89 Other specified places as the place of occurrence of the external cause; Z79.899 Other long term (current) drug therapy; Y92.128 Other place in nursing home as the place of occurrence of the external cause; Z68.27 Body mass index [BMI] 27.0-27.9, adult
CPT/HCPCS: 36415; 71045; 80053; 81001; 83605; 83880; 84484; 85025; 85610; 85730; 87040; 87081; 87086; 93005; 99285; J0456; J0696; J1953; J3490; J7060; Q9967

== ENCOUNTER 2023-05-30 15:13 | Inpatient (IN) | payer MEDICAID ==
[~2023-05-30] VITALS: Ht 167.6 cm; Wt 90.7 kg
[2023-05-30] VITALS (8 sets, daily range): BP systolic 122–128; BP diastolic 62–72; PULSE 81–124; RESP 24–30; TEMP 98–101; O2SAT 89–99
[~2023-05-30 15:13] MED LIST changes: +DIAZ-950 GT; -DIAZ10TA7 GT
[2023-05-30] MEDS ORDERED: NACL 0.9% 500 ML IV ONE (15:25)
[2023-05-30] MEDS ORDERED: ACETAMINOPHEN 650 MG SUPP RC ONE (15:25)
[2023-05-30] MEDS ORDERED: VANCOMYCIN 1,000 MG in DEXTROSE 5% 250 ML IV ONE (15:25)
[2023-05-30] MEDS ORDERED: PIPERACILLIN/TAZOBACTAM 3.375 GM in DEXTROSE 5% 50 ML IV ONE (15:25)
[2023-05-30] MEDS ORDERED: VANCOMYCIN 1,000 MG VIAL ONE (15:29)
[2023-05-30] MEDS ORDERED: PIPERACILLIN/TAZOBACTAM 3.375 GM VIAL IV ONE ×2 (15:30→21:22)
[2023-05-30 16:07] LABS: BASOPHILS # (AUTO) 0.1 K/uL (0.00-0.22); BASOPHILS % (AUTO) 0.9 % (0.0-2.0); HEMATOCRIT 37.6 % (36-52); HEMOGLOBIN 12.3 g/dL (12.0-18.0); LYMPHOCYTES # (AUTO) 1.4 K/uL (2.0-11.5); LYMPHOCYTES % (AUTO) 10.2 % (20.5-51.1); MEAN CORPUSCULAR HEMOGLOBIN 28 pg (27-31); MEAN CORPUSCULAR HGB CONC 33 g/dL (33-37); MEAN CORPUSCULAR VOLUME 84.7 fL (80-94); MONOCYTES # (AUTO) 1.4 K/uL (0.8-1.0); MONOCYTES % (AUTO) 10.3 % (1.7-9.3); NEUTROPHILS # (AUTO) 10.9 K/uL (1.8-7.7); NEUTROPHILS % (AUTO) 78.6 % (42.2-75.2); PLATELET COUNT (AUTO) 218 K/uL (140-450); RED BLOOD CELL COUNT(AUTO) 4.44 MIL/uL (4.20-6.10); RED CELL DISTRIBUTION WIDTH 17.4 % (11.6-13.7); WHITE BLOOD COUNT (AUTO) 13.9 K/uL (4.8-10.8)
[2023-05-30 16:20] LABS: BLOOD GAS PH 7.394 (7.35-7.45)
[2023-05-30 16:21] LABS: BLOOD GAS BASE EXCESS 13.6 mmol/L (-2.0-2.0); BLOOD GAS HCO3 41.4 mmol/L (22-26); BLOOD GAS PCO2 69.3 mmHg (35-45); BLOOD GAS PO2 95.3 mmHg (75-100)
[2023-05-30 16:29] LABS: INR 0.97 (0.8-1.2); PARTIAL THROMBOPLASTIN TIME 27.3 secs (22-35.6); PROTHROMBIN TIME 10.2 secs (10.8-13.4)
[2023-05-30 16:42] LABS: LACTIC ACID 1.5 mmol/L (0.4-2.0)
[2023-05-30 16:42] LABS: APPEARANCE,URINE CLEAR (CLEAR); BILIRUBIN,URINE NEGATIVE (NEGATIVE); BLOOD, URINE NEGATIVE (NEGATIVE); COLOR,URINE YELLOW (YELLOW); LEUKOCYTE ESTERASE ,URINE NEGATIVE (NEGATIVE); NITRITE, URINE NEGATIVE (NEGATIVE); PH,URINE 8.5 (5.0-9.0); PROTEIN,URINE TRACE (NEGATIVE); UGLUCOSE NEGATIVE (NEGATIVE); UROBILINOGEN,URINE 0.2 EU/dL (0.2 - 1)
[2023-05-30 16:49] LABS: ALBUMIN 2.8 g/dL (3.4-5.0); ANION GAP 8.5 (8-16); CALCIUM 9.8 mg/dL (8.5-10.1); CARBON DIOXIDE 38.3 mmol/L (21-32); CREATININE 0.7 mg/dL (0.6-1.3); POTASSIUM 3.8 mmol/L (3.5-5.1); TOTAL BILIRUBIN 0.3 mg/dL (0.0-1.0); TOTAL PROTEIN, SERUM 8.3 g/dL (6.4-8.2)
[2023-05-30] MEDS ORDERED: ALBUTEROL SULFATE/IPRATROPIU 3 ML SOL IH ONE (16:55)
[2023-05-30] MEDS ORDERED: ACETAMINOPHEN 325 MG TAB PO PRN (18:55)
[2023-05-30] MEDS ORDERED: DOCUSATE SODIUM 100 MG GELCAP PO PRN (18:55)
[2023-05-30] MEDS ORDERED: POTASSIUM CHLORIDE 10 MEQ TABER PO PRN (18:55)
[2023-05-30] MEDS ORDERED: HYDROcodone/APAP 7.5/325 MG 1 TAB PO PRN (18:55)
[2023-05-30] MEDS ORDERED: guaiFENesin DM 200/20 MG-10 ML 10 ML UDC PO PRN (18:55)
[2023-05-30] MEDS ORDERED: ZOLPIDEM 5 MG TAB PO PRN (18:55)
[2023-05-30] MEDS ORDERED: ONDANSETRON 4 MG/2 ML VIAL IM/IVP PRN (18:55)
[2023-05-30 19:02] LABS: FLU A ANTIGEN negative (NEGATIVE); FLU B ANTIGEN negative (NEGATIVE)
[2023-05-30 20:10] LABS: CHOL/HDL RATIO 4.7 (1-4.5); FREE T4 (FREE THYROXINE) 1.02 ng/dL (0.76-1.46); MAGNESIUM 1.7 mg/dL (1.8-2.4); PHOSPHORUS 1.7 mg/dL (2.5-4.9); THYROID STIMULATING HORMONE 1.68 uIU/mL (0.34-3.74)
[2023-05-30] MEDS: PIPERACILLIN/TAZOBACTAM 3.375 GM in DEXTROSE 5% 50 ML IV SCH (21:49)
[2023-05-30] MEDS: NACL 0.9% 1,000 ML IV SCH (21:49)
[2023-05-30] MEDS: ALBUTEROL SULFATE/IPRATROPIU 3 ML SOL IH SCH (23:59)
[2023-05-31] VITALS (13 sets, daily range): BP systolic 115–134; BP diastolic 62–84; PULSE 75–105; RESP 17–26; TEMP 97–98.9; O2SAT 91–98
[2023-05-31] MEDS ORDERED: PIPERACILLIN/TAZOBACTAM 3.375 GM VIAL IV ONE (04:20)
[2023-05-31] MEDS: PIPERACILLIN/TAZOBACTAM 3.375 GM in DEXTROSE 5% 50 ML IV SCH ×3 (04:25→21:20)
[2023-05-31 07:26] LABS: BASOPHILS % (AUTO) 0.1 % (0.0-2.0); EOSINOPHILS % (AUTO) 0.2 % (0.0-4.0); HEMOGLOBIN 11.8 g/dL (12.0-18.0); LYMPHOCYTES # (AUTO) 2.2 K/uL (2.0-11.5); LYMPHOCYTES % (AUTO) 25.5 % (20.5-51.1); MEAN CORPUSCULAR HEMOGLOBIN 27 pg (27-31); MEAN CORPUSCULAR HGB CONC 32 g/dL (33-37); MEAN CORPUSCULAR VOLUME 85.7 fL (80-94); MONOCYTES # (AUTO) 1.2 K/uL (0.8-1.0); NEUTROPHILS # (AUTO) 5.3 K/uL (1.8-7.7); NEUTROPHILS % (AUTO) 60.2 % (42.2-75.2); PLATELET COUNT (AUTO) 175 K/uL (140-450); RED BLOOD CELL COUNT(AUTO) 4.32 MIL/uL (4.20-6.10); RED CELL DISTRIBUTION WIDTH 17.8 % (11.6-13.7); WHITE BLOOD COUNT (AUTO) 8.7 K/uL (4.8-10.8)
[2023-05-31] MEDS: ALBUTEROL SULFATE/IPRATROPIU 3 ML SOL IH SCH ×3 (07:38→20:08)
[2023-05-31 07:42] LABS: ANION GAP 6.1 (8-16); CALCIUM 10.2 mg/dL (8.5-10.1); CARBON DIOXIDE 40.6 mmol/L (21-32); CREATININE 0.6 mg/dL (0.6-1.3); POTASSIUM 3.7 mmol/L (3.5-5.1)
[2023-05-31] MEDS: PANTOPRAZOLE 40 MG TABEC PO SCH (09:14)
[2023-05-31] MEDS ORDERED: HYDROCOLLOID DRESSING TP PRN (12:05)
[2023-05-31] MEDS ORDERED: FOAM DRESSING TP PRN (12:05)
[2023-05-31] MEDS: VALPROIC ACID 250 MG/5 ML UDC GT SCH ×3 (13:11→21:18)
[2023-05-31] MEDS: LACTULOSE 20 GM/30 ML UDC GT SCH ×2 (13:11→17:43)
[2023-05-31] MEDS: FOAM DRESSING TP SCH (13:11)
[2023-05-31] MEDS: GAUZE TP SCH (13:11)
[2023-05-31] MEDS: HYDRAGUARD CREAM TP SCH (13:12)
[2023-05-31] MEDS: HYDROCOLLOID DRESSING TP SCH (13:12)
[2023-05-31] MEDS: NACL 0.9% 1,000 ML IV SCH (13:39)
[2023-05-31] MEDS: TAMSULOSIN 0.4 MG CAP GT SCH (21:18)
[2023-05-31] MEDS: SENNA 8.6 MG TAB GT SCH (21:19)
[2023-05-31] MEDS: levETIRAcetam 100 MG/ML ORASYR GT SCH (21:19)
[2023-05-31] MEDS: traZODone 50 MG TAB PO SCH (21:20)
[2023-06-01] VITALS (10 sets, daily range): BP systolic 104–116; BP diastolic 54–72; PULSE 63–105; RESP 16–30; TEMP 36.9; O2SAT 94–98
[2023-06-01] MEDS: HYDRAGUARD CREAM TP SCH ×2 (01:31→13:55)
[2023-06-01] MEDS: NACL 0.9% 1,000 ML IV SCH ×2 (04:27→20:55)
[2023-06-01] MEDS: PIPERACILLIN/TAZOBACTAM 3.375 GM in DEXTROSE 5% 50 ML IV SCH ×3 (04:31→20:59)
[2023-06-01 08:03] LABS: BASOPHILS % (AUTO) 0.4 % (0.0-2.0); EOSINOPHILS # (AUTO) 0.1 K/uL (0-0.4); EOSINOPHILS % (AUTO) 0.7 % (0.0-4.0); HEMATOCRIT 35.8 % (36-52); HEMOGLOBIN 11.4 g/dL (12.0-18.0); LYMPHOCYTES # (AUTO) 1.9 K/uL (2.0-11.5); LYMPHOCYTES % (AUTO) 22.8 % (20.5-51.1); MEAN CORPUSCULAR HEMOGLOBIN 28 pg (27-31); MEAN CORPUSCULAR HGB CONC 32 g/dL (33-37); MEAN CORPUSCULAR VOLUME 86.1 fL (80-94); MONOCYTES # (AUTO) 0.9 K/uL (0.8-1.0); MONOCYTES % (AUTO) 10.7 % (1.7-9.3); NEUTROPHILS # (AUTO) 5.5 K/uL (1.8-7.7); NEUTROPHILS % (AUTO) 65.4 % (42.2-75.2); PLATELET COUNT (AUTO) 181 K/uL (140-450); RED BLOOD CELL COUNT(AUTO) 4.15 MIL/uL (4.20-6.10); RED CELL DISTRIBUTION WIDTH 17.9 % (11.6-13.7); WHITE BLOOD COUNT (AUTO) 8.4 K/uL (4.8-10.8)
[2023-06-01] MEDS: ALBUTEROL SULFATE/IPRATROPIU 3 ML SOL IH SCH ×3 (08:05→19:21)
[2023-06-01 08:30] LABS: ANION GAP 5.1 (8-16); CALCIUM 9.5 mg/dL (8.5-10.1); CARBON DIOXIDE 37.4 mmol/L (21-32); CREATININE 0.5 mg/dL (0.6-1.3); POTASSIUM 3.5 mmol/L (3.5-5.1)
[2023-06-01 09:06] LABS: HEMOGLOBIN A1C 5.5 % (4.8-5.6)
[2023-06-01] MEDS: LACTULOSE 20 GM/30 ML UDC GT SCH ×3 (09:26→18:12)
[2023-06-01] MEDS: VALPROIC ACID 250 MG/5 ML UDC GT SCH ×4 (09:27→21:00)
[2023-06-01] MEDS: levETIRAcetam 100 MG/ML ORASYR GT SCH ×2 (09:28→21:00)
[2023-06-01] MEDS: FUROSEMIDE 40 MG TAB PO SCH (09:29)
[2023-06-01] MEDS: PANTOPRAZOLE 40 MG TABEC PO SCH (09:29)
[2023-06-01] MEDS: FOAM DRESSING TP SCH (13:55)
[2023-06-01] MEDS: GAUZE TP SCH (13:55)
[2023-06-01 15:06] LABS: T4 (THYROXINE) 7.3 ug/dL (4.5-12.0)
[2023-06-01] MEDS: LORazepam 2 MG/ML VIAL IVP PRN (18:35)
[2023-06-01] MEDS: traZODone 50 MG TAB PO SCH (21:00)
[2023-06-01] MEDS: SENNA 8.6 MG TAB GT SCH (21:00)
[2023-06-01] MEDS: TAMSULOSIN 0.4 MG CAP GT SCH (21:00)
[2023-06-02] VITALS (12 sets, daily range): BP systolic 101–125; BP diastolic 57–73; PULSE 90–103; RESP 16–33; TEMP 97.6–98.5; O2SAT 92–99
[2023-06-02] MEDS: HYDRAGUARD CREAM TP SCH ×2 (01:21→13:03)
[2023-06-02] MEDS: NACL 0.9% 1,000 ML IV SCH ×2 (04:01→13:35)
[2023-06-02 05:07] LABS: BASOPHILS # (AUTO) 0.1 K/uL (0.00-0.22); BASOPHILS % (AUTO) 0.8 % (0.0-2.0); EOSINOPHILS # (AUTO) 0.2 K/uL (0-0.4); EOSINOPHILS % (AUTO) 1.8 % (0.0-4.0); HEMATOCRIT 35.3 % (36-52); HEMOGLOBIN 11.3 g/dL (12.0-18.0); LYMPHOCYTES # (AUTO) 2.3 K/uL (2.0-11.5); LYMPHOCYTES % (AUTO) 26.5 % (20.5-51.1); MEAN CORPUSCULAR HEMOGLOBIN 28 pg (27-31); MEAN CORPUSCULAR HGB CONC 32 g/dL (33-37); MEAN CORPUSCULAR VOLUME 85.9 fL (80-94); MONOCYTES # (AUTO) 0.8 K/uL (0.8-1.0); MONOCYTES % (AUTO) 9.8 % (1.7-9.3); NEUTROPHILS # (AUTO) 5.3 K/uL (1.8-7.7); NEUTROPHILS % (AUTO) 61.1 % (42.2-75.2); PLATELET COUNT (AUTO) 188 K/uL (140-450); RED BLOOD CELL COUNT(AUTO) 4.11 MIL/uL (4.20-6.10); RED CELL DISTRIBUTION WIDTH 17.6 % (11.6-13.7); WHITE BLOOD COUNT (AUTO) 8.6 K/uL (4.8-10.8)
[2023-06-02 05:37] LABS: ANION GAP 5.3 (8-16); CALCIUM 9.6 mg/dL (8.5-10.1); CARBON DIOXIDE 37.5 mmol/L (21-32); CREATININE 0.6 mg/dL (0.6-1.3); POTASSIUM 3.8 mmol/L (3.5-5.1)
[2023-06-02] MEDS: PIPERACILLIN/TAZOBACTAM 3.375 GM in DEXTROSE 5% 50 ML IV SCH ×3 (05:59→20:33)
[2023-06-02] MEDS: ALBUTEROL SULFATE/IPRATROPIU 3 ML SOL IH SCH ×3 (07:45→19:43)
[2023-06-02] MEDS: PANTOPRAZOLE 40 MG TABEC PO SCH (09:03)
[2023-06-02] MEDS: levETIRAcetam 100 MG/ML ORASYR GT SCH ×2 (09:04→20:32)
[2023-06-02] MEDS: LACTULOSE 20 GM/30 ML UDC GT SCH ×3 (09:04→18:03)
[2023-06-02] MEDS: FUROSEMIDE 40 MG TAB PO SCH (09:04)
[2023-06-02] MEDS: VALPROIC ACID 250 MG/5 ML UDC GT SCH ×4 (09:04→20:32)
[2023-06-02] MEDS: GAUZE TP SCH (13:03)
[2023-06-02] MEDS: FOAM DRESSING TP SCH (13:03)
[2023-06-02] MEDS: traZODone 50 MG TAB PO SCH (20:33)
[2023-06-02] MEDS: TAMSULOSIN 0.4 MG CAP GT SCH (20:33)
[2023-06-02] MEDS: SENNA 8.6 MG TAB GT SCH (20:33)
[2023-06-03] VITALS (10 sets, daily range): BP systolic 94–114; BP diastolic 54–71; PULSE 69–104; RESP 15–32; TEMP 97.1–97.9; O2SAT 92–98
[2023-06-03] MEDS: HYDRAGUARD CREAM TP SCH ×2 (01:39→12:27)
[2023-06-03] MEDS: NACL 0.9% 1,000 ML IV SCH ×2 (02:16→22:55)
[2023-06-03] MEDS: ALBUTEROL SULFATE/IPRATROPIU 3 ML SOL IH PRN (03:10)
[2023-06-03] MEDS: PIPERACILLIN/TAZOBACTAM 3.375 GM in DEXTROSE 5% 50 ML IV SCH ×3 (04:27→20:37)
[2023-06-03 06:55] LABS: ANION GAP 10.4 (8-16); CALCIUM 9.5 mg/dL (8.5-10.1); CARBON DIOXIDE 31.8 mmol/L (21-32); CREATININE 0.5 mg/dL (0.6-1.3); POTASSIUM 4.2 mmol/L (3.5-5.1)
[2023-06-03 06:57] LABS: BASOPHILS % (AUTO) 0.4 % (0.0-2.0); EOSINOPHILS # (AUTO) 0.2 K/uL (0-0.4); EOSINOPHILS % (AUTO) 2.4 % (0.0-4.0); HEMOGLOBIN 12.3 g/dL (12.0-18.0); LYMPHOCYTES # (AUTO) 2.4 K/uL (2.0-11.5); LYMPHOCYTES % (AUTO) 31.7 % (20.5-51.1); MEAN CORPUSCULAR HEMOGLOBIN 27 pg (27-31); MEAN CORPUSCULAR HGB CONC 32 g/dL (33-37); MEAN CORPUSCULAR VOLUME 86.3 fL (80-94); MONOCYTES # (AUTO) 0.8 K/uL (0.8-1.0); MONOCYTES % (AUTO) 10.6 % (1.7-9.3); NEUTROPHILS # (AUTO) 4.2 K/uL (1.8-7.7); NEUTROPHILS % (AUTO) 54.9 % (42.2-75.2); PLATELET COUNT (AUTO) 116 K/uL (140-450); RED BLOOD CELL COUNT(AUTO) 4.51 MIL/uL (4.20-6.10); RED CELL DISTRIBUTION WIDTH 17.7 % (11.6-13.7); WHITE BLOOD COUNT (AUTO) 7.6 K/uL (4.8-10.8)
[2023-06-03] MEDS: ALBUTEROL SULFATE/IPRATROPIU 3 ML SOL IH SCH ×3 (07:04→19:00)
[2023-06-03] MEDS: levETIRAcetam 100 MG/ML ORASYR GT SCH ×2 (08:46→20:12)
[2023-06-03] MEDS: LACTULOSE 20 GM/30 ML UDC GT SCH ×3 (08:47→18:23)
[2023-06-03] MEDS: VALPROIC ACID 250 MG/5 ML UDC GT SCH ×4 (08:47→20:12)
[2023-06-03] MEDS: FUROSEMIDE 40 MG TAB PO SCH (08:47)
[2023-06-03] MEDS: PANTOPRAZOLE 40 MG TABEC PO SCH (08:48)
[2023-06-03] MEDS: HYDROCOLLOID DRESSING TP SCH (09:18)
[2023-06-03] MEDS: FOAM DRESSING TP SCH (12:27)
[2023-06-03] MEDS: GAUZE TP SCH (13:36)
[2023-06-03] MEDS: LORazepam 2 MG/ML VIAL IVP PRN (15:09)
[2023-06-03] MEDS: diazePAM 5 MG TAB PO SCH (20:11)
[2023-06-03] MEDS: SENNA 8.6 MG TAB GT SCH (20:11)
[2023-06-03] MEDS: TAMSULOSIN 0.4 MG CAP GT SCH (20:12)
[2023-06-03] MEDS: traZODone 50 MG TAB PO SCH (20:12)
[2023-06-04] VITALS (7 sets, daily range): BP systolic 99–123; BP diastolic 41–72; PULSE 95–111; RESP 16–26; TEMP 97.6–99.2; O2SAT 92–98
[2023-06-04] MEDS: LORazepam 2 MG/ML VIAL IVP PRN ×6 (00:16→18:12)
[2023-06-04] MEDS: HYDRAGUARD CREAM TP SCH ×2 (03:30→13:00)
[2023-06-04] MEDS: PIPERACILLIN/TAZOBACTAM 3.375 GM in DEXTROSE 5% 50 ML IV SCH (04:07)
[2023-06-04] MEDS: ALBUTEROL SULFATE/IPRATROPIU 3 ML SOL IH SCH ×3 (06:57→19:24)
[2023-06-04 07:31] LABS: ANION GAP 7.2 (8-16); CALCIUM 9.5 mg/dL (8.5-10.1); CARBON DIOXIDE 35.5 mmol/L (21-32); CREATININE 0.6 mg/dL (0.6-1.3); POTASSIUM 3.7 mmol/L (3.5-5.1)
[2023-06-04 07:32] LABS: BASOPHILS % (AUTO) 0.2 % (0.0-2.0); EOSINOPHILS # (AUTO) 0.1 K/uL (0-0.4); EOSINOPHILS % (AUTO) 1.7 % (0.0-4.0); HEMATOCRIT 36.9 % (36-52); HEMOGLOBIN 11.8 g/dL (12.0-18.0); LYMPHOCYTES # (AUTO) 2.4 K/uL (2.0-11.5); LYMPHOCYTES % (AUTO) 32.5 % (20.5-51.1); MEAN CORPUSCULAR HEMOGLOBIN 27 pg (27-31); MEAN CORPUSCULAR HGB CONC 32 g/dL (33-37); MEAN CORPUSCULAR VOLUME 85.1 fL (80-94); MONOCYTES # (AUTO) 0.7 K/uL (0.8-1.0); MONOCYTES % (AUTO) 10.1 % (1.7-9.3); NEUTROPHILS # (AUTO) 4.1 K/uL (1.8-7.7); NEUTROPHILS % (AUTO) 55.5 % (42.2-75.2); PLATELET COUNT (AUTO) 211 K/uL (140-450); RED BLOOD CELL COUNT(AUTO) 4.34 MIL/uL (4.20-6.10); RED CELL DISTRIBUTION WIDTH 17.8 % (11.6-13.7); WHITE BLOOD COUNT (AUTO) 7.4 K/uL (4.8-10.8)
[2023-06-04] MEDS: LACTULOSE 20 GM/30 ML UDC GT SCH ×3 (08:54→17:56)
[2023-06-04] MEDS: VALPROIC ACID 250 MG/5 ML UDC GT SCH ×4 (08:55→22:06)
[2023-06-04] MEDS: levETIRAcetam 100 MG/ML ORASYR GT SCH ×2 (08:55→22:05)
[2023-06-04] MEDS: FUROSEMIDE 40 MG TAB PO SCH (08:55)
[2023-06-04] MEDS: diazePAM 5 MG TAB PO SCH ×2 (08:56→22:06)
[2023-06-04] MEDS: PANTOPRAZOLE 40 MG TABEC PO SCH (08:58)
[2023-06-04] MEDS ORDERED: POTASSIUM CHLORIDE 10 MEQ TABER PO SCH (12:13)
[2023-06-04] MEDS ORDERED: MAG SULF 2000 MG/WATER PREMIX 50 ML IV ONE (12:15)
[2023-06-04] MEDS: FOAM DRESSING TP SCH (13:00)
[2023-06-04] MEDS: GAUZE TP SCH (13:00)
[2023-06-04] MEDS: LACOSAMIDE 10 MG/ML GT SCH ×2 (13:22→22:08)
[2023-06-04] MEDS: NACL 0.9% 1,000 ML IV SCH (15:35)
[2023-06-04] MEDS ORDERED: FUROSEMIDE 40 MG/4 ML VIAL IVP SCH (16:03)
[2023-06-04] MEDS ORDERED: COMMUNICATION ORDER MC PRN (18:45)
[2023-06-04] MEDS ORDERED: COMMUNICATION ORDER MC SCH (21:00)
[2023-06-04] MEDS: traZODone 50 MG TAB PO SCH (22:06)
[2023-06-04] MEDS: SENNA 8.6 MG TAB GT SCH (22:06)
[2023-06-04] MEDS: TAMSULOSIN 0.4 MG CAP GT SCH (22:07)
[2023-06-05] VITALS (9 sets, daily range): BP systolic 99–113; BP diastolic 45–71; PULSE 84–109; RESP 18–30; TEMP 95.9–98.3; O2SAT 91–99
[2023-06-05] MEDS: EPIDIOLEX 100 MG/ML GT SCH ×2 (00:16→10:44)
[2023-06-05] MEDS: HYDRAGUARD CREAM TP SCH ×2 (01:36→13:00)
[2023-06-05] MEDS: NACL 0.9% 1,000 ML IV SCH (01:58)
[2023-06-05 05:45] LABS: BASOPHILS % (AUTO) 0.2 % (0.0-2.0); EOSINOPHILS # (AUTO) 0.2 K/uL (0-0.4); EOSINOPHILS % (AUTO) 1.7 % (0.0-4.0); HEMATOCRIT 35.3 % (36-52); HEMOGLOBIN 11.6 g/dL (12.0-18.0); LYMPHOCYTES # (AUTO) 2.4 K/uL (2.0-11.5); LYMPHOCYTES % (AUTO) 24.3 % (20.5-51.1); MEAN CORPUSCULAR HEMOGLOBIN 28 pg (27-31); MEAN CORPUSCULAR HGB CONC 33 g/dL (33-37); MEAN CORPUSCULAR VOLUME 85.1 fL (80-94); MONOCYTES # (AUTO) 1.1 K/uL (0.8-1.0); MONOCYTES % (AUTO) 10.8 % (1.7-9.3); NEUTROPHILS # (AUTO) 6.2 K/uL (1.8-7.7); PLATELET COUNT (AUTO) 238 K/uL (140-450); RED BLOOD CELL COUNT(AUTO) 4.15 MIL/uL (4.20-6.10); RED CELL DISTRIBUTION WIDTH 17.2 % (11.6-13.7); WHITE BLOOD COUNT (AUTO) 9.9 K/uL (4.8-10.8)
[2023-06-05 05:47] LABS: ANION GAP 5.3 (8-16); CALCIUM 9.3 mg/dL (8.5-10.1); CARBON DIOXIDE 39.2 mmol/L (21-32); CREATININE 0.6 mg/dL (0.6-1.3); POTASSIUM 3.5 mmol/L (3.5-5.1)
[2023-06-05] MEDS: ALBUTEROL SULFATE/IPRATROPIU 3 ML SOL IH SCH (07:38)
[2023-06-05] MEDS: diazePAM 5 MG TAB PO SCH (08:19)
[2023-06-05] MEDS: PANTOPRAZOLE 40 MG TABEC PO SCH (08:19)
[2023-06-05] MEDS: FUROSEMIDE 40 MG TAB PO SCH (08:19)
[2023-06-05] MEDS: LACTULOSE 20 GM/30 ML UDC GT SCH ×3 (08:20→17:33)
[2023-06-05] MEDS: VALPROIC ACID 250 MG/5 ML UDC GT SCH ×3 (08:20→17:33)
[2023-06-05] MEDS: levETIRAcetam 100 MG/ML ORASYR GT SCH (08:21)
[2023-06-05] MEDS: LACOSAMIDE 10 MG/ML GT SCH (08:34)
[2023-06-05 10:53] LABS: BLOOD GAS HCO3 39.2 mmol/L (22-26); BLOOD GAS PCO2 67.7 mmHg (35-45); BLOOD GAS PH 7.381 (7.35-7.45); BLOOD GAS PO2 67.5 mmHg (75-100)
[2023-06-05 10:54] LABS: BLOOD GAS BASE EXCESS 11.4 mmol/L (-2.0-2.0); BLOOD GAS O2 SAT% 92.6 % (92.0-98.5)
[2023-06-05] MEDS: GAUZE TP SCH (13:00)
[2023-06-05] MEDS: FOAM DRESSING TP SCH (13:00)
[2023-06-05] MEDS: PIPERACILLIN/TAZOBACTAM 3.375 GM in DEXTROSE 5% 50 ML IV SCH ×2 (13:49→21:54)
[2023-06-05] MEDS: LORazepam 2 MG/ML VIAL IVP PRN (19:20)
[2023-06-05] MEDS: BUDESONIDE 0.25 MG/2 ML NEBU INH SCH (19:32)
[2023-06-05] MEDS: ALBUTEROL SULFATE/IPRATROPIU 3 ML SOL IH PRN (20:45)
[2023-06-05] MEDS ORDERED: LATANOPROST 0.005% OP 2.5 ML BTL OP SCH (21:00)
[2023-06-05] MEDS ORDERED: DORZOLAMIDE 2% OP 10 ML BTL OP SCH (21:00)
[2023-06-05] MEDS: DORZOLAMIDE 2% OP 10 ML BTL OP SCH (21:24)
[2023-06-05] MEDS: LATANOPROST 0.005% OP 2.5 ML BTL OP SCH (21:28)
[2023-06-06] VITALS (9 sets, daily range): BP systolic 101–119; BP diastolic 43–67; PULSE 82–109; RESP 15–30; TEMP 96.4–98.9; O2SAT 91–98
[2023-06-06] MEDS: LACOSAMIDE 10 MG/ML GT SCH ×3 (00:13→21:47)
[2023-06-06] MEDS: VALPROIC ACID 250 MG/5 ML UDC GT SCH ×5 (00:18→21:26)
[2023-06-06] MEDS: TAMSULOSIN 0.4 MG CAP GT SCH ×2 (00:19→21:26)
[2023-06-06] MEDS: levETIRAcetam 100 MG/ML ORASYR GT SCH ×3 (00:19→21:25)
[2023-06-06] MEDS: SENNA 8.6 MG TAB GT SCH ×2 (00:20→21:27)
[2023-06-06] MEDS: traZODone 50 MG TAB PO SCH ×2 (00:21→21:27)
[2023-06-06] MEDS: diazePAM 5 MG TAB PO SCH ×3 (00:21→21:29)
[2023-06-06] MEDS: HYDRAGUARD CREAM TP SCH ×2 (00:23→13:00)
[2023-06-06 05:29] LABS: BASOPHILS # (AUTO) 0.1 K/uL (0.00-0.22); BASOPHILS % (AUTO) 0.6 % (0.0-2.0); EOSINOPHILS # (AUTO) 0.2 K/uL (0-0.4); EOSINOPHILS % (AUTO) 2.4 % (0.0-4.0); HEMATOCRIT 37.3 % (36-52); LYMPHOCYTES # (AUTO) 2.2 K/uL (2.0-11.5); LYMPHOCYTES % (AUTO) 25.7 % (20.5-51.1); MEAN CORPUSCULAR HEMOGLOBIN 28 pg (27-31); MEAN CORPUSCULAR HGB CONC 32 g/dL (33-37); MEAN CORPUSCULAR VOLUME 86.3 fL (80-94); MONOCYTES # (AUTO) 0.9 K/uL (0.8-1.0); MONOCYTES % (AUTO) 10.3 % (1.7-9.3); NEUTROPHILS # (AUTO) 5.1 K/uL (1.8-7.7); PLATELET COUNT (AUTO) 237 K/uL (140-450); RED BLOOD CELL COUNT(AUTO) 4.32 MIL/uL (4.20-6.10); RED CELL DISTRIBUTION WIDTH 17.9 % (11.6-13.7); WHITE BLOOD COUNT (AUTO) 8.4 K/uL (4.8-10.8)
[2023-06-06] MEDS: PIPERACILLIN/TAZOBACTAM 3.375 GM in DEXTROSE 5% 50 ML IV SCH ×3 (05:39→21:31)
[2023-06-06 05:59] LABS: ANION GAP 5.5 (8-16); CALCIUM 9.6 mg/dL (8.5-10.1); CARBON DIOXIDE 39.3 mmol/L (21-32); CREATININE 0.6 mg/dL (0.6-1.3); POTASSIUM 3.8 mmol/L (3.5-5.1)
[2023-06-06] MEDS: BUDESONIDE 0.25 MG/2 ML NEBU INH SCH ×2 (07:25→19:46)
[2023-06-06] MEDS: ALBUTEROL SULFATE/IPRATROPIU 3 ML SOL IH PRN ×2 (07:25→13:38)
[2023-06-06] MEDS: LACTULOSE 20 GM/30 ML UDC GT SCH ×3 (08:28→16:13)
[2023-06-06] MEDS: PANTOPRAZOLE 40 MG TABEC PO SCH (08:31)
[2023-06-06] MEDS: EPIDIOLEX 100 MG/ML GT SCH ×2 (08:40→21:32)
[2023-06-06] MEDS: DORZOLAMIDE 2% OP 10 ML BTL OP SCH ×2 (09:04→21:31)
[2023-06-06] MEDS: HYDROCOLLOID DRESSING TP SCH (09:05)
[2023-06-06] MEDS: METOCLOPRAMIDE 10 MG/2 ML INJ VIAL IVP SCH ×2 (12:37→21:26)
[2023-06-06] MEDS: FOAM DRESSING TP SCH (13:00)
[2023-06-06] MEDS: GAUZE TP SCH (13:00)
[2023-06-06] MEDS: ALBUTEROL SULFATE/IPRATROPIU 3 ML SOL IH SCH (19:46)
[2023-06-06] MEDS: LATANOPROST 0.005% OP 2.5 ML BTL OP SCH (21:30)
[2023-06-07] VITALS (7 sets, daily range): BP systolic 103–110; BP diastolic 44–61; PULSE 76–102; RESP 17–28; TEMP 97.6–97.8; O2SAT 92–98
[2023-06-07] MEDS: HYDRAGUARD CREAM TP SCH ×2 (01:00→13:24)
[2023-06-07] MEDS: ALBUTEROL SULFATE/IPRATROPIU 3 ML SOL IH SCH ×3 (01:34→13:07)
[2023-06-07] MEDS: PIPERACILLIN/TAZOBACTAM 3.375 GM in DEXTROSE 5% 50 ML IV SCH (05:28)
[2023-06-07] MEDS: METOCLOPRAMIDE 10 MG/2 ML INJ VIAL IVP SCH ×2 (05:28→13:23)
[2023-06-07] MEDS: BUDESONIDE 0.25 MG/2 ML NEBU INH SCH (07:51)
[2023-06-07] MEDS: DORZOLAMIDE 2% OP 10 ML BTL OP SCH (08:09)
[2023-06-07] MEDS: levETIRAcetam 100 MG/ML ORASYR GT SCH (08:10)
[2023-06-07] MEDS: LACTULOSE 20 GM/30 ML UDC GT SCH ×3 (08:11→17:01)
[2023-06-07] MEDS: VALPROIC ACID 250 MG/5 ML UDC GT SCH ×3 (08:11→17:02)
[2023-06-07] MEDS: PANTOPRAZOLE 40 MG TABEC PO SCH (08:12)
[2023-06-07] MEDS: diazePAM 5 MG TAB PO SCH (08:12)
[2023-06-07] MEDS: EPIDIOLEX 100 MG/ML GT SCH (09:00)
[2023-06-07] MEDS: LACOSAMIDE 10 MG/ML GT SCH (09:02)
[2023-06-07] MEDS: GAUZE TP SCH (13:23)
[2023-06-07] MEDS: FOAM DRESSING TP SCH (13:23)
[2023-06-07] MEDS ORDERED: FUROSEMIDE 40 MG/4 ML VIAL IVP SCH (15:22)
== END 2023-06-07 18:10 | DRG 720 ==
LOC: MED 15:13 → MTU 18:53
PROVIDERS: ADMIT Family Medicine; ATTEND Family Medicine
PROC: 5A09457 Assistance with Respiratory Ventilation, 24-96 Consecutive Hours, Continuous Positive Airway Pressure (ICD-10-PCS; principal; 2023-05-30)
PROC: 5A09357 Assistance with Respiratory Ventilation, Less than 24 Consecutive Hours, Continuous Positive Airway Pressure (ICD-10-PCS; 2023-06-01)
PROC: 5A09357 Assistance with Respiratory Ventilation, Less than 24 Consecutive Hours, Continuous Positive Airway Pressure (ICD-10-PCS; 2023-06-02)
DX: A41.9 Sepsis, unspecified organism (principal); J96.21 Acute and chronic respiratory failure with hypoxia; G91.1 Obstructive hydrocephalus; J18.9 Pneumonia, unspecified organism; F72 Severe intellectual disabilities; E44.0 Moderate protein-calorie malnutrition; J44.0 Chronic obstructive pulmonary disease with (acute) lower respiratory infection; E83.39 Other disorders of phosphorus metabolism; I11.0 Hypertensive heart disease with heart failure; I50.9 Heart failure, unspecified; J44.1 Chronic obstructive pulmonary disease with (acute) exacerbation; K21.9 Gastro-esophageal reflux disease without esophagitis; R13.10 Dysphagia, unspecified; G80.9 Cerebral palsy, unspecified; Z20.822 Contact with and (suspected) exposure to COVID-19; G40.909 Epilepsy, unspecified, not intractable, without status epilepticus; J96.22 Acute and chronic respiratory failure with hypercapnia; M41.9 Scoliosis, unspecified; E78.5 Hyperlipidemia, unspecified; E83.42 Hypomagnesemia; E83.52 Hypercalcemia; Z99.81 Dependence on supplemental oxygen; Z93.1 Gastrostomy status; Z79.899 Other long term (current) drug therapy; Z68.32 Body mass index [BMI] 32.0-32.9, adult
CPT/HCPCS: 36415; 36600; 71045; 80048; 80053; 80173; 81003; 82140; 82150; 82550; 82803; 83036; 83605; 83690; 83735; 83880; 84100; 84436; 84439; 84443; 84479; 84484; 85025; 85610; 85730; 87040; 87081; 87086; 93005; 93970; 94640; 94660; 95816; 96365; 96375; 99291; J1644; J1940; J2060; J2543; J2765; J3370; J7060; J7626; Q0092

== ENCOUNTER 2023-07-03 23:05 | Inpatient (IN) | payer MEDICAID ==
[~2023-07-03] VITALS: Ht 167.6 cm; Wt 74.8 kg
[~2023-07-03 23:05] MED LIST changes: -AMOX1TAB8 PO
[2023-07-03 23:06] VITALS: BP 103/64; PULSE 89; RESP 17; TEMP 98.7; O2SAT 92
[2023-07-03] MEDS ORDERED: NACL 0.9% 1,000 ML IV ONE (23:35)
[2023-07-03 23:56] LABS: BASOPHILS # (AUTO) 0.1 K/uL (0.00-0.22); BASOPHILS % (AUTO) 0.8 % (0.0-2.0); EOSINOPHILS % (AUTO) 0.3 % (0.0-4.0); HEMATOCRIT 36.9 % (36-52); HEMOGLOBIN 11.9 g/dL (12.0-18.0); LYMPHOCYTES # (AUTO) 2.1 K/uL (2.0-11.5); LYMPHOCYTES % (AUTO) 27.7 % (20.5-51.1); MEAN CORPUSCULAR HEMOGLOBIN 28 pg (27-31); MEAN CORPUSCULAR HGB CONC 32 g/dL (33-37); MONOCYTES # (AUTO) 1.1 K/uL (0.8-1.0); MONOCYTES % (AUTO) 14.3 % (1.7-9.3); NEUTROPHILS # (AUTO) 4.3 K/uL (1.8-7.7); NEUTROPHILS % (AUTO) 56.9 % (42.2-75.2); PLATELET COUNT (AUTO) 155 K/uL (140-450); RED BLOOD CELL COUNT(AUTO) 4.29 MIL/uL (4.20-6.10); RED CELL DISTRIBUTION WIDTH 17.7 % (11.6-13.7); WHITE BLOOD COUNT (AUTO) 7.6 K/uL (4.8-10.8)
[2023-07-04] VITALS (10 sets, daily range): BP systolic 109–122; BP diastolic 65–77; PULSE 85–97; RESP 18–28; TEMP 98–98.5; O2SAT 91–96
[2023-07-04 00:21] LABS: ALBUMIN 2.7 g/dL (3.4-5.0); ANION GAP 3.9 (8-16); CALCIUM 9.3 mg/dL (8.5-10.1); CREATININE 0.6 mg/dL (0.6-1.3); POTASSIUM 3.6 mmol/L (3.5-5.1); TOTAL BILIRUBIN 0.4 mg/dL (0.0-1.0); TOTAL PROTEIN, SERUM 8.1 g/dL (6.4-8.2)
[2023-07-04 00:27] LABS: CARBON DIOXIDE 43.7 mmol/L (21-32); LACTIC ACID 1.6 mmol/L (0.4-2.0)
[2023-07-04 00:28] LABS: LIPASE 25 U/L (16-77)
[2023-07-04 01:14] LABS: APPEARANCE,URINE CLEAR (CLEAR); BILIRUBIN,URINE NEGATIVE (NEGATIVE); BLOOD, URINE 1+ (NEGATIVE); COLOR,URINE YELLOW (YELLOW); LEUKOCYTE ESTERASE ,URINE NEGATIVE (NEGATIVE); NITRITE, URINE NEGATIVE (NEGATIVE); PROTEIN,URINE NEGATIVE (NEGATIVE); UGLUCOSE NEGATIVE (NEGATIVE)
[2023-07-04 01:21] LABS: RBC,URINE 11-20 (MOD) /HPF (0-5)
[2023-07-04 01:22] LABS: BACTERIA,URINE FEW /HPF (None Seen); MUCUS,URINE 1+ /LPF (None Seen); SQUAMOUS EPITHELIAL CELL,UR 0-3 (FEW) /LPF (0-3 (FEW)); WBC,URINE 0-5 /HPF (0-5)
[2023-07-04 02:30] LABS: BLOOD GAS PH 7.369 (7.35-7.45)
[2023-07-04 02:31] LABS: BLOOD GAS BASE EXCESS 14.4 mmol/L (-2.0-2.0); BLOOD GAS HCO3 43.1 mmol/L (22-26); BLOOD GAS O2 SAT% 89.2 % (92.0-98.5); BLOOD GAS PCO2 76.4 mmHg (35-45); BLOOD GAS PO2 60.6 mmHg (75-100)
[2023-07-04] MEDS ORDERED: POTASSIUM CHLORIDE 10 MEQ TABER PO PRN (05:45)
[2023-07-04] MEDS ORDERED: HYDROcodone/APAP 7.5/325 MG 1 TAB PO PRN (05:45)
[2023-07-04] MEDS ORDERED: ACETAMINOPHEN 325 MG TAB PO PRN (05:45)
[2023-07-04] MEDS ORDERED: ZOLPIDEM 5 MG TAB PO PRN (05:45)
[2023-07-04] MEDS ORDERED: guaiFENesin DM 200/20 MG-10 ML 10 ML UDC PO PRN (05:45)
[2023-07-04] MEDS ORDERED: DOCUSATE SODIUM 100 MG GELCAP PO PRN (05:45)
[2023-07-04] MEDS ORDERED: ONDANSETRON 4 MG/2 ML VIAL IM/IVP PRN (05:45)
[2023-07-04] MEDS ORDERED: NACL 0.9% 1,000 ML IV SCH (05:45)
[2023-07-04 07:10] LABS: BASOPHILS % (AUTO) 0.5 % (0.0-2.0); EOSINOPHILS % (AUTO) 0.5 % (0.0-4.0); HEMATOCRIT 35.9 % (36-52); HEMOGLOBIN 11.8 g/dL (12.0-18.0); LYMPHOCYTES # (AUTO) 1.9 K/uL (2.0-11.5); LYMPHOCYTES % (AUTO) 25.5 % (20.5-51.1); MEAN CORPUSCULAR HEMOGLOBIN 28 pg (27-31); MEAN CORPUSCULAR HGB CONC 33 g/dL (33-37); MEAN CORPUSCULAR VOLUME 85.4 fL (80-94); MONOCYTES # (AUTO) 1.3 K/uL (0.8-1.0); MONOCYTES % (AUTO) 17.5 % (1.7-9.3); NEUTROPHILS # (AUTO) 4.2 K/uL (1.8-7.7); PLATELET COUNT (AUTO) 145 K/uL (140-450); RED BLOOD CELL COUNT(AUTO) 4.21 MIL/uL (4.20-6.10); RED CELL DISTRIBUTION WIDTH 17.8 % (11.6-13.7); WHITE BLOOD COUNT (AUTO) 7.6 K/uL (4.8-10.8)
[2023-07-04 07:22] LABS: ALBUMIN 2.7 g/dL (3.4-5.0); ANION GAP 5.1 (8-16); CALCIUM 9.3 mg/dL (8.5-10.1); CREATININE 0.6 mg/dL (0.6-1.3); POTASSIUM 4.6 mmol/L (3.5-5.1); TOTAL BILIRUBIN 0.4 mg/dL (0.0-1.0); TOTAL PROTEIN, SERUM 7.9 g/dL (6.4-8.2)
[2023-07-04 07:24] LABS: CARBON DIOXIDE 42.5 mmol/L (21-32)
[2023-07-04] MEDS: ALBUTEROL SULFATE/IPRATROPIU 3 ML SOL IH PRN ×2 (08:23→16:50)
[2023-07-04] MEDS ORDERED: FUROSEMIDE 40 MG/4 ML VIAL IVP SCH (09:00)
[2023-07-04] MEDS ORDERED: PANTOPRAZOLE 40 MG TABEC PO SCH (09:00)
[2023-07-04] MEDS: LACTULOSE 20 GM/30 ML UDC GT SCH ×3 (09:43→16:49)
[2023-07-04] MEDS: VALPROIC ACID 250 MG/5 ML UDC GT SCH ×4 (09:44→20:40)
[2023-07-04] MEDS: diazePAM 5 MG TAB GT SCH ×2 (09:44→20:42)
[2023-07-04] MEDS: levETIRAcetam 100 MG/ML ORASYR GT SCH ×2 (09:44→20:41)
[2023-07-04] MEDS: traZODone 50 MG TAB GT SCH (20:41)
[2023-07-04] MEDS: SENNA 8.6 MG TAB GT SCH (20:43)
[2023-07-04] MEDS: EPIDIOLEX 100 MG/ML GT SCH (20:44)
[2023-07-04 20:45] LABS: FLU A ANTIGEN negative (NEGATIVE); FLU B ANTIGEN NEGATIVE (NEGATIVE)
[2023-07-04] MEDS: LACOSAMIDE 10 MG/ML GT SCH (20:51)
[2023-07-05] VITALS (10 sets, daily range): BP systolic 105–149; BP diastolic 52–72; PULSE 79–96; RESP 18–20; TEMP 96.8–99.2; O2SAT 92–96
[2023-07-05 06:42] LABS: BASOPHILS % (AUTO) 0.1 % (0.0-2.0); EOSINOPHILS # (AUTO) 0.1 K/uL (0-0.4); EOSINOPHILS % (AUTO) 1.9 % (0.0-4.0); HEMATOCRIT 35.6 % (36-52); HEMOGLOBIN 11.3 g/dL (12.0-18.0); LYMPHOCYTES # (AUTO) 1.9 K/uL (2.0-11.5); LYMPHOCYTES % (AUTO) 40.5 % (20.5-51.1); MEAN CORPUSCULAR HEMOGLOBIN 27 pg (27-31); MEAN CORPUSCULAR HGB CONC 32 g/dL (33-37); MONOCYTES # (AUTO) 0.9 K/uL (0.8-1.0); MONOCYTES % (AUTO) 18.2 % (1.7-9.3); NEUTROPHILS # (AUTO) 1.8 K/uL (1.8-7.7); NEUTROPHILS % (AUTO) 39.3 % (42.2-75.2); PLATELET COUNT (AUTO) 164 K/uL (140-450); RED BLOOD CELL COUNT(AUTO) 4.14 MIL/uL (4.20-6.10); RED CELL DISTRIBUTION WIDTH 17.7 % (11.6-13.7); WHITE BLOOD COUNT (AUTO) 4.7 K/uL (4.8-10.8)
[2023-07-05 06:47] LABS: ANION GAP 4.4 (8-16); CALCIUM 9.1 mg/dL (8.5-10.1); CREATININE 0.5 mg/dL (0.6-1.3); POTASSIUM 3.6 mmol/L (3.5-5.1)
[2023-07-05 06:50] LABS: CARBON DIOXIDE 43.2 mmol/L (21-32)
[2023-07-05] MEDS: diazePAM 5 MG TAB GT SCH ×2 (08:51→20:52)
[2023-07-05] MEDS: TAMSULOSIN 0.4 MG CAP GT SCH (08:51)
[2023-07-05] MEDS: VALPROIC ACID 250 MG/5 ML UDC GT SCH ×4 (08:55→20:54)
[2023-07-05] MEDS: levETIRAcetam 100 MG/ML ORASYR GT SCH ×2 (08:55→20:53)
[2023-07-05] MEDS: LACTULOSE 20 GM/30 ML UDC GT SCH ×3 (08:55→17:48)
[2023-07-05] MEDS: EPIDIOLEX 100 MG/ML GT SCH ×2 (08:56→20:56)
[2023-07-05] MEDS ORDERED: acetaZOLAMIDE sodium 250 MG in NACL 0.9% 50 ML IV ONE (09:00)
[2023-07-05] MEDS: LACOSAMIDE 10 MG/ML GT SCH ×2 (09:04→20:55)
[2023-07-05] MEDS: PANTOPRAZOLE 40 MG INJ VIAL IVP SCH (09:27)
[2023-07-05] MEDS ORDERED: acetaZOLAMIDE sodium 500 MG VIAL IV SCH (10:00)
[2023-07-05] MEDS: traZODone 50 MG TAB GT SCH (20:53)
[2023-07-05] MEDS: SENNA 8.6 MG TAB GT SCH (20:54)
[2023-07-06] VITALS (8 sets, daily range): BP systolic 99–115; BP diastolic 55–67; PULSE 68–96; RESP 18–24; TEMP 97.4–98.8; O2SAT 92–99
[2023-07-06 06:47] LABS: BASOPHILS % (AUTO) 0.5 % (0.0-2.0); EOSINOPHILS # (AUTO) 0.1 K/uL (0-0.4); EOSINOPHILS % (AUTO) 1.5 % (0.0-4.0); HEMATOCRIT 36.2 % (36-52); HEMOGLOBIN 11.6 g/dL (12.0-18.0); LYMPHOCYTES # (AUTO) 1.8 K/uL (2.0-11.5); MEAN CORPUSCULAR HEMOGLOBIN 28 pg (27-31); MEAN CORPUSCULAR HGB CONC 32 g/dL (33-37); MEAN CORPUSCULAR VOLUME 87.5 fL (80-94); MONOCYTES # (AUTO) 0.8 K/uL (0.8-1.0); MONOCYTES % (AUTO) 15.3 % (1.7-9.3); NEUTROPHILS # (AUTO) 2.6 K/uL (1.8-7.7); NEUTROPHILS % (AUTO) 48.7 % (42.2-75.2); PLATELET COUNT (AUTO) 184 K/uL (140-450); RED BLOOD CELL COUNT(AUTO) 4.14 MIL/uL (4.20-6.10); RED CELL DISTRIBUTION WIDTH 17.7 % (11.6-13.7); WHITE BLOOD COUNT (AUTO) 5.3 K/uL (4.8-10.8)
[2023-07-06 06:48] LABS: ANION GAP 7.9 (8-16); CARBON DIOXIDE 34.9 mmol/L (21-32); CREATININE 0.5 mg/dL (0.6-1.3); POTASSIUM 3.8 mmol/L (3.5-5.1)
[2023-07-06] MEDS: levETIRAcetam 100 MG/ML ORASYR GT SCH (08:48)
[2023-07-06] MEDS: VALPROIC ACID 250 MG/5 ML UDC GT SCH ×2 (08:49→12:27)
[2023-07-06] MEDS: LACTULOSE 20 GM/30 ML UDC GT SCH ×2 (08:49→12:27)
[2023-07-06] MEDS: TAMSULOSIN 0.4 MG CAP GT SCH (08:50)
[2023-07-06] MEDS: diazePAM 5 MG TAB GT SCH (08:50)
[2023-07-06] MEDS: LACOSAMIDE 10 MG/ML GT SCH (08:51)
[2023-07-06] MEDS: EPIDIOLEX 100 MG/ML GT SCH (09:03)
[2023-07-06] MEDS: PANTOPRAZOLE 40 MG INJ VIAL IVP SCH (09:25)
== END 2023-07-06 14:05 | DRG 194 ==
LOC: MED 23:05 → MTU 07-04 05:45
PROVIDERS: ADMIT Student in an Organized Health Care Education/Training Program; ATTEND Student in an Organized Health Care Education/Training Program
DX: I11.0 Hypertensive heart disease with heart failure (principal); J96.21 Acute and chronic respiratory failure with hypoxia; G93.41 Metabolic encephalopathy; I50.33 Acute on chronic diastolic (congestive) heart failure; J44.1 Chronic obstructive pulmonary disease with (acute) exacerbation; J96.22 Acute and chronic respiratory failure with hypercapnia; G40.909 Epilepsy, unspecified, not intractable, without status epilepticus; G91.9 Hydrocephalus, unspecified; K21.9 Gastro-esophageal reflux disease without esophagitis; M81.0 Age-related osteoporosis without current pathological fracture; Z20.822 Contact with and (suspected) exposure to COVID-19; R13.10 Dysphagia, unspecified; Z99.81 Dependence on supplemental oxygen
CPT/HCPCS: 36415; 36600; 70450; 71045; 80048; 80053; 80173; 81001; 82803; 83605; 83690; 83880; 84484; 85025; 87040; 87081; 87086; 87635-QW; 93005; 94640; 99285; C9113; J1120; J1644; J1940

== ENCOUNTER 2023-07-07 22:22 | Inpatient (IN) | payer MEDICAID ==
[~2023-07-07] VITALS: Ht 170.2 cm; Wt 81.6 kg
[2023-07-07 22:22] VITALS: BP 110/64; PULSE 97; RESP 19; TEMP 97; O2SAT 87
[2023-07-07 22:32] VITALS: O2SAT 89
[2023-07-07] MEDS ORDERED: ALBUTEROL SULFATE/IPRATROPIU 3 ML SOL IH ONE (22:45)
[2023-07-07 23:32] LABS: BLOOD GAS PCO2 77.5 mmHg (35-45)
[2023-07-07 23:33] LABS: BLOOD GAS BASE EXCESS 11.7 mmol/L (-2.0-2.0); BLOOD GAS HCO3 40.9 mmol/L (22-26)
[2023-07-07 23:37] VITALS: PULSE 94; RESP 30; O2SAT 90
[2023-07-07 23:42] VITALS: PULSE 94; RESP 30; O2SAT 90
[2023-07-07 23:45] LABS: BASOPHILS # (AUTO) 0.1 K/uL (0.00-0.22); BASOPHILS % (AUTO) 0.9 % (0.0-2.0); EOSINOPHILS # (AUTO) 0.1 K/uL (0-0.4); HEMATOCRIT 40.3 % (36-52); HEMOGLOBIN 12.8 g/dL (12.0-18.0); LYMPHOCYTES # (AUTO) 1.7 K/uL (2.0-11.5); LYMPHOCYTES % (AUTO) 25.7 % (20.5-51.1); MEAN CORPUSCULAR HEMOGLOBIN 28 pg (27-31); MEAN CORPUSCULAR HGB CONC 32 g/dL (33-37); MEAN CORPUSCULAR VOLUME 87.2 fL (80-94); MONOCYTES % (AUTO) 14.8 % (1.7-9.3); NEUTROPHILS # (AUTO) 3.9 K/uL (1.8-7.7); NEUTROPHILS % (AUTO) 57.6 % (42.2-75.2); PLATELET COUNT (AUTO) 187 K/uL (140-450); RED BLOOD CELL COUNT(AUTO) 4.61 MIL/uL (4.20-6.10); RED CELL DISTRIBUTION WIDTH 18.1 % (11.6-13.7); WHITE BLOOD COUNT (AUTO) 6.8 K/uL (4.8-10.8)
[2023-07-07] MEDS ORDERED: PIPERACILLIN/TAZOBACTAM 3.375 GM in DEXTROSE 5% 50 ML IV ONE (23:50)
[2023-07-07] MEDS ORDERED: AZITHROMYCIN 500 MG in DEXTROSE 5% 250 ML IV ONE (23:50)
[2023-07-08] VITALS (12 sets, daily range): BP systolic 96–104; BP diastolic 58–67; PULSE 80–96; RESP 18–25; TEMP 97.4–98.3; O2SAT 91–97
[2023-07-08] MEDS ORDERED: AZITHROMYCIN 500 MG INJ VIAL IV ONE (00:14)
[2023-07-08 00:15] LABS: FLU A ANTIGEN negative (NEGATIVE); FLU B ANTIGEN NEGATIVE (NEGATIVE)
[2023-07-08] MEDS ORDERED: PIPERACILLIN/TAZOBACTAM 3.375 GM VIAL IV ONE (00:15)
[2023-07-08 00:16] LABS: ALBUMIN 2.9 g/dL (3.4-5.0); ANION GAP 7.1 (8-16); CALCIUM 9.2 mg/dL (8.5-10.1); CARBON DIOXIDE 39.8 mmol/L (21-32); CREATININE 0.6 mg/dL (0.6-1.3); POTASSIUM 3.9 mmol/L (3.5-5.1); TOTAL BILIRUBIN 0.4 mg/dL (0.0-1.0); TOTAL PROTEIN, SERUM 8.6 g/dL (6.4-8.2)
[2023-07-08 00:22] LABS: LACTIC ACID 1.3 mmol/L (0.4-2.0)
[2023-07-08 05:28] LABS: APPEARANCE,URINE CLEAR (CLEAR); BILIRUBIN,URINE NEGATIVE (NEGATIVE); BLOOD, URINE TRACE-I (NEGATIVE); COLOR,URINE YELLOW (YELLOW); LEUKOCYTE ESTERASE ,URINE NEGATIVE (NEGATIVE); NITRITE, URINE NEGATIVE (NEGATIVE); PH,URINE 6.5 (5.0-9.0); PROTEIN,URINE 1+ (NEGATIVE); UGLUCOSE NEGATIVE (NEGATIVE)
[2023-07-08 05:37] LABS: BACTERIA,URINE OCCASSIONAL /HPF (None Seen); RBC,URINE 20-50 /HPF (0-5); WBC,URINE 0-5 /HPF (0-5)
[2023-07-08 05:38] LABS: MUCUS,URINE 1+ /LPF (None Seen); SQUAMOUS EPITHELIAL CELL,UR 0-3 (FEW) /LPF (0-3 (FEW))
[2023-07-08] MEDS ORDERED: MORPHINE SULFATE 2 MG/ML SYR IVP PRN ×2 (06:25→06:55)
[2023-07-08] MEDS ORDERED: ALBUTEROL 0.083% 2.5 MG/3 ML NEBU INH PRN (06:25)
[2023-07-08] MEDS ORDERED: HYDROcodone/APAP 5/325 MG 1 TAB TAB PO PRN (06:25)
[2023-07-08] MEDS: NACL 0.9% 1,000 ML IV SCH ×2 (06:25→16:25)
[2023-07-08] MEDS ORDERED: ACETAMINOPHEN 325 MG TAB PO PRN (06:25)
[2023-07-08] MEDS: IPRATROPIUM 0.02% 0.5 MG/2.5 ML NEBU INH SCH ×2 (07:17→13:00)
[2023-07-08] MEDS ORDERED: acetaZOLAMIDE sodium 500 MG VIAL IVP SCH (10:00)
[2023-07-08] MEDS: PIPERACILLIN/TAZOBACTAM 3.375 GM in DEXTROSE 5% 50 ML IV SCH ×2 (15:48→20:47)
[2023-07-08] MEDS: FUROSEMIDE 20 MG/2 ML VIAL IVP SCH (16:06)
[2023-07-09] VITALS (12 sets, daily range): BP systolic 100–136; BP diastolic 55–89; PULSE 67–98; RESP 18; TEMP 97–98.1; O2SAT 84–98
[2023-07-09] MEDS: NACL 0.9% 1,000 ML IV SCH ×3 (02:25→22:25)
[2023-07-09] MEDS: PIPERACILLIN/TAZOBACTAM 3.375 GM in DEXTROSE 5% 50 ML IV SCH ×3 (05:01→22:58)
[2023-07-09 07:10] LABS: BASOPHILS % (AUTO) 0.2 % (0.0-2.0); EOSINOPHILS # (AUTO) 0.2 K/uL (0-0.4); EOSINOPHILS % (AUTO) 2.6 % (0.0-4.0); HEMATOCRIT 38.4 % (36-52); HEMOGLOBIN 12.3 g/dL (12.0-18.0); LYMPHOCYTES # (AUTO) 2.1 K/uL (2.0-11.5); LYMPHOCYTES % (AUTO) 30.8 % (20.5-51.1); MEAN CORPUSCULAR HEMOGLOBIN 28 pg (27-31); MEAN CORPUSCULAR HGB CONC 32 g/dL (33-37); MONOCYTES # (AUTO) 0.8 K/uL (0.8-1.0); MONOCYTES % (AUTO) 12.2 % (1.7-9.3); NEUTROPHILS # (AUTO) 3.8 K/uL (1.8-7.7); NEUTROPHILS % (AUTO) 54.2 % (42.2-75.2); PLATELET COUNT (AUTO) 191 K/uL (140-450); RED BLOOD CELL COUNT(AUTO) 4.41 MIL/uL (4.20-6.10); RED CELL DISTRIBUTION WIDTH 17.8 % (11.6-13.7); WHITE BLOOD COUNT (AUTO) 6.9 K/uL (4.8-10.8)
[2023-07-09] MEDS: IPRATROPIUM 0.02% 0.5 MG/2.5 ML NEBU INH SCH ×3 (07:43→19:56)
[2023-07-09 07:44] LABS: ALBUMIN 2.8 g/dL (3.4-5.0); ANION GAP 8.5 (8-16); CALCIUM 9.1 mg/dL (8.5-10.1); CARBON DIOXIDE 34.6 mmol/L (21-32); CREATININE 0.6 mg/dL (0.6-1.3); MAGNESIUM 1.9 mg/dL (1.8-2.4); PHOSPHORUS 4.1 mg/dL (2.5-4.9); POTASSIUM 3.1 mmol/L (3.5-5.1); TOTAL BILIRUBIN 0.4 mg/dL (0.0-1.0); TOTAL PROTEIN, SERUM 8.1 g/dL (6.4-8.2)
[2023-07-09] MEDS: FUROSEMIDE 20 MG/2 ML VIAL IVP SCH (09:28)
[2023-07-09] MEDS ORDERED: ACETAMINOPHEN 325 MG TAB PO PRN (15:55)
[2023-07-09] MEDS ORDERED: ONDANSETRON 4 MG ODT PO PRN (15:55)
[2023-07-09] MEDS: VALPROIC ACID 250 MG/5 ML UDC GT SCH ×2 (17:00→22:26)
[2023-07-09] MEDS: CALCIUM CARB/VIT-D 500 MG/200 IU 1 TAB PO SCH (17:00)
[2023-07-09] MEDS ORDERED: diazePAM 5 MG TAB GT SCH (21:00)
[2023-07-09] MEDS ORDERED: NON-FORMULARY ITEM (Lacosamide (Vimpat) 200 MG) GT SCH (21:00)
[2023-07-09] MEDS ORDERED: LORazepam 2 MG/ML VIAL IM/IVP PRN (22:00)
[2023-07-09] MEDS ORDERED: LORazepam 2 MG/ML VIAL ONE (22:02)
[2023-07-09] MEDS ORDERED: POTASSIUM CHLORIDE 20% 40 MEQ/15 ML UDC GT ONE (22:10)
[2023-07-09] MEDS: levETIRAcetam 100 MG/ML ORASYR GT SCH (22:25)
[2023-07-09] MEDS: LACOSAMIDE 10 MG/ML GT SCH (22:26)
[2023-07-09] MEDS: traZODone 50 MG TAB PO SCH (22:27)
[2023-07-09] MEDS: TAMSULOSIN 0.4 MG CAP GT SCH (22:27)
[2023-07-09] MEDS: diazePAM 5 MG TAB GT SCH (22:27)
[2023-07-09] MEDS: DORZOLAMIDE 2% OP 10 ML BTL OP SCH (22:29)
[2023-07-10] VITALS (11 sets, daily range): BP systolic 90–108; BP diastolic 54–63; PULSE 85–109; RESP 18–22; TEMP 97.4–98.7; O2SAT 90–98
[2023-07-10] MEDS: IPRATROPIUM 0.02% 0.5 MG/2.5 ML NEBU INH SCH ×4 (01:00→19:16)
[2023-07-10] MEDS: PIPERACILLIN/TAZOBACTAM 3.375 GM in DEXTROSE 5% 50 ML IV SCH ×3 (04:25→22:04)
[2023-07-10] MEDS: FUROSEMIDE 20 MG/2 ML VIAL IVP SCH ×3 (09:00→11:13)
[2023-07-10] MEDS ORDERED: [UNRECOGNIZED DRUG - OTHER] PO SCH (09:00)
[2023-07-10] MEDS ORDERED: MULTIVITS CA MINERALS PO SCH (09:00)
[2023-07-10] MEDS ORDERED: FATTY ACIDS GT SCH (09:00)
[2023-07-10] MEDS ORDERED: IRON PO SCH (09:00)
[2023-07-10] MEDS ORDERED: OMEGA GT SCH (09:00)
[2023-07-10] MEDS: MULTIVIT/MIN/CA/FE/FA 1 TAB PO SCH (09:29)
[2023-07-10] MEDS: CALCIUM CARB/VIT-D 500 MG/200 IU 1 TAB PO SCH ×3 (09:29→17:36)
[2023-07-10] MEDS: diazePAM 5 MG TAB GT SCH ×2 (09:29→22:04)
[2023-07-10] MEDS: DORZOLAMIDE 2% OP 10 ML BTL OP SCH ×2 (09:30→22:01)
[2023-07-10] MEDS: VALPROIC ACID 250 MG/5 ML UDC GT SCH ×4 (09:30→22:02)
[2023-07-10] MEDS: levETIRAcetam 100 MG/ML ORASYR GT SCH ×2 (09:30→22:06)
[2023-07-10] MEDS: NACL 0.9% 1,000 ML IV SCH ×2 (09:32→18:25)
[2023-07-10] MEDS: LACOSAMIDE 10 MG/ML GT SCH ×2 (10:01→21:00)
[2023-07-10] MEDS ORDERED: LACOSAMIDE 100 MG TAB PO ONE (21:49)
[2023-07-10] MEDS: traZODone 50 MG TAB PO SCH (22:03)
[2023-07-10] MEDS: TAMSULOSIN 0.4 MG CAP GT SCH (22:03)
[2023-07-11] VITALS (10 sets, daily range): BP systolic 90–108; BP diastolic 47–60; PULSE 81–94; RESP 18–28; TEMP 97.7–98.3; O2SAT 91–98
[2023-07-11] MEDS: IPRATROPIUM 0.02% 0.5 MG/2.5 ML NEBU INH SCH ×4 (01:33→18:56)
[2023-07-11] MEDS: NACL 0.9% 1,000 ML IV SCH ×2 (04:25→13:21)
[2023-07-11 06:55] LABS: BASOPHILS % (AUTO) 0.2 % (0.0-2.0); EOSINOPHILS # (AUTO) 0.1 K/uL (0-0.4); EOSINOPHILS % (AUTO) 1.5 % (0.0-4.0); HEMATOCRIT 34.7 % (36-52); HEMOGLOBIN 11.2 g/dL (12.0-18.0); LYMPHOCYTES # (AUTO) 2.4 K/uL (2.0-11.5); LYMPHOCYTES % (AUTO) 28.3 % (20.5-51.1); MEAN CORPUSCULAR HEMOGLOBIN 28 pg (27-31); MEAN CORPUSCULAR HGB CONC 32 g/dL (33-37); MEAN CORPUSCULAR VOLUME 86.7 fL (80-94); MONOCYTES % (AUTO) 11.9 % (1.7-9.3); NEUTROPHILS # (AUTO) 4.9 K/uL (1.8-7.7); NEUTROPHILS % (AUTO) 58.1 % (42.2-75.2); PLATELET COUNT (AUTO) 250 K/uL (140-450); RED CELL DISTRIBUTION WIDTH 18.3 % (11.6-13.7); WHITE BLOOD COUNT (AUTO) 8.5 K/uL (4.8-10.8)
[2023-07-11 07:19] LABS: ANION GAP 6.6 (8-16); CALCIUM 8.6 mg/dL (8.5-10.1); CARBON DIOXIDE 35.4 mmol/L (21-32); CREATININE 0.5 mg/dL (0.6-1.3)
[2023-07-11] MEDS: PIPERACILLIN/TAZOBACTAM 3.375 GM in DEXTROSE 5% 50 ML IV SCH ×3 (07:36→21:22)
[2023-07-11] MEDS: MULTIVIT/MIN/CA/FE/FA 1 TAB PO SCH (08:14)
[2023-07-11] MEDS: DORZOLAMIDE 2% OP 10 ML BTL OP SCH ×2 (08:15→20:50)
[2023-07-11] MEDS: diazePAM 5 MG TAB GT SCH ×2 (08:15→20:49)
[2023-07-11] MEDS: VALPROIC ACID 250 MG/5 ML UDC GT SCH ×4 (08:15→20:48)
[2023-07-11] MEDS: CALCIUM CARB/VIT-D 500 MG/200 IU 1 TAB PO SCH ×3 (08:15→17:19)
[2023-07-11] MEDS: levETIRAcetam 100 MG/ML ORASYR GT SCH ×2 (08:15→20:48)
[2023-07-11] MEDS: LACOSAMIDE 10 MG/ML GT SCH ×2 (08:16→20:58)
[2023-07-11] MEDS: FUROSEMIDE 20 MG/2 ML VIAL IVP SCH (09:00)
[2023-07-11] MEDS: TAMSULOSIN 0.4 MG CAP GT SCH (20:49)
[2023-07-11] MEDS: traZODone 50 MG TAB PO SCH (20:50)
[2023-07-11] MEDS ORDERED: MENTHOL TP SCH (22:20)
[2023-07-11] MEDS ORDERED: EUCALYPTUS OIL TP SCH (22:20)
[2023-07-11] MEDS ORDERED: CAMPHOR TP SCH (22:20)
[2023-07-11] MEDS ORDERED: MENTHOL/ZINC OXIDE 113 GM TUBE TP SCH (22:20)
[2023-07-11] MEDS ORDERED: ALBUTEROL 90 MCG IH SCH (22:20)
[2023-07-11] MEDS ORDERED: bisacodyL 10 MG SUPP RC SCH (22:20)
[2023-07-11] MEDS ORDERED: guaiFENesin 20 MG/ML UDC GT SCH (22:20)
[2023-07-11] MEDS ORDERED: MINERAL OIL 135 ML ENEM RC SCH (22:20)
[2023-07-12] VITALS (8 sets, daily range): BP systolic 88–107; BP diastolic 46–65; PULSE 77–86; RESP 16–24; TEMP 97.1–98.1; O2SAT 95–100
[2023-07-12] MEDS: NACL 0.9% 1,000 ML IV SCH ×3 (00:25→10:28)
[2023-07-12] MEDS: IPRATROPIUM 0.02% 0.5 MG/2.5 ML NEBU INH SCH ×3 (01:00→14:09)
[2023-07-12] MEDS: PIPERACILLIN/TAZOBACTAM 3.375 GM in DEXTROSE 5% 50 ML IV SCH ×2 (04:49→14:17)
[2023-07-12 06:39] LABS: BASOPHILS % (AUTO) 0.3 % (0.0-2.0); EOSINOPHILS # (AUTO) 0.1 K/uL (0-0.4); EOSINOPHILS % (AUTO) 2.5 % (0.0-4.0); HEMATOCRIT 35.7 % (36-52); HEMOGLOBIN 11.2 g/dL (12.0-18.0); LYMPHOCYTES # (AUTO) 1.7 K/uL (2.0-11.5); LYMPHOCYTES % (AUTO) 32.7 % (20.5-51.1); MEAN CORPUSCULAR HEMOGLOBIN 28 pg (27-31); MEAN CORPUSCULAR HGB CONC 32 g/dL (33-37); MEAN CORPUSCULAR VOLUME 87.6 fL (80-94); MONOCYTES # (AUTO) 0.6 K/uL (0.8-1.0); MONOCYTES % (AUTO) 11.1 % (1.7-9.3); NEUTROPHILS # (AUTO) 2.9 K/uL (1.8-7.7); NEUTROPHILS % (AUTO) 53.4 % (42.2-75.2); PLATELET COUNT (AUTO) 237 K/uL (140-450); RED BLOOD CELL COUNT(AUTO) 4.07 MIL/uL (4.20-6.10); RED CELL DISTRIBUTION WIDTH 18.3 % (11.6-13.7); WHITE BLOOD COUNT (AUTO) 5.3 K/uL (4.8-10.8)
[2023-07-12] MEDS ORDERED: guaiFENesin 20 MG/ML UDC GT PRN (07:29)
[2023-07-12 07:36] LABS: ALBUMIN 2.4 g/dL (3.4-5.0); ANION GAP 8.5 (8-16); CALCIUM 8.9 mg/dL (8.5-10.1); CARBON DIOXIDE 36.6 mmol/L (21-32); CREATININE 0.5 mg/dL (0.6-1.3); MAGNESIUM 2.1 mg/dL (1.8-2.4); PHOSPHORUS 4.3 mg/dL (2.5-4.9); POTASSIUM 4.1 mmol/L (3.5-5.1); TOTAL BILIRUBIN 0.2 mg/dL (0.0-1.0); TOTAL PROTEIN, SERUM 7.1 g/dL (6.4-8.2)
[2023-07-12] MEDS ORDERED: bisacodyL 10 MG SUPP RC PRN (07:38)
[2023-07-12] MEDS ORDERED: MENTHOL/ZINC OXIDE 113 GM TUBE TP SCH (07:40)
[2023-07-12] MEDS: LACTULOSE 20 GM/30 ML UDC GT SCH ×3 (08:54→17:23)
[2023-07-12] MEDS: VALPROIC ACID 250 MG/5 ML UDC GT SCH ×3 (08:54→17:23)
[2023-07-12] MEDS: diazePAM 5 MG TAB GT SCH (08:55)
[2023-07-12] MEDS: levETIRAcetam 100 MG/ML ORASYR GT SCH (08:55)
[2023-07-12] MEDS: LACOSAMIDE 10 MG/ML GT SCH (08:57)
[2023-07-12] MEDS: CALCIUM CARB/VIT-D 500 MG/200 IU 1 TAB PO SCH ×3 (08:58→17:23)
[2023-07-12] MEDS: DORZOLAMIDE 2% OP 10 ML BTL OP SCH (08:58)
[2023-07-12] MEDS: MULTIVIT/MIN/CA/FE/FA 1 TAB PO SCH (08:58)
[2023-07-12] MEDS ORDERED: NON-FORMULARY ITEM (Lactulose 30 ML) GT SCH (09:00)
[2023-07-12] MEDS ORDERED: CARBAMIDE PEROXIDE 6.5% OT 15 ML BTL OT SCH ×2 (09:00)
[2023-07-12] MEDS ORDERED: TIMOLOL OP 0.5% 5 ML BTL RIGHT EYE SCH (09:00)
[2023-07-12] MEDS ORDERED: NON-FORMULARY ITEM (Dorzolamide HCl/Timolol Maleat (Dorzolamide-Timolol Eye Drops) 1 DROP) RIGHT EYE SCH (09:00)
[2023-07-12] MEDS: FUROSEMIDE 20 MG/2 ML VIAL IVP SCH (09:00)
[2023-07-12] MEDS ORDERED: SENNA 8.6 MG TAB GT SCH (21:00)
[2023-07-12] MEDS ORDERED: LATANOPROST 0.005% OP 2.5 ML BTL RIGHT EYE SCH (21:00)
[2023-07-12] MEDS ORDERED: TRAVOPROST RIGHT EYE SCH (21:00)
[2023-07-12] MEDS ORDERED: LATANOPROST 0.005% OP 2.5 ML BTL OP SCH (21:00)
== END 2023-07-12 18:40 | disposition home or self-care (01) | DRG 139 ==
LOC: MED 22:22 → MTU 07-08 06:02
PROVIDERS: ADMIT Student in an Organized Health Care Education/Training Program; ATTEND Student in an Organized Health Care Education/Training Program
PROC: 5A0935A Assistance with Respiratory Ventilation, Less than 24 Consecutive Hours, High Flow/Velocity Cannula (ICD-10-PCS; principal; 2023-07-07)
PROC: 5A0935A Assistance with Respiratory Ventilation, Less than 24 Consecutive Hours, High Flow/Velocity Cannula (ICD-10-PCS; 2023-07-08)
PROC: 05HY33Z Insertion of Infusion Device into Upper Vein, Percutaneous Approach (ICD-10-PCS; 2023-07-11)
PROC: B54MZZA Ultrasonography of Right Upper Extremity Veins, Guidance (ICD-10-PCS; 2023-07-11)
DX: J18.9 Pneumonia, unspecified organism (principal); J96.21 Acute and chronic respiratory failure with hypoxia; G93.41 Metabolic encephalopathy; E44.0 Moderate protein-calorie malnutrition; E87.3 Alkalosis; I50.9 Heart failure, unspecified; E88.09 Other disorders of plasma-protein metabolism, not elsewhere classified; J96.22 Acute and chronic respiratory failure with hypercapnia; Z20.822 Contact with and (suspected) exposure to COVID-19; K21.9 Gastro-esophageal reflux disease without esophagitis; J44.9 Chronic obstructive pulmonary disease, unspecified; E66.01 Morbid (severe) obesity due to excess calories; G40.909 Epilepsy, unspecified, not intractable, without status epilepticus; D64.9 Anemia, unspecified; R73.9 Hyperglycemia, unspecified; R13.10 Dysphagia, unspecified; I51.7 Cardiomegaly; Z68.28 Body mass index [BMI] 28.0-28.9, adult; Z93.1 Gastrostomy status
CPT/HCPCS: 36415; 36600; 71045; 71275; 80048; 80053; 81001; 82803; 83605; 83735; 83880; 84100; 84484; 85025; 85379; 85651; 86140; 87040; 87070; 87081; 87086; 87205; 93005; 94640; 96365; 96375; 99291; J0456; J1120; J1940; J2060; J2543; J7060; J7613; J7644; Q9967

== ENCOUNTER 2023-09-11 16:50 | Inpatient (IN) | payer MEDICAID, OTHER ==
[~2023-09-11] VITALS: Ht 165.1 cm; Wt 85.7 kg
[2023-09-11] MEDS: ETOMIDATE 20 MG/10 ML VIAL IVP ONE (17:10)
[2023-09-11] MEDS: ROCURONIUM 50 MG/5 ML VIAL IV ONE (17:13)
[2023-09-11 17:15] VITALS: PULSE 102; O2SAT 96
[2023-09-11] MEDS: NACL 0.9% 1,000 ML IV ONE (17:16)
[2023-09-11 17:20] VITALS: BP 92/66; PULSE 122; RESP 24; TEMP 99; O2SAT 92
[2023-09-11] MEDS ORDERED: INTUBATION KIT MC ONE (17:20)
[2023-09-11] MEDS ORDERED: PROPOFOL 200 MG/20 ML VIAL IV ONE (18:15)
[2023-09-11 18:36] VITALS: PULSE 110; RESP 16; O2SAT 91; O2SAT 92
[2023-09-11 18:43] LABS: BASOPHILS # (AUTO) 0.1 K/uL (0.00-0.22); BASOPHILS % (AUTO) 0.6 % (0.0-2.0); EOSINOPHILS % (AUTO) 0.1 % (0.0-4.0); HEMATOCRIT 43.7 % (36-52); HEMOGLOBIN 14.4 g/dL (12.0-18.0); LYMPHOCYTES % (AUTO) 14.2 % (20.5-51.1); MEAN CORPUSCULAR HEMOGLOBIN 29 pg (27-31); MEAN CORPUSCULAR HGB CONC 33 g/dL (33-37); MEAN CORPUSCULAR VOLUME 88.3 fL (80-94); MONOCYTES # (AUTO) 1.4 K/uL (0.8-1.0); MONOCYTES % (AUTO) 9.8 % (1.7-9.3); NEUTROPHILS # (AUTO) 10.5 K/uL (1.8-7.7); NEUTROPHILS % (AUTO) 75.3 % (42.2-75.2); PLATELET COUNT (AUTO) 188 K/uL (140-450); RED BLOOD CELL COUNT(AUTO) 4.95 MIL/uL (4.20-6.10); RED CELL DISTRIBUTION WIDTH 18.1 % (11.6-13.7)
[2023-09-11] MEDS ORDERED: PIPERACILLIN/TAZOBACTAM 3.375 GM VIAL IV ONE (18:49)
[2023-09-11 19:02] VITALS: PULSE 103; O2SAT 97
[2023-09-11 19:05] LABS: ALANINE AMINOTRANSFERASE 36 U/L (12-78); ALBUMIN 2.7 g/dL (3.4-5.0); ALKALINE PHOSPHATASE 78 U/L (50-136); ASPARTATE AMINOTRANSFERASE 74 U/L (15-37); BILIRUBIN,DIRECT 0.1 mg/dL (0.0-0.3); CREATINE KINASE, TOTAL 125 U/L (39-308); TOTAL BILIRUBIN 0.9 mg/dL (0.0-1.0); TOTAL PROTEIN, SERUM 8.5 g/dL (6.4-8.2)
[2023-09-11] MEDS: ALBUTEROL 0.083% 2.5 MG/3 ML NEBU INH ONE (19:05)
[2023-09-11 19:06] LABS: PARTIAL THROMBOPLASTIN TIME 23.9 secs (22-35.6); PROTHROMBIN TIME 10.5 secs (10.8-13.4)
[2023-09-11] MEDS: PROPOFOL 1000 MG/100 ML PREMIX 100 ML IV ONE (19:06)
[2023-09-11 19:11] LABS: ANION GAP 4.8 (8-16); CALCIUM 9.4 mg/dL (8.5-10.1); CREATININE 0.7 mg/dL (0.6-1.3); POTASSIUM 3.1 mmol/L (3.5-5.1)
[2023-09-11] MEDS: levETIRAcetam 1,500 MG in NACL 0.9% 100 ML IV ONE (19:13)
[2023-09-11 19:15] LABS: CARBON DIOXIDE 42.3 mmol/L (21-32)
[2023-09-11 19:23] LABS: LACTIC ACID 2.6 mmol/L (0.4-2.0)
[2023-09-11 19:33] LABS: BLOOD GAS HCO3 37.3 mmol/L (22-26); BLOOD GAS PCO2 59.8 mmHg (35-45); BLOOD GAS PH 7.413 (7.35-7.45)
[2023-09-11] MEDS: PIPERACILLIN/TAZOBACTAM 3.375 GM in DEXTROSE 5% 50 ML IV ONE (19:59)
[2023-09-11] MEDS ORDERED: fentaNYL citrate 0.05 MG/ML VIAL IVP PRN (21:15)
[2023-09-11] MEDS ORDERED: VANCOMYCIN PER PHARMACY MC PRN (21:15)
[2023-09-11] MEDS: MIDAZOLAM MDV 50 MG/10 ML VIAL IV ONE (22:03)
[2023-09-11] MEDS: MIDAZOLAM MDV 50 MG in NACL 0.9% 40 ML IV PRN (22:13)
[2023-09-11] MEDS: DEXT 5% / NACL 0.9% 500 ML IV ONE (22:20)
[2023-09-11 22:55] LABS: APPEARANCE,URINE CLEAR (CLEAR); BILIRUBIN,URINE NEGATIVE (NEGATIVE); BLOOD, URINE NEGATIVE (NEGATIVE); COLOR,URINE YELLOW (YELLOW); LEUKOCYTE ESTERASE ,URINE NEGATIVE (NEGATIVE); NITRITE, URINE POSITIVE (NEGATIVE); PH,URINE 8.5 (5.0-9.0); PROTEIN,URINE TRACE (NEGATIVE); UGLUCOSE NEGATIVE (NEGATIVE)
[2023-09-11 23:05] VITALS: PULSE 100; O2SAT 95
[2023-09-11 23:22] LABS: BACTERIA,URINE >30 (MANY) /HPF (None Seen); MUCUS,URINE 1+ /LPF (None Seen); SQUAMOUS EPITHELIAL CELL,UR 0-3 (FEW) /LPF (0-3 (FEW)); WBC,URINE 0-5 /HPF (0-5)
[2023-09-12] VITALS (35 sets, daily range): BP systolic 92–128; BP diastolic 51–67; PULSE 91–112; RESP 14–27; TEMP 98.2–99.2; O2SAT 92–98
[2023-09-12] MEDS ORDERED: VANCOMYCIN 1,000 MG VIAL ONE (00:35)
[2023-09-12] MEDS ORDERED: VANCOMYCIN 500 MG VIAL ONE (00:35)
[2023-09-12] MEDS: VANCOMYCIN 1,500 MG in DEXTROSE 5% 500 ML IV SCH (00:53)
[2023-09-12] MEDS: ALBUTEROL SULFATE/IPRATROPIU 3 ML SOL IH PRN (01:17)
[2023-09-12] MEDS: KCL 20 MEQ IN 100 mL PREMIX 200 ML IV ONE (03:16)
[2023-09-12] MEDS: PIPERACILLIN/TAZOBACTAM 3.375 GM in DEXTROSE 5% 50 ML IV SCH ×2 (03:40→13:12)
[2023-09-12] MEDS: PIPERACILLIN/TAZOBACTAM 3.375 GM VIAL IV ONE (03:43)
[2023-09-12] MEDS: VANCOMYCIN 1,000 MG in DEXTROSE 5% 250 ML IV SCH (08:45)
[2023-09-12] MEDS: NACL 0.9% 1,000 ML IV SCH (16:18)
[2023-09-12] MEDS: MIDAZOLAM MDV 50 MG in NACL 0.9% 40 ML IV PRN (16:57)
[2023-09-13] VITALS (29 sets, daily range): BP systolic 94–117; BP diastolic 47–99; PULSE 70–99; RESP 18–25; TEMP 97.9–99.1; O2SAT 92–100
[2023-09-13 08:08] LABS: BASOPHILS # (AUTO) 0.1 K/uL (0.00-0.22); BASOPHILS % (AUTO) 0.5 % (0.0-2.0); EOSINOPHILS # (AUTO) 0.1 K/uL (0-0.4); EOSINOPHILS % (AUTO) 0.9 % (0.0-4.0); HEMATOCRIT 39.5 % (36-52); HEMOGLOBIN 13.2 g/dL (12.0-18.0); LYMPHOCYTES # (AUTO) 1.7 K/uL (2.0-11.5); LYMPHOCYTES % (AUTO) 13.7 % (20.5-51.1); MEAN CORPUSCULAR HEMOGLOBIN 29 pg (27-31); MEAN CORPUSCULAR HGB CONC 33 g/dL (33-37); MEAN CORPUSCULAR VOLUME 86.5 fL (80-94); MONOCYTES # (AUTO) 1.5 K/uL (0.8-1.0); MONOCYTES % (AUTO) 11.8 % (1.7-9.3); NEUTROPHILS % (AUTO) 73.1 % (42.2-75.2); PLATELET COUNT (AUTO) 164 K/uL (140-450); RED BLOOD CELL COUNT(AUTO) 4.57 MIL/uL (4.20-6.10); RED CELL DISTRIBUTION WIDTH 18.1 % (11.6-13.7); WHITE BLOOD COUNT (AUTO) 12.3 K/uL (4.8-10.8)
[2023-09-13 09:00] LABS: ANION GAP 12.5 (8-16); CALCIUM 9.3 mg/dL (8.5-10.1); CARBON DIOXIDE 31.2 mmol/L (21-32); CREATININE 0.6 mg/dL (0.6-1.3)
[2023-09-13 09:11] LABS: POTASSIUM 2.7 mmol/L (3.5-5.1)
[2023-09-13] MEDS: KCL 20 MEQ IN 100 mL PREMIX 200 ML IV SCH ×2 (09:57→15:20)
[2023-09-13] MEDS ORDERED: FOAM DRESSING TP PRN (11:30)
[2023-09-13] MEDS: FOAM DRESSING TP SCH (13:00)
[2023-09-13] MEDS: levETIRAcetam 100 MG/ML ORASYR GT SCH (13:56)
[2023-09-13] MEDS: VALPROIC ACID 250 MG/5 ML UDC PO SCH (13:56)
[2023-09-13] MEDS: diazePAM 5 MG TAB PO SCH (13:57)
[2023-09-13] MEDS ORDERED: ONDANSETRON 4 MG/5 ML ORASYR GT PRN (16:45)
[2023-09-13] MEDS ORDERED: bisacodyL 10 MG SUPP RC PRN (16:45)
[2023-09-13] MEDS ORDERED: ACETAMINOPHEN 325 MG SUPP RC PRN (16:45)
[2023-09-13] MEDS ORDERED: guaiFENesin DM SUGAR FREE 100 MG/5 ML UDBTL PO PRN (16:45)
[2023-09-13] MEDS ORDERED: guaiFENesin DM 200/20 MG-10 ML 10 ML UDC PO PRN ×2 (17:35)
[2023-09-13] MEDS: DOXAZOSIN 2 MG TAB GT SCH (18:49)
[2023-09-13] MEDS: CALCIUM CARB/VIT-D 500 MG/200 IU 1 TAB PO SCH (20:13)
[2023-09-13] MEDS: traZODone 50 MG TAB PO SCH (20:14)
[2023-09-13] MEDS: LACTULOSE 20 GM/30 ML UDC PO SCH (20:15)
[2023-09-13] MEDS: MIDODRINE 5 MG TAB PO SCH (20:15)
[2023-09-13] MEDS: SENNA 8.6 MG TAB GT SCH (20:15)
[2023-09-13] MEDS: BACLOFEN 10 MG TAB PO SCH (20:18)
[2023-09-13] MEDS: DORZOLAMIDE 2% OP 10 ML BTL OP SCH (20:42)
[2023-09-14] VITALS (31 sets, daily range): BP systolic 92–149; BP diastolic 52–81; PULSE 62–81; RESP 18–23; TEMP 96.6–97.5; O2SAT 94–98
[2023-09-14 05:56] LABS: BASOPHILS % (AUTO) 0.2 % (0.0-2.0); EOSINOPHILS # (AUTO) 0.3 K/uL (0-0.4); EOSINOPHILS % (AUTO) 2.6 % (0.0-4.0); HEMATOCRIT 36.4 % (36-52); HEMOGLOBIN 11.9 g/dL (12.0-18.0); LYMPHOCYTES % (AUTO) 17.3 % (20.5-51.1); MEAN CORPUSCULAR HEMOGLOBIN 29 pg (27-31); MEAN CORPUSCULAR HGB CONC 33 g/dL (33-37); MEAN CORPUSCULAR VOLUME 88.4 fL (80-94); MONOCYTES # (AUTO) 1.3 K/uL (0.8-1.0); MONOCYTES % (AUTO) 10.8 % (1.7-9.3); NEUTROPHILS # (AUTO) 8.1 K/uL (1.8-7.7); NEUTROPHILS % (AUTO) 69.1 % (42.2-75.2); PLATELET COUNT (AUTO) 131 K/uL (140-450); RED BLOOD CELL COUNT(AUTO) 4.12 MIL/uL (4.20-6.10); RED CELL DISTRIBUTION WIDTH 18.4 % (11.6-13.7); WHITE BLOOD COUNT (AUTO) 11.7 K/uL (4.8-10.8)
[2023-09-14 06:20] LABS: ANION GAP 11.5 (8-16); CALCIUM 8.6 mg/dL (8.5-10.1); CARBON DIOXIDE 28.8 mmol/L (21-32); CREATININE 0.6 mg/dL (0.6-1.3); POTASSIUM 3.3 mmol/L (3.5-5.1)
[2023-09-14] MEDS: GLYCOPYRROLATE 1 MG TAB PO SCH (06:30)
[2023-09-14] MEDS: MULTIVITAMIN/MINERALS 1 TAB GT SCH (06:30)
[2023-09-14] MEDS: FUROSEMIDE 40 MG TAB PO SCH (06:31)
[2023-09-14] MEDS ORDERED: CANNABIDIOL GT/PO SCH (09:00)
[2023-09-14] MEDS ORDERED: VIMPAT 200 MG GT/PO SCH (09:00)
[2023-09-14] MEDS ORDERED: EPIDIOLEX GT SCH (09:00)
[2023-09-14] MEDS: LACOSAMIDE 10 MG/ML GT SCH (09:48)
[2023-09-14] MEDS: VANCOMYCIN 1.25GM PREMIX 250 ML IV SCH (11:34)
[2023-09-14] MEDS: EPIDIOLEX GT SCH (19:15)
[2023-09-14] MEDS: POTASSIUM CHLORIDE 20% 40 MEQ/15 ML UDC ONE (21:10)
[2023-09-14] MEDS: POTASSIUM CHLORIDE 20% 40 MEQ/15 ML UDC GT ONE (21:10)
[2023-09-15] VITALS (32 sets, daily range): BP systolic 88–114; BP diastolic 49–76; PULSE 54–95; RESP 18–22; TEMP 97–98.5; O2SAT 93–97
[2023-09-15 05:26] LABS: BASOPHILS % (AUTO) 0.2 % (0.0-2.0); EOSINOPHILS # (AUTO) 0.3 K/uL (0-0.4); EOSINOPHILS % (AUTO) 2.7 % (0.0-4.0); HEMATOCRIT 35.1 % (36-52); HEMOGLOBIN 11.5 g/dL (12.0-18.0); LYMPHOCYTES # (AUTO) 2.2 K/uL (2.0-11.5); MEAN CORPUSCULAR HEMOGLOBIN 29 pg (27-31); MEAN CORPUSCULAR HGB CONC 33 g/dL (33-37); MEAN CORPUSCULAR VOLUME 89.4 fL (80-94); MONOCYTES # (AUTO) 1.3 K/uL (0.8-1.0); MONOCYTES % (AUTO) 10.9 % (1.7-9.3); NEUTROPHILS # (AUTO) 7.8 K/uL (1.8-7.7); NEUTROPHILS % (AUTO) 67.2 % (42.2-75.2); PLATELET COUNT (AUTO) 130 K/uL (140-450); RED BLOOD CELL COUNT(AUTO) 3.93 MIL/uL (4.20-6.10); RED CELL DISTRIBUTION WIDTH 18.5 % (11.6-13.7); WHITE BLOOD COUNT (AUTO) 11.6 K/uL (4.8-10.8)
[2023-09-15 06:27] LABS: ANION GAP 14.5 (8-16); CALCIUM 8.8 mg/dL (8.5-10.1); CARBON DIOXIDE 24.3 mmol/L (21-32); CREATININE 0.6 mg/dL (0.6-1.3); POTASSIUM 3.8 mmol/L (3.5-5.1)
[2023-09-16] VITALS (34 sets, daily range): BP systolic 87–125; BP diastolic 46–73; PULSE 55–99; RESP 12–23; TEMP 97.4–98.7; O2SAT 94–97
[2023-09-17] VITALS (26 sets, daily range): BP systolic 90–143; BP diastolic 50–86; PULSE 53–83; RESP 18–22; TEMP 96.9–98; O2SAT 92–100
[2023-09-17 06:50] LABS: CALCIUM 9.4 mg/dL (8.5-10.1); CARBON DIOXIDE 26.4 mmol/L (21-32); CREATININE 0.6 mg/dL (0.6-1.3); POTASSIUM 3.4 mmol/L (3.5-5.1)
[2023-09-17 08:24] LABS: BASOPHILS % (AUTO) 0.4 % (0.0-2.0); EOSINOPHILS # (AUTO) 0.1 K/uL (0-0.4); EOSINOPHILS % (AUTO) 1.4 % (0.0-4.0); HEMATOCRIT 35.4 % (36-52); HEMOGLOBIN 11.6 g/dL (12.0-18.0); LYMPHOCYTES # (AUTO) 1.9 K/uL (2.0-11.5); LYMPHOCYTES % (AUTO) 20.4 % (20.5-51.1); MEAN CORPUSCULAR HEMOGLOBIN 29 pg (27-31); MEAN CORPUSCULAR HGB CONC 33 g/dL (33-37); MEAN CORPUSCULAR VOLUME 89.3 fL (80-94); MONOCYTES % (AUTO) 10.7 % (1.7-9.3); NEUTROPHILS # (AUTO) 6.4 K/uL (1.8-7.7); NEUTROPHILS % (AUTO) 67.1 % (42.2-75.2); PLATELET COUNT (AUTO) 110 K/uL (140-450); RED BLOOD CELL COUNT(AUTO) 3.97 MIL/uL (4.20-6.10); RED CELL DISTRIBUTION WIDTH 17.9 % (11.6-13.7); WHITE BLOOD COUNT (AUTO) 9.5 K/uL (4.8-10.8)
[2023-09-17] MEDS ORDERED: VANCOMYCIN PER PHARMACY MC PRN (08:40)
[2023-09-17] MEDS: KCL 20 MEQ IN 100 mL PREMIX 200 ML IV SCH (10:15)
[2023-09-18] VITALS (23 sets, daily range): BP systolic 91–111; BP diastolic 44–69; PULSE 52–87; RESP 16–20; TEMP 96.8–98.1; O2SAT 93–100
[2023-09-18 06:13] LABS: BASOPHILS % (AUTO) 0.4 % (0.0-2.0); EOSINOPHILS # (AUTO) 0.2 K/uL (0-0.4); EOSINOPHILS % (AUTO) 2.2 % (0.0-4.0); HEMATOCRIT 35.3 % (36-52); HEMOGLOBIN 11.5 g/dL (12.0-18.0); LYMPHOCYTES # (AUTO) 2.1 K/uL (2.0-11.5); LYMPHOCYTES % (AUTO) 26.9 % (20.5-51.1); MEAN CORPUSCULAR HEMOGLOBIN 29 pg (27-31); MEAN CORPUSCULAR HGB CONC 33 g/dL (33-37); MEAN CORPUSCULAR VOLUME 89.7 fL (80-94); MONOCYTES # (AUTO) 0.8 K/uL (0.8-1.0); MONOCYTES % (AUTO) 10.3 % (1.7-9.3); NEUTROPHILS # (AUTO) 4.7 K/uL (1.8-7.7); NEUTROPHILS % (AUTO) 60.2 % (42.2-75.2); PLATELET COUNT (AUTO) 126 K/uL (140-450); RED BLOOD CELL COUNT(AUTO) 3.93 MIL/uL (4.20-6.10); RED CELL DISTRIBUTION WIDTH 18.1 % (11.6-13.7); WHITE BLOOD COUNT (AUTO) 7.8 K/uL (4.8-10.8)
[2023-09-18 06:23] LABS: ANION GAP 12.5 (8-16); CALCIUM 9.2 mg/dL (8.5-10.1); CARBON DIOXIDE 26.8 mmol/L (21-32); CREATININE 0.6 mg/dL (0.6-1.3); POTASSIUM 4.3 mmol/L (3.5-5.1)
[2023-09-18] MEDS: METOCLOPRAMIDE 10 MG/2 ML INJ VIAL IVP SCH (11:13)
[2023-09-19] VITALS (30 sets, daily range): BP systolic 90–160; BP diastolic 46–101; PULSE 63–99; RESP 16–26; TEMP 97–98.2; O2SAT 93–100
[2023-09-19] MEDS: LORazepam 2 MG/ML VIAL IVP PRN (05:04)
[2023-09-19 06:57] LABS: ANION GAP 11.4 (8-16); BASOPHILS % (AUTO) 0.3 % (0.0-2.0); CALCIUM 8.8 mg/dL (8.5-10.1); CARBON DIOXIDE 29.4 mmol/L (21-32); CREATININE 0.6 mg/dL (0.6-1.3); EOSINOPHILS # (AUTO) 0.2 K/uL (0-0.4); EOSINOPHILS % (AUTO) 2.3 % (0.0-4.0); HEMATOCRIT 35.4 % (36-52); HEMOGLOBIN 11.5 g/dL (12.0-18.0); LYMPHOCYTES # (AUTO) 1.6 K/uL (2.0-11.5); LYMPHOCYTES % (AUTO) 22.9 % (20.5-51.1); MEAN CORPUSCULAR HEMOGLOBIN 29 pg (27-31); MEAN CORPUSCULAR HGB CONC 32 g/dL (33-37); MEAN CORPUSCULAR VOLUME 89.5 fL (80-94); MONOCYTES # (AUTO) 0.6 K/uL (0.8-1.0); MONOCYTES % (AUTO) 9.2 % (1.7-9.3); NEUTROPHILS # (AUTO) 4.6 K/uL (1.8-7.7); NEUTROPHILS % (AUTO) 65.3 % (42.2-75.2); PLATELET COUNT (AUTO) 140 K/uL (140-450); POTASSIUM 3.8 mmol/L (3.5-5.1); RED BLOOD CELL COUNT(AUTO) 3.96 MIL/uL (4.20-6.10); RED CELL DISTRIBUTION WIDTH 17.4 % (11.6-13.7)
[2023-09-20] VITALS (33 sets, daily range): BP systolic 99–123; BP diastolic 56–74; PULSE 54–100; RESP 16–25; TEMP 97.1–98; O2SAT 93–98
[2023-09-20] MEDS: MEROPENEM 1,000 MG in NACL 0.9% 50 ML IV SCH (13:05)
[2023-09-21] VITALS (37 sets, daily range): BP systolic 88–134; BP diastolic 47–94; PULSE 48–71; RESP 16–18; TEMP 97.1–98.5; O2SAT 94–99
[2023-09-21 04:52] LABS: BASOPHILS % (AUTO) 0.4 % (0.0-2.0); EOSINOPHILS # (AUTO) 0.1 K/uL (0-0.4); EOSINOPHILS % (AUTO) 1.9 % (0.0-4.0); HEMATOCRIT 37.7 % (36-52); HEMOGLOBIN 12.5 g/dL (12.0-18.0); LYMPHOCYTES # (AUTO) 1.8 K/uL (2.0-11.5); LYMPHOCYTES % (AUTO) 23.9 % (20.5-51.1); MEAN CORPUSCULAR HEMOGLOBIN 29 pg (27-31); MEAN CORPUSCULAR HGB CONC 33 g/dL (33-37); MEAN CORPUSCULAR VOLUME 88.4 fL (80-94); MONOCYTES # (AUTO) 0.8 K/uL (0.8-1.0); MONOCYTES % (AUTO) 10.5 % (1.7-9.3); NEUTROPHILS # (AUTO) 4.8 K/uL (1.8-7.7); NEUTROPHILS % (AUTO) 63.3 % (42.2-75.2); PLATELET COUNT (AUTO) 159 K/uL (140-450); RED BLOOD CELL COUNT(AUTO) 4.26 MIL/uL (4.20-6.10); RED CELL DISTRIBUTION WIDTH 17.3 % (11.6-13.7); WHITE BLOOD COUNT (AUTO) 7.5 K/uL (4.8-10.8)
[2023-09-21 05:05] LABS: INR 0.96 (0.8-1.2); PROTHROMBIN TIME 10.1 secs (10.8-13.4)
[2023-09-21 05:51] LABS: ANION GAP 9.4 (8-16); CALCIUM 9.5 mg/dL (8.5-10.1); CARBON DIOXIDE 31.6 mmol/L (21-32); CREATININE 0.6 mg/dL (0.6-1.3)
[2023-09-21] MEDS ORDERED: NACL 0.9% 500 ML IV SCH ×2 (13:15→13:35)
[2023-09-21] MEDS ORDERED: SEVOFLURANE 250 ML BTL INH ONE (15:00)
[2023-09-21] MEDS: LIDOCAINE 1% 500 MG/50 ML VIAL ONE (15:26)
[2023-09-21] MEDS: LIDOCAINE/EPI 1% 1:100000 20 ML VIAL INJ ONE (17:39)
[2023-09-21] MEDS: ePHEDrine 50 MG/ML VIAL ONE (17:41)
[2023-09-21] MEDS: BUPIVACAINE-MPF 0.25% 30 ML VIAL INJ ONE (17:41)
[2023-09-21] MEDS: ROCURONIUM 50 MG/5 ML VIAL IV ONE (17:42)
[2023-09-21] MEDS ORDERED: ACETAMINOPHEN 650 MG/20.3 ML UDC GT PRN (18:35)
[2023-09-22] VITALS (29 sets, daily range): BP systolic 95–126; BP diastolic 58–84; PULSE 62–89; RESP 16–19; TEMP 97.1–98.9; O2SAT 94–98
[2023-09-22 05:45] LABS: BASOPHILS % (AUTO) 0.3 % (0.0-2.0); EOSINOPHILS # (AUTO) 0.1 K/uL (0-0.4); EOSINOPHILS % (AUTO) 1.2 % (0.0-4.0); HEMATOCRIT 35.1 % (36-52); HEMOGLOBIN 11.7 g/dL (12.0-18.0); LYMPHOCYTES # (AUTO) 1.3 K/uL (2.0-11.5); LYMPHOCYTES % (AUTO) 19.2 % (20.5-51.1); MEAN CORPUSCULAR HEMOGLOBIN 30 pg (27-31); MEAN CORPUSCULAR HGB CONC 34 g/dL (33-37); MEAN CORPUSCULAR VOLUME 88.1 fL (80-94); MONOCYTES # (AUTO) 0.6 K/uL (0.8-1.0); MONOCYTES % (AUTO) 8.6 % (1.7-9.3); NEUTROPHILS # (AUTO) 4.7 K/uL (1.8-7.7); NEUTROPHILS % (AUTO) 70.7 % (42.2-75.2); PLATELET COUNT (AUTO) 192 K/uL (140-450); RED BLOOD CELL COUNT(AUTO) 3.98 MIL/uL (4.20-6.10); RED CELL DISTRIBUTION WIDTH 17.2 % (11.6-13.7); WHITE BLOOD COUNT (AUTO) 6.6 K/uL (4.8-10.8)
[2023-09-22 05:46] LABS: ANION GAP 8.7 (8-16); CALCIUM 8.8 mg/dL (8.5-10.1); CREATININE 0.5 mg/dL (0.6-1.3); POTASSIUM 3.7 mmol/L (3.5-5.1)
[2023-09-22] MEDS: VANCOMYCIN 1.25GM PREMIX 250 ML IV SCH (10:13)
[2023-09-23] VITALS (31 sets, daily range): BP systolic 91–119; BP diastolic 52–89; PULSE 60–85; RESP 13–20; TEMP 97.5–98.5; O2SAT 94–100
[2023-09-23 06:21] LABS: ANION GAP 13.5 (8-16); CARBON DIOXIDE 28.2 mmol/L (21-32); CREATININE 0.5 mg/dL (0.6-1.3); POTASSIUM 3.7 mmol/L (3.5-5.1)
[2023-09-24] VITALS (26 sets, daily range): BP systolic 92–128; BP diastolic 41–71; PULSE 50–81; RESP 16; TEMP 97.5–97.8; O2SAT 95–100
[2023-09-24 06:38] LABS: ANION GAP 12.9 (8-16); CALCIUM 9.2 mg/dL (8.5-10.1); CREATININE 0.5 mg/dL (0.6-1.3); POTASSIUM 3.9 mmol/L (3.5-5.1)
[2023-09-24] MEDS ORDERED: VANCOMYCIN 1.25GM PREMIX 250 ML IV SCH ×2 (11:00)
[2023-09-24] MEDS: VANCOMYCIN 1.25GM PREMIX 250 ML IV SCH (12:10)
[2023-09-24] MEDS: VANCOMYCIN 500 MG VIAL ONE (22:54)
[2023-09-24] MEDS: VANCOMYCIN 1,000 MG VIAL ONE (22:55)
[2023-09-25] VITALS (14 sets, daily range): BP systolic 98–127; BP diastolic 49–73; PULSE 51–84; RESP 16–20; TEMP 96.6–97.6; O2SAT 95–98
[2023-09-25 05:45] LABS: ANION GAP 8.6 (8-16); CALCIUM 9.4 mg/dL (8.5-10.1); CREATININE 0.5 mg/dL (0.6-1.3); POTASSIUM 3.6 mmol/L (3.5-5.1)
[2023-09-26] VITALS (15 sets, daily range): BP systolic 92–124; BP diastolic 49–67; PULSE 53–81; RESP 16–20; TEMP 96.4–97.3; O2SAT 93–97
[2023-09-26 05:52] LABS: ANION GAP 11.9 (8-16); CALCIUM 9.3 mg/dL (8.5-10.1); CARBON DIOXIDE 28.1 mmol/L (21-32); CREATININE 0.5 mg/dL (0.6-1.3)
== END 2023-09-26 20:28 | DRG 5 ==
LOC: MED 16:50 → MIC 21:33 → MTU 09-24 19:02
PROVIDERS: ADMIT Hospitalist; ATTEND Hospitalist
PROC: 5A1955Z Respiratory Ventilation, Greater than 96 Consecutive Hours (ICD-10-PCS; 2023-09-11)
PROC: 05HY33Z Insertion of Infusion Device into Upper Vein, Percutaneous Approach (ICD-10-PCS; 2023-09-11)
PROC: B54MZZA Ultrasonography of Right Upper Extremity Veins, Guidance (ICD-10-PCS; 2023-09-11)
PROC: 0B110F4 Bypass Trachea to Cutaneous with Tracheostomy Device, Open Approach (ICD-10-PCS; principal; 2023-09-21 12:00)
DX: A41.9 Sepsis, unspecified organism (principal); J69.0 Pneumonitis due to inhalation of food and vomit; J96.21 Acute and chronic respiratory failure with hypoxia; G40.901 Epilepsy, unspecified, not intractable, with status epilepticus; E44.0 Moderate protein-calorie malnutrition; G80.9 Cerebral palsy, unspecified; J96.22 Acute and chronic respiratory failure with hypercapnia; Z93.1 Gastrostomy status; Z79.899 Other long term (current) drug therapy; Z68.31 Body mass index [BMI] 31.0-31.9, adult
CPT/HCPCS: 31500; 36415; 36600; 36680; 70450; 71045; 80048; 80076; 80202; 81001; 82550; 82803; 83605; 83880; 84484; 85025; 85610; 85730; 87040; 87070; 87081; 87086; 87205; 93005; 94002; 94003; 94640; 96374; 96375; 99291; J1953; J2001; J2060; J2185; J2250; J2543; J2704; J2765; J3370; J3372; J3480; J3490; J7030; J7060